=== PATIENT | male | born 1945 | race Caucasian/White ===

== ENCOUNTER 2018-04-25 03:18 | Inpatient (IN) | payer MEDICARE, SELFPAY ==
[2018-04-25] VITALS (10 sets, daily range): BP systolic 107–146; BP diastolic 60–95; PULSE 76–130; RESP 18–22; TEMP 36.4–37.1; O2SAT 93–96; BMI 24.3
[2018-04-25] MEDS: SODIUM CHLORIDE 0.9% 1,000 ML 150 ML IV ×2 (03:25→19:22)
--- NOTE | 2018-04-25 03:25 | DI.CT.S_ITS ---
PROCEDURE: CT ANGIO CHEST PE PROTOCOL INDICATIONS: Chest pain, Shortness of breath, tachycardia, hypoxia TECHNIQUE: After the administration of intravenous contrast, 2 mm thick sections acquired from the pulmonary apices to the posterior costophrenic angles. 3-dimensional maximum intensity projection (MIP) coronal and sagittal reformats were then acquired through the thorax. For radiation dose reduction, the following was used: automated exposure control, adjustment of mA and/or kV according to patient size. COMPARISON: [facility], CT, CT ABD PELVIS W CON, 01/24/2017, 12:01. [facility], CR, CHEST 2 VIEW, 04/16/2017, 11:57. [facility], CT, PE STUDY (CTA CHEST), 05/08/2017, 10:38. FINDINGS: Image quality: Excellent. Pulmonary arteries: Pulmonary arteries are normal in size, and demonstrate no intraluminal filling defects to suggest central pulmonary embolism. Lungs and pleura: Lungs are clear. No pleural effusions or pneumothorax. Central and peripheral airways are patent. Mediastinum: Heart size is normal, without pericardial effusion. No mediastinal or hilar adenopathy. Thoracic aorta is normal in caliber and enhancement. Esophagus is diffusely thickening and fluid filled in the distal portion. Bones and chest wall: No suspicious bony lesions. Ribs and thoracic spine appear intact throughout. Thyroid gland is unremarkable. No axillary or supraclavicular adenopathy. Abdomen: Relative hyperdensity is noted the gallbladder, unchanged. This likely represents small stone or polyp. Otherwise, visualized upper abdominal solid organs appear normal in the early arterial phase of enhancement. IMPRESSION: 1. No pulmonary embolism. 2. Thickened, fluid filled esophagus. While this could be related to reflux or esophagitis, other etiologies such as underlying mass lesion cannot be excluded. Further evaluation with endoscopy is recommended. Dictated by: Guillermina Dbobins M.D. on 04/25/2018 at 8:04 Approved by: Guillermina Dobbins M.D. on 04/25/2018 at 8:11
[2018-04-25 03:50] LABS: Add Manual Diff / Slide Review NO; Basophils Percent Auto 0.9 % (0-2); Eosinophils Percent Auto 0.7 % (2-4); Hematocrit 46.2 % (41-53); Hemoglobin 14.3 g/dL (13.5-17.5); Lymphocytes Percent Auto 9.7 % (25-40); Mean Corpuscular HGB Conc 30.9 % (30-36); Mean Corpuscular Hemoglobin 23.5 PG (26-34); Mean Corpuscular Volume 76.2 fL (80-100); Monocytes Percent Auto 4.2 % (3-14); Neutrophils Absolute Auto 12300 /uL (3000-5900); Neutrophils Percent Auto 84.5 % (50-75); Platelet Count 353 X10^3/uL (150-400); Red Blood Cell Count 6.06 X10^6/uL (4.5-5.9); Red Cell Distribution Width 19.7 % (11.6-14.8); White Blood Cell Count 14.5 X10^3/uL (4.5-11.0)
[2018-04-25] MEDS: ENOXAPARIN 80 MG/0.8 ML SYRINGE 75 MG SUBCUT (03:50)
--- NOTE | 2018-04-25 03:52 | ED_ITS ---
HPI - Chest Pain General Chief Complaint: Chest Pain Stated Complaint: Chest Pain Time Seen by Provider: 04/25/18 03:18 Source: patient and EMS Mode of arrival: EMS Limitations: no limitations History of Present Illness HPI narrative: 73-year-old former smoker with history of PE, dementia, alcoholic encephalopathy and hypertension presents by EMS for evaluation of sudden-onset left-sided chest pain and pressure which woke him from sleep at about 1:00 a.m. patient states that he felt fine when he went to bed and this woke him up. He denies any history of the same. He denies any provocation, palliation or radiation of his symptoms. He does admit to feeling a bit weak and short of breath. He waited about an hour and a half and called EMS. On their arrival they found him to be dizzy, weak and confused with a blood sugar in the 30s. He was given an amp of D50, IV was placed in the 12 lead EKG was performed which noted sinus tachycardia. Patient was loaded in the ambulance and transported here for further evaluation. Patient denies any recent history of travel or injury but did have of pulmonary embolism noted on abdominal CT about a year ago. He had been on Coumadin complaint: chest pain Onset (ago): hour(s) Duration: constant Onset: during rest Pain location: left chest Severity: moderate Severity scale (1-10): 3 Quality: tightness Pain radiation: none Relieving factors: nothing Exacerbating factors: nothing Context: history of DVT/PE Associated symptoms: dyspnea Treatments prior to arrival chest pain: aspirin Related Data Home Medications Medication Instructions Recorded Confirmed Lactobacillus acidophilus 1 tab PO QDAY #0 10/01/16 sodium phosphates [Fleet Enema] 1 ea [place] #0 10/01/16 Lactobacillus acidophilus 1 cap PO QDAY #0 03/08/17 acetaminophen 2 tab PO Q4HP PRN #0 03/08/17 levetiracetam [Keppra] 1 tab PO BID #0 03/08/17 levetiracetam [Keppra] 1 tab PO BID #0 03/08/17 loperamide 1 - 2 cap PO SEE INSTRUCTIONS #0 03/08/17 magnesium oxide 1 tab PO BID #0 03/08/17 magnesium oxide 1 tab PO BID #0 03/08/17 ondansetron 1 tab PO Q4HP PRN #0 03/08/17 warfarin [Coumadin] 1 tab PO QDAY #0 03/08/17 Previous Rx's Medication Instructions Recorded mirtazapine 0.5 tab PO HS #60 tab 04/12/17 citalopram 40 mg PO QDAY #30 tab 05/19/17 tamsulosin 0.4 mg capsule 0.4 mg PO QDAY #90 cap 01/08/18 omeprazole 20 mg capsule,delayed 20 mg PO DAILY #90 cap 01/09/18 release mirtazapine 15 mg tablet 15 mg PO HS #30 tab 01/10/18 Allergies Allergy/AdvReac Type Severity Reaction Status Date / Time morphine [MORPHINE] Allergy Unknown Verified 04/25/18 03:22 Review of Systems Review of Systems All systems reviewed & are unremarkable except as noted in HPI and below Constitutional Denies chills, Denies fever(s), Denies lethargy and Reports weakness Eyes Denies change in vision, Denies eye discharge, Denies irritation and Denies loss of vision ENT Ears, Nose, Mouth, and Throat: Denies change in voice, Denies neck pain and Denies sore throat Cardiovascular Reports chest pain, Denies irregular heart rhythm, Reports lightheadedness, Denies palpitations, Reports dyspnea, Reports dyspnea on exertion and Denies orthopnea Respiratory Denies cough, Reports dyspnea, Reports dyspnea on exertion and Denies wheezing Gastrointestinal Gastrointestinal: Denies abdominal pain, Denies change in bowel habits, Denies diarrhea, Denies nausea and Denies vomiting Genitourinary Denies hematuria, Denies flank pain, Denies urinary incontinence and Denies urinary urgency Musculoskeletal Denies neck pain Integumentary/Breasts Denies pruritus, Denies erythema, Denies rash and Denies wounds Neurologic Denies confusion, Denies loss of vision and Reports weakness Psychiatric Denies anxiety, Denies confusion, Denies depression, Denies homicidal ideation and Denies suicidal ideation Endocrine Denies palpitations Hematologic/Lymphatic Denies easy bruising Allergic/Immunologic Denies wheezing PFSH Family History Father Cancer Social History marital status: household members: spouse housing: house Smoking Status: Former smoker alcohol intake: former Exam Narrative Exam Narrative: 73-year-old male in mild distress, he does get a bit winded with conversation and is a very poor historian. Initial Vital Signs Initial Vital Signs: Vital Signs Pulse Rate 130 H 04/25/18 03:22 Respiratory Rate 20 04/25/18 03:22 Blood Pressure 107/60 04/25/18 03:22 Pulse Oximetry 93 04/25/18 03:22 Const General: cooperative, well developed, in distress and disheveled Nutritional Appearance: well nourished Orientation: alert, awake, oriented x3 and confused HENIN Head: normocephalic and atraumatic Ears: external ears normal and TM's normal bilaterally Nose: external nose normal and No nasal discharge Face and sinus: sinuses nontender, face symmetric, no sinus tenderness and No dry mucous membranes Mouth: oral mucosae normal and moist mucous membranes Teeth and gingiva: dentition normal Throat: tonsils normal and uvula midline Eyes General: appearance normal, both eyes and all related structures Eyelids: eyelids normal Conjunctivae: conjunctivae normal Sclera: sclerae normal Pupils: PERRL EOM: EOM intact bilaterally Chest Chest: normal inspection of the chest Resp Effort & Inspection: normal respiratory effort, able to speak in complete sentences, no respiratory distress and no use of accessory muscles Auscultation: clear to auscultation bilaterally, no rales, no rhonchi and no wheezes Cardio Rate: tachycardic Rhythm: regular rhythm Heart Sounds: no click, no gallops, no murmurs and no rubs Pulses: normal peripheral pulses GI Inspection: non-distended Palpation: soft, no hepatosplenomegaly, No guarding, No pulsatile mass and No tender Auscultation: normal bowel sounds Back/Spine/Pelvis Back: No CVA tenderness Cervical Spine: cervical ROM normal and No pain with cervical ROM Thoracic/Lumbar Spine: thoracic and lumbar spine normal to inspection Skin General: no rashes or lesions noted, No jaundice and No petechiae Neuro General: alert, awake and oriented x3 Cognition: normal cognition Speech: abnormal speech (a bit slow and purposeful) Motor: muscle tone normal throughout Sensory Exam: no sensory deficits noted Extrem General: full ROM, no clubbing, cyanosis or edema, no pedal edema and no calf tenderness Psych Appearance: disheveled Mental Status: mental status grossly normal Attitude: cooperative Thought Content: normal and suicidality Judgment: judgment good Scores HEART Score Heart Score history: Moderately Suspicious Heart Score EKG: Normal Heart Score Age: > or = 65 years old Heart Score risk factors: 1-2 risk factors Heart Score troponin: < or = to normal limit Heart Score Total: 4 Course Orders Ordered: ED Orders 04/25/18 EKG-12 Lead Stat EKG-12 Lead Stat 04/25/18 03:25 CT angio chest PE protocol Stat 04/25/18 03:33 B Type Natriuretic Peptide Stat Complete Blood Count AUTO DIFF Stat Comprehensive Metabolic Panel Stat Ethanol (ETOH) Stat Lipase Stat Partial Thromboplastin Time Stat Prothrombin Time INR Stat Troponin & CK Cardiac Panel Stat Sodium Chloride (Normal Saline 0.9%) 1,000 mls @ 150 mls/hr IV CONT PAULO Last Admin: 04/25/18 03:25 Dose: 150 mls/hr Discontinued Medications Aspirin (Aspirin Chew) 324 mg PO NOW ONE Stop: 04/25/18 03:25 Last Admin: 04/25/18 03:32 Dose: Not Given Enoxaparin Sodium (Lovenox) 75 mg 1 mg/kg (75 mg) SUBCUT NOW ONE Stop: 04/25/18 03:47 Last Admin: 04/25/18 03:50 Dose: 75 mg Reevaluation(s) Reevaluation #1: patient chest pain 0/10 currently. Risk for PE and suspicion such that lovenox ordered prior to CTA Time: 04:00 Consultations Consultation #1: [facility] Location Manager happy to accept Vital Signs - 8 hr 04/25/18 03:22 04/25/18 04:06 04/25/18 04:43 Pulse Rate 130 H 130 H 112 H Respiratory Rate 20 20 18 Blood Pressure 107/60 107/60 Blood Pressure [Right Arm] 133/92 H Pulse Oximetry 93 93 95 MDM - Chest Pain Differential Diagnosis Likely pneumothorax, stable angina, unstable angina pectoris, atypical chest pain, st elevation myocardial infarction, costochondritis and chest pain Medical Records Data Attestation: I reviewed the patient's medical records. Lab Data Attestation: I reviewed the patient's lab results. Result diagrams: 04/25/18 03:33 04/25/18 03:33 Lab Results 04/25/18 04/25/18 04/25/18 Range/Units 03:33 03:33 03:33 WBC 14.5 H (4.5-11.0) X10^3/uL RBC 6.06 H (4.5-5.9) X10^6/uL Hgb 14.3 (13.5-17.5) g/dL Hct 46.2 (41-53) % MCV 76.2 L (80-100) fL MCH 23.5 L (26-34) PG MCHC 30.9 (30-36) % RDW 19.7 H (11.6-14.8) % Plt Count 353 (150-400) X10^3/uL Neut % (Auto) 84.5 H (50-75) % Lymph % (Auto) 9.7 L (25-40) % [place] % (Auto) 4.2 (3-14) % Eos % (Auto) 0.7 L (2-4) % Baso % (Auto) 0.9 (0-2) % Neut # (Auto) 82901 H (6333-9356) /uL PT 11.7 (10.1-12.7) SECONDS INR 1.1 (0.9-1.3) APTT 23 L (26.4-36.2) SECONDS Sodium 147 H (137-145) mmol/L Potassium 3.9 (3.4-5.1) mmol/L Chloride 106 (98-107) mmol/L Carbon Dioxide 15 L (22-32) mmol/L BUN 25 H (9-20) mg/dL Creatinine 1.50 H (0.66-1.25) mg/dL Estimated GFR 45.7 L (>60) mL/min BUN/Creatinine Ratio 16.7 (6-22) Glucose 97 (80-110) mg/dL Calcium 9.9 (8.4-10.2) mg/dL Total Bilirubin 0.5 (0.2-1.3) mg/dL AST 33 (17-59) IU/L ALT 34 (21-72) IU/L Alkaline Phosphatase 114 (38-126) U/L Total Creatine Kinase 24 L (55-170) U/L CK-MB (CK-2) TNP CK-MB (CK-2) Rel Index TNP Troponin I < 0.012 (0.01-0.034) ng/mL B-Natriuretic Peptide < 100.0 (<100) Total Protein 8.2 (6.3-8.2) g/dL Albumin 5.0 (3.5-5.0) g/dL Globulin 3.2 (1.7-4.1) g/dL Albumin/Globulin Ratio 1.6 (1.0-2.8) Lipase 107 (23-300) U/L Ethyl Alcohol 61 mg/dL Point of Care Testing Glucose POC [address] scan - chest: Radiologist's impression: No PE, PTX, or pneumonia. Lower portion of esophagus is edematous and could suggest reflux or infection. ECG Data Attestation: I personally reviewed and interpreted this ECG as follows: Prior ECG tracings: not available for review Interpretation: Normal EKG, no ischemic changes ST elevation or depression or T- wave inversions MDM Narrative Medical decision making narrative: 73M with extensive medical history presents with chest pain that woke him from sleep. It is L sided and does not radiate. He denies provocation or palliation. EKG x2 normal, troponin normal. HEART score 4. CTA negative for PE but does not thickened esophageal wall. Discharge Plan Departure Patient Disposition: Admitted as Observation Clinical Impression: Chest pain
[2018-04-25 03:56] LABS: INR 1.1 (0.9-1.3); Prothrombin Time 11.7 SECONDS (10.1-12.7)
[2018-04-25 03:58] LABS: PTT Partial Thromboplastin Tim 23 SECONDS (26.4-36.2)
[2018-04-25 04:00] LABS: Alanine Aminotransferase 34 IU/L (21-72); Albumin Globulin Ratio 1.6 (1.0-2.8); Alkaline Phosphatase 114 U/L (38-126); Aspartate Aminotransferase 33 IU/L (17-59); BUN Creatinine Ratio 16.7 (6-22); Bilirubin Total 0.5 mg/dL (0.2-1.3); Blood Urea Nitrogen 25 mg/dL (9-20); Calcium 9.9 mg/dL (8.4-10.2); Carbon Dioxide 15 mmol/L (22-32); Chloride 106 mmol/L (98-107); Creatine Kinase 24 U/L (55-170); Estimated Glomerular Filt Rate 45.7 mL/min (>60); Globulin 3.2 g/dL (1.7-4.1); Glucose 97 mg/dL (80-110); HEMOLYSIS < 15 (0-50); Lipase 107 U/L (23-300); Potassium 3.9 mmol/L (3.4-5.1); Sodium 147 mmol/L (137-145); Total Protein 8.2 g/dL (6.3-8.2)
[2018-04-25 04:11] LABS: B Type Natriuretic Peptide < 100.0 (<100); Troponin I < 0.012 ng/mL (0.01-0.034)
[2018-04-25 04:36] LABS: Ethanol (ETOH) 61 mg/dL
--- NOTE | 2018-04-25 06:19 | PM.HP.1 ---
History of Present Illness Date Patient Seen: 04/25/18 Time Patient Seen: 06:19 Chief complaint: Chest Pain Narrative: The patient is a 73-year-old male with PMH of HTN, PE (not AC), PSVT, alcoholic encephalopathy / dementia, Fe deficiency anemia, GERD, h/o diverticulitis (recurrent), and h/o MRSA. Patiented to the ED for evaluation of chest pain. Reports being woken up from sleep at approximately 1:00 a.m. on 04/25/2018 with chest pain, shortness of breath, and disorientation. Localizes pain to the left anterior aspect of the chest, characterized as dull, rates as 3/10. Denies tightness or pressure-like sensation. Pain is non-radiating to the extremities, back, neck, or jaw. Pain lasted about 2-3 hours before he summoned EMS. Upon EMS arrival he was found to be hypoglycemic with blood glucose in the 30s. No known history of diabetes. Additional symptoms included weakness and ataxia. Patient reports experiencing similar episodes of chest discomfort intermittently, these typically self resolve within an hour. Reports baseline exertional dyspnea, which has been worse. No claudication. He does not use oxygen. Recent history of a PE, in the past 1 year, for which he was anticoagulated with Coumadin; however, was taken off 6-8 mon ago by report as his PE thought to have resolved. Patient History Medical History Chest pain (Acute) Essential hypertension (Chronic) History of pulmonary embolism (Chronic) Family & Social History Family History: Reviewed 04/25/18 by JAYCEE Bailey Social History: household members spouse Tobacco & Substance use: Smoking Status Former smoker, quit 50 years ago alcohol intake H/o heavy alcohol use, currently drinks on occasion 2-3 beers Meds Home Medications Medication Instructions Recorded Confirmed Type Lactobacillus acidophilus 1 tab PO QDAY #0 10/01/16 History sodium phosphates [Fleet Enema] 1 ea [place] #0 10/01/16 History Lactobacillus acidophilus 1 cap PO QDAY #0 03/08/17 History acetaminophen 2 tab PO Q4HP PRN #0 03/08/17 History levetiracetam [Keppra] 1 tab PO BID #0 03/08/17 History levetiracetam [Keppra] 1 tab PO BID #0 03/08/17 History loperamide 1 - 2 cap PO SEE INSTRUCTIONS #0 03/08/17 History magnesium oxide 1 tab PO BID #0 03/08/17 History magnesium oxide 1 tab PO BID #0 03/08/17 History ondansetron 1 tab PO Q4HP PRN #0 03/08/17 History warfarin [Coumadin] 1 tab PO QDAY #0 03/08/17 History mirtazapine 0.5 tab PO HS #60 tab 04/12/17 Rx citalopram 40 mg PO QDAY #30 tab 05/19/17 Rx tamsulosin 0.4 mg capsule 0.4 mg PO QDAY #90 cap 01/08/18 Rx omeprazole 20 mg capsule,delayed 20 mg PO DAILY #90 cap 01/09/18 Rx release mirtazapine 15 mg tablet 15 mg PO HS #30 tab 01/10/18 Rx Allergies Allergy/AdvReac Type Severity Reaction Status Date / Time morphine [MORPHINE] Allergy Unknown Verified 04/25/18 03:22 Review of Systems Review of Systems All systems reviewed & are unremarkable except as noted in HPI and below Exam Vital Signs (past 8 hours): - 04/25/18 03:22 04/25/18 04:06 04/25/18 04:43 Pulse Rate 130 H 130 H 112 H Respiratory Rate 20 20 18 Blood Pressure 107/60 107/60 Blood Pressure [Right Arm] 133/92 H Pulse Oximetry 93 93 95 Oxygen Delivery Method Nasal Cannula Oxygen Flow Rate 2 Narrative Exam Narrative: Constitutional: NAD, no diaphoresis Neurologic: AOx2-3, poor recall of history and symptoms, no unilateral weakness, bilateral forearm / hand tremor, gait not tested Head: NC, AT Eyes: PERRL, EOMI, Ears: external ears normal, no otorrhea Nose: external nose normal, no rhinorrhea or epistaxis Throat: dry MM, oropharynx w/o exudate, poor dental hygiene Neck: no masses, lymphadenopathy, or JVD Chest / Respiratory: diminished, no dyspnea or tachypnea at rest, Heart / CV: S1S2, tachypneic, no murmur Abdomen / GI: round, tender in the LUQ of abdomen / rebound, mildly distended, + BS, no organomegaly : no suprapubic tenderness, no CVA Peripheral / Vascular: warm to touch, DP and PT pulses palpable, no edema Musc: full ROM of upper and lower extremities, adequate muscle tone and bulk Skin: no ecchymosis or suspicious lesions / ulcers Objective Labs Result Diagrams: 04/25/18 03:33 04/25/18 07:38 Labs: Laboratory Results - last 24 hr 04/25/18 04/25/18 04/25/18 03:33 03:33 03:33 WBC 14.5 H RBC 6.06 H Hgb 14.3 Hct 46.2 MCV 76.2 L MCH 23.5 L MCHC 30.9 RDW 19.7 H Plt Count 353 Neut % (Auto) 84.5 H Lymph % (Auto) 9.7 L [place] % (Auto) 4.2 Eos % (Auto) 0.7 L Baso % (Auto) 0.9 Neut # (Auto) 89045 H PT 11.7 INR 1.1 APTT 23 L Sodium 147 H Potassium 3.9 Chloride 106 Carbon Dioxide 15 L BUN 25 H Creatinine 1.50 H Estimated GFR 45.7 L BUN/Creatinine Ratio 16.7 Glucose 97 Calcium 9.9 Total Bilirubin 0.5 AST 33 ALT 34 Alkaline Phosphatase 114 Total Creatine Kinase 24 L CK-MB (CK-2) TNP CK-MB (CK-2) Rel Index TNP Troponin I < 0.012 B-Natriuretic Peptide < 100.0 Total Protein 8.2 Albumin 5.0 Globulin 3.2 Albumin/Globulin Ratio 1.6 Lipase 107 Ethyl Alcohol 61 Assessment & Plan Plan: Assessment/Plan Narrative: Chest Pain, atypical Ddx: stable angina vs cardiac arrhytmia vs reactive hypoglycemia vs GI etiology (chronic pancreatitis, h/o recurrent diverticulitis) vs esophageal spasm Trop WNL. BNP < 100. EKG non-ischemic. CTA negative for PE Lipase WNL. - Tele - Trend trop - Echo - Risk stratify: FLP, A1C - Received ASA 325 in ED. - Review CT , final read pending Esophageal thickening Mild leukocytosis WBC 14.5, infection vs inflammation / reactive Pending CT review, per ED lower portion of esophagus is edematous and could suggest reflux or infection. - start on Flagyl and Levaquin Hypoglycemia No h/o DM. UA + ketouria (1+) and glycosuria (1+). Potentially precipitated by recent EtOH use. JW on CKD II (baseline sCr 0.9-1.1) sCr on presentation 1.5 - in the setting of hypoxia, hypovolemia, likely pre-renal, repeat BMP at 1600 Metabolic acidosis w/ AG 23.5 - Stat ABG H/O PE, 12/2016 off coumadin 6-8 months, PE resolved. INR 1.1 EtOH intoxication, EtOH level 66, at risk for withdrawal prior history of EtOH withdrawal seizure, currently not on anti-seizure medicine. No h/o esophageal varices - CIWA - MTW / Folate / Thiamin - continue Keppra per home dose / regimen H/O Dementia / Alcoholic encephalopathy, 2/2 EtOH abuse CODE status: Full Code. No formal health directive. Designated surrogate decision maker is patient's spouse. Home medication reviewed and reconciled.
--- NOTE | 2018-04-25 07:50 | DI.ECHO.S_ITS ---
[facility]---------+ [facility] +---------+ : : [address] [place] [address] : : : : [id number] : : : : Phone: [phone]+ Echocardiogram Report + + :Name: NEISHA FOOTE V Study Date: 04/25/2018 Height: 70 in : :[facility] Weight: 170 lb: : Gender: Male BSA: 1.9 m2 : :: 1945 Age: 73 yrs : :Reason For Study: chest discomfort, dyspnea : :Ordering Physician: Shruthi : :Hospitalist Performed By: Tyrell Moctezuma : :Referring: UNSPECIFIED : + + Interpretation Summary The study quality was technically difficult. Comparison is made with the echocardiogram of 09/26/16. The left ventricular cavity is small. There is normal left ventricular wall thickness. The ejection fraction is estimated to be 65-70%. There are no obvious focal wall motion abnormalities noted but poor endocardial definition reduces the sensitivity for the detection of such. -Overall this study shows a hyperdynamic LV with small cavity which may indicate low intravascular volume. -Patient was intermittently tachycardiac during this study. -Compare with previous study, the LV appears hyperdynamic now. Procedure: A two-dimensional transthoracic echocardiogram with color flow and Doppler was performed. The study quality was technically difficult. Comparison is made with the echocardiogram of 09/26/16. The patient was in normal sinus rhythm with frequent episodes of sinus tachycardia in the 120s. Left Ventricle: The left ventricular cavity is small. There is normal left ventricular wall thickness. The ejection fraction is estimated to be 65-70%. There are no obvious focal wall motion abnormalities noted but poor endocardial definition reduces the sensitivity for the detection of such. Diastolic parameters suggest a relaxation abnormality of the left ventricle, consistent with probable normal filling pressures. Right Ventricle: The right ventricular cavity is small. The right ventricular systolic function is normal. Atria: The left atrium is small. Right atrium is small. There is no Doppler evidence for an atrial septal defect. Mitral Valve: The mitral valve is grossly normal. There is no mitral regurgitation noted. Aortic Valve: The aortic valve is grossly normal. There is no aortic valve stenosis. No aortic regurgitation is present. Tricuspid Valve: The tricuspid valve is not well visualized. No tricuspid regurgitation. Pulmonary artery pressures cannot be estimated because of the lack of a measurable TR jet velocity. Pulmonic Valve: The pulmonic valve is not well visualized. Great Vessels: The aortic root is normal size. The aortic arch is mildly enlarged. The pulmonary is not well visualized. The inferior vena cava was not visualized. Pericardium/ Pleura There is no pericardial effusion. There is no pleural effusion. MMode/2D Measurements & Calculations LVIDd: 4.2 cm LVOT diam: 2.5 cm LV sawyer. diameter/BSA (cm/m^2): 2.1 Ao root diam: 3.6 cm Ao Arch Diam (Prox Trans): 3.7 cm Doppler Measurements & Calculations Ao V2 max: 139.1 cm/sec LVOT Max David: 100.7 cm/sec Ao V2 mean: 93.2 cm/sec LV V1 max P.1 mmHg Ao max P.7 mmHg LV V1 VTI: 19.2 cm Ao mean P.9 mmHg ALVA(I,D): 4.0 cm2 Ao V2 VTI: 23.0 cm ALVA(V,D): 3.5 cm2 sev ratio: 0.84 ALVA indexed to BSA (cm^2/m^2): 2.1 MV E max david: 40.5 cm/sec MV A max david: 67.3 cm/sec MV E/A: 0.60 Med Peak E' David: 3.6 cm/sec E/E' med: 11.3 Lat Peak E' David: 7.3 cm/sec E/E' lat: 5.6 E/e' average: 8.4 MV dec time: 0.27 sec Electronically signed by: Tony Vang M.D. on Reading Physician:04/25/2018 04:21 PM
[2018-04-25 07:54] LABS: HCO3 ABG 13 mmol/L (23-27); Oxygen Saturation ABG 93 % (95-100); PO2 ABG 72 mmHg (80-105); TCO2 ABG 14 mmol/L (23-27); pH ABG 7.33 (7.35-7.45)
[2018-04-25 07:55] LABS: Fractionated Inspired Oxygen 0.21
[2018-04-25 08:13] LABS: BUN Creatinine Ratio 19.3 (6-22); Blood Urea Nitrogen 27 mg/dL (9-20); Calcium 9.8 mg/dL (8.4-10.2); Carbon Dioxide 14 mmol/L (22-32); Chloride 106 mmol/L (98-107); Cholesterol 190 mg/dL (140-199); Estimated Glomerular Filt Rate 49.5 mL/min (>60); Glucose 57 mg/dL (80-110); HDL Cholesterol 62 mg/dL (40-60); HEMOLYSIS < 15 (0-50); LDL Cholesterol Calculated 110 mg/dL (<100); Potassium 4.4 mmol/L (3.4-5.1); Sodium 147 mmol/L (137-145); Triglycerides 88 mg/dL (35-150); VLDL Cholesterol Calculated 18 mg/dL (2-30)
[2018-04-25 08:14] LABS: Hemoglobin A1C% w Est Avg Glu 5.8 % (4.0-6.0)
[2018-04-25 08:30] LABS: Troponin I < 0.012 ng/mL (0.01-0.034)
[2018-04-25] MEDS: metroNIDAZOLE 500 MG/100 ML PIGGYBACK 100 MG IV (08:44)
[2018-04-25 08:50] LABS: Thyroid Stimulating Hormone 0.71 uIU/mL (0.47-4.68)
[2018-04-25] MEDS: PANTOPRAZOLE 80 MG in SODIUM CHLORIDE 0.9% 100 ML 10 ML IV ×2 (10:18→21:49)
[2018-04-25] MEDS: SODIUM CHLORIDE 0.9% 1,000 ML 1000 ML IV (11:46)
--- NOTE | 2018-04-25 14:07 | PC.NURSE ---
Day Shift-Pt oriented but forgetful, cooperative with care. Frequent reminders to pt that he can only have ice chips sparingly. He states as long as I can have ice chips. Pt had an episode of dark/tarry stool loose and at the same time had an episode of coffee ground emesis not seen by this designer/writer but reported by another RN on unit. Nausea settled after emesis. Spoke with Dr. Deshpande 3 times throughout shift. New orders rec'd for NS 1L bolus that finished at 1230 and for a PICC line to be placed. ECHO completed-tech reported volume depletion, Dr. Garcia aware. Spoke iwht Dr. Garcia at 0900 & 1210. Plan for NPO today, ice chips okay, Repeat H&H at 1400, monitor I/O's. CIWA score 5, pt had upper extremity tremors and nausea. Spoke with Dr. Deshpande again around 1400, ok to hold on giving multivitamin, MG, thiamine, folic acid infusion until PICC line placed. Dr. Deshpande also aware of pt being on telemetry and HR will be in mid 70's then up to 110-120's with no particular activity by pt. Pt reported having an episode of chest pain to left lower chest over the site where the ECHO was performed. In which pt stated the pain occured after the ECHO. Pain decreased to 3/10 from 5/10 that was aching and non-radiating.
--- NOTE | 2018-04-25 14:11 | CM.DANOTE ---
Addendum entered by Debi Rae LPN 04/25/18 14:53: Of note: review of historical visits shows pt here a few times in 2017. At one point went to [facility] under his Medicare snf benefit and then later to [facility]. Sounds like pt eventually returned home....will be speaking in more detail with Brittany as planned to get a full sense of their situation now. Original Note: Addendum entered by Debi Rae LPN 04/25/18 14:26: Pt is found lying in bed, appears a bit tremulous, eating ice out of a cup. He offers little information. Pt is a 73 year old male who admitted early this morning (05:34 to care of the hospitalist team.) PCP: unconfirmed at this time. Payer: Medicare and [facility]. General surgery is consulting. Dr. Garcia was planning EGD today but this in now on hold. Dr. Deshpande has also been following and discussed case and plan with Dr. Garcia. Their notes are not yet available. Pt is noted to have history of heavy alcohol use and with current use less but still with need for CIWA protocol: currently scored at 5. Discussed case with ALISE Ren. She reports that Dr. Garcia is familiar with pt and his Brittany from a stay here one year ago. He has updated Brittany. DCP team will be following as POC unfolds to assist with d/c issues and options as these are identified. Will involve Brittany, designated by pt as his primary contact. Original Note: Discharge Planning/Care Management DCP: assessment: case received, EMR reviewed and met with pt. Introduced self and role. CM Discharge Assessment Start: 04/25/18 14:10 Freq: Status: Active Protocol: Document 04/25/18 14:10 ITV (Rec: 04/25/18 14:11 ITV [id number]) Discharge Planning Assessment Advance Directives? No History Provided By Patient Medical Record Prior Living Arrangements House Household Members spouse Whiteboard Updated in Patient Room with Yes name and ext. 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
--- NOTE | 2018-04-25 14:47 | PM.CN ---
History of Present Illness Date Patient Seen: 04/25/18 Time Patient Seen: 14:47 Chief complaint: Chest Pain Reason for consult: Hematemesis Requesting provider: Mirlande Deshpande Narrative: 73-year-old male with significant history of alcohol abuse currently drinking who presented to the emergency department after calling EMS from his home early this morning with complaints of unrelenting chest pain and pressure. Denies any significant shortness of breath. However, on further history today he tells me that over the last several months he has had progressive fatigue, especially in the afternoon. 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 He will spend most of the afternoon napping and sitting. Patient denies any recent nausea or vomiting. No change in his bowel habits or melena. He is quite emphatic that he monitors himself for bright red blood per rectum or melena since he has had similar issues in the distant past. His history however is somewhat erratic and difficult as he is a very poor historian given baseline dementia, very possibly due to alcohol use. Nevertheless he denies any chest pain or pressure currently. Denies any productive cough. No subjective fever or chills. No abdominal pain. Following admission per the internal medicine service for cardiac evaluation he had a single episode of hematemesis consisting of coffee-ground material measuring approximately 200 cc in volume. He has had none since. REPLACED BY [facility] Medical History Alcohol abuse (Acute) Cerebral atrophy (Acute) Chest pain (Acute) Dehydration (Acute) Gastritis (Acute) History of anemia (Acute) History of liver injury (Acute) Metabolic acidosis (Acute) Personal history of peptic ulcer disease (Acute) Wernicke-Korsakoff syndrome (alcoholic) (Acute) Essential hypertension (Chronic) History of pulmonary embolism (Chronic) Intrahepatic biloma (Resolved) Surgical History History of colonoscopy (Acute) History of esophagogastroduodenoscopy (EGD) (Acute) Family History Father Cancer Social History marital status: household members: spouse housing: house Smoking Status: Former smoker alcohol intake: current Comment: Patient's is Brittany. I have spoken to her in the past when he was admitted for presumed contained perforated duodenal ulcer. I spoke to her again today in detail regarding all the above current issues. She acts as his medical power of junior systems administrator although she is not exactly clear whether she has full legal documentation of such. Nevertheless she is his spouse. Meds Home Medications Medication Instructions Recorded Confirmed Type Lactobacillus acidophilus 1 tab PO QDAY #0 10/01/16 History sodium phosphates [Fleet Enema] 1 ea WA #0 10/01/16 History Lactobacillus acidophilus 1 cap PO QDAY #0 03/08/17 History acetaminophen 2 tab PO Q4HP PRN #0 03/08/17 History loperamide 1 - 2 cap PO SEE INSTRUCTIONS #0 03/08/17 History magnesium oxide 1 tab PO BID #0 03/08/17 History magnesium oxide 1 tab PO BID #0 03/08/17 History ondansetron 1 tab PO Q4HP PRN #0 03/08/17 History warfarin [Coumadin] 1 tab PO QDAY #0 03/08/17 History mirtazapine 0.5 tab PO HS #60 tab 04/12/17 Rx citalopram 40 mg PO QDAY #30 tab 05/19/17 Rx tamsulosin 0.4 mg capsule 0.4 mg PO QDAY #90 cap 01/08/18 Rx omeprazole 20 mg capsule,delayed 20 mg PO DAILY #90 cap 01/09/18 Rx release mirtazapine 15 mg tablet 15 mg PO HS #30 tab 01/10/18 Rx Allergies Allergy/AdvReac Type Severity Reaction Status Date / Time morphine [MORPHINE] Allergy Unknown Verified 04/25/18 03:22 Review of Systems Review of Systems unobtainable due to mental condition Exam Vital Signs (past 8 hours): - 04/25/18 08:15 04/25/18 11:00 Temperature 97.7 F 98.6 F Pulse Rate 126 H 122 H Respiratory Rate 22 18 Blood Pressure 137/95 H 146/80 H Pulse Oximetry 94 96 Oxygen Delivery Method Room Air Oxygen Flow Rate 0 Narrative Exam Narrative: Elderly male lying in the bed in no acute distress. His affect is somewhat flat and he is not oriented to place. He does not fully comprehend the nature of his medical condition or treatment at the moment. No fevers but he is tachycardic since admission consistent with volume depletion Neck is supple Chest is clear to auscultation Abdomen is soft and nondistended. Nontender. No masses. Extremities show no clubbing or cyanosis Objective Labs Result Diagrams: 04/25/18 03:33 04/25/18 07:38 Labs: Laboratory Results - last 24 hr 04/25/18 04/25/18 04/25/18 03:33 03:33 03:33 WBC 14.5 H RBC 6.06 H Hgb 14.3 Hct 46.2 MCV 76.2 L MCH 23.5 L MCHC 30.9 RDW 19.7 H Plt Count 353 Neut % (Auto) 84.5 H Lymph % (Auto) 9.7 L [place] % (Auto) 4.2 Eos % (Auto) 0.7 L Baso % (Auto) 0.9 Neut # (Auto) 17325 H PT 11.7 INR 1.1 APTT 23 L ABG pH ABG pCO2 ABG pO2 ABG HCO3 ABG Total CO2 ABG O2 Saturation ABG Base Excess FiO2 Sodium 147 H Potassium 3.9 Chloride 106 Carbon Dioxide 15 L BUN 25 H Creatinine 1.50 H Estimated GFR 45.7 L BUN/Creatinine Ratio 16.7 Glucose 97 Hemoglobin A1c Lactate Calcium 9.9 Total Bilirubin 0.5 AST 33 ALT 34 Alkaline Phosphatase 114 Total Creatine Kinase 24 L CK-MB (CK-2) TNP CK-MB (CK-2) Rel Index TNP Troponin I < 0.012 B-Natriuretic Peptide < 100.0 Total Protein 8.2 Albumin 5.0 Globulin 3.2 Albumin/Globulin Ratio 1.6 Triglycerides Cholesterol LDL Cholesterol, Calc VLDL Cholesterol HDL Cholesterol Lipase 107 TSH Ethyl Alcohol 61 Blood Type Antibody Screen Crossmatch 04/25/18 04/25/18 04/25/18 07:30 07:38 07:38 WBC RBC Hgb Hct MCV MCH MCHC RDW Plt Count Neut % (Auto) Lymph % (Auto) [place] % (Auto) Eos % (Auto) Baso % (Auto) Neut # (Auto) PT INR APTT ABG pH 7.33 L ABG pCO2 25.0 L ABG pO2 72 L ABG HCO3 13 L ABG Total CO2 14 L ABG O2 Saturation 93 L ABG Base Excess -13.0 L FiO2 0.21 Sodium Potassium Chloride Carbon Dioxide BUN Creatinine Estimated GFR BUN/Creatinine Ratio Glucose Hemoglobin A1c 5.8 Lactate 6.0 H Calcium Total Bilirubin AST ALT Alkaline Phosphatase Total Creatine Kinase CK-MB (CK-2) CK-MB (CK-2) Rel Index Troponin I B-Natriuretic Peptide Total Protein Albumin Globulin Albumin/Globulin Ratio Triglycerides Cholesterol LDL Cholesterol, Calc VLDL Cholesterol HDL Cholesterol Lipase TSH Ethyl Alcohol Blood Type Antibody Screen Crossmatch 04/25/18 04/25/18 04/25/18 07:38 07:38 07:38 WBC RBC Hgb Hct MCV MCH MCHC RDW Plt Count Neut % (Auto) Lymph % (Auto) [place] % (Auto) Eos % (Auto) Baso % (Auto) Neut # (Auto) PT INR APTT ABG pH ABG pCO2 ABG pO2 ABG HCO3 ABG Total CO2 ABG O2 Saturation ABG Base Excess FiO2 Sodium 147 H Potassium 4.4 Chloride 106 Carbon Dioxide 14 L BUN 27 H Creatinine 1.40 H Estimated GFR 49.5 L BUN/Creatinine Ratio 19.3 Glucose 57 L Hemoglobin A1c Lactate Calcium 9.8 Total Bilirubin AST ALT Alkaline Phosphatase Total Creatine Kinase CK-MB (CK-2) CK-MB (CK-2) Rel Index Troponin I < 0.012 B-Natriuretic Peptide Total Protein Albumin Globulin Albumin/Globulin Ratio Triglycerides 88 Cholesterol 190 LDL Cholesterol, Calc 110 H VLDL Cholesterol 18 HDL Cholesterol 62 H Lipase Cancelled TSH 0.71 Ethyl Alcohol Blood Type Antibody Screen Crossmatch 04/25/18 09:45 WBC RBC Hgb Hct MCV MCH MCHC RDW Plt Count Neut % (Auto) Lymph % (Auto) [place] % (Auto) Eos % (Auto) Baso % (Auto) Neut # (Auto) PT INR APTT ABG pH ABG pCO2 ABG pO2 ABG HCO3 ABG Total CO2 ABG O2 Saturation ABG Base Excess FiO2 Sodium Potassium Chloride Carbon Dioxide BUN Creatinine Estimated GFR BUN/Creatinine Ratio Glucose Hemoglobin A1c Lactate Calcium Total Bilirubin AST ALT Alkaline Phosphatase Total Creatine Kinase CK-MB (CK-2) CK-MB (CK-2) Rel Index Troponin I B-Natriuretic Peptide Total Protein Albumin Globulin Albumin/Globulin Ratio Triglycerides Cholesterol LDL Cholesterol, Calc VLDL Cholesterol HDL Cholesterol Lipase TSH Ethyl Alcohol Blood Type B Positive Antibody Screen Negative Crossmatch See Detail CT scan of the chest for pulmonary angiography shows no PE today. No significant pulmonary effusions or infiltrates. No further fluid collections in the right upper quadrant. Stomach is decompressed. Esophagus appears to be fluid filled and mildly dilated although this certainly could be consistent with varices not fully visualized in the arterial phase. Possible neoplasm but this is less likely. Assessment & Plan Plan: Assessment/Plan Narrative: 73-year-old male with alcohol abuse possibly resulting in dementia but no evidence of coagulopathy now with hematemesis. His hemoglobin is down approximately 2 g since admission following aggressive rehydration. He clearly is volume contracted. Agree with isotonic fluids. Monitor hemoglobin levels in a serial fashion. Type and cross for 2 units at all times. He has adequate IV access in the form of a 18 gauge peripheral IV and PICC line is ordered. Bowel rest for now. Hematemesis may be a result of alcoholic gastritis versus gastric ulcer versus peptic ulcer versus esophageal varices. Once he is stabilized and his metabolic acidosis has been reversed he may very well require EGD this admission. I have discussed all the above with the patient's in detail. I also discussed this with the patient, but I am uncertain how much he fully comprehends. Currently the patient is agreeable to the procedure as is his should it be necessary. He remains on CIWA protocol. He may require nutritional and multivitamin supplementation including thiamin. We will continue to follow him closely this admission and proceed as above. Orders written. Case discussed with the hospitalist as well.
[2018-04-25 14:49] LABS: Hematocrit 38.7 % (41-53); Hemoglobin 12.1 g/dL (13.5-17.5)
[2018-04-25 15:03] LABS: BUN Creatinine Ratio 22.5 (6-22); Blood Urea Nitrogen 27 mg/dL (9-20); Calcium 8.7 mg/dL (8.4-10.2); Carbon Dioxide 19 mmol/L (22-32); Chloride 108 mmol/L (98-107); Estimated Glomerular Filt Rate 59.2 mL/min (>60); Glucose 77 mg/dL (80-110); HEMOLYSIS < 15 (0-50); Potassium 4.4 mmol/L (3.4-5.1); Sodium 144 mmol/L (137-145)
[2018-04-25] MEDS: MAGNESIUM SULFATE 2 GM, FOLIC ACID 1 MG, THIAMINE 100 MG, MULTIVITAMIN 10 ML in SODIUM ... IV (17:49)
[2018-04-25 20:16] LABS: Hematocrit 37.1 % (41-53); Hemoglobin 11.5 g/dL (13.5-17.5)
[2018-04-25] MEDS: levETIRAcetam 250 MG TABLET PO (21:49)
[2018-04-25] MEDS: MAGNESIUM OXIDE 400 MG TABLET PO (21:52)
[2018-04-26] VITALS (23 sets, daily range): BP systolic 83–123; BP diastolic 55–77; PULSE 56–113; RESP 11–58; TEMP 35.8–37.4; O2SAT 18–99
--- NOTE | 2018-04-26 00:15 | PC.NURSE ---
Addendum entered by Mary Youngblood R.N. 04/26/18 00:21: 2230- PT pulled out RAC IV. NS fluids and protonix drip moved to [facility] PICC 2nd lumen. Original Note: shift- Pt alert and confused throughout shift, calm and cooperative with care, except every 10min pt requests more ice chips stating it's been a half hour, he said i can have more, he meaning Dr. Garcia. NPO status with minimal ice chips okay. Unsteady gait, 1PA FWW to stand bedside to use urinal, wearing brief as well. RAC NS @ 150 and IVPB protonix drip 10ml/hr, REBA Dbl lum PICC banana bag @ 125. BT+, flatus+, denies nausea. 96%RA, LS clear denies SOB. Denies pain. CIWA score 1600=4, 1999=6. Call light in reach and bed alarm on.
[2018-04-26] MEDS: SODIUM CHLORIDE 0.9% 1,000 ML 150 ML IV ×2 (02:34→08:51)
[2018-04-26 07:35] LABS: Add Manual Diff / Slide Review NO; Basophils Percent Auto 1.1 % (0-2); Eosinophils Percent Auto 1.6 % (2-4); Hematocrit 33.4 % (41-53); Hemoglobin 10.6 g/dL (13.5-17.5); Lymphocytes Percent Auto 15.7 % (25-40); Mean Corpuscular HGB Conc 31.9 % (30-36); Mean Corpuscular Hemoglobin 23.8 PG (26-34); Mean Corpuscular Volume 74.5 fL (80-100); Monocytes Percent Auto 11.3 % (3-14); Neutrophils Absolute Auto 4500 /uL (3000-5900); Neutrophils Percent Auto 70.3 % (50-75); Platelet Count 257 X10^3/uL (150-400); Red Blood Cell Count 4.48 X10^6/uL (4.5-5.9); Red Cell Distribution Width 19.3 % (11.6-14.8); White Blood Cell Count 6.4 X10^3/uL (4.5-11.0)
[2018-04-26 07:45] LABS: Blood Urea Nitrogen 18 mg/dL (9-20); Calcium 8.2 mg/dL (8.4-10.2); Carbon Dioxide 21 mmol/L (22-32); Chloride 111 mmol/L (98-107); Estimated Glomerular Filt Rate > 60.0 mL/min (>60); Glucose 85 mg/dL (80-110); HEMOLYSIS < 15 (0-50); Potassium 3.9 mmol/L (3.4-5.1); Sodium 142 mmol/L (137-145)
[2018-04-26] MEDS: PANTOPRAZOLE 80 MG in SODIUM CHLORIDE 0.9% 100 ML 10 ML IV (08:52)
--- NOTE | 2018-04-26 08:54 | PM.PN.1 ---
Subjective Date Patient Seen: 04/26/18 Time Patient Seen: 08:55 Interval history: Follow-up on atypical chest pain Patient seen at bedside. Currently denies any chest pain, shortness of breath, dizziness, blurred vision. Denies any fevers or chills. Upon admission to the unit yesterday, patient experienced an episode of coffee-ground emesis. He was switched to NPO, IV fluids initiated, and patient was started on Protonix drip. Surgery consulted for possible endoscopy. CTA chest at that time revealed no PE however did show esophageal thickening, concerning for esophagitis versus mass versus other etiology. Patient was initially started on antibiotic therapy, however discontinued. Patient is pending endoscopy today. Exam Vital Signs (past 8 hours): - 04/26/18 05:33 04/26/18 07:40 04/26/18 08:50 Temperature 98.1 F Pulse Rate 108 H Respiratory Rate 19 Blood Pressure 119/58 L Pulse Oximetry 98 94 93 Oxygen Delivery Method Room Air Oxygen Flow Rate 0 Narrative Exam Narrative: Constitutional: NAD, AAOx3 HEENT: PERRLA BL, poor dentition Neck: no masses, lymphadenopathy, or JVD Chest / Respiratory: CTA BL, no wheezing Heart / CV: S1S2 present, RRR, no murmur or gallop Abdomen / GI: no tenderness to palpation, nondistended abd, + BS, no organomegaly : no suprapubic tenderness, no CVA Peripheral / Vascular: palpable pulses, 2+ in all extremities Musc: full ROM of all extremities Skin: no lesions / ulcers Objective Labs Result Diagrams: 04/26/18 05:00 04/26/18 05:00 Labs: Laboratory Results - last 24 hr 04/25/18 04/25/18 04/25/18 07:38 09:45 14:38 WBC RBC Hgb Hct MCV MCH MCHC RDW Plt Count Neut % (Auto) Lymph % (Auto) [place] % (Auto) Eos % (Auto) Baso % (Auto) Neut # (Auto) Sodium 144 Potassium 4.4 Chloride 108 H Carbon Dioxide 19 L BUN 27 H Creatinine 1.20 Estimated GFR 59.2 L BUN/Creatinine Ratio 22.5 H Glucose 77 L Calcium 8.7 TSH 0.71 Blood Type B Positive Antibody Screen Negative Crossmatch See Detail 04/25/18 04/25/18 04/26/18 14:38 20:05 05:00 WBC 6.4 D RBC 4.48 L Hgb 12.1 L 11.5 L 10.6 L Hct 38.7 L 37.1 L 33.4 L MCV 74.5 L MCH 23.8 L MCHC 31.9 RDW 19.3 H Plt Count 257 Neut % (Auto) 70.3 Lymph % (Auto) 15.7 L [place] % (Auto) 11.3 Eos % (Auto) 1.6 L Baso % (Auto) 1.1 Neut # (Auto) 4500 Sodium Potassium Chloride Carbon Dioxide BUN Creatinine Estimated GFR BUN/Creatinine Ratio Glucose Calcium TSH Blood Type Antibody Screen Crossmatch 04/26/18 05:00 WBC RBC Hgb Hct MCV MCH MCHC RDW Plt Count Neut % (Auto) Lymph % (Auto) [place] % (Auto) Eos % (Auto) Baso % (Auto) Neut # (Auto) Sodium 142 Potassium 3.9 Chloride 111 H Carbon Dioxide 21 L BUN 18 Creatinine 1.00 Estimated GFR > 60.0 BUN/Creatinine Ratio 18.0 Glucose 85 Calcium 8.2 L TSH Blood Type Antibody Screen Crossmatch Assessment & Plan Plan: Assessment/Plan Narrative: 1. Epigastric pain -likely due to GI bleed. Less likely cardiac causes, as troponin x2 negative -no more hematemesis experience -hemoglobin decreased from 14.3->->10.6, but could be delusional. Currently this is patient's baseline hemoglobin -leukocytosis resolved, BUN normalized -continue Protonix drip at this time, as well as IV fluids and NPO -surgery on board, possible endoscopy this morning 2. Hypoglycemia -likely related to chronic alcohol abuse -resolved -will start patient on D5 half NS at 150 cc an hour to maintain adequate blood glucose 3. Acute kidney injury -resolved, was likely due to dehydration in the setting of decreased p.o. intake -BUN 18, creatinine 1.0 -continue IV hydration and monitor 4. Anion gap metabolic acidosis -resolving, would likely due to alcohol intoxication as it was 61 on admission -continue to monitor 5. Alcohol dependence -daily drinker, with history of withdrawal seizures -continue withdrawal precautions -multivitamin, folic acid and thiamine -continue [facility] home regimen 6. Hypertension -blood pressure stable -continue to monitor and IV hydration Quality VTE Deep Vein Thrombosis/Pulmonary Embolism Present on Admission: No
[2018-04-26] MEDS: DEXTROSE 5%-0.45% NS 1,000 ML 150 ML IV (09:32)
[2018-04-26] MEDS: MAGNESIUM OXIDE 400 MG TABLET PO ×2 (09:33→20:36)
[2018-04-26] MEDS: TAMSULOSIN 0.4 MG CAPSULE PO (09:33)
--- NOTE | 2018-04-26 10:43 | P.PN_ITS ---
Subjective Date Patient Seen: 04/26/18 Time Patient Seen: 10:37 Interval history: Patient without new specific complaints today. His chief complaint remains that chronic fatigue that he has been experiencing at home. He again reminds me that he is unable to walk even 1 or 2 blocks without having to rest 4 or 5 times due to shortness of breath and fatigue. He denies any leg pain although his tells me via telephone that he has an unsteady gait at baseline. Unclear whether the ataxia as related to the cerebral atrophy and/or significant history of alcoholism. Currently denies chest pain or shortness of breath. No abdominal pain. No further nausea or vomiting since admission yesterday morning. Has had several bowel movements which per nursing notes are no longer melanotic today. Exam Vital Signs (past 8 hours): - 04/26/18 05:33 04/26/18 07:40 04/26/18 08:50 Temperature 98.1 F Pulse Rate 108 H Respiratory Rate 19 Blood Pressure 119/58 L Pulse Oximetry 98 94 93 04/26/18 09:00 Temperature 97.8 F Pulse Rate 100 H Respiratory Rate 16 Blood Pressure 123/76 Pulse Oximetry 95 Oxygen Delivery Method Room Air Oxygen Flow Rate 0 Narrative Exam Narrative: Elderly male lying in bed in no acute distress. Alert but disoriented to time. Occasionally gets confused regarding place as well. No fevers. Telemetry shows intermittent bradycardia into the upper 40s as well as mild tachycardia. Rhythm appears to be sinus however. Abdomen soft, nondistended, nontender, no masses Objective Labs Result Diagrams: 04/26/18 05:00 04/26/18 05:00 Labs: Laboratory Results - last 24 hr 04/25/18 04/25/18 04/25/18 09:45 14:38 14:38 WBC RBC Hgb 12.1 L Hct 38.7 L MCV MCH MCHC RDW Plt Count Neut % (Auto) Lymph % (Auto) [place] % (Auto) Eos % (Auto) Baso % (Auto) Neut # (Auto) Sodium 144 Potassium 4.4 Chloride 108 H Carbon Dioxide 19 L BUN 27 H Creatinine 1.20 Estimated GFR 59.2 L BUN/Creatinine Ratio 22.5 H Glucose 77 L Calcium 8.7 Blood Type B Positive Antibody Screen Negative Crossmatch See Detail 04/25/18 04/26/18 04/26/18 20:05 05:00 05:00 WBC 6.4 D RBC 4.48 L Hgb 11.5 L 10.6 L Hct 37.1 L 33.4 L MCV 74.5 L MCH 23.8 L MCHC 31.9 RDW 19.3 H Plt Count 257 Neut % (Auto) 70.3 Lymph % (Auto) 15.7 L [place] % (Auto) 11.3 Eos % (Auto) 1.6 L Baso % (Auto) 1.1 Neut # (Auto) 4500 Sodium 142 Potassium 3.9 Chloride 111 H Carbon Dioxide 21 L BUN 18 Creatinine 1.00 Estimated GFR > 60.0 BUN/Creatinine Ratio 18.0 Glucose 85 Calcium 8.2 L Blood Type Antibody Screen Crossmatch Hemoglobin has dropped approximately 4 points over the last 24 hr as anticipated. Acute renal insufficiency resolving following volume resuscitation. CIWA scores remain stable at 4 to 6 Assessment & Plan Plan: Assessment/Plan Narrative: 73-year-old male with hematemesis, melena, and progressive anemia in the last 24 hr. I suspect alcoholic gastritis versus potential ulcer disease. Doubt neoplasm but this is also possible. Small possibility of esophageal varices. After further discussion with the patient and his today they relate a history of EGD and colonoscopy at [facility] within the last several years. We will attempt to obtain those records. Request was submitted. However, I believe he warrants EGD, which we can do later today now that he is much more stable and volume resuscitated. Fortunately he has no evidence of acute life-threatening hemorrhage at this time. We will therefore plan to proceed as above later today for diagnostic and potential therapeutic purposes depending upon findings. Technical details of the procedure were discussed with the patient. Risks, benefits, alternatives were explained. Risks including but not limited to anesthesia, bleeding, pain, missed lesion, incomplete examination, nondiagnostic study, unsuccessful intervention for bleeding source, recurrent bleeding even if successful intervention is performed , need for further treatment, esophageal perforation, aspiration, gastric perforation, duodenal perforation, need for major thoracic surgery, and need for major abdominal surgery were all discussed at length. I discussed all the above with the patient's , Brittany, via telephone as well. All questions were answered to the patient's satisfaction, and he voiced understanding. All questions were answered to Brittany's satisfaction, and she voiced understanding. Consent was obtained for both parties. We will proceed as above later today. In the interim maintain NPO status. Quality VTE Deep Vein Thrombosis/Pulmonary Embolism Present on Admission: No
[2018-04-26 12:22] LABS: Hematocrit 33.6 % (41-53); Hemoglobin 10.7 g/dL (13.5-17.5)
--- NOTE | 2018-04-26 14:41 | CM.DPC ---
DCP: continued: Dr. Garcia, consulting, saw pt again today, updated Brittany and will take pt to EGD later. CIWA continues between 4-6. P: DCP team will be following (Please see yesterday's assessment note for more information re issues related to d/c planning.
[2018-04-26] MEDS: LACTATED RINGERS 1,000 ML 42 ML IV (14:52)
--- NOTE | 2018-04-26 15:00 | PC.NURSE ---
Day Shift- Pt oriented to self, hospital, does not know which one, day after thanksgiving, and when asked why he is here, pt states i was having chest pain and I vomited while getting the CT scan. Slightly irritable/agitated this AM regarding when Dr's were going to round and timing of his EGD procedure. Pt settled after explaining plan of care for the today on next checking in with pt. OOB to BR with 1PA, pt unsteady gait, able to direct. Voiding total 475 for shift and had large soft brown BM. Dr. Garcia aware of BM, no emesis, denies nausea. CIWA score 6 and reassessment was 4. Protonix drip and IVF infusing well to REBA Midline. IVF stopped at 1420 and heparin locked, pt left to go to EGD at 1425 via bed.
--- NOTE | 2018-04-26 15:22 | PM.PREOP ---
Pre-operative Note Interval Note Pre-op Check: Yes History & Physical Reviewed by Physician and Yes Exam Performed Changes: No H&P completed within 30 days and has changed as indicated here:: Patient seen and examined once again today. History physical examination, surgical consultation note, and progress notes dating from April 25, 2018 and April 26, 2018 have not changed. Proceed with EGD today as planned.
--- NOTE | 2018-04-26 15:58 | P.OP_ITS ---
Operative Date/Time/Diagnoses Date of procedure: 04/26/18 Time of procedure: 15:51 Pre-op diagnosis: Hematemesis and melena in association with anemia Post-op diagnosis: other (Distal erosive esophagitis but no evidence of neoplasm or obvious varices) Procedure & Clinicians Procedure: Esophagogastroduodenoscopy Same procedure as scheduled: Yes Indications: 73-year-old male with significant history of alcoholism, symptomatic anemia, dementia, pulmonary embolism, and gastrointestinal hemorrhage who presents with him Ativan assess and melena. He was found to be anemic with a 4 gram decrease in hemoglobin over the last 24 hr following IV fluid resuscitation. Because of his significant comorbid medical conditions he was recommended undergo EGD with general anesthesia. Surgeon: Tony Garcia Click Yes if Unassisted: Yes Anesthesia Type: General Operative Notes Findings: 1. Distal erosive linear esophagitis involving gastroesophageal junction but no active hemorrhage 2. No strictures in the esophagus 3. No obvious neoplastic disease in the upper gastrointestinal tract 4. No obvious esophageal varices 5. No clear evidence of recent bleeding and certainly no current hemorrhage anywhere in the upper gastrointestinal tract 6. 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 No evidence of peptic ulcer disease or gastric ulcer disease 8. No significant gastritis 9. No significant hiatal hernia 10. No evidence of gastric varices 11. Findings possibly consistent with esophageal candidiasis distally in conjunction with esophagitis Closure Type: not applicable Specimen(s): none sent Implants & Drains: None Estimated Blood Loss (mL): 5 Blood products transfused: none Procedure in detail: After obtaining informed consent, the patient was brought to the GI suite and placed in the left lateral decubitus position on the examination table. After placement of appropriate monitors, the patient was given general anesthesia. A time out was held per SCOAP protocol. A bite block was gently placed between the patient's teeth. The endoscope was lubricated and then passed into the patient's posterior oropharynx. The esophagus was cannulated under direct vision and the scope was passed to the second portion of the duodenum without difficulty. The scope was then withdrawn with careful examination of all areas of the upper GI tract and mucosa. In the stomach, the instrument was retroflexed and the GE junction examined. The scope was straightened and the procedure continued with examination of the remainder of the upper GI tract. Findings are noted above. Air was aspirated from the stomach and the endoscope gently removed from the esophagus. The patient was allowed to awaken without difficulty and taken to the post- anesthesia care unit in good condition. Complications: none Condition: stable Disposition: PACU Plan for aftercare: 1. Return to regular surgical floor for ongoing convalescence 2. Treat presumed candidiasis of the esophagus with Diflucan 3. Continue proton pump inhibitor 4. Alcohol avoidance of possible 5. Allow diet
--- NOTE | 2018-04-26 16:28 | SUR.PHASEI ---
Pt coughing less frequently. Dr. Garcia notified hr ranging from 50s to 110s. Pt declined po intake.
--- NOTE | 2018-04-26 16:31 | SUR.PHASEI ---
Report called to Dimitry
--- NOTE | 2018-04-26 16:46 | SUR.PHASEI ---
Pt. transferred to the floor. VS stable. Pt. drowsy, opened eyes to voice. Report to Dimitry.
[2018-04-26] MEDS: MAGNESIUM SULFATE 2 GM, FOLIC ACID 1 MG, THIAMINE 100 MG, MULTIVITAMIN 10 ML in SODIUM ... IV (16:52)
[2018-04-26] MEDS: MELATONIN 3 MG TABLET 6 MG PO (20:36)
[2018-04-27 00:10] VITALS: BP 123/60; PULSE 56; RESP 16; TEMP 36.7; O2SAT 94
[2018-04-27] MEDS: DEXTROSE 5%-0.45% NS 1,000 ML 150 ML IV ×2 (01:04→08:23)
[2018-04-27 04:47] VITALS: BP 119/60; PULSE 77; RESP 20; TEMP 36.6; O2SAT 97
[2018-04-27 05:59] LABS: Add Manual Diff / Slide Review NO; Basophils Percent Auto 1.2 % (0-2); Hemoglobin 9.9 g/dL (13.5-17.5); Lymphocytes Percent Auto 16.5 % (25-40); Mean Corpuscular HGB Conc 31.9 % (30-36); Mean Corpuscular Hemoglobin 23.9 PG (26-34); Mean Corpuscular Volume 75.2 fL (80-100); Monocytes Percent Auto 12.3 % (3-14); Neutrophils Absolute Auto 3900 /uL (3000-5900); Platelet Count 187 X10^3/uL (150-400); Red Blood Cell Count 4.13 X10^6/uL (4.5-5.9); Red Cell Distribution Width 19.2 % (11.6-14.8)
[2018-04-27 06:09] LABS: Blood Urea Nitrogen 9 mg/dL (9-20); Calcium 7.9 mg/dL (8.4-10.2); Carbon Dioxide 23 mmol/L (22-32); Chloride 108 mmol/L (98-107); Estimated Glomerular Filt Rate > 60.0 mL/min (>60); Glucose 120 mg/dL (80-110); HEMOLYSIS < 15 (0-50); Potassium 3.5 mmol/L (3.4-5.1); Sodium 138 mmol/L (137-145)
[2018-04-27 08:00] VITALS: BP 101/62; PULSE 61; RESP 20; TEMP 36.6; O2SAT 99
[2018-04-27] MEDS: FLUCONAZOLE 100 MG TABLET 600 MG PO (08:25)
[2018-04-27] MEDS: PANTOPRAZOLE 40 MG TABLET PO (08:26)
[2018-04-27] MEDS: MAGNESIUM OXIDE 400 MG TABLET PO (08:26)
[2018-04-27] MEDS: TAMSULOSIN 0.4 MG CAPSULE PO (08:26)
--- NOTE | 2018-04-27 08:55 | PM.DS.1 ---
History of Present Illness Date Patient Seen: 04/27/18 Time Patient Seen: 09:05 Chief complaint: Chest Pain Narrative: 73-year-old male with PMH of HTN, PE (not AC), PSVT, alcoholic encephalopathy / dementia, Fe deficiency anemia, GERD, h/o diverticulitis (recurrent), and h/o MRSA PRESENTED TO ED for evaluation of chest pain. Reports being woken up from sleep at approximately 1:00 a.m. on 04/25/2018 with chest pain, shortness of breath, and disorientation. Localizes pain to the left anterior aspect of the chest, characterized as dull, rates as 3/10. Denies tightness or pressure-like sensation. Pain is non-radiating to the extremities, back, neck, or jaw. Pain lasted about 2-3 hours before he summoned EMS. Upon EMS arrival he was found to be hypoglycemic with blood glucose in the 30s. No known history of diabetes. Additional symptoms included weakness and ataxia. Patient reports experiencing similar episodes of chest discomfort intermittently, these typically self resolve within an hour. Reports baseline exertional dyspnea, which has been worse. No claudication. He does not use oxygen. Recent history of a PE, in the past 1 year, for which he was anticoagulated with Coumadin; however, was taken off 6-8 mon ago by report as his PE thought to have resolved. Discharge Providers Date of admission: 04/25/18 05:34 Consults: 04/25/18 07:47 Consult to Behavioral Sciences Instructor Routine Comment: 04/25/18 08:24 Consult to General Surgery Routine Comment: Consulting Provider: Tony Garcia Reason for consultation: Hematemesis, GIB 04/25/18 10:43 Consult to PICC Line RN Routine Comment: double lumen Discharge provider: Mirlande Deshpande MD Discharge Date: 04/27/18 Summary Discharge Diagnosis: Esophageal Candidiasis Esophagitis PSVT vs SSS hypoglycemia, resolved JW, resolved AG metabolic acidosis, resolved Alocohol dependance HTN Hospital Course: On admission to ED, patient's vital signs were stable. Lab workup revealed mild leukocytosis with WBC of 14.5, hemoglobin of 14.3 hematocrit 46.2, platelets 353. Sodium 147, potassium 3.9, chloride 106, bicarb 15, BUN 25, creatinine 1.5, glucose 97. INR was 1.1. LFTs were normal. Troponin x2 were negative. BNP was negative. Lipase was negative. Alcohol level was 61. Patient was given aspirin 325 mg chewable tablet and admitted as observation for ACS rule out. Once on the floors, patient was initially going to have ACS ruled out with echo, trend of troponin/EKGs, and telemetry monitoring. However, patient experienced an episode of coffee-ground emesis as soon as he got to the floor. The suspicion for the pain was then switched to GI causes. Patient was placed on Protonix drip, given IV fluids, kept NPO, and surgical consult was placed. Since admission to the floors patient's heart rate was in 120s, which prompted the hemodynamics debilitation prior to do any procedures. Hemoglobin was checked Q 6 hr which showed slow progression of down trending hemoglobin. Patient did not experience any more hematemesis episodes. Once patient's vitals were stable, Patient then underwent endoscopy on 04/26/2018 which revealed esophageal candidiasis distally in conjunction with esophagitis. Patient was advanced to clear liquid diet and started on fluconazole, which she tolerated well. Patient will be going home with protonix PO Daily and Fluconazole 400mg Daily follow-up to primary care provider within 7 days of discharge. While admitted to the hospital, patient was noted to have altered rating heart rate, between 40 and 120, suspicious was sick sinus syndrome. Patient remained asymptomatic during these episodes. Echo revealed sinus bradycardia with first-degree AV block on 1 of those occasions. On discharge, patient will need to be referred to Cardiology for further assessment of possible sick sinus syndrome. During the admission, patient was also noted to have apneic episodes while sleeping. He will need to follow up with primary care physician regarding arrangement of sleep study to rule out obstructive sleep apnea. Patient was counseled regarding alcohol cessation, but he refused any help at this time Status at Discharge Functional status at discharge: independent ambulation Overall status at discharge: patient is progressing back to baseline Time Spent with Patient Less than 30 minutes Exam Vital Signs (past 8 hours): - 04/27/18 04:47 04/27/18 08:00 Temperature 97.8 F 97.8 F Pulse Rate 77 61 Respiratory Rate 20 20 Blood Pressure 119/60 101/62 Pulse Oximetry 97 99 Oxygen Delivery Method Room Air Oxygen Flow Rate 96 Narrative Exam Narrative: Constitutional: NAD, AAOx3 HEENT: PERRLA BL, poor dentition Neck: no masses, lymphadenopathy, or JVD Chest / Respiratory: CTA BL, no wheezing Heart / CV: S1S2 present, RRR, no murmur or gallop Abdomen / GI: no tenderness to palpation, nondistended abd, + BS, no organomegaly : no suprapubic tenderness, no CVA Peripheral / Vascular: palpable pulses, 2+ in all extremities Musc: full ROM of all extremities Skin: no lesions / ulcers Objective Labs Result Diagrams: 04/27/18 05:28 04/27/18 05:28 Labs: Laboratory Results - last 24 hr 04/26/18 04/27/18 04/27/18 11:00 05:28 05:28 WBC 6.0 RBC 4.13 L Hgb 10.7 L 9.9 L Hct 33.6 L 31.0 L MCV 75.2 L MCH 23.9 L MCHC 31.9 RDW 19.2 H Plt Count 187 Neut % (Auto) 66.0 Lymph % (Auto) 16.5 L Pender % (Auto) 12.3 Eos % (Auto) 4.0 Baso % (Auto) 1.2 Neut # (Auto) 3900 Sodium 138 Potassium 3.5 Chloride 108 H Carbon Dioxide 23 BUN 9 Creatinine 0.90 Estimated GFR > 60.0 BUN/Creatinine Ratio 10.0 Glucose 120 H Calcium 7.9 L Discharge Plan Discharge Plan Discharge Problem: Chest pain, Pulmonary embolism Patient Disposition: Home Discharge comment: PATIENT NEEDS NEW DOCTOR SET UP AND FOLLOW UP WITHIN 7 DAYS NEEDS SLEEP STUDY ORDER FROM PCP NEEDS CARDIOLOGY CONSULT FROM PCP FOR POSSIBLE SSS Discharge Med Rec/Prescriptions Prescriptions: New fluconazole [Diflucan] 100 mg Tablet 400 mg PO DAILY Qty: 21 RF: 0 pantoprazole 40 mg Tablet,Delayed Release (Dr/Ec) 40 mg PO 0700 Qty: 30 RF: 0 Continue Lactobacillus acidophilus 1 EACH capsule 1 tab PO QDAY Qty: 0 RF: 0 sodium phosphates [Fleet Enema] 133 ML enema 1 ea [place] Qty: 0 RF: 0 Lactobacillus acidophilus 1 EACH capsule 1 cap PO QDAY Qty: 0 RF: 0 magnesium oxide 400 MG tablet 1 tab PO BID Qty: 0 RF: 0 ondansetron 4 MG tablet,disintegrating 1 tab PO Q4HP PRNQty: 0 RF: 0 loperamide 2 MG capsule 1 - 2 cap PO SEE INSTRUCTIONS Qty: 0 RF: 0 acetaminophen 325 MG tablet 2 tab PO Q4HP PRN (Reason: pain) Qty: 0 RF: 0 mirtazapine 15 MG tablet 0.5 tab PO HS Qty: 60 RF: 3 citalopram 40 MG tablet 40 mg PO QDAY Qty: 30 RF: 3 tamsulosin [Flomax] 0.4 mg capsule 0.4 mg PO QDAY Qty: 90 RF: 0 omeprazole 20 mg capsule,delayed release(DR/EC) 20 mg PO DAILY Qty: 90 RF: 0 mirtazapine 15 mg tablet 15 mg PO HS Qty: 30 RF: 0 Discontinued magnesium oxide 400 MG tablet 1 tab PO BID Qty: 0 RF: 0 warfarin [Coumadin] 5 MG tablet 1 tab PO QDAY Qty: 0 RF: 0 Provider Discharge Instructions Diet: Diet as Tolerated and Low-sodium Discharge Data Attending Provider: Yulia Addison Admit Date/Time: 04/25/18 05:34 Quality VTE Deep Vein Thrombosis/Pulmonary Embolism Present on Admission: No
--- NOTE | 2018-04-27 09:19 | CM.DPC ---
DCP Cont: Called and spoke to , Brittany, to touch base with her. She stated that she just fell at home yesterday, stated that she was ok. She stated that she has had falls before. Discussed patient. Did reiterate that patient had been at [facility], lived in [facility]. Stated that patient had been not very nice to the staff when he was there. He was just there recently, and decided that he would do better at home. stated that they have no immediate family in the area, but have a daughter that lives in [place]. P: DCP to follow closely. is not sure if he will go to skilled facility. Did let her know that patient would need to be here another night to qualify. Other option would be home health. Will continue to assess as plan unfolds. Preeti Park RN/Talent Acquisition Relationship Manager
--- NOTE | 2018-04-27 10:05 | CM.DPC ---
Addendum entered by Preeti Park R.N. 04/27/18 11:05: Gave Zachary, patient's nurse, Dr. Yates's phone number at [facility], to enable patient to get established with primary care provider. Had discussed this with as well. Original Note: DCP Cont: Patient is to be discharged today. Met with patient, limited conversation, patient not conversive. Discussed plan, and mentioned looking for primary doctor, since he does not have. had already mentioned seeing Dr. Yates. Contacted , Brittany. She is aware that patient is being discharged today, and will come and pick him up. Sanders stated that she will call her to see if they can bring him down in wheel-chair so she will not have to walk so far. P: Patient is to be discharged home today. Unable to obtain home health since patient does not yet have a primary doctor. Preeti Park RN/Construction Person
--- NOTE | 2018-04-27 14:00 | PC.NURSE ---
Order to discharge to home, Brittany updated on plan of care and able to pickle maker patient. Brittany states she will call A to schedule an appointment to establish care for patient with Dr. Mclaughlin. Patient instructed he should seek follow up care for sleep study evaluation and environmental health physician referral. Patient up in room and ambulated to bathroom. Voided, also had wet brief and loose brown stool. Assisted to clean up, tolerated well, but refused shower. Midline IV to REBA dc'd intact without difficulty, occlusive dressing placed to site and patient instructed ok to remove the dressing in 24-48 hours. Patient tolerated low sodium diet for lunch. Denies pain, denies n/v. Discharge instructions and home care handout reviewed with patient, along with medication reconciliation and prescriptions (2). Patient states understanding and has no further questions or concerns at this time. Patient escorted out [phone] to Brittany to be discharged to home via wheelchair.
== END 2018-04-27 13:35 | disposition home or self-care (01) | DRG 369 ==
LOC: ED 05:30 → AC 12:45
PROVIDERS: Internal Medicine; Surgery; Admitting Provider Nurse Practitioner Gerontology; Emergency Provider Emergency Medicine; Visit Provider Nurse Practitioner Gerontology
PROC: 0DJ08ZZ Inspection of Upper Intestinal Tract, Via Natural or Artificial Opening Endoscopic (ICD-10-PCS; CPT 43235; principal; 2018-04-26 15:00)
DX: B37.81 Candidal esophagitis (principal); E87.2 Acidosis; N17.9 Acute kidney failure, unspecified; I47.1 Supraventricular tachycardia; K22.8 Other specified diseases of esophagus; I49.5 Sick sinus syndrome; F10.220 Alcohol dependence with intoxication, uncomplicated; G47.33 Obstructive sleep apnea (adult) (pediatric); G31.2 Degeneration of nervous system due to alcohol; F02.80 Dementia in other diseases classified elsewhere, unspecified severity, without behavioral disturbance, psychotic disturbance, mood disturbance, and anxiety; Y90.3 Blood alcohol level of 60-79 mg/100 ml; I12.9 Hypertensive chronic kidney disease with stage 1 through stage 4 chronic kidney disease, or unspecified chronic kidney disease; N18.2 Chronic kidney disease, stage 2 (mild); E16.2 Hypoglycemia, unspecified; D64.9 Anemia, unspecified; K21.9 Gastro-esophageal reflux disease without esophagitis; Z86.711 Personal history of pulmonary embolism; Z87.891 Personal history of nicotine dependence
CPT/HCPCS: 36415; 36600; 71275; 80048; 80053; 80061; 80320; 82550; 82805; 82962; 83036; 83605; 83690; 83880; 84443; 84484; 85014; 85018; 85025; 85610; 85730; 86850; 86900; 86901; 93005; 93306; 96360; 96361; 99283; 99285; C9113; J1650; J2704; J3475; Q9967

== ENCOUNTER 2019-07-06 19:47 | Emergency (ER) | payer MEDICARE, SELFPAY ==
[2018-04-25 07:21] VITALS: BMI 24.3
[2019-07-06 19:54] VITALS: BP 170/77; PULSE 115; RESP 18; TEMP 36.4; O2SAT 98; BMI 28.7
--- NOTE | 2019-07-06 19:57 | ED_ITS ---
HPI - Alcohol General Chief Complaint: Altered Mental Status Stated Complaint: ETOH/Confused Time Seen by Provider: 07/06/19 19:57 Source: patient and EMS Mode of arrival: EMS Limitations: no limitations History of Present Illness HPI narrative: The patient arrives by EMS from his residence. His daughter in [place] called 911 for a while for check. The patient primarily spends the day in bed. He drinks a significant amount alcohol. He eats Sunday through Sunday from through delivered by [employer]. He has no food on Sunday and Sunday, he does not eat on s. He is ambulatory. He walks to [employer] for his vodka. He denies recent illness. He has had no URI symptoms, no chest discomfort or dyspnea. He has no abdominal discomfort. He appears intoxicated. He has questions with brief responses. He has no specific complaints, informing me that he did not ask for anything. The officer responded to the safety evaluation noted a very dirty house with a container for urine beside his bed, and a lack of food in the department. Apparently has a pet, he feeds the PET. Related Data Previous Rx's Medication Instructions Recorded omeprazole 20 mg capsule,delayed 20 mg PO DAILY #90 cap 05/10/18 release tamsulosin 0.4 mg capsule 0.4 mg PO QDAY #90 cap 05/10/18 mirtazapine 7.5 mg tablet 7.5 mg PO DAILY #30 tab 06/13/18 zolpidem 5 mg tablet 5 mg PO BEDTIME PRN #30 tab 06/13/18 Allergies Allergy/AdvReac Type Severity Reaction Status Date / Time morphine [MORPHINE] Allergy Unknown Verified 06/13/18 09:56 Review of Systems Review of Systems ROS Unobtainable: Other (Medical questions and ROS are limited by the patient's condition.) Constitutional Constitutional: Reports anorexia, Denies body ache(s), Reports fatigue, Denies fever(s), Denies headache(s) and Reports weakness Eyes Eyes: Denies change in vision ENT Ears, Nose, Mouth, and Throat: Denies dizziness, Denies headache(s), Denies hoarseness, Denies nasal congestion and Denies neck pain Cardiovascular Cardiovascular: Denies chest pain and Denies palpitations Respiratory Respiratory: Denies cough Gastrointestinal Gastrointestinal: Denies abdominal pain and Denies vomiting Musculoskeletal Musculoskeletal: Denies back pain, Denies neck pain and Denies numbness Integumentary/Breasts Skin/Breast: Denies skin pain Neurologic Neurologic: Denies confusion, Denies dizziness, Denies headache(s), Denies numbness and Reports weakness Psychiatric Psychiatric: Denies confusion and Denies depression Endocrine Endocrine: Reports fatigue and Denies palpitations Patient History Medical History Alcohol abuse (Chronic) Anxiety (Chronic) Cerebral atrophy (Chronic) Chest pain (Resolved 03/25/18) Dehydration (Resolved 03/25/18) Depression (Chronic) Erectile dysfunction (Chronic) Essential hypertension (Chronic) Gastritis (Chronic) History of anemia (Chronic) History of liver injury (Chronic) History of pulmonary embolism (Resolved) Inguinal hernia (Chronic) Intrahepatic biloma (Resolved) Metabolic acidosis (Chronic) Personal history of peptic ulcer disease (Chronic) Wernicke-Korsakoff syndrome (alcoholic) (Chronic) Surgical History History of colonoscopy (Resolved 2014) History of esophagogastroduodenoscopy (EGD) (Resolved 2014) History of esophagogastroduodenoscopy (EGD) (Resolved 04/26/18) History of left hip replacement (Resolved) History of shoulder surgery (Resolved) History of total right knee replacement (TKR) (Resolved) Family History Father Cancer Family/Other No problems noted. Mother Cancer Sister No problems noted. Social History marital status: household members: spouse housing: house Smoking Status: Former smoker alcohol intake: current Smoking Status: Former smoker alcohol intake frequency: 3 or more drinks per day Substance Use Type: does not use Exam Initial Vital Signs Initial Vital Signs: Vital Signs Temperature 97.5 F L 07/06/19 19:54 Pulse Rate 115 H 07/06/19 19:54 Respiratory Rate 18 07/06/19 19:54 Blood Pressure 170/77 H 07/06/19 19:54 Pulse Oximetry 98 07/06/19 19:54 Const General: cooperative, No well developed, No acute distress and intoxicated appearing Nutritional Appearance: well nourished Limitations: behavioral limitations [facility] Head: normocephalic and atraumatic Ears: external ears normal and TM's normal bilaterally Nose: external nose normal Face and sinus: sinuses nontender and face symmetric Mouth: oral mucosae normal and moist mucous membranes Teeth and gingiva: dentition normal Throat: tonsils normal and uvula midline Eyes General: appearance normal, both eyes and all related structures Eyelids: eyelids normal Conjunctivae: conjunctivae normal Sclera: sclerae normal Pupils: PERRL EOM: EOM intact bilaterally and nystagmus Neck Neck: supple, No lymphadenopathy and No JVD Resp Auscultation: clear to auscultation bilaterally Cardio Rate: regular rate Rhythm: regular rhythm Heart Sounds: S1 normal and S2 normal GI Palpation: soft, no hepatosplenomegaly and No guarding Percussion: normal to percussion Back/Spine/Pelvis Back: No CVA tenderness Skin Lesions: no lesions Rashes: no rashes Neuro General: alert and gait abnormal Cranial Nerves: nystagmus Speech: abnormal speech (Slow speech) Gait: ataxic Motor: muscle tone normal throughout and movement abnormality noted Sensory Exam: no sensory deficits noted Extrem General: full ROM and no clubbing, cyanosis or edema Psych Appearance: disheveled Speech and Movement: delayed speech Attitude: cooperative Thought Content: normal and suicidality Course Course Course Narrative: The patient was initially evaluated. During his care he said he intended leave. For the care was denied. He is intoxicated, he has ataxia. He answers orientation questions, has no intent to hurt himself. Multi vitamins and by MR offered, he denied the vitamins. The interviewed officer also offered him a ride home after our initial evaluation care. Orders Ordered: ED Orders 07/06/19 20:00 Complete Blood Count AUTO DIFF Stat Comprehensive Metabolic Panel Stat Ethanol (ETOH) Stat Lipase Stat Magnesium Stat Trop I [Troponin I] Stat Discontinued Medications Sodium Chloride (Normal Saline 0.9%) 1,000 mls @ 1,000 mls/hr IV BOLUS ONE Stop: 07/06/19 21:06 Last Infusion: 07/06/19 21:53 Dose: 0 mls/hr Documented by: Admin: 07/06/19 20:40 Dose: 1,000 mls/hr Documented by: NIKKIE Vital Signs Vital signs: Vital Signs - 8 hr 07/06/19 19:54 07/06/19 20:35 Temperature 97.5 F L Pulse Rate 115 H 115 H Respiratory Rate 18 16 Blood Pressure 170/77 H Blood Pressure [Right Arm] 170/77 H Pulse Oximetry 98 96 MDM - Alcohol Lab Data Result diagrams: 07/06/19 20:00 07/06/19 20:00 Labs: Lab Results 07/06/19 07/06/19 07/06/19 Range/Units 20:00 20:00 20:00 WBC 7.2 (4.5-11.0) X10^3/uL RBC 5.37 (4.5-5.9) X10^6/uL Hgb 14.8 (13.5-17.5) g/dL Hct 44.6 (41-53) % MCV 83.0 (80-100) fL MCH 27.6 (26-34) PG MCHC 33.3 (30-36) % RDW 19.9 H (11.6-14.8) % Plt Count 256 (150-400) X10^3/uL Neut % (Auto) 58.9 (50-75) % Lymph % (Auto) 25.0 (25-40) % Pender % (Auto) 6.9 (3-14) % Eos % (Auto) 7.8 H (2-4) % Baso % (Auto) 1.4 (0-2) % Neut # (Auto) 4200 (5181-0615) /uL Lymph # (Auto) 1800 (4208-4302) /uL Pender # (Auto) 500 (0-900) /uL Eos # (Auto) 600 H (0-450) /uL Baso # (Auto) 100 (0-100) /uL Sodium 138 (137-145) mmol/L Potassium 3.9 (3.4-5.1) mmol/L Chloride 99 (98-107) mmol/L Carbon Dioxide 24 (22-32) mmol/L BUN 8 L (9-20) mg/dL Creatinine 0.80 (0.66-1.25) mg/dL Estimated GFR > 60.0 (>60) mL/min BUN/Creatinine Ratio 10.0 (6-22) Glucose 87 (80-110) mg/dL Calcium 9.1 (8.4-10.2) mg/dL Magnesium 1.7 (1.6-2.3) mg/dL Total Bilirubin 0.6 (0.2-1.3) mg/dL AST 43 (17-59) IU/L ALT 22 (<50) IU/L Alkaline Phosphatase 127 H (38-126) U/L Troponin I < 0.012 (0.01-0.034) ng/mL Total Protein 7.3 (6.3-8.2) g/dL Albumin 4.1 (3.5-5.0) g/dL Globulin 3.2 (1.7-4.1) g/dL Albumin/Globulin Ratio 1.3 (1.0-2.8) Lipase 92 (23-300) U/L Ethyl Alcohol 237 H ( - 10) mg/dL Point of Care Testing Glucose POC 88 Discharge Plan Departure Patient Disposition: Left Against Medical Advice Clinical Impression: Alcohol intoxication, Unsteady gait Activity Restrictions/Additional Instructions: The patient was advised to return the ER at any time for assistance. Prescriptions: No Action omeprazole 20 mg capsule,delayed release(DR/EC) 20 mg PO DAILY Qty: 90 RF: 3 tamsulosin [Flomax] 0.4 mg capsule 0.4 mg PO QDAY Qty: 90 RF: 3 zolpidem [Ambien] 5 mg tablet 5 mg PO BEDTIME PRN (Reason: insomnia) Qty: 30 RF: 2 mirtazapine 7.5 mg tablet 7.5 mg PO DAILY Qty: 30 RF: 0 Referrals: Rashad Yates MD [Primary Care Provider] - Stand Alone Forms: Against Medical Advice
--- NOTE | 2019-07-06 20:30 | PC.NURSE ---
per ems, daughter from [place] called for welfare check. when police and medic arrived, pt inappropriate to responds, altered mental status, +etoh, pt admits drinking 1/5 vodka a week, usually gets them from [employer]. ems noted, pt has been sitting on the couch for a long time, he has a container next to him to urinate. pt not eating, only gets meal on wheels on -, no food on the weekend. he has a dog, that pt is very concern, the dog has food and water.
--- NOTE | 2019-07-06 20:34 | PC.NURSE ---
so the dog , can be taken to the animal intermediate for temporary lodging.
[2019-07-06 20:35] VITALS: BP 170/77; PULSE 115; RESP 16; O2SAT 96
[2019-07-06 20:39] LABS: Add Manual Diff / Slide Review NO; Basophils Absolute Auto 100 /uL (0-100); Basophils Percent Auto 1.4 % (0-2); Eosinophils Absolute Auto 600 /uL (0-450); Eosinophils Percent Auto 7.8 % (2-4); Hematocrit 44.6 % (41-53); Hemoglobin 14.8 g/dL (13.5-17.5); Lymphocytes Absolute Auto 1800 /uL (1100-4500); Mean Corpuscular HGB Conc 33.3 % (30-36); Mean Corpuscular Hemoglobin 27.6 PG (26-34); Monocytes Absolute Auto 500 /uL (0-900); Monocytes Percent Auto 6.9 % (3-14); Neutrophils Absolute Auto 4200 /uL (1500-7000); Neutrophils Percent Auto 58.9 % (50-75); Platelet Count 256 X10^3/uL (150-400); Red Blood Cell Count 5.37 X10^6/uL (4.5-5.9); Red Cell Distribution Width 19.9 % (11.6-14.8); White Blood Cell Count 7.2 X10^3/uL (4.5-11.0)
[2019-07-06] MEDS: SODIUM CHLORIDE 0.9% 1,000 ML 1000 ML IV (20:40)
[2019-07-06 20:45] LABS: Alanine Aminotransferase 22 IU/L (<50); Albumin 4.1 g/dL (3.5-5.0); Albumin Globulin Ratio 1.3 (1.0-2.8); Alkaline Phosphatase 127 U/L (38-126); Aspartate Aminotransferase 43 IU/L (17-59); Bilirubin Total 0.6 mg/dL (0.2-1.3); Blood Urea Nitrogen 8 mg/dL (9-20); Calcium 9.1 mg/dL (8.4-10.2); Carbon Dioxide 24 mmol/L (22-32); Chloride 99 mmol/L (98-107); Estimated Glomerular Filt Rate > 60.0 mL/min (>60); Ethanol (ETOH) 237 mg/dL; Globulin 3.2 g/dL (1.7-4.1); Glucose 87 mg/dL (80-110); HEMOLYSIS 26 (0-50); Lipase 92 U/L (23-300); Magnesium 1.7 mg/dL (1.6-2.3); Potassium 3.9 mmol/L (3.4-5.1); Sodium 138 mmol/L (137-145); Total Protein 7.3 g/dL (6.3-8.2)
--- NOTE | 2019-07-06 21:54 | PC.NURSE ---
in the wheelchair.
[2019-07-06 21:58] LABS: Troponin I < 0.012 ng/mL (0.01-0.034)
--- NOTE | 2019-07-06 22:06 | PC.NURSE ---
dc with officer for courtesy brina.
== END 2019-07-06 22:07 | disposition left against medical advice (07) ==
PROVIDERS: Emergency Provider Emergency Medicine; PCP Student in an Organized Health Care Education/Training Program
DX: F10.129 Alcohol abuse with intoxication, unspecified (principal); R26.81 Unsteadiness on feet; R41.82 Altered mental status, unspecified
CPT/HCPCS: 36415; 80053; 80320; 83690; 83735; 84484; 85025; 93005; 96360; 99284

== ENCOUNTER 2020-06-20 17:03 | Observation (INO) | payer MEDICARE, SELFPAY ==
[2018-04-25 07:21] VITALS: BMI 24.3
[2020-06-20] VITALS (15 sets, daily range): BP systolic 106–161; BP diastolic 57–76; PULSE 69–89; RESP 18–22; TEMP 36.9–37; O2SAT 93–99; BMI 25.8
--- NOTE | 2020-06-20 17:28 | DI.RAD.S_ITS ---
PROCEDURE: XR CHEST 1V INDICATIONS: suspected sepsis TECHNIQUE: One view of the chest was acquired. COMPARISON: [facility], CT, CT ANGIO CHEST PE PROTOCOL, 04/25/2018, 3:27. [facility], CR, CHEST 2 VIEW, 04/16/2017, 11:57. [facility], CR, CHEST FOR PICC PLACEMENT, 10/04/2016, 14:04. FINDINGS: Surgical changes and devices: None. Lungs and pleura: Low lung volumes. Lungs appear clear. No pleural effusions or pneumothorax. Mediastinum: Mediastinal contours are not significantly changed accounting for differences in positioning. Heart size is within normal limits. Bones and chest wall: No suspicious bony lesions. Overlying soft tissues appear unremarkable. IMPRESSION: Low lung volumes. Lungs appear clear. Dictated by: Mich Levine M.D. on 06/20/2020 at 18:39 Approved by: Mich Levine M.D. on 06/20/2020 at 18:41
[2020-06-20 18:05] LABS: Add Manual Diff / Slide Review NO; Basophils Absolute Auto 100 /uL (0-100); Basophils Percent Auto 0.4 % (0-2); Eosinophils Absolute Auto 0 /uL (0-450); Hematocrit 52.3 % (41-53); Hemoglobin 17.5 g/dL (13.5-17.5); Lymphocytes Absolute Auto 400 /uL (1100-4500); Lymphocytes Percent Auto 3.2 % (25-40); Mean Corpuscular HGB Conc 33.4 % (30-36); Mean Corpuscular Hemoglobin 30.8 PG (26-34); Monocytes Absolute Auto 500 /uL (0-900); Monocytes Percent Auto 3.7 % (3-14); Neutrophils Absolute Auto 12800 /uL (1500-7000); Neutrophils Percent Auto 92.7 % (50-75); Platelet Count 329 X10^3/uL (150-400); Red Blood Cell Count 5.68 X10^6/uL (4.5-5.9); White Blood Cell Count 13.8 X10^3/uL (4.5-11.0)
[2020-06-20 18:06] LABS: INR 0.9 (0.9-1.3); Prothrombin Time 9.9 SECONDS (10.1-12.7)
[2020-06-20 18:08] LABS: PTT Partial Thromboplastin Tim 27 SECONDS (26.4-36.2)
[2020-06-20 18:11] LABS: Alanine Aminotransferase 38 IU/L (<50); Albumin 5.1 g/dL (3.5-5.0); Albumin Globulin Ratio 1.4 (1.0-2.8); Alkaline Phosphatase 151 U/L (38-126); Aspartate Aminotransferase 67 IU/L (17-59); BUN Creatinine Ratio 14.5 (6-22); Bilirubin Total 0.7 mg/dL (0.2-1.3); Blood Urea Nitrogen 19 mg/dL (9-20); Carbon Dioxide 17 mmol/L (22-32); Chloride 97 mmol/L (98-107); Estimated Glomerular Filt Rate 53.2 mL/min (>60); Globulin 3.6 g/dL (1.7-4.1); Glucose 92 mg/dL (80-110); HEMOLYSIS < 15 (0-50); Lipase 105 U/L (23-300); Sodium 138 mmol/L (137-145); Total Protein 8.7 g/dL (6.3-8.2)
[2020-06-20 18:21] LABS: COVID19 -Nasal RAPID Negative (Negative)
[2020-06-20 18:22] LABS: Lactate (Lactic Acid) 6.8 mmol/L (0.7-2.1)
[2020-06-20 18:32] LABS: Procalcitonin 0.09 ng/mL (<0.5)
[2020-06-20] MEDS: levoFLOXacin 750 MG/150 ML PIGGYBACK 100 MG IV (18:43)
[2020-06-20] MEDS: LACTATED RINGERS 2,449.41 ML 816.47 ML IV (18:43)
--- NOTE | 2020-06-20 19:11 | ED_ITS ---
HPI - Sepsis General Chief Complaint: Weakness Mode of arrival: EMS Source: EMS Limitations: altered mental status Evaluation Sepsis Screen: No Definite Risk Sepsis Infection Criteria Present: None Associated Symptoms: cough, weakness and nausea Narrative: 75-year-old male former smoker with history of alcohol abuse presents by EMS for evaluation of generalized weakness, urinary symptoms and a low temperature. The patient lives at home alone and has a neighbor that frequently checks on him. The neighbor came and saw him, looking ill and checked his temperature and found it to be low, about 95?. At this point, and after consultation with patient's daughter EMS was activated. Patient denies any headache or neck pain. He has had no blurry vision or trouble with speech. He denies any focal neurologic findings such as numbness, tingling or unilateral weakness. He has had no chest pain or shortness of breath and denies vomiting or diarrhea. He has had frequent urination. He has a very poor historian and does not give much detail Review of Systems Constitutional Constitutional: Denies chills, Denies fatigue, Denies fever(s), Denies frequent falls, Reports lethargy and Reports weakness Eyes Eyes: Denies change in vision, Denies eye discharge, Denies irritation and Denies loss of vision ENT Ears, Nose, Mouth, and Throat: Denies change in voice, Denies dizziness, Denies neck pain, Denies sore throat and Denies throat swelling Cardiovascular Cardiovascular: Denies chest pain, Denies irregular heart rhythm, Denies lightheadedness, Denies palpitations, Denies dyspnea, Denies dyspnea on exertion and Denies orthopnea Respiratory Respiratory: Denies cough, Denies dyspnea, Denies dyspnea on exertion and Denies wheezing Gastrointestinal Gastrointestinal: Denies abdominal pain, Denies change in bowel habits, Denies diarrhea, Denies nausea and Denies vomiting Genitourinary Genitourinary: Reports urinary frequency Genitourinary: Reports urinary frequency Musculoskeletal Musculoskeletal: Denies neck pain and Denies numbness Integumentary/Breasts Skin/Breast: Denies pruritus, Denies erythema, Denies rash and Denies wounds Neurologic Neurologic: Denies behavioral changes, Denies confusion, Denies dizziness, Denies frequent falls, Denies loss of vision, Denies numbness and Reports weakness Psychiatric Psychiatric: Denies anxiety, Denies behavioral changes, Denies confusion, Denies depression, Denies homicidal ideation and Denies suicidal ideation Endocrine Endocrine: Denies fatigue, Denies flushing and Denies palpitations Hematologic/Lymphatic Hematologic/Lymphatic: Denies easy bruising Allergic/Immunologic Allergic/Immunologic: Denies urticaria, Denies throat swelling and Denies wheezing Patient History Medical History (Updated 06/21/20 @ 01:39 by Adam Ruiz DO) Alcohol abuse Anxiety Cerebral atrophy Chest pain (03/25/18) Dehydration (03/25/18) Depression Erectile dysfunction Essential hypertension Gastritis History of anemia History of liver injury History of pulmonary embolism Inguinal hernia Intrahepatic biloma Metabolic acidosis Personal history of peptic ulcer disease Wernicke-Korsakoff syndrome (alcoholic) Surgical History History of colonoscopy (2014) History of esophagogastroduodenoscopy (EGD) (2014) History of esophagogastroduodenoscopy (EGD) (04/26/18) History of left hip replacement History of shoulder surgery History of total right knee replacement (TKR) Family History Father Cancer Family/Other No problems noted. Mother Cancer Sister No problems noted. Social History marital status: household members: spouse housing: house Smoking Status: Former smoker alcohol intake: current Smoking Status: Former smoker alcohol intake frequency: 3 or more drinks per day Substance Use Type: does not use Exam Narrative Exam Narrative: GENERAL: [75] year old patient appears older than stated age. Flat affect, GCS 15, alert and oriented, slow to respond, ill-appearing. HEAD: Atraumatic. Normocephalic. EYES: Pupils equal round and reactive. Extraocular motions intact. No scleral icterus. No injection or drainage. ENT: Dry mucous membranes Nose without bleeding, purulent drainage. Throat without erythema, tonsillar hypertrophy or exudate. Airway patent. NECK: Trachea midline. Non tender CARDIOVASCULAR: Regular rate and rhythm without murmurs, gallops, or rubs. RESPIRATORY: Decreased breath sounds throughout, no obvious respiratory distress GASTROINTESTINAL: Abdomen soft, non-tender, nondistended. EXTREMITIES: No edema or joint tenderness. BACK: Nontender without deformity or crepitance. No flank tenderness. NEURO: AOx3. SKIN: No rash or erythema of visible areas Initial Vital Signs Initial Vital Signs: Vital Signs Temperature 98.4 F 06/20/20 17:10 Pulse Rate 89 06/20/20 17:10 Respiratory Rate 20 06/20/20 17:10 Blood Pressure 110/57 L 06/20/20 17:10 Pulse Oximetry 93 06/20/20 17:10 Scores NIH Stroke Scale Level of Conciousness: Alert, keenly responsive Ask month/age: Answers both questions correctly. Open/close eyes, close hand: Performs both tasks correctly Best gaze horizontal: Normal Visual valladares: No visual loss Facial palsy: Normal symetrical movement Left arm drift: No drift for full 10 sec Right arm drift: No drift for full 10 sec Left leg drift: No drift for full 5 sec Right leg drift: No drift for full 5 sec Limb ataxia: Absent Sensory on face/arms/legs: Normal, no sensory loss Best language: No aphasia, normal Dysarthria: Normal Extinction or inattention: No abnormality Total NIH Stroke scale score: 0 Course Orders Ordered: ED Orders 06/20/20 17:28 XR chest 1V Stat EKG-12 Lead Stat RT Consult Eval and Treat Now 06/20/20 17:45 Complete Blood Count AUTO DIFF Stat Comprehensive Metabolic Panel Stat Ethanol (ETOH) Stat Lactate (Lactic Acid) Stat Lipase Stat Partial Thromboplastin Time Stat Procalcitonin Stat Prothrombin Time INR Stat 06/20/20 17:52 COVID19 Stat 06/20/20 18:15 Blood Culture Stat 06/20/20 19:21 Urine Culture Stat Urine Microscopic Stat Acetaminophen (Acetaminophen 325 Mg Tablet) 650 mg PO Q6HR PRN PRN Reason: Fever/Mild Pain (1-3) Enoxaparin Sodium (Enoxaparin 40 Mg/0.4 Ml Syringe) 40 mg SUBCUT DAILY PAULO Folic Acid (Folic Acid 1 Mg Tablet) 1 mg PO DAILY PAULO Magnesium Sulfate 2 gm/ Folic Acid 1 mg/ Thiamine HCl 100 mg / Multivitamins 10 ml/ Sodium Chloride 1,015.2 mls @ 125 mls/hr IV NOW ONE Stop: 06/21/20 06:24 Last Admin: 06/21/20 00:06 Dose: 125 mls/hr Documented by: NATALY Ceftriaxone Sodium/Dextrose (Rocephin) 1 gm in 50 mls @ 100 mls/hr IV Q24H PAULO Last Admin: 06/21/20 00:07 Dose: 100 mls/hr Documented by: NATALY Influenza Virus Vaccine (Influenza Hd Vaccine 0.7 Ml Syringe) 0.7 ml IM .ONCE ONE Stop: 06/21/20 09:01 Lorazepam (Lorazepam 1 Mg Tablet) 2 mg PO Q4HR PRN; Protocol PRN Reason: Alcohol Withdrawal Lorazepam (Lorazepam 2 Mg/Ml Inj) 0 mg IV CIWAPRN PRN; Protocol PRN Reason: Alcohol Withdrawal Last Admin: 06/21/20 00:01 Dose: 2 mg Documented by: NATALY Multivitamins (Multivitamin 1 Tablet) 1 tab PO DAILY [facility] Naloxone HCl (Naloxone 0.4 Mg/Ml Vial) 0.2 mg IV Q2MIN PRN PRN Reason: Opiate Reversal Ondansetron HCl (Ondansetron 4 Mg/2 Ml Inj) 4 mg IV Q8HR PRN PRN Reason: Nausea And Vomiting Last Admin: 06/21/20 00:45 Dose: 4 mg Documented by: NATALY Tamsulosin HCl (Tamsulosin 0.4 Mg Capsule) 0.4 mg PO DAILY [facility] Thiamine HCl (Thiamine 100 Mg Tablet) 100 mg PO DAILY PAULO Stop: 06/24/20 09:01 Discontinued Medications Lactated Ringer's (Lactated Ringers) 2,449.41 mls @ 816.47 mls/hr 30 ml/kg infuse over 3 hr (2449.41 ml) IV NOW ONE Stop: 06/20/20 21:22 Last Infusion: 06/20/20 21:21 Dose: 816.47 mls/hr Documented by: Admin: 06/20/20 18:43 Dose: 816.47 mls/hr Documented by: SIVAKUMAR Levofloxacin (Levaquin) 750 mg in 150 mls @ 100 mls/hr IV NOW ONE Stop: 06/20/20 19:52 Last Infusion: 06/20/20 20:12 Dose: 0 mls/hr Documented by: Admin: 06/20/20 18:43 Dose: 100 mls/hr Documented by: SIVAKUMAR Thiamine HCl 200 mg/ Sodium (Chloride) 52 mls @ 208 mls/hr IV NOW ONE Stop: 06/20/20 19:46 Last Infusion: 06/20/20 21:22 Dose: 0 mls/hr Documented by: Admin: 06/20/20 20:03 Dose: 208 mls/hr Documented by: ELI Influenza Virus Vaccine (Influenza Hd Vaccine 0.7 Ml Syringe) 0.7 ml IM .ONCE ONE Stop: 06/20/20 21:41 Last Admin: 06/21/20 01:27 Dose: Not Given Documented by: Vital Signs Vital signs: Vital Signs - 8 hr 06/20/20 18:00 06/20/20 18:30 06/20/20 19:00 Pulse Rate 84 71 69 Blood Pressure 106/60 115/57 L 151/70 H Pulse Oximetry 94 95 96 06/20/20 19:30 Pulse Rate 72 Blood Pressure 147/74 H Pulse Oximetry MDM - Sepsis Lab Data Result diagrams: 06/20/20 17:45 06/20/20 17:45 Labs: Lab Results 06/20/20 06/20/20 06/20/20 Range/Units 17:45 17:45 17:45 WBC 13.8 H (4.5-11.0) X10^3/uL RBC 5.68 (4.5-5.9) X10^6/uL Hgb 17.5 (13.5-17.5) g/dL Hct 52.3 (41-53) % MCV 92.0 (80-100) fL MCH 30.8 (26-34) PG MCHC 33.4 (30-36) % RDW 19.0 H (11.6-14.8) % Plt Count 329 (150-400) X10^3/uL Neut % (Auto) 92.7 H (50-75) % Lymph % (Auto) 3.2 L (25-40) % Scurry % (Auto) 3.7 (3-14) % Eos % (Auto) 0.0 L (2-4) % Baso % (Auto) 0.4 (0-2) % Neut # (Auto) 45362 H (6760-4094) /uL Lymph # (Auto) 400 L (2032-7002) /uL Scurry # (Auto) 500 (0-900) /uL Eos # (Auto) 0 (0-450) /uL Baso # (Auto) 100 (0-100) /uL PT 9.9 L (10.1-12.7) SECONDS INR 0.9 (0.9-1.3) APTT 27 D (26.4-36.2) SECONDS Sodium (137-145) mmol/L Potassium (3.4-5.1) mmol/L Chloride (98-107) mmol/L Carbon Dioxide (22-32) mmol/L BUN (9-20) mg/dL Creatinine (0.66-1.25) mg/dL Estimated GFR (>60) mL/min BUN/Creatinine Ratio (6-22) Glucose (80-110) mg/dL Lactate (0.7-2.1) mmol/L Calcium (8.4-10.2) mg/dL Total Bilirubin (0.2-1.3) mg/dL AST (17-59) IU/L ALT (<50) IU/L Alkaline Phosphatase (38-126) U/L Total Protein (6.3-8.2) g/dL Albumin (3.5-5.0) g/dL Globulin (1.7-4.1) g/dL Albumin/Globulin Ratio (1.0-2.8) Lipase (23-300) U/L Procalcitonin 0.09 (<0.5) ng/mL Urine RBC (0-5/HPF) Urine WBC (0-5/HPF) Ur Squamous Epith Cells (0-5/HPF) Urine Bacteria (None) Ur Culture Indicated? Ethyl Alcohol ( - 10) mg/dL SARS-CoV-2 (PCR) (Negative) 06/20/20 06/20/20 06/20/20 Range/Units 17:45 17:45 17:45 WBC (4.5-11.0) X10^3/uL RBC (4.5-5.9) X10^6/uL Hgb (13.5-17.5) g/dL Hct (41-53) % MCV (80-100) fL MCH (26-34) PG MCHC (30-36) % RDW (11.6-14.8) % Plt Count (150-400) X10^3/uL Neut % (Auto) (50-75) % Lymph % (Auto) (25-40) % Scurry % (Auto) (3-14) % Eos % (Auto) (2-4) % Baso % (Auto) (0-2) % Neut # (Auto) (2083-7756) /uL Lymph # (Auto) (7163-9745) /uL Scurry # (Auto) (0-900) /uL Eos # (Auto) (0-450) /uL Baso # (Auto) (0-100) /uL PT (10.1-12.7) SECONDS INR (0.9-1.3) APTT (26.4-36.2) SECONDS Sodium 138 (137-145) mmol/L Potassium 4.0 (3.4-5.1) mmol/L Chloride 97 L (98-107) mmol/L Carbon Dioxide 17 L (22-32) mmol/L BUN 19 (9-20) mg/dL Creatinine 1.31 H (0.66-1.25) mg/dL Estimated GFR 53.2 L (>60) mL/min BUN/Creatinine Ratio 14.5 (6-22) Glucose 92 (80-110) mg/dL Lactate 6.8 H* (0.7-2.1) mmol/L Calcium 10.0 (8.4-10.2) mg/dL Total Bilirubin 0.7 (0.2-1.3) mg/dL AST 67 H (17-59) IU/L ALT 38 (<50) IU/L Alkaline Phosphatase 151 H (38-126) U/L Total Protein 8.7 H (6.3-8.2) g/dL Albumin 5.1 H (3.5-5.0) g/dL Globulin 3.6 (1.7-4.1) g/dL Albumin/Globulin Ratio 1.4 (1.0-2.8) Lipase 105 (23-300) U/L Procalcitonin (<0.5) ng/mL Urine RBC (0-5/HPF) Urine WBC (0-5/HPF) Ur Squamous Epith Cells (0-5/HPF) Urine Bacteria (None) Ur Culture Indicated? Ethyl Alcohol 37 H ( - 10) mg/dL SARS-CoV-2 (PCR) (Negative) 06/20/20 06/20/20 Range/Units 17:52 19:21 WBC (4.5-11.0) X10^3/uL RBC (4.5-5.9) X10^6/uL Hgb (13.5-17.5) g/dL Hct (41-53) % MCV (80-100) fL MCH (26-34) PG MCHC (30-36) % RDW (11.6-14.8) % Plt Count (150-400) X10^3/uL Neut % (Auto) (50-75) % Lymph % (Auto) (25-40) % Scurry % (Auto) (3-14) % Eos % (Auto) (2-4) % Baso % (Auto) (0-2) % Neut # (Auto) (4020-3195) /uL Lymph # (Auto) (1163-4734) /uL Scurry # (Auto) (0-900) /uL Eos # (Auto) (0-450) /uL Baso # (Auto) (0-100) /uL PT (10.1-12.7) SECONDS INR (0.9-1.3) APTT (26.4-36.2) SECONDS Sodium (137-145) mmol/L Potassium (3.4-5.1) mmol/L Chloride (98-107) mmol/L Carbon Dioxide (22-32) mmol/L BUN (9-20) mg/dL Creatinine (0.66-1.25) mg/dL Estimated GFR (>60) mL/min BUN/Creatinine Ratio (6-22) Glucose (80-110) mg/dL Lactate (0.7-2.1) mmol/L Calcium (8.4-10.2) mg/dL Total Bilirubin (0.2-1.3) mg/dL AST (17-59) IU/L ALT (<50) IU/L Alkaline Phosphatase (38-126) U/L Total Protein (6.3-8.2) g/dL Albumin (3.5-5.0) g/dL Globulin (1.7-4.1) g/dL Albumin/Globulin Ratio (1.0-2.8) Lipase (23-300) U/L Procalcitonin (<0.5) ng/mL Urine RBC 1-5/hpf (0-5/HPF) Urine WBC >100/hpf H (0-5/HPF) Ur Squamous Epith Cells 0-1 /hpf (0-5/HPF) Urine Bacteria Many (>30) H (None) Ur Culture Indicated? Specimen cultured Ethyl Alcohol ( - 10) mg/dL SARS-CoV-2 (PCR) Negative (Negative) Urine Dip Bedside Urine Glucose Negative Bedside Urine Bilirubin - Negative Bedside Urine Ketone +++ 80 Urine Specific M[place]omb 1.030 Bedside Urine Occult Blood +/- Bedside Urine pH 6.0 Bedside Urine Protein + 30 Bedside Urine Urobilinogen +/- 1mg Bedside Urine Nitrite - Negative Bedside Urine Leukocytes + 70 Esterase Imaging Data Chest x-ray: Radiologist's Impression: Anthony Saul V 75 M 1945 [id number] [place] [id number] ReportSigned Patient: Anthony Saul VMR#: [id number]: [id number]:[id number]/Sex: 75 / MDate of Service: 06/20/20Loc: EDAccession Number: [id number] Procedure: XR chest 1V Ordering Provider: Jeanne Guardado D.O. PROCEDURE: XR CHEST 1V INDICATIONS: suspected sepsis TECHNIQUE: One view of the chest was acquired. COMPARISON: [facility], CT, CT ANGIO CHEST PE PROTOCOL, 04/25/2018, 3:27. [facility], CR, CHEST 2 VIEW, 04/16/2017, 11:57. [facility], CR, CHEST FOR PICC PLACEMENT, 10/04/2016, 14:04. FINDINGS: Surgical changes and devices: None. Lungs and pleura: Low lung volumes. Lungs appear clear. No pleural effusions or pneumothorax. Mediastinum: Mediastinal contours are not significantly changed accounting for differences in positioning. Heart size is within normal limits. Bones and chest wall: No suspicious bony lesions. Overlying soft tissues appear unremarkable. IMPRESSION: Low lung volumes. Lungs appear clear. Dictated by: Mich Levine M.D. on 06/20/2020 at 18:39 Approved by: Mich Levine M.D. on 06/20/2020 at 18:41 Critical Care Time Critical Care Time Critical Care Time: Yes Total Critical Care Time: 30 Attestation: The high probability of a clinically significant, sudden or life threatening deterioration of the [CV] system(s) required my full and direct attention, intervention and personal management. The aggregate critical care time was [30] minutes. This time is in addition to time spent performing reported procedures but includes the following: [x] Data Review and interpretation [x] Patient assessment and monitoring of vital signs [x] Documentation [x] Medication orders and management Discharge Plan Departure Patient Disposition: Admitted As Inpatient Clinical Impression: Acute UTI Sepsis Qualifiers: Sepsis type: sepsis due to unspecified organism Sepsis acute organ dysfunction status: unspecified Qualified Code(s): A41.9 - Sepsis, unspecified organism Admit Date/Time: 06/20/20 19:59 Admit Provider: Glenny Hendrickson
[2020-06-20 19:49] LABS: Bacteria Urine Many (>30); Culture Indicated Urine Specimen Cultured; RBC Urine 1-5/HPF (0-5/HPF); Squamous Epithelial Cell Urine 0-1 /HPF (0-5/HPF); WBC Urine >100/HPF (0-5/HPF)
[2020-06-20 19:54] LABS: Reflexed Lactate in 2 Hours Y
[2020-06-20] MEDS: THIAMINE 200 MG in SODIUM CHLORIDE 0.9% 50 ML 208 ML IV (20:03)
[2020-06-20 20:18] LABS: Ethanol (ETOH) 37 mg/dL
--- NOTE | 2020-06-20 20:57 | PC.NURSE ---
RN report given to Skyla pt to be transferred to ICU for continuing care.
[2020-06-20 21:13] LABS: Lactate 2HR (Lactic Acid Rflx) 2.9 mmol/L (0.7-2.1)
--- NOTE | 2020-06-20 22:21 | PC.NURSE ---
Evening shift note: A/Ox 3 , arrived via gurney from ED, assisted to bed via slide board. Pt incontinent of urine, clothing removed and gown placed with a new brief. Pt states that he is normally bed ridden due to being unsteady on his feet, as well as frequent falls, he uses a front wheeled walker at home if he needs to get out of bed. Pt states that he drinks approximately a pint of vodka daily, and last drink was last night. Oriented to room, call light system, educated on not getting out of bed without calling, seizure pads in place, CIWA 10, waiting for orders. Bed low and locked, no further needs at this time, will continue to monitor.
[2020-06-21] VITALS (30 sets, daily range): BP systolic 120–161; BP diastolic 58–76; PULSE 49–103; RESP 15–29; TEMP 36.2–37.1; O2SAT 92–99
[2020-06-21] MEDS: LORazepam 2 MG/ML INJ IV ×2 (00:01→07:57)
[2020-06-21] MEDS: MAGNESIUM SULFATE 2 GM, FOLIC ACID 1 MG, THIAMINE 100 MG, MULTIVITAMIN 10 ML in SODIUM ... IV (00:06)
[2020-06-21] MEDS: CEFTRIAXONE 1 GM/50 ML FROZ.PIGGY IV (00:07)
[2020-06-21] MEDS: ONDANSETRON 4 MG/2 ML INJ IV (00:45)
--- NOTE | 2020-06-21 02:09 | PM.HP.1 ---
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 Checked his temperature and it was 95? F. he states he has been feeling very poor lately, has had urinary frequency feeling out of sorts. Does endorse having coughing spells but does not endorse having shortness of breath. He stated that he vomited when he checked into the emergency department he has had mild abdominal pain. He has also states that he has had occasional diarrhea. He states that he has urinary hesitancy and it takes him a long time to empty his bladder though a multiple notes state he is incontinent of urine including today's nursing notes. He does endorse drinking a pt of vodka daily and states that he has not had problems with drawn. Review of prior notes in this chart indicate that he has come in either inebriated or in withdrawal. The patient has multiple medical problems but informed the nurse that he does not take any medications including that for an enlarged prostate. Chest x-ray done today did not show any acute pulmonary process. Patient's temp was 98.6?, blood pressure 146/70, heart rate 82, respiratory rate 22 oxygen saturation 94% on room air, he weighs 81.6 kg with a BMI of 25.8. He has a elevated white count at 13.8, RBC 5.68, hemoglobin 17.5, hematocrit 52.3, platelets 329, he has a left shift of 12,800, sodium 138, potassium 4.0, chloride 97, bicarb 17, BUN 19, creatinine 1.31, the GFR 53.2, lactate initially was 6.8 and is now 2.9, bilirubin 0.7, AST 67, ALT 38, alk phos 151, albumin is 5.1, lipase 105, procalcitonin 0.9, urine is grossly positive for bacteria, alcohol level was 37, and COVID-19 PCR is negative. Patient History Medical History Alcohol abuse Anxiety Cerebral atrophy Chest pain (03/25/18) Dehydration (03/25/18) Depression Erectile dysfunction Essential hypertension Gastritis History of anemia History of liver injury History of pulmonary embolism Inguinal hernia Intrahepatic biloma Metabolic acidosis Personal history of peptic ulcer disease Wernicke-Korsakoff syndrome (alcoholic) Surgical History History of colonoscopy (2014) History of esophagogastroduodenoscopy (EGD) (2014) History of esophagogastroduodenoscopy (EGD) (04/26/18) History of left hip replacement History of shoulder surgery History of total right knee replacement (TKR) Family & Social History Family History Father Cancer Family/Other No problems noted. Mother Cancer Sister No problems noted. Social History: household members spouse Prior Living Arrangements House Safety & Behavioral: Feels Safe in Current Yes Environment Been Physically Hurt or No Threatened By a Person Suicidal Ideation Description None Suicide Plan Description No Plan Tobacco & Substance use: Smoking Status Former smoker alcohol intake current alcohol intake frequency 3 or more drinks per day Substance Use Type does not use Meds Home Medications and Allergies Home Medications Medication Instructions Recorded Confirmed Type food supplemt, lactose-reduced See Rx Instructions .ROUTE 08/11/19 06/20/20 Rx .COMPLEX #[id number] ml mirtazapine 7.5 mg tablet 7.5 mg PO DAILY #90 tab 12/11/19 06/20/20 Rx omeprazole 40 mg capsule,delayed 40 mg PO DAILY #90 cap 12/11/19 06/20/20 Rx release tamsulosin 0.4 mg capsule 0.4 mg PO QDAY #90 cap 12/11/19 06/20/20 Rx Allergies Allergy/AdvReac Type Severity Reaction Status Date / Time morphine [MORPHINE] Allergy Unknown Verified 12/11/19 14:18 Review of Systems Review of Systems ROS: Yes All systems reviewed with the patient and are negative except as otherwise documented Exam Vital Signs (past 8 hours): - 06/20/20 18:30 06/20/20 19:00 06/20/20 19:30 Temperature Pulse Rate 71 69 72 Respiratory Rate Blood Pressure 115/57 L 151/70 H 147/74 H Pulse Oximetry 95 96 06/20/20 20:00 06/20/20 21:23 06/20/20 23:00 Temperature 98.6 F 98.6 F Pulse Rate 86 Respiratory Rate 18 Blood Pressure 138/63 138/63 Pulse Oximetry 95 94 94 06/21/20 00:13 06/21/20 00:20 Temperature 98.6 F Pulse Rate 73 82 Respiratory Rate 18 22 Blood Pressure 161/76 H 146/70 H Pulse Oximetry 94 Oxygen Delivery Method Room Air Narrative Exam Narrative: Gen: Alert, oriented, disheveled appearing 75 y.o. male, slow to respond HEENT: normocephalic, atraumatic, conjunctiva clear, sclera non-icteric, oral mucosa pink and moist Neck: supple, full ROM, no JVD, trachea is midline Resp: Lungs CTA, non-labored breathing CV: RRR, no murmur or rubs Abd: soft, non-tender, normoactive BTs Skin: no lesions or rashes, dry and intact Neuro: Alert and oriented X 3 w/no focal deficits. Speech is delayed but cleared clear. He has difficulty speakiing in complete sentances Extremities: moves all 4 extremities, is ambulatory with a walker at home, negative So?s sign Psyche: odd, almost intoxicated affect Objective Labs Result Diagrams: 06/20/20 17:45 06/20/20 17:45 Labs: Laboratory Results - last 24 hr 06/20/20 06/20/20 06/20/20 17:45 17:45 17:45 WBC 13.8 H RBC 5.68 Hgb 17.5 Hct 52.3 MCV 92.0 MCH 30.8 MCHC 33.4 RDW 19.0 H Plt Count 329 Neut % (Auto) 92.7 H Lymph % (Auto) 3.2 L Refug[place] % (Auto) 3.7 Eos % (Auto) 0.0 L Baso % (Auto) 0.4 Neut # (Auto) 63062 H Lymph # (Auto) 400 L [place] # (Auto) 500 Eos # (Auto) 0 Baso # (Auto) 100 PT 9.9 L INR 0.9 APTT 27 D Sodium Potassium Chloride Carbon Dioxide BUN Creatinine Estimated GFR BUN/Creatinine Ratio Glucose Lactate Calcium Total Bilirubin AST ALT Alkaline Phosphatase Total Protein Albumin Globulin Albumin/Globulin Ratio Lipase Procalcitonin 0.09 Urine RBC Urine WBC Ur Squamous Epith Cells Urine Bacteria Ur Culture Indicated? Nasal Screen MRSA (PCR) Ethyl Alcohol SARS-CoV-2 (PCR) 06/20/20 06/20/20 06/20/20 17:45 17:45 17:45 WBC RBC Hgb Hct MCV MCH MCHC RDW Plt Count Neut % (Auto) Lymph % (Auto) Refug[place] % (Auto) Eos % (Auto) Baso % (Auto) Neut # (Auto) Lymph # (Auto) Ref[place] # (Auto) Eos # (Auto) Baso # (Auto) PT INR APTT Sodium 138 Potassium 4.0 Chloride 97 L Carbon Dioxide 17 L BUN 19 Creatinine 1.31 H Estimated GFR 53.2 L BUN/Creatinine Ratio 14.5 Glucose 92 Lactate 6.8 H* Calcium 10.0 Total Bilirubin 0.7 AST 67 H ALT 38 Alkaline Phosphatase 151 H Total Protein 8.7 H Albumin 5.1 H Globulin 3.6 Albumin/Globulin Ratio 1.4 Lipase 105 Procalcitonin Urine RBC Urine WBC Ur Squamous Epith Cells Urine Bacteria Ur Culture Indicated? Nasal Screen MRSA (PCR) Ethyl Alcohol 37 H SARS-CoV-2 (PCR) 06/20/20 06/20/20 06/20/20 17:52 19:21 20:50 WBC RBC Hgb Hct MCV MCH MCHC RDW Plt Count Neut % (Auto) Lymph % (Auto) [place] % (Auto) Eos % (Auto) Baso % (Auto) Neut # (Auto) Lymph # (Auto) Refug[place] # (Auto) Eos # (Auto) Baso # (Auto) PT INR APTT Sodium Potassium Chloride Carbon Dioxide BUN Creatinine Estimated GFR BUN/Creatinine Ratio Glucose Lactate 2.9 H Calcium Total Bilirubin AST ALT Alkaline Phosphatase Total Protein Albumin Globulin Albumin/Globulin Ratio Lipase Procalcitonin Urine RBC 1-5/hpf Urine WBC >100/hpf H Ur Squamous Epith Cells 0-1 /hpf Urine Bacteria Many (>30) H Ur Culture Indicated? Specimen cultured Nasal Screen MRSA (PCR) Ethyl Alcohol SARS-CoV-2 (PCR) Negative 06/20/20 21:21 WBC RBC Hgb Hct MCV MCH MCHC RDW Plt Count Neut % (Auto) Lymph % (Auto) [place] % (Auto) Eos % (Auto) Baso % (Auto) Neut # (Auto) Lymph # (Auto) [place] # (Auto) Eos # (Auto) Baso # (Auto) PT INR APTT Sodium Potassium Chloride Carbon Dioxide BUN Creatinine Estimated GFR BUN/Creatinine Ratio Glucose Lactate Calcium Total Bilirubin AST ALT Alkaline Phosphatase Total Protein Albumin Globulin Albumin/Globulin Ratio Lipase Procalcitonin Urine RBC Urine WBC Ur Squamous Epith Cells Urine Bacteria Ur Culture Indicated? Nasal Screen MRSA (PCR) Negative for mrsa Ethyl Alcohol SARS-CoV-2 (PCR) Assessment & Plan Assessment & Plan narrative: Anthony Saul will be admitted for further management treatment of a complicated UTI. Acute Urinary tract infection, present on admission -patient was septic on presentation, monitor lactate -He was adminstered IV levaquin in the ED. Start IV ceftriaxone 1 gram am of 06/21 Acute kidney injury with a creatinine of 1.31, likely due to dehydration -Patient will receive a banana bag, and large volume fluid will hopefully the the effect of hydrating him Chronic alcohol dependence, likely acute intoxication, present on admission -CIWA protocol -IV ativan 2 mg q 3 hours prn -SW consult for alcohol use and possible unsafe housing situation. He has been treated in the past for GERD, depression, and benign prostatic hypertrophy but is not currently taking medications for these conditions. VTE prophylaxis: Wells risk score: 3 Enoxaparin 40 mg subQ daily Consults: none Patient is admitted under inpatient status with expected length of stay greater than 2 midnights due to severity of presenting symptoms, risk of adverse event, and complexity of treatment plan. FEN: banana bag X 1, general diet, BMP and magnesium in the am. Dispo: unknown at this time Code Status: full code as discussed with patient Scores Wells' Criteria for PE Clinical signs and symptoms of DVT: No PE is #1 Dx or equally likely: No Heart rate > 100: No Immobilization at least 3 days or surg in previous 4 weeks: Yes History of PE or DVT: Yes Hemoptysis: No Malignancy w/Treatment within 6 months or palliative: No Wells' PE Score total: 3.0
[2020-06-21 05:08] LABS: Add Manual Diff / Slide Review NO; Basophils Absolute Auto 0 /uL (0-100); Basophils Percent Auto 0.4 % (0-2); Eosinophils Absolute Auto 0 /uL (0-450); Eosinophils Percent Auto 0.1 % (2-4); Hematocrit 41.6 % (41-53); Hemoglobin 13.7 g/dL (13.5-17.5); Lymphocytes Absolute Auto 600 /uL (1100-4500); Lymphocytes Percent Auto 5.2 % (25-40); Mean Corpuscular HGB Conc 32.9 % (30-36); Mean Corpuscular Volume 91.2 fL (80-100); Monocytes Absolute Auto 1100 /uL (0-900); Monocytes Percent Auto 9.5 % (3-14); Neutrophils Absolute Auto 10300 /uL (1500-7000); Neutrophils Percent Auto 84.8 % (50-75); Platelet Count 236 X10^3/uL (150-400); Red Blood Cell Count 4.56 X10^6/uL (4.5-5.9); Red Cell Distribution Width 19.2 % (11.6-14.8); White Blood Cell Count 12.1 X10^3/uL (4.5-11.0)
[2020-06-21 05:17] LABS: Alanine Aminotransferase 26 IU/L (<50); Albumin 3.6 g/dL (3.5-5.0); Albumin Globulin Ratio 1.4 (1.0-2.8); Alkaline Phosphatase 99 U/L (38-126); Aspartate Aminotransferase 41 IU/L (17-59); BUN Creatinine Ratio 19.4 (6-22); Bilirubin Total 0.7 mg/dL (0.2-1.3); Blood Urea Nitrogen 19 mg/dL (9-20); Calcium 8.8 mg/dL (8.4-10.2); Carbon Dioxide 27 mmol/L (22-32); Chloride 96 mmol/L (98-107); Estimated Glomerular Filt Rate > 60.0 mL/min (>60); Globulin 2.5 g/dL (1.7-4.1); Glucose 90 mg/dL (80-110); HEMOLYSIS < 15 (0-50); Potassium 4.8 mmol/L (3.4-5.1); Sodium 130 mmol/L (137-145); Total Protein 6.1 g/dL (6.3-8.2)
[2020-06-21] MEDS: ENOXAPARIN 40 MG/0.4 ML SYRINGE SUBCUT (09:18)
[2020-06-21] MEDS: TAMSULOSIN 0.4 MG CAPSULE PO (09:19)
[2020-06-21] MEDS: THIAMINE 100 MG TABLET PO (09:19)
[2020-06-21] MEDS: FOLIC ACID 1 MG TABLET PO (09:19)
[2020-06-21] MEDS: MULTIVITAMIN 1 TABLET 1 TAB PO (09:19)
[2020-06-21] MEDS: SODIUM CHLORIDE 0.9% 1,000 ML 100 ML IV ×2 (11:16→21:15)
--- NOTE | 2020-06-21 14:25 | OT.IP.EVAL ---
Past Medical History (Last Reviewed 06/21/20 @ 02:37 by JAYCEE Colbert) Alcohol abuse Anxiety Cerebral atrophy Chest pain (03/25/18) Dehydration (03/25/18) Depression Erectile dysfunction Essential hypertension Gastritis History of anemia History of liver injury History of pulmonary embolism Inguinal hernia Intrahepatic biloma Metabolic acidosis Personal history of peptic ulcer disease Wernicke-Korsakoff syndrome (alcoholic) Surgical History (Last Reviewed 06/21/20 @ 02:37 by JAYCEE Colbert) History of colonoscopy (2014) History of esophagogastroduodenoscopy (EGD) (2014) History of esophagogastroduodenoscopy (EGD) (04/26/18) History of left hip replacement History of shoulder surgery History of total right knee replacement (TKR) Occupational Therapy Inpatient Evaluation/Re-Eval M1 PT/OT-IP Prior Functional Status Start: 06/21/20 15:43 Freq: NEEDED Status: Active Protocol: Document 06/21/20 15:44 [facility] (Rec: 06/21/20 16:13 [facility] [id number]) Medical Review Prior Functional Status Communication Independent. Mobility and Gait Pt states at home uses FWW to get around his house, however easily gets tired and needing standing rest breaks at times. Activities of Daily Living and IADL's Pt states just wears loose eliezer and shirt, sponges off, and has Meals on Wheels which his states has been able to microwave on his own. Prior Functional Level (Other details) Pt states has had falls at least every other day for the past month. Social History Household Members none Living Arrangements House Number of Floors (Floors) Two Floors Number of Stairs To Enter/Railing? Pt sleeps on the 2 mattresses in the living room and unable to get upstairs to his bedroom , tub/shower, or walk in shower. There are 3-4 steps from the front and use of screen door to help get up the steps. Pt states there are 13 steps with right rail to get to the upstairs. Home Environment Standard Height Toilet,Walk in Shower,Tub/Shower Home Equipment Front Wheel Walker,Straight Cane Additional Social History Comment Pt states in the past 6 months has gotten progressively weaker and unsteady on his feet. Pt states currently spents 20 hours in bed. M2 OT-IP Current Condition Start: 06/21/20 15:43 Freq: Status: Active Protocol: Document 06/21/20 15:44 [facility] (Rec: 06/21/20 16:13 [facility] [id number]) Occupational Therapy Current Condition Current Condition Evaluation Date 06/21/20 Treatment Diagnosis UTI Diagnosis Onset Date 06/20/20 M3 OT- IP Subjective and Pain Start: 06/21/20 15:43 Freq: Status: Active Protocol: Document 06/21/20 15:44 [facility] (Rec: 06/21/20 16:13 [facility] [id number]) OT- Subjective Occupational Therapy Visit Type Type Initial Evaluation Visit Start Time 14:14 Visit Stop Time 14:45 Total Visit Minutes 31 Occupational Therapy Visit Comments Patient Comments Pt wiling to get up to the recliner. Patient/Caregiver Goals To get stronger and be able to care for himself. OT Pain Assessment Pain When Pain Assessed At Rest Pain Present Pain Present Pain Reported Location Abdomen Intensity 4 Scale Used Numeric (0 - 10) M4 OT- IP ADL's Start: 06/21/20 15:43 Freq: Status: Active Protocol: Document 06/21/20 15:44 [facility] (Rec: 06/21/20 16:13 [facility] [id number]) OT ADL-Grooming Comments OT Grooming Comments Not at meal time. OT ADL-Oral Care Comments Oral Care Comments Not performed. OT ADL-Dressing General Eval Lower Body Dressing Ability Maximum Assistance Comments OT Dressing Comments Pt not able to riky/doff socks and wanting therapist to do. Pt states at home just able to put on loose eliezer and shirt while in bed. OT ADL-Toileting General Evaluation Toileting Ability Total Assistance Areas Needing Assistance Manage Clothing,Perform Perineal Hygiene Comments OT Toileting Comments Pt incontinent and needing assist for hygiene and brief management at this time while another person assist to stand pt with FWW. OT ADL-Bathing Comments OT Bathing Comments NOt at this time. M5 OT- IP IADL's Start: 06/21/20 15:43 Freq: Status: Active Protocol: Document 06/21/20 15:44 [facility] (Rec: 06/21/20 16:13 [facility] [id number]) OT-Instrumental Activities of Daily Living Home Safety Awareness Awareness of Need for Assistance at Home Good Awareness Ability to Problem Solve Emergency Unable to Problem Solve Situations Home Safety Comments Pt not able not able to figure out what to do in case the toilet was flooding and states would allow a stranger in his house. Pt needing increased time to respond to questions asked. Medication Management Medication Management Comments At this time would be best for pt to have someone assist him for all needs due to decreased ability to care for himself. Money Management Money Management Comments Pt states his daughter now pays his bills. M6 OT- IP Functional Cognition Start: 06/21/20 15:43 Freq: Status: Active Protocol: Document 06/21/20 15:44 [facility] (Rec: 06/21/20 16:13 [facility] [id number]) Cognitive Factors Limiting Selfcare Function Cognitive Ability Level of Alertness Alert,Drowsy Patient Orientation Name,Month,Place Attention Span Ability Capable of Focused Attention, Capable of Sustained Attention Ability to Follow Commands Able to Follow One Step Commands with Increased Time, Able to Follow One Step Commands with Repetition Safety Awareness Underestimates Need for Assistance Problem Solving Ability Unable to Identify Errors, Needs Assist to Identify Solutions Cognitive Comments Cognitive Assessment Comments Pt needing step by step instructions for FWW safety use, hand placement to help push up from the bed and to be sure to back up all the way to the recliner before sitting down. Pt is also a bit impulsive. Pt would benefit from a cogn assessment. OT- Vision and Hearing OT- Vision Assessment Visual Acuity Glasses For Reading Vision Assessment Comments Pt having difficulty following directions for eye scanning. M7 OT- IP Mobility and Balance Start: 06/21/20 15:43 Freq: Status: Active Protocol: Document 06/21/20 15:44 [facility] (Rec: 06/21/20 16:13 [facility] [id number]) OT- Bed Mobility Assessment Rolling Level of Assistance Minimal Assistance Supine to Sit Supine to Sit Assist Minimal Assistance Scooting Scooting to Edge of Bed Contact Guard Assistance OT-Transfer Assessment Sit to and From Stand Sit to and from Stand Moderate Assistance Transfers Transfer Ability Moderate Assistance,Maximum Assistance,1 Person Assistance Technique Transfer Destination Bed,Chair Transfer Technique Stand Step Pivot Devices Transfer Assistive Devices Gait Belt,Front Wheeled Walker Comments Mobility Comments Pt increased time and RACHNA to help get trunk upright and to the edge of the bed. MOD A to stand to FWW. MOD/MAX A 1 to transfer as pt leaning posteriorly, needing assist to guide the FWW, and assist for balance. Pt having difficulty to move his left leg during the transfer. OT- Gait Assessment Comments Gait Ability Comments Only transfer at this time. OT- Balance Assessment Sitting Balance and Reactions Static Sitting Balance Ability Poor Dynamic Sitting Balance Ability Poor Standing Balance and Reactions Static Standing Balance Ability Poor Dynamic Standing Balance Ability Poor Comments Other Balance Tests/Deviations/Treatment Pt has very flexed posture : while sitting on the edge of the bed and needing RACHNA for balance. Pt having to hold to FWW so able to lift up his foot so therapist able to assist him to get on his socks . Pt sits in posterior tilt and lateral tilt to the right. M8 OT- IP Objective Assessments Start: 06/21/20 15:43 Freq: Status: Active Protocol: Document 06/21/20 15:44 [facility] (Rec: 06/21/20 16:13 [facility] [id number]) OT Gross Range of Motion Upper Extremity Range of Motion Assessment Bilaterally Impaired ROM Impairments Right shoulder flexion 0-100, Left shoulder flexion 0-95 OT Strength Upper Extremity Strength Assessment Bilaterally Impaired Comments Strength Comments RUE 4/5, LUE 3+/5 OT-Muscle Tone Assessment Muscle Tone WNL Yes OT Sensation Assessment Comments Summary Comments intact for light touch M9 OT- IP Assessment and Plan Start: 06/21/20 15:43 Freq: Status: Active Protocol: Document 06/21/20 15:44 [facility] (Rec: 06/21/20 16:13 [facility] [id number]) OT Summary Assessment and Plan Potential Rehabilitation Potential Good Analytic Complexity at Evaluation Moderate Summary OT Impairments Range of Motion,Strength, Balance,Functional Cognition, Functional Mobility,Self- Feeding,Grooming,Dressing, Toileting,Bathing,Toilet Transfers,Shower Transfers, Activity Tolerance Progress Towards Goals Slow Progress due to Medical Issues,Slow Progress due to Activity Tolerance,Slow Progress due to Cognition Assessment Summary Pt MOD complexity due to high history of falls, hx of ETOH abuse, and now needing extensive assist for all ADl and functional mobility needs. Pt states has progressively declined in function in the past 6 month and more so this past month and having falls every other day per pt and mainly just staying in bed for 20 hours out of the day. Pt would benefit from skilled rehab at this time. Questionable of whether pt is at his baseline pending on what pt's baseline is for him. Pt admits that he has not been able to properly care for himself. Goals Self-Feeding Goal Independent Grooming Goal Independent Dressing Goal Independent Toileting Goal Independent Bathing Goal Independent Toilet Transfer Goal Independent Days to Meet Goals 20 Frequency of Treatment Frequency Of Treatment Once a Day Treatment Plan OT Treatment Plan ADL Training,Functional Cognition Training,Functional Mobility,Patient/Family Education,Discharge Planning Discharge Recommendations OT Discharge Recommendations SNF Rehab Transportation Needs at Discharge Wheelchair/Cabulance
--- NOTE | 2020-06-21 14:51 | PM.PN.1 ---
Subjective Subjective Date Patient Seen: 06/21/20 Interval history: The patient is a 75-year-old male who was admitted to the hospital with hypothermia, urinary tract infection, having been found down. The patient does have a history of alcoholism. He is awake alert and appropriate today. He denies any evidence of withdrawal. Specifically he denies any hallucinations or prior history of withdrawal. This is inconsistent with the medical record. In any event the patient knows he is at the hospital states that he had difficulty walking which is why he is here. He has no other specific complaints. Exam Vital Signs (past 8 hours): - 06/21/20 07:00 06/21/20 07:10 06/21/20 07:30 Temperature 98.7 F Pulse Rate 71 68 72 Respiratory Rate 29 H 21 22 Blood Pressure 128/58 L Pulse Oximetry 97 97 97 06/21/20 08:00 06/21/20 08:18 06/21/20 11:22 Temperature 98.3 F 97.1 F L Pulse Rate 68 87 75 Respiratory Rate 21 16 21 Blood Pressure 128/59 L 120/72 135/60 Pulse Oximetry 97 94 Oxygen Delivery Method Room Air Oxygen Flow Rate 0 Narrative Exam Narrative: Disheveled male lying in bed in no obvious distress Lungs: Clear to auscultation Cardiac exam: Regular rate and rhythm normal S1-S2 Abdomen: Soft nontender nondistended Extremities: No edema Objective Labs Result Diagrams: 06/21/20 04:50 06/21/20 04:50 Labs: Laboratory Results - last 24 hr 06/20/20 06/20/20 06/20/20 17:45 17:45 17:45 WBC 13.8 H RBC 5.68 Hgb 17.5 Hct 52.3 MCV 92.0 MCH 30.8 MCHC 33.4 RDW 19.0 H Plt Count 329 Neut % (Auto) 92.7 H Lymph % (Auto) 3.2 L Sargent % (Auto) 3.7 Eos % (Auto) 0.0 L Baso % (Auto) 0.4 Neut # (Auto) 82528 H Lymph # (Auto) 400 L Sargent # (Auto) 500 Eos # (Auto) 0 Baso # (Auto) 100 PT 9.9 L INR 0.9 APTT 27 D Sodium Potassium Chloride Carbon Dioxide BUN Creatinine Estimated GFR BUN/Creatinine Ratio Glucose Lactate Calcium Magnesium Total Bilirubin AST ALT Alkaline Phosphatase Total Protein Albumin Globulin Albumin/Globulin Ratio Lipase Procalcitonin 0.09 Urine RBC Urine WBC Ur Squamous Epith Cells Urine Bacteria Ur Culture Indicated? Nasal Screen MRSA (PCR) Ethyl Alcohol SARS-CoV-2 (PCR) 06/20/20 06/20/20 06/20/20 17:45 17:45 17:45 WBC RBC Hgb Hct MCV MCH MCHC RDW Plt Count Neut % (Auto) Lymph % (Auto) Sargent % (Auto) Eos % (Auto) Baso % (Auto) Neut # (Auto) Lymph # (Auto) Sargent # (Auto) Eos # (Auto) Baso # (Auto) PT INR APTT Sodium 138 Potassium 4.0 Chloride 97 L Carbon Dioxide 17 L BUN 19 Creatinine 1.31 H Estimated GFR 53.2 L BUN/Creatinine Ratio 14.5 Glucose 92 Lactate 6.8 H* Calcium 10.0 Magnesium Total Bilirubin 0.7 AST 67 H ALT 38 Alkaline Phosphatase 151 H Total Protein 8.7 H Albumin 5.1 H Globulin 3.6 Albumin/Globulin Ratio 1.4 Lipase 105 Procalcitonin Urine RBC Urine WBC Ur Squamous Epith Cells Urine Bacteria Ur Culture Indicated? Nasal Screen MRSA (PCR) Ethyl Alcohol 37 H SARS-CoV-2 (PCR) 06/20/20 06/20/20 06/20/20 17:52 19:21 20:50 WBC RBC Hgb Hct MCV MCH MCHC RDW Plt Count Neut % (Auto) Lymph % (Auto) Sargent % (Auto) Eos % (Auto) Baso % (Auto) Neut # (Auto) Lymph # (Auto) Sargent # (Auto) Eos # (Auto) Baso # (Auto) PT INR APTT Sodium Potassium Chloride Carbon Dioxide BUN Creatinine Estimated GFR BUN/Creatinine Ratio Glucose Lactate 2.9 H Calcium Magnesium Total Bilirubin AST ALT Alkaline Phosphatase Total Protein Albumin Globulin Albumin/Globulin Ratio Lipase Procalcitonin Urine RBC 1-5/hpf Urine WBC >100/hpf H Ur Squamous Epith Cells 0-1 /hpf Urine Bacteria Many (>30) H Ur Culture Indicated? Specimen cultured Nasal Screen MRSA (PCR) Ethyl Alcohol SARS-CoV-2 (PCR) Negative 06/20/20 06/21/20 06/21/20 21:21 04:50 04:50 WBC 12.1 H RBC 4.56 Hgb 13.7 Hct 41.6 MCV 91.2 MCH 30.0 MCHC 32.9 RDW 19.2 H Plt Count 236 Neut % (Auto) 84.8 H Lymph % (Auto) 5.2 L Sargent % (Auto) 9.5 Eos % (Auto) 0.1 L Baso % (Auto) 0.4 Neut # (Auto) 99499 H Lymph # (Auto) 600 L Sargent # (Auto) 1100 H Eos # (Auto) 0 Baso # (Auto) 0 PT INR APTT Sodium 130 L Potassium 4.8 Chloride 96 L Carbon Dioxide 27 BUN 19 Creatinine 0.98 Estimated GFR > 60.0 BUN/Creatinine Ratio 19.4 Glucose 90 Lactate Calcium 8.8 Magnesium 2.0 Total Bilirubin 0.7 AST 41 ALT 26 Alkaline Phosphatase 99 D Total Protein 6.1 L Albumin 3.6 Globulin 2.5 Albumin/Globulin Ratio 1.4 Lipase Procalcitonin Urine RBC Urine WBC Ur Squamous Epith Cells Urine Bacteria Ur Culture Indicated? Nasal Screen MRSA (PCR) Negative for mrsa Ethyl Alcohol SARS-CoV-2 (PCR) 06/21/20 04:50 WBC RBC Hgb Hct MCV MCH MCHC RDW Plt Count Neut % (Auto) Lymph % (Auto) Sargent % (Auto) Eos % (Auto) Baso % (Auto) Neut # (Auto) Lymph # (Auto) Sargent # (Auto) Eos # (Auto) Baso # (Auto) PT INR APTT Sodium Potassium Chloride Carbon Dioxide BUN Creatinine Estimated GFR BUN/Creatinine Ratio Glucose Lactate 1.0 Calcium Magnesium Total Bilirubin AST ALT Alkaline Phosphatase Total Protein Albumin Globulin Albumin/Globulin Ratio Lipase Procalcitonin Urine RBC Urine WBC Ur Squamous Epith Cells Urine Bacteria Ur Culture Indicated? Nasal Screen MRSA (PCR) Ethyl Alcohol SARS-CoV-2 (PCR) [facility] Medical History Alcohol abuse Anxiety Cerebral atrophy Chest pain (03/25/18) Dehydration (03/25/18) Depression Erectile dysfunction Essential hypertension Gastritis History of anemia History of liver injury History of pulmonary embolism Inguinal hernia Intrahepatic biloma Metabolic acidosis Personal history of peptic ulcer disease Wernicke-Korsakoff syndrome (alcoholic) Surgical History History of colonoscopy (2014) History of esophagogastroduodenoscopy (EGD) (2014) History of esophagogastroduodenoscopy (EGD) (04/26/18) History of left hip replacement History of shoulder surgery History of total right knee replacement (TKR) Family History Father Cancer Family/Other No problems noted. Mother Cancer Sister No problems noted. Social History marital status: household members: spouse housing: house Smoking Status: Former smoker alcohol intake: current Assessment & Plan Assessment & Plan narrative: Severe sepsis -patient presented with hypothermia, a fall, and renal failure. Creatinine elevated at 1.3 -with IV hydration he has had improvement in his renal function -urine cultures growing Gram-negative carotid likely etiology of his sepsis -serum lactate 6.8 on admission, repeat 2.9, 1.0 next -will continue ceftriaxone, 2 g per day Acute kidney injury with a creatinine of 1.31, likely due to dehydration/severe sepsis -continue IV hydration which is improved renal function thus far -will continue to follow closely Chronic alcohol dependence, likely acute intoxication, present on admission -CIKS protocol -IV ativan 2 mg q 3 hours prn - consult for alcohol use and possible unsafe housing situation. Hyponatremia -likely related to alcohol use Plan physical therapy occupational therapy, await urine culture result and adjust antibiotics according He has been treated in the past for GERD, depression, and benign prostatic hypertrophy but is not currently taking medications for these conditions. VTE prophylaxis: Wells risk score: 3 Enoxaparin 40 mg subQ daily Consults: none Patient is admitted under inpatient status with expected length of stay greater than 2 midnights due to severity of presenting symptoms, risk of adverse event, and complexity of treatment plan.
[2020-06-21] MEDS: CEFTRIAXONE 2 GM/50 ML FROZ.PIGGY IV (15:29)
--- NOTE | 2020-06-21 15:34 | CM.DPC ---
DCP ASSESSMENT: Patient is a 75 yo male, admitted to the hospital on 06/20/20, his neighbor found him with a low temp, and diagnosed with UTI, Acute kidney injury and ETOH withdrawl. Primary doctor is Rashad Yates. Primary payer is [employer]. BACON STRINGER and JEANETTE student met with patient in room as he was sitting in a chair. Educated and introduced the role of care management and discharge services. Patient lives at home alone in [place], patient reported some difficulty with ADL's: difficulty with meal prep and showering as shower/bath is on second floor. Compensatory strategies he utilizes are meals on wheels, FWW for ambulation on main level of house. He has a supportive neighbor Mr. Omalley who checks on him periodically and supplies alcohol when Mr. Saul calls and asks. He is currently de-conditioned and required assistance for transfer from therapy this date. Explored alcohol history with Mr. Saul, he endorses drinking daily and does not have any desire to stop drinking It is the only thing that smooths out the falls and bumps of time, patient stated. He reported trying a recovery program in the past (10years prior) which, he felt was not successful and has no interest in trying again. He expressed the consequences of drinking and his primary desire is to continue drinking while trying to manage any negative side-effects or consequences of withdrawal, I need to be careful. Reviewed various discharge options with Mr. Saul (Fdc with Rehab/Home Health). He expressed a desire to return to home and is currently unsure about home health? PLAN: Recommend additional education regarding home health options discharge recommendations: discharge to home with continued meals on wheels, and Home Health: PT/OT/RN for strength and environmental safety if patient in agreement. JEANETTE Castillo Student JEANETTE Eller Discharge Planning/Care Management CM Discharge Assessment Start: 06/21/20 15:24 Freq: Status: Active Protocol: Document 06/21/20 15:25 AL (Rec: 06/21/20 15:33 AL [id number]) Discharge Planning Assessment Assigned Aircraft Time Clerk JEANETTE Castillo Student Contact Information Marysol Rubio (DTR) Advance Directives? Yes: HC DPOA History Provided By Patient,Medical Record Has Patient been admitted in last 30 No days? Prior Living Arrangements House Household Members none Comment Verifed with patient he reports he lives home alone Type of transporation used prior to Relies on Others admit Independent with ADL's No Is patient alert and oriented? Oriented x2 (self-location) Needs Assistance With Bathing,Meal Prep Caregiver for Another No Community Services used prior to Home Delivered Meals admission: Comment Meals on wheels DME Already Rented / Owned FWW / Walker Comment Could benefit from home health OT/PT Barriers to Discharge No Discharge Plan Home Community Services Home Delivered Meals Transportation Arrangement He is unsure of who will be able to provide transportation , maybe a cab Review Status In Process
--- NOTE | 2020-06-21 16:36 | PT.IIE ---
Surgical History (Last Reviewed 06/21/20 @ 02:37 by JAYCEE Colbert) History of colonoscopy (2014) History of esophagogastroduodenoscopy (EGD) (2014) History of esophagogastroduodenoscopy (EGD) (04/26/18) History of left hip replacement History of shoulder surgery History of total right knee replacement (TKR) Medical History (Last Reviewed 06/21/20 @ 02:37 by JAYCEE Colbert) Alcohol abuse Anxiety Cerebral atrophy Chest pain (03/25/18) Dehydration (03/25/18) Depression Erectile dysfunction Essential hypertension Gastritis History of anemia History of liver injury History of pulmonary embolism Inguinal hernia Intrahepatic biloma Metabolic acidosis Personal history of peptic ulcer disease Wernicke-Korsakoff syndrome (alcoholic) Physical Therapy Inpatient Evaluation/Re-Eval M1 PT/OT-IP Prior Functional Status Start: 06/21/20 15:43 Freq: NEEDED Status: Active Protocol: Document 06/21/20 16:36 DLM (Rec: 06/21/20 17:00 DLM [id number]) Medical Review Prior Functional Status Medical History Reviewed Yes Diet/Fluid Consistency Regular Communication Independent. Mobility and Gait Pt states at home uses FWW to get around his house, however easily gets tired and needing standing rest breaks at times. He has been spending a lot of time in bed recently. Activities of Daily Living and IADL's Pt states just wears loose eliezer and shirt, sponges off, and has Meals on Wheels which his states has been able to microwave on his own. Prior Functional Level (Other details) Pt states has had falls at least every other day for the past month. He reports a hx of out-pt PT that helped a little but the improvements did not last. Social History Household Members none Living Arrangements House Number of Floors (Floors) Two Floors Number of Stairs To Enter/Railing? 0 steps to enter from one door Home Environment Standard Height Toilet,Walk in Shower,Tub/Shower Home Equipment Front Wheel Walker,Straight Cane Additional Social History Comment Pt states in the past 6 months has gottem progressively weaker and unsteady on his feet. Pt states currently spents 20 hours in bed. Pt sleeps on the 2 mattresses in the living room and unable to get upstairs to his bedroom, tub/shower, or walk in shower. There are 3-4 steps from the front and use of screen door to help get up the steps. Pt states there are 13 steps with right rail to get to the upstairs. M2 PT-IP Current Condition Start: 06/21/20 13:57 Freq: NEEDED Status: Active Protocol: Document 06/21/20 16:36 DLM (Rec: 06/21/20 17:00 DLM [id number]) Physical Therapy Current Condition Current Condition Evaluation Date 06/21/20 Treatment Diagnosis UTI, weakness, impaired gait Onset Date 06/20/20 M3 PT-IP Subjective Start: 06/21/20 13:57 Freq: NEEDED Status: Active Protocol: Document 06/21/20 16:36 DLM (Rec: 06/21/20 17:00 DLM [id number]) Subjective Physical Therapy Visit Type Type Initial Evaluation Visit Start Time 16:00 Visit Stop Time 16:36 Total Visit Minutes 36 Number of CLINICAL RESEARCH PHYSICIAN Visits 0 Physical Therapy Visit Comments Patient Comments He reports feeling very weak Patient Goals get stronger M4 PT-IP Mobility and Gait Start: 06/21/20 13:57 Freq: NEEDED Status: Active Protocol: Document 06/21/20 16:36 DLM (Rec: 06/21/20 17:00 DLM [id number]) PT-Bed Mobility Assessment Rolling Level of Assist Standby Assistance Supine to Sit Supine to Sit Standby Assistance Sit to Supine Sit to Supine Standby Assistance Scooting Scooting to Edge of Bed Standby Assistance Scooting Up and Down in Bed Moderate Assistance PT-Transfer Assessment Sit to and From Stand Sit to and from Stand Minimal Assistance,Moderate Assistance,1 Person Assistance ,Use of Upper Extremities Equipment Transfer Assistive Device Gait Belt,Front Wheeled Walker Transfers Transfer Destination Bed Transfer Technique Stand Step Pivot Transfer Ability Level of Assist Moderate Assistance,Use of Upper Extremities Comments Mobility Comments pt sits edge of bed with very flexed trunk, he reports he can not sit erect when asked Gait Assessment Gait Gait Assistance Required: Moderate Assistance Distance (Feet) 5 Assistive Devices Assistive Device Gait Belt,Front Wheeled Walker Gait Deviations General Gait Pattern Ataxic,Flexed Trunk,Wide Based Gait Factors Limiting Gait Function Factors Limiting Gait Function Decreased Activity Tolerance, Incoordination,Poor Balance, Poor Safety Awareness Comments Gait Comments pt demonstrates a very unsafe gait pattern; FWW too far in front of him, feet so far apart they do not fit inside the fWW, difficulty moving FWW around obstacles, flexed trunk, poor ability to clear the floor with his feet for functional steps PT-Balance Assessment Sitting Balance and Reactions Static Sitting Balance Ability Good Dynamic Sitting Balance Ability Fair Standing Balance and Reactions Static Standing Balance Ability Fair Dynamic Standing Balance Ability Poor Device Used FWW M5 PT-IP Objective Assessments Start: 06/21/20 13:57 Freq: NEEDED Status: Active Protocol: Document 06/21/20 16:36 DLM (Rec: 06/21/20 17:00 DLM [id number]) Orientation Orientation/Cognition Level of Alertness Alert Orientation Name,Place,Situation Language Function Ability Hard of Hearing Safety Awareness Decreased Safety Awareness Comments need to continue to assess cognition and memory Gross Range of Motion Upper Extremity ROM Assessment Bilaterally Impaired Impairments end range stiffness bilateral shoulder flexion, see OT notes for more details Lower Extremity ROM Assessment Bilaterally Impaired Impairments significant hamstring tightness and pt unable to fully extend knees Strength Upper Extremity Strength Assessment Bilaterally Impaired Shoulder see OT notes for more specifics Lower Extremity Strength Assessment Bilaterally Impaired Hip flex 4/5 Knee knee ext 4+/5 Ankle DF 5/5 Coordination Assessment Gross Coordination Gross Coordination Impaired Assessment Foot Tapping Test Moderate Impairment Coordination Comments ataxic Sensation Assessment Sensation Gross Sensation Right LE Impaired,Left LE Impaired Sensation Description Numbness Comments Sensation Comments he reports numbness in his heels Muscle Tone Muscle Tone WNL No Muscle Tone Location Bilateral Lower Extremity Type of Tone Hypertonicity Severity of Tone Mild Manifistation of Tone Ataxia Other Assessments Other Other Assessments pt has abrasions on the back of head and right knee that he reports are the from recent falls at home M7 PT-IP Assessment and Plan Start: 06/21/20 13:57 Freq: NEEDED Status: Active Protocol: Document 06/21/20 16:36 DLM (Rec: 06/21/20 17:00 DLM [id number]) PT Summary Assessment and Plan Potential Rehabilitation Potential Good Status of Condition at Evaluation Evolving Summary Impairments ROM,Strength Assessment Summary Mr Saul demonstrates decreased functional strength, ataxia, impaired standing balance and impaired gait that place him at very high risk for falls. He reports feeling very weak. He is alone at home and has been having frequent falls. He is not safe to discharge back home alone. He could benefit from SNF rehab for continued therapy. Goals Bed Mobility Goal Independent Transfer Goal Minimal Assistance,Front Wheeled Walker Gait Goal Minimal Assistance,Front Wheel Walker Gait Distance 40 Days to Meet Goals 4 Frequency of Treatment Frequency Of Treatment Twice a Day Treatment Plan Physical Therapy Treatment Plan Bed Mobility Training,Transfer Training,Gait Training, Therapeutic Exercise,Balance Retraining,Discharge Planning, Neuromuscular Re-ed, Coordination Retraining Recommendations To Nursing Amount of Assist Needed 1 Person Assist Discharge Recommendations PT Discharge Recommendations SNF Rehab Transportation Needs at Discharge Private Vehicle,Wheelchair/ Cabulance
[2020-06-22 02:00] VITALS: BP 137/66; PULSE 43; RESP 16; O2SAT 98
--- NOTE | 2020-06-22 03:34 | PC.NURSE ---
Pt HR sustaining 43. Mendez CHAMPION notified
[2020-06-22 05:33] VITALS: BP 136/78; PULSE 47; RESP 20; TEMP 36.9; O2SAT 96
--- NOTE | 2020-06-22 07:08 | PC.NURSE ---
Pt starting to get agitated and requesting to leave. Removed IV. Refusing to let a new one be placed. Refusing to take PO medications.
[2020-06-22 08:00] VITALS: BP 136/64; PULSE 51; RESP 16; TEMP 36.8; O2SAT 96; O2SAT 98
[2020-06-22] MEDS: TAMSULOSIN 0.4 MG CAPSULE PO (09:27)
[2020-06-22] MEDS: FOLIC ACID 1 MG TABLET PO (09:27)
[2020-06-22] MEDS: THIAMINE 100 MG TABLET PO (09:27)
[2020-06-22] MEDS: CIPROFLOXACIN 250 MG TABLET PO ×2 (09:27→23:01)
[2020-06-22] MEDS: MULTIVITAMIN 1 TABLET 1 TAB PO (09:27)
--- NOTE | 2020-06-22 10:12 | PC.NURSE ---
Addendum entered by Betsy Gonzalez R.N. 06/22/20 13:12: Patient took morning medications without issue. Original Note: Day Shift Note Patient expressing frustration over hospital stay this morning and exhibits some forgetfulness/confusion. Mild tremors noted, HR in the 40s before pt removed telemetry. States I am going to be getting out of here now and proceeded to call 911 on his cell phone. Situation reviewed with patient and pt allowed to air frustrations. Pt expressed feeling neglected by staff and was unsure why he was in the hospital. Daughter, Marysol, transferred into pt's room and pt had a lengthy discussion with her over the phone. Dr. Farr at bedside and reinforced the current plan with pt. Pt agreeable to the plan to stay another night in the hospital and to go to SNF rehab tomorrow depending on bed availability. Daughter (Marysol) updated and Maria Guadalupe WEED COOKING OPERATOR updated. Pt currently resting in bed quietly, denies any needs at this time. Per Dr. Farr, ok to leave IV out and ok to leave tele off.
--- NOTE | 2020-06-22 11:10 | PT-IP ANOTE ---
Pt respectfully refused OOB activities as he was sleeping but was agreeable to afternoon tx.
[2020-06-22 12:00] VITALS: BP 126/65; PULSE 53; RESP 18; TEMP 36.5; O2SAT 98
--- NOTE | 2020-06-22 12:55 | DIET.PN ---
Dietary Progress Note RD attempted consult for etoh use this am, however pt frustrated c current hospitalization. Pts hospital POs averaging 75-100%. Will check with pt tomorrow am.
[2020-06-22] MEDS: ACETAMINOPHEN 325 MG TABLET 650 MG PO (14:47)
--- NOTE | 2020-06-22 15:09 | PT-IP ANOTE ---
Checked on pt and pt refused PT. stated that he is tired and refused to move.
[2020-06-22 15:25] VITALS: BP 126/58; PULSE 57; RESP 16; TEMP 36.8; O2SAT 93
--- NOTE | 2020-06-22 15:37 | OT.IPNOTE ---
Attempted to see pt for OT treatment and pt states having 8/10 back pain and not wanting to get up at this time. Nursing notified on his pain level.
--- NOTE | 2020-06-22 16:31 | PC.NURSE ---
Addendum entered by Yuridia Alcazar R.N. 06/22/20 16:39: pt is sleeping resp rate even and unlabored. seizure precautions con't in place. Original Note: Pt is try to get out of bed I need lay on the floor for my back agreed to get pt back board to put under him for his chronic back pain. he states he hasnt' tried meds and refuses at this time maybe if the board doesn't work. cwia 1, bed alarmed call light within reach and in front nurses station.
--- NOTE | 2020-06-22 16:59 | P.PN_ITS ---
Subjective Subjective Date Patient Seen: 06/22/20 Interval history: The patient is a 75-year-old male who was admitted to the hospital with hypothermia, urinary tract infection, having been found down. The patient does have a history of alcoholism but has not exhibited withdrawal. Urine culture grew pansensitive E coli. Exam Vital Signs (past 8 hours): - 06/22/20 12:00 06/22/20 15:25 Temperature 97.7 F 98.3 F Pulse Rate 53 L 57 L Respiratory Rate 18 16 Blood Pressure 126/65 126/58 L Pulse Oximetry 98 93 Oxygen Delivery Method Room Air Oxygen Flow Rate 0 Narrative Exam Narrative: General: Alert and comfortable Lungs: Clear to auscultation Heart: Regular rhythm Extremities: No edema Neurological: Well oriented, nonfocal Objective Labs Result Diagrams: 06/21/20 04:50 06/21/20 04:50 [facility] Medical History Alcohol abuse Anxiety Cerebral atrophy Chest pain (03/25/18) Dehydration (03/25/18) Depression Erectile dysfunction Essential hypertension Gastritis History of anemia History of liver injury History of pulmonary embolism Inguinal hernia Intrahepatic biloma Metabolic acidosis Personal history of peptic ulcer disease Wernicke-Korsakoff syndrome (alcoholic) Surgical History History of colonoscopy (2014) History of esophagogastroduodenoscopy (EGD) (2014) History of esophagogastroduodenoscopy (EGD) (04/26/18) History of left hip replacement History of shoulder surgery History of total right knee replacement (TKR) Family History Father Cancer Family/Other No problems noted. Mother Cancer Sister No problems noted. Social History marital status: household members: none housing: house Smoking Status: Former smoker alcohol intake: current Assessment & Plan Assessment & Plan narrative: 1. Sepsis due to urinary tract infection, present on admission, active -presented with hypothermia, acute renal failure, lactic acidosis -improving course on ceftriaxone -serum lactate 6.8 on admission and has trended down -urine culture pansensitive E coli -changed to Cipro 250 mg b.i.d. to complete 10 day antibiotic course 2. Acute kidney injury, resolved 3. Alcohol dependence, likely acute intoxication, present on admission -has not been in withdrawal Patient with improving course. However per PT notes he has extreme unstable gait and unsafe to return home. Plan for discharge to residential facility rehab tomorrow, Sunday.
[2020-06-23 00:52] VITALS: BP 171/75; PULSE 52; RESP 16; TEMP 36.3; O2SAT 97
[2020-06-23] MEDS: ACETAMINOPHEN 325 MG TABLET 650 MG PO ×2 (00:53→09:36)
[2020-06-23 01:00] VITALS: O2SAT 97
[2020-06-23 04:00] VITALS: BP 151/72; PULSE 54; RESP 18; TEMP 36.4; O2SAT 96
--- NOTE | 2020-06-23 06:39 | PC.NURSE ---
Registered Nurse Ambulatory Note-Patient is oriented x3, cooperative, CIWA 1-3. Tylenol given for headache and back pain. Seizure pads on rails, bed alarm on.
[2020-06-23 09:00] VITALS: BP 150/104; PULSE 69; RESP 20; TEMP 37.2; O2SAT 95
[2020-06-23] MEDS: MULTIVITAMIN 1 TABLET 1 TAB PO (09:36)
[2020-06-23] MEDS: TAMSULOSIN 0.4 MG CAPSULE PO (09:36)
[2020-06-23] MEDS: FOLIC ACID 1 MG TABLET PO (09:36)
[2020-06-23] MEDS: CIPROFLOXACIN 250 MG TABLET PO (09:36)
[2020-06-23] MEDS: ENOXAPARIN 40 MG/0.4 ML SYRINGE SUBCUT (09:36)
[2020-06-23] MEDS: THIAMINE 100 MG TABLET PO (09:36)
--- NOTE | 2020-06-23 09:58 | PT-IP ANOTE ---
Pt refused PT this morning stating he is beyond therapy's help and to come back tomorrow. Discussed the importance of working with PT with pt continuing to refuse AM PT.
[2020-06-23 10:00] VITALS: O2SAT 95
--- NOTE | 2020-06-23 11:30 | P.DS_ITS ---
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 Checked his temperature and it was 95? F. he states he has been feeling very poor lately, has had urinary frequency feeling out of sorts. Does endorse having coughing spells but does not endorse having shortness of breath. He stated that he vomited when he checked into the emergency department he has had mild abdominal pain. He has also states that he has had occasional diarrhea. He states that he has urinary hesitancy and it takes him a long time to empty his bladder though a multiple notes state he is incontinent of urine including today's nursing notes. He does endorse drinking a pt of vodka daily and states that he has not had problems with drawn. Review of prior notes in this chart indicate that he has come in either inebriated or in withdrawal. The patient has multiple medical problems but informed the nurse that he does not take any medications including that for an enlarged prostate. Chest x-ray done today did not show any acute pulmonary process. Patient's temp was 98.6?, blood pressure 146/70, heart rate 82, respiratory rate 22 oxygen saturation 94% on room air, he weighs 81.6 kg with a BMI of 25.8. He has a elevated white count at 13.8, RBC 5.68, hemoglobin 17.5, hematocrit 52.3, platelets 329, he has a left shift of 12,800, sodium 138, potassium 4.0, chlorid e 97, bicarb 17, BUN 19, creatinine 1.31, the GFR 53.2, lactate initially was 6.8 and is now 2.9, bilirubin 0.7, AST 67, ALT 38, alk phos 151, albumin is 5.1, lipase 105, procalcitonin 0.9, urine is grossly positive for bacteria, alcohol level was 37, and COVID-19 PCR is negative. Discharge Providers Provider Date of admission: 06/20/20 19:59 Discharge Date: 06/23/20 Primary care physician: Rashad Yates MD Consults: 06/20/20 21:50 Consult to Dietitian, Adult Routine Comment: Reason For Exam: alcohol withdrawal 06/20/20 22:24 Consult to ADVERTISING TEACHER - Mission Manager Routine Comment: ETOH, concern for safe living conditions ADVERTISING TEACHER Consult: Substance Abuse Assess 06/21/20 09:00 Consult to Dietitian, Adult Routine Comment: Reason For Exam: ETOH abuse 06/21/20 10:00 Consult to Occupational Therapy Evaluate & Treat Comment: Physician Instructions: Evaluate and treat Consult to Physical Therapy Evaluate & Treat Comment: Physician Instructions: Evaluate and Treat Discharge provider: Geovanni Farr MD Summary Hospital Course Discharge Diagnosis: 1. Sepsis with end-organ failure, urinary source 2. Urinary tract infection 4. Acute kidney injury 5. Alcohol dependence 6. Hypothermia Patient is a 75-year-old male admitted with acute hypothermia, UTI and sepsis having been found down. Sepsis parameters included acute renal injury, lactic acidosis. His urine culture grew pansensitive E coli. He was volume resuscitated. He was treated with ceftriaxone and switched to oral Cipro once condition stabilized. He did not exhibit any alcohol withdrawal during his stay. He is discharged home to complete 1 more week of oral Cipro. Patient intends to establish with new PCP. Status at Discharge Cognitive/behavioral status at discharge: oriented Functional status at discharge: independent ambulation Overall status at discharge: patient is back to baseline Time Spent with Patient Time spent: Less than 30 minutes Exam Vital Signs (past 8 hours): - 06/23/20 04:00 06/23/20 09:00 06/23/20 10:00 Temperature 97.5 F L 98.9 F Pulse Rate 54 L 69 Respiratory Rate 18 20 Blood Pressure 151/72 H 150/104 H Pulse Oximetry 96 95 95 Oxygen Delivery Method Room Air Oxygen Flow Rate 0 Objective Labs Result Diagrams: 06/21/20 04:50 06/21/20 04:50 [facility] Medical History Alcohol abuse Anxiety Cerebral atrophy Chest pain (03/25/18) Dehydration (03/25/18) Depression Erectile dysfunction Essential hypertension Gastritis History of anemia History of liver injury History of pulmonary embolism Inguinal hernia Intrahepatic biloma Metabolic acidosis Personal history of peptic ulcer disease Wernicke-Korsakoff syndrome (alcoholic) Surgical History History of colonoscopy (2014) History of esophagogastroduodenoscopy (EGD) (2014) History of esophagogastroduodenoscopy (EGD) (04/26/18) History of left hip replacement History of shoulder surgery History of total right knee replacement (TKR) Family History Father Cancer Family/Other No problems noted. Mother Cancer Sister No problems noted. Social History marital status: household members: none housing: house Smoking Status: Former smoker alcohol intake: current Discharge Plan Discharge Plan Patient Disposition: Home Discharge orders & Medications Prescriptions: New ciprofloxacin HCl 250 mg tablet 250 mg PO BID Qty: 14 RF: 0 Continued mirtazapine 7.5 mg tablet 7.5 mg PO DAILY Qty: 30 RF: 0 tamsulosin [Flomax] 0.4 mg capsule 0.4 mg PO QDAY Qty: 30 RF: 0 omeprazole 40 mg capsule,delayed release(DR/EC) 40 mg PO DAILY Qty: 30 RF: 0 Discontinued Ensure Liquid See Rx Instructions .ROUTE .COMPLEX Qty: 25605 RF: 11 Follow up/Referrals: Rashad Yates MD [Primary Care Provider] - Discharge Health Status Multidrug resistant organism: No MDRO Diet/Activity/Treatments Diet: Regular Discharge Data Primary Care Provider: Rashad Yates Attending Provider: Glenny Hendrickson
[2020-06-23 13:00] VITALS: BP 134/77; PULSE 78; RESP 16; TEMP 36.8; O2SAT 90
[2020-06-23 13:49] VITALS: BMI 25.8
--- NOTE | 2020-06-23 14:29 | CM.DPNOTE ---
Faxed clinicals 06/23/20 and face to face to [facility] per Maria Guadalupe and received confirmation. Called [facility] and they said someone will call patient today or tomorrow 06/24/20. Then they will schedule within 48 hours. Isabel Cote CM Asst.
--- NOTE | 2020-06-23 14:42 | PT-IP ANOTE ---
Pt discharged before FLIGHT RADIO OFFICER returned for pm tx. Nurse reported pt was eager to leave with neighbor to assist him regardless of education provided for benefits of further PT this pm. Nurse stated his mobility didn't look normal but pt persisted ready to discharge.
--- NOTE | 2020-06-23 15:05 | PC.NURSE ---
Discharge Note Patient left for home with neighbor Jing Omalley at 1445. Escorted to hospital exit via wheelchair by staff member. Patient currently with neighbor at [place] [facility] to pickup driver prescriptions. Written and verbal instructions given to pt and to pt's neighbor on UTI, preventing falls, ciprofloxacin. Daughter (Marysol) updated on discharge and informed that home health had been set up by care management. [facility] number given to daughter and to patient. Patient made aware of need to answer call from [facility] in next 1-2 days, acknowledged understanding.
--- NOTE | 2020-06-24 08:35 | CM.DPNOTE ---
DC Note Late Entry Worked throughout the day Sunday06.22.20 and Sunday06.23.20 to coordinate DCP on patient's behalf. Patient was agreeable to [facility] and had been there a few times in the past. Contacted Jael at [facility] and she spoke w/dtr Marysol, then staffed case w/her team at [facility]. Jael explained yesterday to this PRESSURE TESTER that patient would need to agree to getting more help at home which this PRESSURE TESTER and dtr Marysol did not feel was realistic. [facility] H+R declined. Met w/patient yesterday and he had a difficult time keeping his eyes open. Patient responded in one word answers, did not want to discuss DCP or ETOH abuse w/this PRESSURE TESTER and re: relayed concerns from his dtr about patient's safety patient responded that's not for her to worry about. Patient refused therapies and wanted to return home. Patient was agreeable to [facility] and so a referral was made to [facility] because f/u was available w/in 24-48 hours. Discussed above w/dtr Marysol who again expressed concern about patient's safety at home (w/no assist) but understood that patient was still considered decisional and so able to direct his own care and DCP. Plan: DC yesterday, home w/neighbor Derick Romerojace Choe# [phone] to transport home and chk on patient for a few days, [facility] RN/PT/OT/INTERSTATE PLANNER f/u [facility]
== END 2020-06-23 14:45 | disposition home or self-care (01) ==
LOC: ED 18:03 → ICU 21:21 → AC 06-21 16:18 → ICU 06-21 16:18
PROVIDERS: Emergency Medicine; Admitting Provider Nurse Practitioner Family; Emergency Provider Emergency Medicine; PCP Student in an Organized Health Care Education/Training Program; Referring Provider Emergency Medicine; Visit Provider Nurse Practitioner Family
DX: A41.51 Sepsis due to Escherichia coli [E. coli] (principal); R53.1 Weakness; T68.XXXA Hypothermia, initial encounter; N17.9 Acute kidney failure, unspecified; N39.0 Urinary tract infection, site not specified; B96.20 Unspecified Escherichia coli [E. coli] as the cause of diseases classified elsewhere; F10.229 Alcohol dependence with intoxication, unspecified; Y90.1 Blood alcohol level of 20-39 mg/100 ml; Z86.711 Personal history of pulmonary embolism; Z20.822 Contact with and (suspected) exposure to COVID-19
CPT/HCPCS: 36415; 71045; 80053; 80320; 81003; 81015; 83605; 83690; 83735; 84145; 85025; 85610; 85730; 87040; 87077; 87086; 87186; 87635; 87797; 93005; 93010; 96361; 96365; 96366; 96367; 96372; 96375; 96376; 97162; 97165; 99282; 99291; 99292; C9803; G0378; J0696; J1650; J1956; J2060; J2405; J3475

== ENCOUNTER 2020-06-25 13:03 | Observation (INO) | payer MEDICARE, SELFPAY ==
[2020-06-25] VITALS (11 sets, daily range): BP systolic 95–169; BP diastolic 51–79; PULSE 65–83; RESP 16–18; TEMP 36.8–37.6; O2SAT 91–96; BMI 25.4
--- NOTE | 2020-06-25 13:15 | ED_ITS ---
HPI - General Adult General Chief complaint: Weakness Stated complaint: Weakness Time Seen by Provider: 06/25/20 13:08 Source: patient and EMS Mode of arrival: EMS Limitations: no limitations History of Present Illness HPI narrative: Patient is a 75-year-old male who was just recently admitted and subsequently discharged from this facility for urosepsis. He was discharged home on antibiotics. He did not have a primary doctor. He does have a history of alcohol abuse. He arrived to the emergency department today by EMS after they were called by home health nurse who came to his house today and stated that he was weak and could not stand reported that he could not be at home alone. Patient states that a couple nights ago he lost his balance and fell. He injured the great toe on his left foot and also his hips. He states that he had to crawl back to bed which took him approximately 5 hours and he has been lying in bed since that. He does get food by [employer]. He states overall he generally just feels very weak. He states that he has been taking his antibiotics. Related Data Previous Rx's Medication Instructions Recorded ciprofloxacin HCl 250 mg PO BID #14 tab 06/23/20 mirtazapine 7.5 mg PO DAILY #30 tab 06/23/20 omeprazole 40 mg PO DAILY #30 cap 06/23/20 tamsulosin [Flomax] 0.4 mg PO QDAY #30 cap 06/23/20 Allergies Allergy/AdvReac Type Severity Reaction Status Date / Time morphine [MORPHINE] Allergy Unknown Verified 12/11/19 14:18 Review of Systems Constitutional Constitutional: Reports fatigue, Denies fever(s) and Reports weakness ENT Ears, Nose, Mouth, and Throat: Denies vertigo, Denies dizziness and Reports disequilibrium Cardiovascular Cardiovascular: Denies chest pain and Denies dyspnea Respiratory Respiratory: Denies dyspnea Gastrointestinal Gastrointestinal: Denies abdominal pain, Denies nausea and Denies vomiting Genitourinary Genitourinary: Denies dysuria Genitourinary: Denies dysuria Musculoskeletal Comments: Left toe pain, bilateral hip pain Integumentary/Breasts Skin/Breast: Denies lesions and Denies rash Neurologic Neurologic: Denies confusion, Denies vertigo, Denies dizziness, Reports disequilibrium and Reports weakness Psychiatric Psychiatric: Denies confusion Endocrine Endocrine: Reports fatigue Hematologic/Lymphatic On Anticoagulants: No Allergic/Immunologic Allergic/Immunologic: Denies urticaria Patient History Medical History Alcohol abuse Anxiety Cerebral atrophy Chest pain (03/25/18) Dehydration (03/25/18) Depression Erectile dysfunction Essential hypertension Gastritis History of anemia History of liver injury History of pulmonary embolism Inguinal hernia Intrahepatic biloma Metabolic acidosis Personal history of peptic ulcer disease Wernicke-Korsakoff syndrome (alcoholic) Surgical History History of colonoscopy (2014) History of esophagogastroduodenoscopy (EGD) (2014) History of esophagogastroduodenoscopy (EGD) (04/26/18) History of left hip replacement History of shoulder surgery History of total right knee replacement (TKR) Family History Father Cancer Family/Other No problems noted. Mother Cancer Sister No problems noted. Social History marital status: household members: none housing: house Smoking Status: Former smoker alcohol intake: current Smoking Status: Former smoker alcohol intake frequency: 3 or more drinks per day Substance Use Type: does not use Exam Initial Vital Signs Initial Vital Signs: Vital Signs Pulse Rate 65 06/25/20 13:05 Blood Pressure 169/79 H 06/25/20 13:05 Pulse Oximetry 95 06/25/20 13:05 Const General: cooperative, comfortable and disheveled Limitations: mental status not altered HENMT Head: normal to inspection and normocephalic Resp Effort & Inspection: normal respiratory effort Auscultation: clear to auscultation bilaterally Cardio Rate: regular rate Rhythm: regular rhythm GI Inspection: non-distended Palpation: soft Skin Lesions: no lesions Rashes: no rashes Neuro General: patient alert, patient awake and patient oriented x3 Cognition: normal cognition Speech: speech normal Extrem Other: Bilateral hip tenderness, bilateral knees unremarkable. Tenderness to palpation of the left great toe, bilateral upper extremities unremarkable Psych Appearance: grossly normal and well kempt Scores GCS Lorna coma scale eye opening: Spontaneous [place] coma scale verbal response: Orientated [place] coma scale motor response: Obey commands [place] coma scale total score: 15 Course Orders Ordered: ED Orders 06/25/20 13:00 Complete Blood Count AUTO DIFF Stat Comprehensive Metabolic Panel Stat Ethanol (ETOH) Stat Lipase Stat Procalcitonin Stat 06/25/20 13:11 Consult to EDUCATION COORDINATOR - Typewriter Ribbon Winder Stat 06/25/20 13:15 XR foot RT min 3V Stat XR pelvis 1-2V Stat 06/25/20 13:24 Lactate (Lactic Acid) Stat 06/25/20 14:57 CT pelvis wo con Stat 06/25/20 15:41 Consult to Orthopedic Surgery Stat Hydrocodone Bitart/Acetaminophen (Hydrocodone/Acet 5/325 Tablet) 1 tab PO Q4HR PRN PRN Reason: Pain, Moderate (4-6) Ciprofloxacin (Ciprofloxacin 250 Mg Tablet) 250 mg PO BID PAULO Enoxaparin Sodium (Enoxaparin 40 Mg/0.4 Ml Syringe) 40 mg SUBCUT DAILY PAULO Mirtazapine (Mirtazapine 7.5 Mg Tablet) 7.5 mg PO DAILY PAULO Naloxone HCl (Naloxone 0.4 Mg/Ml Vial) 0.2 mg IV Q2MIN PRN PRN Reason: Opiate Reversal Pantoprazole Sodium (Pantoprazole 40 Mg Tablet) 40 mg PO DAILY PAULO Tamsulosin HCl (Tamsulosin 0.4 Mg Capsule) 0.4 mg PO DAILY PAULO Thiamine HCl (Thiamine 100 Mg Tablet) 100 mg PO DAILY PAULO Discontinued Medications Metoclopramide HCl (Metoclopramide 10 Mg/2 Ml Inj) 10 mg IV NOW ONE Stop: 06/25/20 14:09 Multivitamins (Multivitamin 1 Tablet) 1 tab PO NOW ONE Stop: 06/25/20 13:54 Last Admin: 06/25/20 14:03 Dose: 1 tab Documented by: JEAN CLAUDE Thiamine HCl (Thiamine 200 Mg/2 Ml Vial) 100 mg IV NOW ONE Stop: 06/25/20 13:53 Last Admin: 06/25/20 14:03 Dose: 100 mg Documented by: JEAN CLAUDE Vital Signs Vital signs: Vital Signs - 8 hr 06/25/20 13:05 06/25/20 13:07 06/25/20 13:30 Temperature 99.7 F H Pulse Rate 65 66 69 Respiratory Rate 16 Blood Pressure 169/79 H 169/79 H 159/71 H Pulse Oximetry 95 94 06/25/20 14:00 06/25/20 14:30 06/25/20 14:55 Temperature Pulse Rate 67 72 65 Respiratory Rate 16 16 Blood Pressure 162/74 H 152/73 H 163/76 H Pulse Oximetry 95 95 96 06/25/20 15:00 06/25/20 15:30 06/25/20 16:00 Temperature Pulse Rate 67 70 70 Respiratory Rate 16 Blood Pressure 150/66 H 131/66 139/67 Pulse Oximetry 95 92 94 Medical Decision Making Medical Records Medical records reviewed: Yes I reviewed the patient's medical records. Lab Data Lab results reviewed: Yes I reviewed the patient's lab results. Result diagrams: 06/25/20 13:00 06/25/20 13:00 Labs: Lab Results 06/25/20 06/25/20 06/25/20 Range/Units 13:00 13:00 13:00 WBC 10.1 (4.5-11.0) X10^3/uL RBC 4.70 (4.5-5.9) X10^6/uL Hgb 14.4 (13.5-17.5) g/dL Hct 43.1 (41-53) % MCV 91.6 (80-100) fL MCH 30.6 (26-34) PG MCHC 33.4 (30-36) % RDW 18.4 H (11.6-14.8) % Plt Count 264 (150-400) X10^3/uL Neut % (Auto) 77.3 H (50-75) % Lymph % (Auto) 8.6 L (25-40) % [place] % (Auto) 12.9 (3-14) % Eos % (Auto) 0.7 L (2-4) % Baso % (Auto) 0.5 (0-2) % Neut # (Auto) 7800 H (2768-3609) /uL Lymph # (Auto) 900 L (7573-7165) /uL Deuel # (Auto) 1300 H (0-900) /uL Eos # (Auto) 100 (0-450) /uL Baso # (Auto) 0 (0-100) /uL Sodium 133 L (137-145) mmol/L Potassium 3.4 D (3.4-5.1) mmol/L Chloride 97 L (98-107) mmol/L Carbon Dioxide 29 (22-32) mmol/L BUN 13 (9-20) mg/dL Creatinine 0.95 (0.66-1.25) mg/dL Estimated GFR > 60.0 (>60) mL/min BUN/Creatinine Ratio 13.7 (6-22) Glucose 95 (80-110) mg/dL Lactate (0.7-2.1) mmol/L Calcium 9.1 (8.4-10.2) mg/dL Total Bilirubin 1.2 (0.2-1.3) mg/dL AST 226 H (17-59) IU/L ALT 48 (<50) IU/L Alkaline Phosphatase 86 (38-126) U/L Total Protein 7.3 (6.3-8.2) g/dL Albumin 4.0 (3.5-5.0) g/dL Globulin 3.3 (1.7-4.1) g/dL Albumin/Globulin Ratio 1.2 (1.0-2.8) Lipase (23-300) U/L Procalcitonin 0.19 (<0.5) ng/mL Ethyl Alcohol < 10 ( - 10) mg/dL 06/25/20 06/25/20 Range/Units 13:00 13:24 WBC (4.5-11.0) X10^3/uL RBC (4.5-5.9) X10^6/uL Hgb (13.5-17.5) g/dL Hct (41-53) % MCV (80-100) fL MCH (26-34) PG MCHC (30-36) % RDW (11.6-14.8) % Plt Count (150-400) X10^3/uL Neut % (Auto) (50-75) % Lymph % (Auto) (25-40) % Deuel % (Auto) (3-14) % Eos % (Auto) (2-4) % Baso % (Auto) (0-2) % Neut # (Auto) (4726-3735) /uL Lymph # (Auto) (6603-5827) /uL Deuel # (Auto) (0-900) /uL Eos # (Auto) (0-450) /uL Baso # (Auto) (0-100) /uL Sodium (137-145) mmol/L Potassium (3.4-5.1) mmol/L Chloride (98-107) mmol/L Carbon Dioxide (22-32) mmol/L BUN (9-20) mg/dL Creatinine (0.66-1.25) mg/dL Estimated GFR (>60) mL/min BUN/Creatinine Ratio (6-22) Glucose (80-110) mg/dL Lactate 0.9 (0.7-2.1) mmol/L Calcium (8.4-10.2) mg/dL Total Bilirubin (0.2-1.3) mg/dL AST (17-59) IU/L ALT (<50) IU/L Alkaline Phosphatase (38-126) U/L Total Protein (6.3-8.2) g/dL Albumin (3.5-5.0) g/dL Globulin (1.7-4.1) g/dL Albumin/Globulin Ratio (1.0-2.8) Lipase 62 (23-300) U/L Procalcitonin (<0.5) ng/mL Ethyl Alcohol ( - 10) mg/dL Imaging Data Extremity x-ray #1: Radiologist's Impression: [address] [id number] ReportSigned Patient: Anthony Saul R#: [id number]: 4Acct:[id number]/Sex: 75 / MDate of Service: 06/25/20Loc: EDAccession Number: [id number] Procedure: XR pelvis 1-2V Ordering Provider: Nicho Ga D.O. PROCEDURE: XR PELVIS 1-2V INDICATIONS: bilateral hip pain after fall TECHNIQUE: Single frontal view(s) of the pelvis acquired. COMPARISON: [facility], PELVIS WITH BILATERAL HIPS, 06/30/2008, 11:16. FINDINGS: Bones: No fractures or dislocations. No suspicious bony lesions. The left total hip arthroplasty appears free of device loosening or disruption. The right hip joint osteoarthritis has further progressed and is near severe with near [id number] articulation at the acetabulum laterally, to a greater degree. Soft tissues: Visualized bowel gas pattern is normal. No suspicious soft tissue calcifications. IMPRESSION: Worsening right hip joint near-severe arthritis. Normal appearance of left total hip arthroplasty. Dictated by: Mendez Clements M.D. on 06/25/2020 at 14:08 Approved by: Mendez Clements M.D. on 06/25/2020 at 14:09 Extremity x-ray #2: Radiologist's Impression: [address] [id number] ReportSigned Patient: Anthony Saul R#: [id number]: 1944cct:[id number]/Sex: 75 / MDate of Service: 06/25/20Loc: EDAccession Number: [id number] Procedure: XR foot RT min 3V Ordering Provider: Nicho Ga D.O. PROCEDURE: XR FOOT RT MIN 3V INDICATIONS: great toe pain after fall TECHNIQUE: 3 views of the foot were acquired. COMPARISON: None. FINDINGS: Bones: No fractures or dislocations. No suspicious bony lesions. Moderately severe degenerative osteoarthritis at the base of the 1st metacarpal, moderate osteoarthritis at the 1st MTP joint. Mild metatarsus primus varus and hallux valgus morphology with moderate bunion formation medial 1st metatarsal head. Soft tissues: No tibiotalar joint effusion. Achilles tendon appears normal. IMPRESSION: Podiatry related findings as discussed without evidence of erosive arthritis or osteomyelitis. A fracture is not seen. Dictated by: Mendez Clements M.D. on 06/25/2020 at 14:09 Approved by: Mendez Clements M.D. on 06/25/2020 at 14:10 CT pelvis: Radiologist's Impression: [address] [id number] Scan ReportSigned Patient: Anthony Saul R#: [id number]: 4Acct:[id number]/Sex: 75 / MDate of Service: 06/25/20Loc: EDAccession Number: [id number] Procedure: CT pelvis wo con Ordering Provider: Nicho Ga D.O. PROCEDURE: CT PEL WO CON INDICATIONS: unable to put pressure on right leg TECHNIQUE: Noncontrast 3 mm axial sections acquired through the bony pelvis, with coronal and sagittal reformatting. COMPARISON: [facility], XR PELVIS 1-2V, 06/25/2020, 13:31. FINDINGS: Image quality: Excellent. Bones: There is fracture line or cortical defect identified. There is, however, periosteal reaction along the right femoral neck. The femoral head is anatomically seated. There is severe acetabular femoral joint degeneration with joint space narrowing, subchondral cyst formation, periarticular sclerosis and osteophytes. Note is made of left hip arthroplasty. There is severe degenerative disc at L4-L5 and severe facet disease at L4-L5 bilaterally and L5-S1 on the right. Soft tissues: No soft tissue mass or hematoma. Colonic diverticula are present. Small fat containing inguinal hernias are present bilaterally. IMPRESSION: 1. No fracture is identified. There is, however, periosteal reaction involving the femoral neck. A non-displaced stress fracture of the femoral neck may be present. If clinical symptoms persist, MRI may be helpful. 2. Severe osteoarthritis of the right hip. Dictated by: Ana Rosa Mnotalvo M.D. on 06/25/2020 at 15:09 Approved by: Ana Rosa Montalvo M.D. on 06/25/2020 at 15:19 [facility] Narrative Medical decision making narrative: Since being discharged from the hospital patient states that he has been in bed because he cannot walk. He points to his right hip as the place where he most of his pain is. He also describes extreme weakness. Patient could not stand at bedside. His foot x-ray is unremarkable. His hip x-ray shows degenerative changes but no occult fracture however since he cannot stand and points to his right hip has the greatest location of the pain a CT scan was ordered. It shows no acute fracture does show periosteal reactions around the area. I did discuss the case with Dr. Quiroz with orthopedics who stated that even if this was a stress fracture he would be toe-touch weight- bearing. Stated that patient would not be surgical candidate for now. He also brought up the concern for potential other issues such as a septic joint however the patient is afebrile, does not have a white count. Patient was seen by social work here in the emergency department. I discussed the case with Dr. Cunningham with Internal Medicine who will admit for further evaluation and treatment. Discussed this with the patient. He expressed understanding and agreement. Discharge Plan Departure Patient Disposition: Admitted as Observation Clinical Impression: Stress fracture of femoral neck Qualifiers: Encounter type: initial encounter Qualified Code(s): M84.353A - Stress fracture, unspecified femur, initial encounter for fracture Admit Date/Time: 06/25/20 16:06 Admit Provider: Zulema Cunningham
[2020-06-25 13:21] LABS: Add Manual Diff / Slide Review NO; Basophils Absolute Auto 0 /uL (0-100); Basophils Percent Auto 0.5 % (0-2); Eosinophils Absolute Auto 100 /uL (0-450); Eosinophils Percent Auto 0.7 % (2-4); Hematocrit 43.1 % (41-53); Hemoglobin 14.4 g/dL (13.5-17.5); Lymphocytes Absolute Auto 900 /uL (1100-4500); Lymphocytes Percent Auto 8.6 % (25-40); Mean Corpuscular HGB Conc 33.4 % (30-36); Mean Corpuscular Hemoglobin 30.6 PG (26-34); Mean Corpuscular Volume 91.6 fL (80-100); Monocytes Absolute Auto 1300 /uL (0-900); Monocytes Percent Auto 12.9 % (3-14); Neutrophils Absolute Auto 7800 /uL (1500-7000); Neutrophils Percent Auto 77.3 % (50-75); Platelet Count 264 X10^3/uL (150-400); Red Cell Distribution Width 18.4 % (11.6-14.8); White Blood Cell Count 10.1 X10^3/uL (4.5-11.0)
[2020-06-25 13:31] LABS: Alanine Aminotransferase 48 IU/L (<50); Albumin Globulin Ratio 1.2 (1.0-2.8); Alkaline Phosphatase 86 U/L (38-126); Aspartate Aminotransferase 226 IU/L (17-59); BUN Creatinine Ratio 13.7 (6-22); Bilirubin Total 1.2 mg/dL (0.2-1.3); Blood Urea Nitrogen 13 mg/dL (9-20); Calcium 9.1 mg/dL (8.4-10.2); Carbon Dioxide 29 mmol/L (22-32); Chloride 97 mmol/L (98-107); Estimated Glomerular Filt Rate > 60.0 mL/min (>60); Ethanol (ETOH) < 10 mg/dL; Globulin 3.3 g/dL (1.7-4.1); Glucose 95 mg/dL (80-110); HEMOLYSIS < 15 (0-50); Lipase 62 U/L (23-300); Potassium 3.4 mmol/L (3.4-5.1); Sodium 133 mmol/L (137-145); Total Protein 7.3 g/dL (6.3-8.2)
[2020-06-25 13:42] LABS: Lactate (Lactic Acid) 0.9 mmol/L (0.7-2.1)
[2020-06-25 13:59] LABS: Procalcitonin 0.19 ng/mL (<0.5)
[2020-06-25] MEDS: MULTIVITAMIN 1 TABLET 1 TAB PO (14:03)
[2020-06-25] MEDS: THIAMINE 200 MG/2 ML VIAL 100 MG IV (14:03)
--- NOTE | 2020-06-25 14:57 | DI.CT.S_ITS ---
PROCEDURE: CT PEL WO CON INDICATIONS: unable to put pressure on right leg TECHNIQUE: Noncontrast 3 mm axial sections acquired through the bony pelvis, with coronal and sagittal reformatting. COMPARISON: [facility], CR, XR PELVIS 1-2V, 06/25/2020, 13:31. FINDINGS: Image quality: Excellent. Bones: There is fracture line or cortical defect identified. There is, however, periosteal reaction along the right femoral neck. The femoral head is anatomically seated. There is severe acetabular femoral joint degeneration with joint space narrowing, subchondral cyst formation, periarticular sclerosis and osteophytes. Note is made of left hip arthroplasty. There is severe degenerative disc at L4-L5 and severe facet disease at L4-L5 bilaterally and L5-S1 on the right. Soft tissues: No soft tissue mass or hematoma. Colonic diverticula are present. Small fat containing inguinal hernias are present bilaterally. IMPRESSION: 1. No fracture is identified. There is, however, periosteal reaction involving the femoral neck. A non-displaced stress fracture of the femoral neck may be present. If clinical symptoms persist, MRI may be helpful. 2. Severe osteoarthritis of the right hip. Dictated by: Ana Rosa Montalvo M.D. on 06/25/2020 at 15:09 Approved by: Ana Rosa Montalvo M.D. on 06/25/2020 at 15:19
--- NOTE | 2020-06-25 16:06 | PC.NURSE ---
report given to ALISE Granger on AC
--- NOTE | 2020-06-25 16:12 | CM.SWNOTE ---
Addendum entered by Carlos Eduardo Orlando 06/25/20 16:52: UPDATE STORE GROUP MANAGER submits APS report online for self-neglect. Confirmation number: [id number]. JEANETTE Harper Original Note: STORE GROUP MANAGER note STORE GROUP MANAGER consult requested for patient. Patient is a 75 y/o male who presents to ED today for weakness. Patient has [employer] medicare for insurance and was recently discharged from a 4-day hospital stay at . Prior to entering patient room, STORE GROUP MANAGER receives voicemail from pt dtr Marysol requesting call back from STORE GROUP MANAGER. STORE GROUP MANAGER enters room and speaks with patient. Patient appears drowsy but oriented, does not make eye contact, and keeps eyes closed through most of conversation. Patient explains that following his d/c from a RN from came to complete an intake and called the hospital. Patient explains that RN noticed that patient had not been eating, had not been consuming water, and had fallen twice in 2 days since d/c from hospital. STORE GROUP MANAGER asked patient if he agreed with RN's assessment and patient said yes. Based on details above, STORE GROUP MANAGER will submit APS self-neglect report. STORE GROUP MANAGER discusses potential stay at SNF following ED visit. Patient initially expresses concern over cost, but agreeable with understanding that his insurance would be billed for that stay. STORE GROUP MANAGER and patient discussed goals of care and patient indicates understanding that he must participate in activities of physical rehabilitation while at facility. Patient provides verbal consent for STORE GROUP MANAGER to contact SNFs and dtr Marysol. STORE GROUP MANAGER calls [facility], [facility], and [facility]. No facility has openings at this time. In discussing case with Jael at [facility], Jael explains that patient will need a more robust in-home care plan prior to admission at [facility] in order for consideration. STORE GROUP MANAGER staffs with Dr. Ga who informs STORE GROUP MANAGER that patient will be admitted to overnight. STORE GROUP MANAGER then calls Marysol and provides overview of today's visit, plan of care. Marysol expresses significant concern for patient residing on his own and advocates to STORE GROUP MANAGER for placement in SNF following hospital stay. STORE GROUP MANAGER provides brief overview of process and discusses care goals with Marysol. STORE GROUP MANAGER and Marysol discuss the need for in home care giving if patient to return to home following SNF, and Marysol agrees to begin searching for caregiver. Marysol asks who to contact following day for update on patient and JEANETTE provides [phone] for Marysol to contact social group worker following day. PL: Patient to be admitted to , and current plan is to seek SNF placement for d/c. JEANETTE Harper
--- NOTE | 2020-06-25 16:23 | P.HP_ITS ---
History of Present Illness History of Present Illness Date Patient Seen: 06/25/20 Time Patient Seen: 16:23 Chief complaint: Weakness Narrative: This is a 75-year-old male who was just discharged from the hospital 2 days ago with a pansensitive E coli urinary infection. He fell coming out of his bathroom that night, shortly after getting home and has been apparently bed- bound by right hip pain since then. He says that it took him 4 hours to crawl into the bed. Both his hips hurt (the left side was replaced 6 years ago and is intact on xray). He was found confined to bed by the home health nurse at their 1st visit today and was then brought back into the ED. His pelvis CT shows a periosteal reaction in the area of the right femoral neck suggestive of a nondisplaced fracture. Orthopedics has consulted and their initial recommendation is to treat this non operatively. His lactic acid level, CBC and urine all look normal. He has additional history of alcohol abuse and possible Wernicke's encephalopathy. He says that he did get his Cipro and has been taking it. The end date for the Cipro treatment is 06/30. He has had no reported head trauma. Patient History Medical History Alcohol abuse Anxiety Cerebral atrophy Chest pain (03/25/18) Dehydration (03/25/18) Depression Erectile dysfunction Essential hypertension Gastritis History of anemia History of liver injury History of pulmonary embolism Inguinal hernia Intrahepatic biloma Metabolic acidosis Personal history of peptic ulcer disease Wernicke-Korsakoff syndrome (alcoholic) Surgical History History of colonoscopy (2014) History of esophagogastroduodenoscopy (EGD) (2014) History of esophagogastroduodenoscopy (EGD) (04/26/18) History of left hip replacement History of shoulder surgery History of total right knee replacement (TKR) Family & Social History Family History Father Cancer Family/Other No problems noted. Mother Cancer Sister No problems noted. Social History: household members none Safety & Behavioral: Feels Safe in Current Yes Environment Been Physically Hurt or No Threatened By a Person Tobacco & Substance use: Smoking Status Former smoker alcohol intake current alcohol intake frequency 3 or more drinks per day Substance Use Type does not use Comment: His backup decision maker is his daughter Marysol Garber who lives in [place], [place]. Meds Home Medications and Allergies Home Medications Medication Instructions Recorded Confirmed Type ciprofloxacin HCl 250 mg PO BID #14 tab 06/23/20 Rx mirtazapine 7.5 mg PO DAILY #30 tab 06/23/20 Rx omeprazole 40 mg PO DAILY #30 cap 06/23/20 Rx tamsulosin [Flomax] 0.4 mg PO QDAY #30 cap 06/23/20 Rx Allergies Allergy/AdvReac Type Severity Reaction Status Date / Time morphine [MORPHINE] Allergy Unknown Verified 12/11/19 14:18 Review of Systems Review of Systems Narrative: Positive for bilateral hip pain, weakness, slow movements. Negative for fever, chills, sweats, nausea, vomiting, abdominal pain, chest pain, coughing, dysuria, bleeding, rash, headaches, seizures. ROS: Yes All systems reviewed with the patient and are negative except as otherwise documented Exam Vital Signs (past 8 hours): - 06/25/20 13:05 06/25/20 13:07 06/25/20 13:30 Temperature 99.7 F H Pulse Rate 65 66 69 Respiratory Rate 16 Blood Pressure 169/79 H 169/79 H 159/71 H Pulse Oximetry 95 94 06/25/20 14:00 06/25/20 14:30 06/25/20 14:55 Temperature Pulse Rate 67 72 65 Respiratory Rate 16 16 Blood Pressure 162/74 H 152/73 H 163/76 H Pulse Oximetry 95 95 96 06/25/20 15:00 06/25/20 15:30 06/25/20 16:00 Temperature Pulse Rate 67 70 70 Respiratory Rate 16 Blood Pressure 150/66 H 131/66 139/67 Pulse Oximetry 95 92 94 Oxygen Delivery Method Room Air Narrative Exam Narrative: Alert and oriented x3. No apparent distress. He speaks slowly, deliberately and processes slowly but appears to be fully engaged/oriented. He appears to be an adequate historian. Pupils are equally round and reactive to light and accommodation. Extraocular muscles are intact. Sclerae pink and nonicteric. Throat looks normal. No lymph nodes are felt head, neck, supraclavicular area. Is no thyromegaly JVD is less than 6 cm. No carotid bruits heard. Heart is regular rate and rhythm without murmur. Lungs are clear to auscultation bilaterally. Abdomen is soft, nontender, no organomegaly. He has tenderness on the anterior right hip and lateral right hip. Range of motion is not attempted. There is no ankle edema. Skin has no rash or jaundice. He does have some bruising. Neurologic exam Deep tendon reflexes are suppressed symmetrically bilaterally. There is no tremor. Finger-nose pointing is intact/accurate. There is no lateralizing deficits. Funeral Planner strength is excessively weak 3/5 bilaterally. Bilateral lower extremity strength is also very, very weak Objective Labs Result Diagrams: 06/25/20 13:00 06/25/20 13:00 Labs: Laboratory Results - last 24 hr 06/25/20 06/25/20 06/25/20 13:00 13:00 13:00 WBC 10.1 RBC 4.70 Hgb 14.4 Hct 43.1 MCV 91.6 MCH 30.6 MCHC 33.4 RDW 18.4 H Plt Count 264 Neut % (Auto) 77.3 H Lymph % (Auto) 8.6 L [place] % (Auto) 12.9 Eos % (Auto) 0.7 L Baso % (Auto) 0.5 Neut # (Auto) 7800 H Lymph # (Auto) 900 L [place] # (Auto) 1300 H Eos # (Auto) 100 Baso # (Auto) 0 Sodium 133 L Potassium 3.4 D Chloride 97 L Carbon Dioxide 29 BUN 13 Creatinine 0.95 Estimated GFR > 60.0 BUN/Creatinine Ratio 13.7 Glucose 95 Lactate Calcium 9.1 Total Bilirubin 1.2 AST 226 H ALT 48 Alkaline Phosphatase 86 Total Protein 7.3 Albumin 4.0 Globulin 3.3 Albumin/Globulin Ratio 1.2 Lipase Procalcitonin 0.19 Ethyl Alcohol < 10 06/25/20 06/25/20 13:00 13:24 WBC RBC Hgb Hct MCV MCH MCHC RDW Plt Count Neut % (Auto) Lymph % (Auto) [place] % (Auto) Eos % (Auto) Baso % (Auto) Neut # (Auto) Lymph # (Auto) [place] # (Auto) Eos # (Auto) Baso # (Auto) Sodium Potassium Chloride Carbon Dioxide BUN Creatinine Estimated GFR BUN/Creatinine Ratio Glucose Lactate 0.9 Calcium Total Bilirubin AST ALT Alkaline Phosphatase Total Protein Albumin Globulin Albumin/Globulin Ratio Lipase 62 Procalcitonin Ethyl Alcohol Assessment & Plan Assessment & Plan narrative: Right Hip Pain, present on admission. Active -the pelvic CT shows severe right hip osteoarthritis. No actual fracture is seen but the femoral neck has a significant periosteal reaction. MRI is suggested -orthopedics formal consultation with Dr. Garibay is pending. Initial recommendation is a non operative approach, without MRI needed. -continue hydrocodone for pain as needed -consult, evaluation and treat with physical therapy and occupational therapy with restrictions as per pending orthopedic consultation E.Coli UTI, present on admission. Active -complete Cipro planned course on 06/30 Alcoholism, present on admission. Active -continue thiamine, initiated in the emergency department. -level of less than 10 as opposed to the 37 that he was on the last admission 06/20/2020 Weakness, present on admission. Active -likely multifactorial with alcoholic contribution, recent urinary tract infection immobilization. -rule out TOWER HOIST OPERATOR process with brain scan. Elevated AST, present on Admission. Active -the AST was 41 on 06/21 and is now 226 on 06/25. The ALT has also risen from 26 up to 48 in that same time frame. -recheck CMP on 06/26 BPH, present on admission. Chronic -continue tamsulosin. GERD, present on admission. Chronic -continue omeprazole Depression, present on admission. Chronic -continue mirtazapine. He is likely to need placement in a assisted facility while waiting for this hip pain to resolve and the possible small fracture to heal. Pending form al orthopedic recommendations.
--- NOTE | 2020-06-25 17:33 | DI.MRI.S_ITS ---
PROCEDURE: MR HEAD/BRAIN WO CON INDICATIONS: Severe diffuse weakness TECHNIQUE: Non-contrast axial T1 spin echo, axial T2 fast spin echo, sagittal and axial FLAIR, coronal T2 fast spin echo, axial gradient echo, axial diffusion and ADC through the brain. COMPARISON: [facility], CT, HEAD WITHOUT CONTRAST, 11/27/2016, 5:28. FINDINGS: Image quality: Excellent. CSF spaces: Lateral and 3rd ventricles are prominent which could be due to central volume loss versus normal pressure hydrocephalus. Basal cisterns are patent. No extra-axial fluid collections. Brain: No intracranial bleeds or mass effects. There is moderate cerebral volume loss for age. There are moderate to severe periventricular and deep white matter chronic small vessel ischemic changes. Brainstem appears normal. Diffusion-weighted images show no acute ischemic insults. Small chronic right occipital infarct with surrounding gliosis. Normal intravascular flow voids are present. Skull and face: Calvarial bone marrow is normal in signal. Orbits are normal. Sinuses: Sinuses are clear. Fluid signal noted in the right mastoid air cells. IMPRESSION: 1. No acute intracranial disease process. 2. No areas of acute infarction. 3. Small, chronic right occipital infarct. 4. Ventriculomegaly which could be due to central volume loss versus normal pressure hydrocephalus. Please correlate with clinical findings. 5. Moderate, diffuse cerebral volume loss. 6. Moderate to severe periventricular and subcortical white matter chronic microvascular ischemic change. 7. Fluid in the right mastoid air cells. Recommend correlation with direct physical findings differentiate serous fluid from inflammatory process. Dictated by: Izabella Hodges MD, PhD on 06/25/2020 at 17:43 Approved by: Izabella Hodges MD, PhD on 06/25/2020 at 17:48
--- NOTE | 2020-06-25 18:35 | PC.NURSE ---
patient arrives back to hospital post fall at home. Patient was a patient here at on Sunday an d/c home. Covid-19 swab was performed on 06/20 and was noted to be negative. Discussed repeating swab with Dr. Cunningham at which he declined and said patient does not need it again.
[2020-06-25] MEDS: HYDROCODONE/ACET 5/325 TABLET 1 TAB PO (18:56)
[2020-06-25] MEDS: CIPROFLOXACIN 250 MG TABLET PO (21:20)
[2020-06-26] VITALS (9 sets, daily range): BP systolic 111–154; BP diastolic 66–82; PULSE 60–80; RESP 16–20; TEMP 36.8–37.5; O2SAT 91–95
[2020-06-26 06:01] LABS: Add Manual Diff / Slide Review NO; Basophils Absolute Auto 0 /uL (0-100); Basophils Percent Auto 0.5 % (0-2); Eosinophils Absolute Auto 200 /uL (0-450); Eosinophils Percent Auto 1.8 % (2-4); Hematocrit 38.6 % (41-53); Hemoglobin 12.8 g/dL (13.5-17.5); Lymphocytes Absolute Auto 700 /uL (1100-4500); Lymphocytes Percent Auto 8.5 % (25-40); Mean Corpuscular HGB Conc 33.2 % (30-36); Mean Corpuscular Hemoglobin 30.4 PG (26-34); Mean Corpuscular Volume 91.5 fL (80-100); Monocytes Absolute Auto 1200 /uL (0-900); Neutrophils Absolute Auto 6200 /uL (1500-7000); Neutrophils Percent Auto 75.2 % (50-75); Platelet Count 253 X10^3/uL (150-400); Red Blood Cell Count 4.22 X10^6/uL (4.5-5.9); Red Cell Distribution Width 17.8 % (11.6-14.8); White Blood Cell Count 8.3 X10^3/uL (4.5-11.0)
[2020-06-26 06:10] LABS: Magnesium 1.7 mg/dL (1.6-2.3)
[2020-06-26 06:12] LABS: Alanine Aminotransferase 37 IU/L (<50); Albumin 3.3 g/dL (3.5-5.0); Albumin Globulin Ratio 1.1 (1.0-2.8); Alkaline Phosphatase 71 U/L (38-126); Aspartate Aminotransferase 119 IU/L (17-59); BUN Creatinine Ratio 16.3 (6-22); Bilirubin Total 0.8 mg/dL (0.2-1.3); Blood Urea Nitrogen 14 mg/dL (9-20); Calcium 8.7 mg/dL (8.4-10.2); Carbon Dioxide 30 mmol/L (22-32); Chloride 100 mmol/L (98-107); Estimated Glomerular Filt Rate > 60.0 mL/min (>60); Globulin 2.9 g/dL (1.7-4.1); Glucose 97 mg/dL (80-110); HEMOLYSIS < 15 (0-50); Potassium 3.3 mmol/L (3.4-5.1); Sodium 132 mmol/L (137-145); Total Protein 6.2 g/dL (6.3-8.2)
[2020-06-26] MEDS: POTASSIUM CHLORIDE 20 MEQ TAB 40 MEQ PO (06:56)
--- NOTE | 2020-06-26 07:26 | OT.IPNOTE ---
OT evaluate and treat order received. Per H&P: consult, evaluation and treat with physical therapy and occupational therapy with restrictions as per pending orthopedic consultation. Ortho consult not yet available. Will hold at this time and continue to follow.
[2020-06-26] MEDS: THIAMINE 100 MG TABLET PO (08:41)
[2020-06-26] MEDS: CIPROFLOXACIN 250 MG TABLET PO ×2 (08:41→21:58)
[2020-06-26] MEDS: TAMSULOSIN 0.4 MG CAPSULE PO (08:42)
[2020-06-26] MEDS: ENOXAPARIN 40 MG/0.4 ML SYRINGE SUBCUT (08:42)
[2020-06-26] MEDS: MIRTAZAPINE 7.5 MG TABLET PO (08:42)
[2020-06-26] MEDS: PANTOPRAZOLE 40 MG TABLET PO (08:42)
[2020-06-26] MEDS: HYDROCODONE/ACET 5/325 TABLET 1 TAB PO (08:48)
--- NOTE | 2020-06-26 10:17 | PM.EVENT ---
Event Note Event Note: Discussed patient with Dr. Quiroz, he is recommending toe touch weight bearing on the right, may work with PT/OT for discharge planning.
--- NOTE | 2020-06-26 11:09 | PT.IIE ---
Surgical History (Last Reviewed 06/25/20 @ 17:12 by Zulema Cunningham MD) History of colonoscopy (2014) History of esophagogastroduodenoscopy (EGD) (2014) History of esophagogastroduodenoscopy (EGD) (04/26/18) History of left hip replacement History of shoulder surgery History of total right knee replacement (TKR) Medical History (Last Reviewed 06/25/20 @ 17:12 by Zulema Cunningham MD) Alcohol abuse Anxiety Cerebral atrophy Chest pain (03/25/18) Dehydration (03/25/18) Depression Erectile dysfunction Essential hypertension Gastritis History of anemia History of liver injury History of pulmonary embolism Inguinal hernia Intrahepatic biloma Metabolic acidosis Personal history of peptic ulcer disease Wernicke-Korsakoff syndrome (alcoholic) Physical Therapy Inpatient Evaluation/Re-Eval M1 PT/OT-IP Prior Functional Status Start: 06/26/20 12:14 Freq: NEEDED Status: Active Protocol: Document 06/26/20 12:14 CGR (Rec: 06/26/20 12:27 CGR [id number]) Medical Review Prior Functional Status Medical History Reviewed Yes Communication Pt is an effective communicator Mobility and Gait Pt was minimally mobile. Activities of Daily Living and IADL's Pt was having difficulty performing ADLs at home. Social History Household Members none Living Arrangements House Number of Floors (Floors) Two Floors Number of Stairs To Enter/Railing? 4 steps to enter without rail 13 stairs with rail on R assending to second floor Home Environment Standard Height Toilet,Walk in Shower,Tub/Shower Home Equipment Front Wheel Walker,Straight Cane Employment Status Retired Additional Social History Comment Pt states that he gets all of his food from meals on wheels and he does not drive or leave the house. M1 PT/OT-IP Prior Functional Status Start: 06/26/20 13:35 Freq: NEEDED Status: Active Protocol: Document 06/26/20 11:09 AB (Rec: 06/26/20 13:50 AB [id number]) Medical Review Prior Functional Status Medical History Reviewed Yes Communication able to make needs known but is [place] Mobility and Gait pt has been in/out of the hospital and has h/o falls; per EMR: prior to first hospitalization, pt is modifed independent with ambulation using FWW but is minimally mobilizing at home Activities of Daily Living and IADL's per OT's note:Pt was having difficulty performing ADLs at home. Social History Household Members none Living Arrangements House Number of Floors (Floors) Two Floors Number of Stairs To Enter/Railing? 4 steps to enter without rail 13 stairs with rail on R assending to second floor Home Environment Standard Height Toilet,Walk in Shower,Tub/Shower Home Equipment Front Wheel Walker,Straight Cane Employment Status Retired Additional Social History Comment Pt states that he gets all of his food from meals on wheels and he does not drive or leave the house. M2 PT-IP Current Condition Start: 06/26/20 13:35 Freq: NEEDED Status: Active Protocol: Document 06/26/20 11:09 AB (Rec: 06/26/20 13:50 AB [id number]) Physical Therapy Current Condition Current Condition Evaluation Date 06/26/20 Treatment Diagnosis R fermoral neck fx s/p fall; generalized weakness; difficulty in walking Onset Date 06/25/20 Weight Bearing Status Weight Bearing Status Touch Down Weight Bearing Allowed Weight Bearing Amount (enter % RLE TTWB or #) (%) M3 PT-IP Subjective Start: 06/26/20 13:35 Freq: NEEDED Status: Active Protocol: Document 06/26/20 11:09 AB (Rec: 06/26/20 13:50 AB [id number]) Subjective Physical Therapy Visit Type Type Initial Evaluation Visit Start Time 11:09 Visit Stop Time 11:26 Total Visit Minutes 17 Number of SPORTS BETTING MANAGER Visits 0 M4 PT-IP Mobility and Gait Start: 06/26/20 13:35 Freq: NEEDED Status: Active Protocol: Document 06/26/20 11:09 AB (Rec: 06/26/20 13:50 AB [id number]) PT-Bed Mobility Assessment Supine to Sit Supine to Sit Minimal Assistance,1 Person Assistance Sit to Supine Sit to Supine Minimal Assistance,1 Person Assistance PT-Transfer Assessment Sit to and From Stand Sit to and from Stand Maximum Assistance,2 Person Assistance,Use of Upper Extremities Equipment Transfer Assistive Device Gait Belt,Front Wheeled Walker ,Sliding Board Orthotic/Prosthetic Devices or Brace: No Transfers Transfer Destination Chair Transfer Technique Lateral Scoot Transfer Ability Level of Assist Maximum Assistance,2 Person Assistance,Use of Upper Extremities Comments Mobility Comments pt with OT and co-tx. educated pt on TTWB on RLE and informed that if he is unable to gauge TTWB on RLE, it is safer to do NWB. completed sit to stand max A x 2 and max cues. pt is unable to maintain weight bearing restriction on RLE. agreed todo slide board transfer but requested to lay down for a few minutes. required min A for sit<>supine. educated pt on how to do slide board transfer. completed slide board transfer bed to chair max A x 2 and max cues. required max A to keep RLE off the floor. pt with increase thoracic kyphosis. positioned pt on chair. call light and table placed within reach. Gait Assessment Comments Gait Comments unable at this time PT-Balance Assessment Sitting Balance and Reactions Static Sitting Balance Ability Fair Dynamic Sitting Balance Ability Fair Standing Balance and Reactions Static Standing Balance Ability Poor Dynamic Standing Balance Ability Poor Device Used FWW M5 PT-IP Objective Assessments Start: 06/26/20 13:35 Freq: NEEDED Status: Active Protocol: Document 06/26/20 11:09 AB (Rec: 06/26/20 13:50 AB [id number]) Orientation Orientation/Cognition Level of Alertness Alert Orientation Name Language Function Ability Hard of Hearing Safety Awareness Decreased Safety Awareness Strength Lower Extremity Strength Assessment Bilaterally Impaired Hip 3/5 Knee 3+/5 Muscle Tone Muscle Tone WNL Yes M6 PT-IP Treatment Start: 06/26/20 13:35 Freq: NEEDED Status: Active Protocol: Document 06/26/20 11:09 AB (Rec: 06/26/20 13:50 AB [id number]) Physical Therapy Treatment Education Education Provided Weight Bearing Status,Safety M7 PT-IP Assessment and Plan Start: 06/26/20 13:35 Freq: NEEDED Status: Active Protocol: Document 06/26/20 11:09 AB (Rec: 06/26/20 13:50 AB [id number]) PT Summary Assessment and Plan Potential Rehabilitation Potential Fair Status of Condition at Evaluation Evolving Summary Impairments Pain,ROM,Strength,Balance, Coordination,Sensation,Tone, Cognition,Bed Mobility, Transfers,Gait,Activity Tolerance Assessment Summary pt requiring max A x 2 with transfers and unable to ambulate at this time. pt with weight bearing restriction on RLE of TTWB but unable to adhere to restriction due to R femur fx but no surgery intervention at this time. pt will require SNF rehab to improve strength and mobility. Goals Bed Mobility Goal Minimal Assistance Transfer Goal Minimal Assistance,Slide Board Gait Goal Minimal Assistance,Moderate Assistance,Front Wheel Walker Gait Distance 25 Days to Meet Goals 10 Frequency of Treatment Frequency Of Treatment Once a Day Treatment Plan Physical Therapy Treatment Plan Bed Mobility Training,Transfer Training,Gait Training, Therapeutic Exercise,Balance Retraining,Discharge Planning, Hot or Cold Pack,Neuromuscular Re-ed,Coordination Retraining ,Manual Therapy Recommendations To Nursing Amount of Assist Needed 2 Person Assist Discharge Recommendations PT Discharge Recommendations SNF Rehab Transportation Needs at Discharge Wheelchair/Cabulance
--- NOTE | 2020-06-26 11:27 | OT.IP.EVAL ---
Past Medical History (Last Reviewed 06/25/20 @ 17:12 by Zulema Cunningham MD) Alcohol abuse Anxiety Cerebral atrophy Chest pain (03/25/18) Dehydration (03/25/18) Depression Erectile dysfunction Essential hypertension Gastritis History of anemia History of liver injury History of pulmonary embolism Inguinal hernia Intrahepatic biloma Metabolic acidosis Personal history of peptic ulcer disease Wernicke-Korsakoff syndrome (alcoholic) Surgical History (Last Reviewed 06/25/20 @ 17:12 by Zulema Cunningham MD) History of colonoscopy (2014) History of esophagogastroduodenoscopy (EGD) (2014) History of esophagogastroduodenoscopy (EGD) (04/26/18) History of left hip replacement History of shoulder surgery History of total right knee replacement (TKR) Occupational Therapy Inpatient Evaluation/Re-Eval M1 PT/OT-IP Prior Functional Status Start: 06/26/20 12:14 Freq: NEEDED Status: Active Protocol: Document 06/26/20 12:14 CGR (Rec: 06/26/20 12:27 CGR [id number]) Medical Review Prior Functional Status Medical History Reviewed Yes Communication Pt is an effective communicator Mobility and Gait Pt was minimally mobile. Activities of Daily Living and IADL's Pt was having difficulty performing ADLs at home. Social History Household Members none Living Arrangements House Number of Floors (Floors) Two Floors Number of Stairs To Enter/Railing? 4 steps to enter without rail 13 stairs with rail on R assending to second floor Home Environment Standard Height Toilet,Walk in Shower,Tub/Shower Home Equipment Front Wheel Walker,Straight Cane Employment Status Retired Additional Social History Comment Pt states that he gets all of his food from meals on wheels and he does not drive or leave the house. M2 OT-IP Current Condition Start: 06/26/20 12:14 Freq: Status: Active Protocol: Document 06/26/20 12:14 CGR (Rec: 06/26/20 12:27 CGR [id number]) Occupational Therapy Current Condition Current Condition Evaluation Date 06/26/20 Treatment Diagnosis Fall with R nondisplaced hip fx. nonsurgical, TTWB Diagnosis Onset Date 06/25/20 Weight Bearing Status Weight Bearing Status Touch Down Weight Bearing M3 OT- IP Subjective and Pain Start: 06/26/20 12:14 Freq: Status: Active Protocol: Document 06/26/20 12:14 CGR (Rec: 06/26/20 12:27 CGR [id number]) OT- Subjective Occupational Therapy Visit Type Type Initial Evaluation Visit Start Time 10:56 Visit Stop Time 11:27 Total Visit Minutes 31 Notes Partial co-treat with P.T. Occupational Therapy Visit Comments Patient Comments I am willing to try anything OT Pain Assessment Pain When Pain Assessed At Rest Pain Present Pain Present Pain Reported Location Bilateral Hip Intensity 5 Scale Used Numeric (0 - 10) Management Techniques Distraction,Modification of Treatment,Re-positioning M4 OT- IP ADL's Start: 06/26/20 12:14 Freq: Status: Active Protocol: Document 06/26/20 12:14 CGR (Rec: 06/26/20 12:27 CGR [id number]) OT [id number] Comments OT Self-Feeding Comments not meal time OT ADL-Grooming Comments OT Grooming Comments not performed OT ADL-Oral Care Comments Oral Care Comments not performed OT ADL-Dressing General Eval Lower Body Dressing Ability Total Assistance Areas Needing Assistance Underpants/Brief,Socks OT ADL-Toileting General Evaluation Toileting Ability Total Assistance Areas Needing Assistance Manage Clothing Comments OT Toileting Comments for changing soiled brief OT ADL-Bathing Comments OT Bathing Comments not performed M5 OT- IP IADL's Start: 06/26/20 12:14 Freq: Status: Active Protocol: Document 06/26/20 12:14 CGR (Rec: 06/26/20 12:27 CGR [id number]) OT-Instrumental Activities of Daily Living Deficits IADL Deficits Identified Deficits Home Safety Awareness Awareness of Need for Assistance at Home Decreased Awareness Ability to Problem Solve Emergency Unable to Problem Solve Situations M6 OT- IP Functional Cognition Start: 06/26/20 12:14 Freq: Status: Active Protocol: Document 06/26/20 12:14 CGR (Rec: 06/26/20 12:27 CGR [id number]) Cognitive Factors Limiting Selfcare Function Cognitive Ability Level of Alertness Alert Patient Orientation Name,Age,Birthday,Month,Year, Day of Week,Place,Situation Attention Span Ability Capable of Focused Attention, Capable of Sustained Attention Ability to Follow Commands Able to Follow One Step Commands with Increased Time, Able to Follow One Step Commands with Repetition Safety Awareness Decreased Recall of Precautions,Decreased Ability to Apply Precautions OT- Vision and Hearing OT- Hearing Assessment OT- Hearing Assessment Hearing Impaired OT- Vision Assessment Visual Acuity WFL Visual Attentiveness WFL Occular Pursuits WFL Visual Convergence Impaired M7 OT- IP Mobility and Balance Start: 06/26/20 12:14 Freq: Status: Active Protocol: Document 06/26/20 12:14 CGR (Rec: 06/26/20 12:27 CGR [id number]) OT- Bed Mobility Assessment Supine to Sit Supine to Sit Assist Minimal Assistance Sit to Supine Sit to Supine Assist Minimal Assistance Scooting Scooting to Edge of Bed Contact Guard Assistance OT-Transfer Assessment Sit to and From Stand Sit to and from Stand Maximum Assistance,2 Person Assistance Transfers Transfer Ability Maximum Assistance,2 Person Assistance Technique Transfer Destination Bed,Chair Transfer Technique sliding board Devices Transfer Assistive Devices Gait Belt,Front Wheeled Walker ,Sliding Board Comments Mobility Comments Attempted standing transfer x3 but pt was unable to maintain TTWB to the RLE. Then performed sliding board transfer still with max x 2 OT- Balance Assessment Sitting Balance and Reactions Static Sitting Balance Ability Fair Dynamic Sitting Balance Ability Poor Standing Balance and Reactions Static Standing Balance Ability Poor Dynamic Standing Balance Ability Poor M8 OT- IP Objective Assessments Start: 06/26/20 12:14 Freq: Status: Active Protocol: Document 06/26/20 12:14 CGR (Rec: 06/26/20 12:27 CGR [id number]) OT Gross Range of Motion Upper Extremity Range of Motion Assessment Within Functional Limits OT Strength Upper Extremity Strength Assessment Bilaterally Impaired Comments Strength Comments grossly 3+/5 OT- Coordination Assessment Upper Extremity Finger to Nose Test Within Functional Limits Finger Tapping Test Within Functional Limits OT-Muscle Tone Assessment Muscle Tone WNL Yes OT Sensation Assessment Edema Edema Absent M9 OT- IP Assessment and Plan Start: 06/26/20 12:14 Freq: Status: Active Protocol: Document 06/26/20 12:14 CGR (Rec: 06/26/20 12:27 CGR [id number]) OT Summary Assessment and Plan Potential Rehabilitation Potential Fair Analytic Complexity at Evaluation Moderate Summary OT Impairments Pain,Strength,Balance, Functional Cognition, Functional Mobility,Grooming, Dressing,Toileting,Bathing, Toilet Transfers,Shower Transfers,Activity Tolerance Progress Towards Goals Slow Progress due to Pain,Slow Progress due to Activity Tolerance Assessment Summary Pt presents as a moderate complexity evaluation s/p admit for fall with R hip fx. Pt is globally weak and unable to stand and maintain his TTWB even with 2 person max assist. Pt will need SNF upon discharge. Recommend co-treat with P.T. for mobility. Goals Self-Feeding Goal Independent Grooming Goal Independent Dressing Goal Independent Toileting Goal Independent Bathing Goal Independent Toilet Transfer Goal Independent Shower Transfer Goal Independent Days to Meet Goals 30 Frequency of Treatment Frequency Of Treatment Once a Day Treatment Plan OT Treatment Plan ADL Training,Functional Cognition Training,Functional Mobility,Patient/Family Education,Discharge Planning Other Treatment Recommendations and Next cotreat for mobility, ADLs Treatment Focus seated Discharge Recommendations OT Discharge Recommendations SNF Rehab Transportation Needs at Discharge Wheelchair/Cabulance
--- NOTE | 2020-06-26 11:42 | CM.DANOTE ---
Patient is a 75 year old male who was admitted on 06/25/20 for Weakness. Pt has [facility] MCR for insurance and his PCP is Rashad Yates. EMR was reviewed. Per MD, pt with UTI on admission and hip pain from a fall after recent admission and d/c home. Per Ortho Consult: pt to be toe touch weight baring for 6 weeks but no surgical intervention needed at this time. PT/OT ordered and pending. Pt was recently admitted on 06/20/20, his neighbor found him with a low temp, and diagnosed with UTI, Acute kidney injury and ETOH withdrawl. Pt declined SNF at last admit and was discharged home with duarte Grewal referral and HH RN went to pt's home for visit and had concerns with pt's fall and being bedbound due to pain and not eating and drinking and pt was brought to the ED for evaluation. Per ED SW note, APS report made due to Self Neglect with report #[id number] and in the ED pt was agreeable with attempting SNF rehab placement before safe return home. ED HEAD MILLER spoke to pt's Dtr Marysol in [place] and updated and she also feels SNF needed and will begin process of calling [facility] agencies for in-home care after SNF. SW met bedside with pt and explained role and he confirms he lives at home alone in [place], patient reported some difficulty with ADL's: difficulty with meal prep and showering as shower/bath is on second floor. Patient still gets meals on wheels, FWW for ambulation on main level of house. He has a supportive neighbor Mr. Omalley ([phone]) who checks on him periodically and supplies alcohol when Mr. Saul calls and asks. SW discussed likely need for SNF and pt confirms he is agreeable and aware that [employer] MCR will need to auth SNF and SW encouraged pt that he needs to participate with PT/OT towards getting insurance auth and pt acknowledges understanding. SW provided SNF Choice list and no preference at this time but ultimately an [employer] contracted SNF that has openings and can accept. [facility]A attempted these SNF's: [facility]- not accepting admissions until 06/29/20 [facility]- not accepting admissions until 06/30/20 [facility]- concerns with pt's LTC plan and needs, so currently decline pt [facility]- no admission person in today but think they are contracted and have an opening, faxed referral. [facility]- left msg with new referral and faxed and will follow up if they reviewed and are contracted. [facility]- left msg and faxed new referral and will follow up if they are contracted as well. Pt currently open with [facility] and SW to keep them updated on d/c plan of home vs SNF. During pt's admission last week, HEAD MILLER explored alcohol history and pt endorsed drinking daily and does not have any desire to stop drinking It is the only thing that smooths out the falls and bumps of time, patient stated. He reported trying a recovery program in the past (10years prior) which, he felt was not successful and has no interest in trying again. He expressed the consequences of drinking and his primary desire is to continue drinking while trying to manage any negative side-effects or consequences of withdrawal, I need to be careful. Plan: SW to follow closely for [employer] MCR to open on Sunday and to f/u with [facility] to determine if they can accept pt and work on insurance auth. SW to keep [facility] updated along with pt's Dtr Marysol. JEANETTE Yuan Discharge Planning/Care Management Advanced directive, confirm from FAMILY Start: 06/25/20 17:57 Freq: Q24H Status: Active Protocol: Document 06/25/20 17:57 AK (Rec: 06/25/20 17:57 [facility] [id number]) Advance Directive, confirm on record Time 17:57 Person contacted copy scanned in chart Copy received Yes Advanced directive available on record Yes CM Discharge Assessment Start: 06/26/20 11:23 Freq: Status: Active Protocol: Document 06/26/20 11:23 BF (Rec: 06/26/20 11:30 BF [id number]) Discharge Planning Assessment Assigned Case Managers JEANETTE Michelle DPOA/Assigned Designee Name Dtr Marysol in [place] Contact Information [phone] Advance Directives? Yes: HC DPOA History Provided By Patient,Family Member,Medical Record Has Patient been admitted in last 30 Yes days? Comment Recent admit from 06/20/20 and discharged home with new [facility] referral Prior Living Arrangements House Household Members none Type of transporation used prior to Relies on Others admit Independent with ADL's Yes: somewhat Is patient alert and oriented? Yes Needs Assistance With Meal Prep,Managing Medications ,Home Chores / Shopping Comment has meals on wheels Caregiver for Another No Community Services used prior to Home Delivered Meals, admission: Transportation DME Already Rented / Owned Cane Patient/Family Preference [facility] Barriers to Discharge No Discharge Plan [facility] Facility Transportation Arrangement Facility van if SNF but if home then likely neighbor friend Mr. Omalley Referrals Initiated [facility] Medicare Choice List Provided Yes SNF/HH Preference Any SNF that is contracted with [employer] and can accept Has Agency SNF been contacted Yes Whiteboard Updated in Patient Room with Yes name and ext. # of Case Managers Review Status In Process Please Provide Date Initial DC 06/26/20 Assessment Was Performed Next Review Type Continued Stay Review
--- NOTE | 2020-06-26 11:43 | P.PN_ITS ---
Subjective Subjective Date Patient Seen: 06/26/20 Interval history: His right hip pain has improved. He describes pain when he was being moved in bed this morning. Orthopedics is recommending toe-touch weight-bearing on the right leg for 6 weeks along with physical therapy. This is discussed with the orthopedic physician staff physical therapy assistant. His potassium came back at 3.3 so 40 meq oral potassium has been given. The sodium is 132. The ALT has dropped from 48-37 and the AST has dropped from 226 to 119. He does appear mildly dyspneic. Exam Vital Signs (past 8 hours): - 06/26/20 04:34 06/26/20 07:25 06/26/20 08:48 Temperature 98.5 F 99.5 F 99.5 F Pulse Rate 63 67 Respiratory Rate 18 16 Blood Pressure 144/69 H 154/76 H Pulse Oximetry 95 93 06/26/20 11:30 Temperature 98.3 F Pulse Rate 80 Respiratory Rate 18 Blood Pressure 111/66 Pulse Oximetry 91 Oxygen Delivery Method Room Air Narrative Exam Narrative: He continues to be intermittently distracted, engaging at times and then seemingly staring off in his own world No apparent distress Says the right hip hurts less but continues to be painful when he moves around in bed. Heart is regular rate and rhythm without murmur Lungs are clear to auscultation bilaterally Extremities have no ankle edema Abdomen is soft, bowel sounds positive, nontender, no organomegaly There is minimal left hip tenderness. I did not attempt range of motion. Objective Labs Result Diagrams: 06/26/20 05:42 06/26/20 05:42 Labs: Laboratory Results - last 24 hr 06/25/20 06/25/20 06/25/20 13:00 13:00 13:00 WBC 10.1 RBC 4.70 Hgb 14.4 Hct 43.1 MCV 91.6 MCH 30.6 MCHC 33.4 RDW 18.4 H Plt Count 264 Neut % (Auto) 77.3 H Lymph % (Auto) 8.6 L Logan % (Auto) 12.9 Eos % (Auto) 0.7 L Baso % (Auto) 0.5 Neut # (Auto) 7800 H Lymph # (Auto) 900 L Logan # (Auto) 1300 H Eos # (Auto) 100 Baso # (Auto) 0 Sodium 133 L Potassium 3.4 D Chloride 97 L Carbon Dioxide 29 BUN 13 Creatinine 0.95 Estimated GFR > 60.0 BUN/Creatinine Ratio 13.7 Glucose 95 Lactate Calcium 9.1 Magnesium Total Bilirubin 1.2 AST 226 H ALT 48 Alkaline Phosphatase 86 Total Protein 7.3 Albumin 4.0 Globulin 3.3 Albumin/Globulin Ratio 1.2 Lipase Procalcitonin 0.19 Ethyl Alcohol < 10 06/25/20 06/25/20 06/26/20 13:00 13:24 05:42 WBC 8.3 RBC 4.22 L Hgb 12.8 L Hct 38.6 L MCV 91.5 MCH 30.4 MCHC 33.2 RDW 17.8 H Plt Count 253 Neut % (Auto) 75.2 H Lymph % (Auto) 8.5 L Logan % (Auto) 14.0 Eos % (Auto) 1.8 L Baso % (Auto) 0.5 Neut # (Auto) 6200 Lymph # (Auto) 700 L Logan # (Auto) 1200 H Eos # (Auto) 200 Baso # (Auto) 0 Sodium Potassium Chloride Carbon Dioxide BUN Creatinine Estimated GFR BUN/Creatinine Ratio Glucose Lactate 0.9 Calcium Magnesium Total Bilirubin AST ALT Alkaline Phosphatase Total Protein Albumin Globulin Albumin/Globulin Ratio Lipase 62 Procalcitonin Ethyl Alcohol 06/26/20 06/26/20 05:42 05:42 WBC RBC Hgb Hct MCV MCH MCHC RDW Plt Count Neut % (Auto) Lymph % (Auto) Logan % (Auto) Eos % (Auto) Baso % (Auto) Neut # (Auto) Lymph # (Auto) Logan # (Auto) Eos # (Auto) Baso # (Auto) Sodium 132 L Potassium 3.3 L Chloride 100 Carbon Dioxide 30 BUN 14 Creatinine 0.86 Estimated GFR > 60.0 BUN/Creatinine Ratio 16.3 Glucose 97 Lactate Calcium 8.7 Magnesium 1.7 Total Bilirubin 0.8 AST 119 H ALT 37 Alkaline Phosphatase 71 Total Protein 6.2 L Albumin 3.3 L Globulin 2.9 Albumin/Globulin Ratio 1.1 Lipase Procalcitonin Ethyl Alcohol [facility] Medical History Alcohol abuse Anxiety Cerebral atrophy Chest pain (03/25/18) Dehydration (03/25/18) Depression Erectile dysfunction Essential hypertension Gastritis History of anemia History of liver injury History of pulmonary embolism Inguinal hernia Intrahepatic biloma Metabolic acidosis Personal history of peptic ulcer disease Wernicke-Korsakoff syndrome (alcoholic) Surgical History History of colonoscopy (2014) History of esophagogastroduodenoscopy (EGD) (2014) History of esophagogastroduodenoscopy (EGD) (04/26/18) History of left hip replacement History of shoulder surgery History of total right knee replacement (TKR) Family History Father Cancer Family/Other No problems noted. Mother Cancer Sister No problems noted. Social History marital status: household members: none housing: house Smoking Status: Former smoker alcohol intake: current Assessment & Plan Assessment & Plan narrative: Right Hip Pain, present on admission. Active -the pelvic CT shows severe right hip osteoarthritis. No actual fracture is seen but the femoral neck has a significant periosteal reaction. MRI is suggested -discussed with the orthopedic physician staff physical therapy assistant who discussed this with Dr. Quiroz, who recommends toe-touch weight-bearing for 6 weeks. Initial recommendation is a non operative approach, without MRI needed. -continue hydrocodone for pain as needed -consult, evaluation and treat with physical therapy and occupational therapy with restrictions of TTWB for 6 w. E.Coli UTI, present on admission. Active -complete Cipro planned course on 06/30 Alcoholism, present on admission. Active -continue thiamine, initiated in the emergency department. -alcohol level of less than 10 as opposed to the 37 that he was on the last admission 06/20/2020 Weakness, present on admission. Active -likely multifactorial with alcoholic contribution, recent urinary tract infection immobilization. -no acute process on today's brain MRI 06/26 but does have an old right occipital infarct and ventriculomegaly of possible normal pressure hydrocephalus. -plan neurology referral and workup as an outpatient Elevated AST, present on Admission. Active -probably caused by alcoholic liver disease -the AST was 41 on 06/21 and then 226 on 06/25. The ALT has also risen from 26 up to 48 in that same time frame. -CMP on 06/26 with AST of 119 and ALT of 37 BPH, present on admission. Chronic -continue tamsulosin. GERD, present on admission. Chronic -continue omeprazole Depression, present on admission. Chronic -continue mirtazapine. He is likely to need placement in a fpc facility while waiting for this hip pain to resolve and the possible small fracture to heal.
--- NOTE | 2020-06-26 23:46 | PC.NURSE ---
Addendum entered by Adriana Duron R.N. 06/27/20 06:37: At 0400 patient alarm going off and found crawling out of bed. PROCESS CONTROLLER assisted patient to bathroom with walker and 1 assist. Now alarm going off again and found patient at bathroom door walking without his walker. Reminded he needs to call for assistance and he responded that a man has to pee too. After urinating assisted back to chair with walker but patient not adhering to the TTWB on right leg. Chair alarm applied and given call light and again reminded him to call for assistance if he needs anything. Original Note: patient is oriented except to date. Breath sounds CTA with RA sat of 95%. HRR; BP 145/71 and is intermittently elevated. Denies nausea. BT present and states he is passing flatus but has not had a BM recorded since 06/18; AIR QUALITY MANAGERMendez Choe, informed as has no orders for bowel meds. Incontinent of urine. Is able to turn himself in bed. Is TTWB on right leg and getting out of bed only with PT unless Steven lift is used. Scattered bruises/abrasions on all extremities. Wearing bilateral calf SCD's. Fall risk score is high and bed alarm is activated. States pain is currently 5/10 in back, right foot and bilateral hips but declines pain medication.
[2020-06-27 04:15] VITALS: BP 177/56; PULSE 66; RESP 18; TEMP 37.1; O2SAT 95
[2020-06-27] MEDS: CIPROFLOXACIN 250 MG TABLET PO ×2 (06:45→21:04)
--- NOTE | 2020-06-27 07:28 | P.PN_ITS ---
Subjective Subjective Date Patient Seen: 06/27/20 Time Patient Seen: 10:07 Interval history: He tells me that he was unable to walk with Physical therapy yesterday because of the right hip pain. His nurse reports that it is well documented that overnight he was found having walked to the bathroom twice without a walker or any assistance. He does not seem to remember that. He continues to have the odd interaction of initially responding appropriately and then having slowed or absent responses for most of the visit and then and asking for some conclusion/plan. All in all he is appearing improved. His potassium from 06/26 of 3.3 was supplemented and will need to be recheck today. His blood pressure is running 177/56. The brain MRI suggested a possible normal pressure hydrocephalus. That will need to be addressed by Neurology as an outpatient. Placement has become challenging as the [facility] facilities contacted of course are interested in what his discharge planning from there would be. At this point he is either home less or near homeless. Exam Vital Signs (past 8 hours): - 06/26/20 23:38 06/26/20 23:50 06/27/20 04:15 Temperature 99.3 F 99.3 F 98.7 F Pulse Rate 62 66 Respiratory Rate 16 18 Blood Pressure 145/71 H 177/56 H Pulse Oximetry 95 95 Oxygen Delivery Method Room Air Oxygen Flow Rate 0 Narrative Exam Narrative: Alert and oriented x3. No apparent distress He responds appropriately with the initial greeting, answer questions and then kind of stares off/fades out before at the end of the visit asking for a summary conclusions statement. No apparent seizures. Heart is regular rate and rhythm without murmur Lungs are clear to auscultation bilaterally Extremities have no ankle edema. There is mild tenderness of the right anterior hip. Objective Labs Result Diagrams: 06/26/20 05:42 06/26/20 05:42 [facility] Medical History Alcohol abuse Anxiety Cerebral atrophy Chest pain (03/25/18) Dehydration (03/25/18) Depression Erectile dysfunction Essential hypertension Gastritis History of anemia History of liver injury History of pulmonary embolism Inguinal hernia Intrahepatic biloma Metabolic acidosis Personal history of peptic ulcer disease Wernicke-Korsakoff syndrome (alcoholic) Surgical History History of colonoscopy (2014) History of esophagogastroduodenoscopy (EGD) (2014) History of esophagogastroduodenoscopy (EGD) (04/26/18) History of left hip replacement History of shoulder surgery History of total right knee replacement (TKR) Family History Father Cancer Family/Other No problems noted. Mother Cancer Sister No problems noted. Social History marital status: household members: none housing: house Smoking Status: Former smoker alcohol intake: current Assessment & Plan Assessment & Plan narrative: Right Hip Pain, present on admission. Active -the pelvic CT shows severe right hip osteoarthritis. No actual fracture is seen but the femoral neck has a significant periosteal reaction. MRI was suggested -discussed with the orthopedic physician nursing home assistant administrator who discussed this with Dr. Quiroz, who recommends toe-touch weight-bearing for 6 weeks. Initial recommendation is a non operative approach, without MRI indicated as that would not change the treatment approach. -continue hydrocodone for pain as needed -consult, evaluation and treat with physical therapy and occupational therapy with restrictions of TTWB for 6 w. -06/27 nursing reports that overnight he walked to the bathroom on his own without assistance or a walker. -[facility] facility placement ongoing E.Coli UTI, present on admission. Active -this was the reason for his recent prior admission -completes Cipro planned course on 06/30 Alcoholism, present on admission. Active -continue thiamine, initiated in the emergency department. -alcohol level of less than 10 as opposed to the 37 that he was on the last admission 06/20/2020 -no CIWA protocol indicated Weakness, present on admission. Active -likely multifactorial with alcoholic contribution, recent urinary tract infection immobilization. -no acute process on today's brain MRI 06/26 but does have an old right occipital infarct and ventriculomegaly of possible normal pressure hydrocephalus. -plan neurology referral and workup as an outpatient for the possible normal pressure hydrocephalus Elevated AST, present on Admission. Active -probably caused by alcoholic liver disease -the AST was 41 on 06/21 and then 226 on 06/25. The ALT has also risen from 26 up to 48 in that same time frame. -CMP on 06/26 with AST of 119 and ALT of 37 Hypokalemia -potassium 3.3 on 06/26. Recheck today BPH, present on admission. Chronic -continue tamsulosin. GERD, present on admission. Chronic -continue omeprazole Depression, present on admission. Chronic -continue mirtazapine. He is likely to need placement in a [facility] facility while completing the 6 weeks of toe-touch weight-bearing restriction.
[2020-06-27] MEDS: MIRTAZAPINE 7.5 MG TABLET PO (08:14)
[2020-06-27] MEDS: SODIUM CHLORIDE 0.9% FLUSH 10 ML IV ×2 (08:14→21:04)
[2020-06-27] MEDS: TAMSULOSIN 0.4 MG CAPSULE PO (08:14)
[2020-06-27] MEDS: THIAMINE 100 MG TABLET PO (08:14)
[2020-06-27] MEDS: PANTOPRAZOLE 40 MG TABLET PO (08:14)
[2020-06-27] MEDS: ENOXAPARIN 40 MG/0.4 ML SYRINGE SUBCUT (08:15)
[2020-06-27 08:16] VITALS: BP 116/59; PULSE 65; RESP 19; TEMP 36.8; O2SAT 95
--- NOTE | 2020-06-27 08:48 | PC.NURSE ---
Pt moved from room 217 to 206 for closer observation. Pt awake, alert, and oriented, is somewhat hard of hearing, and has delayed responses to questions. Discussed with Pt reason for moving him to another room and reinforced multiple times that he is not to get up without assistance as well as reiterating with him that his mobility status is toe touch weight bearing and when up he must use the walker and have help to remain safe and not further injure his hip. Pt agreed to not get up without assistance and to call as needed. Bed alarm on for safety. Call light is in reach. Pt refuses SCD's so encouraged Pt to perform ankle waves frequently to prevent blood clots.
--- NOTE | 2020-06-27 10:07 | PM.CN ---
History of Present Illness Consult details Date Patient Seen: 06/27/20 Time Patient Seen: 10:07 Chief complaint: Weakness Reason for consult: fall and difficulty walking Narrative: Mr. Saul is a 75 yo M who has hx of multiple falls due to heavy EtOH use. He fell 2 days ago and was brought in to ED for difficulty standing up and ambulating. CT pelvis shows periosteo reaction questionable for stress fx. Patient was admitted to hospital for pain control, mobility training. Orthopedic service was consulted. Meds Home Medications and Allergies Home Medications Medication Instructions Recorded Confirmed Type ciprofloxacin HCl 250 mg PO BID #14 tab 06/23/20 06/25/20 Rx mirtazapine 7.5 mg PO DAILY #30 tab 06/23/20 06/25/20 Rx omeprazole 40 mg PO DAILY #30 cap 06/23/20 06/25/20 Rx tamsulosin [Flomax] 0.4 mg PO QDAY #30 cap 06/23/20 06/25/20 Rx Allergies Allergy/AdvReac Type Severity Reaction Status Date / Time morphine [MORPHINE] Allergy Unknown Verified 12/11/19 14:18 Review of Systems Review of Systems ROS: Yes All systems reviewed with the patient and are negative except as otherwise documented Exam Vital Signs (past 8 hours): - 06/27/20 04:15 06/27/20 08:16 Temperature 98.7 F 98.3 F Pulse Rate 66 65 Respiratory Rate 18 19 Blood Pressure 177/56 H 116/59 L Pulse Oximetry 95 95 Oxygen Delivery Method Room Air Oxygen Flow Rate 0 Extrem Other: No deformities in BLE. Able to move BLE without pain with ROM WNL. No guarding on exam. Objective Labs Result Diagrams: 06/26/20 05:42 06/26/20 05:42 Assessment & Plan Assessment & Plan narrative: Patient had fall 2 days ago with increased hip pain non-specific to location in the hip. Patient has been ambulating with PT/OT. Per nursing, patient also ambulated against instruction unassisted without walker by himself to the bathroom. Patient's CT was reviewed and I do not see an obvious fracture of the right hip. I recommend WBAT to BLE. I recommend patient can be discharged to home with instructions to limit EtOH consumption to minimize fall risks. Patient does not need orthopedic regular follow up. He can follow up with his PCP in 2 weeks or as needed. Thank you for the consultation.
[2020-06-27 11:25] LABS: COVID19 -Nasal RAPID Negative (Negative)
[2020-06-27 11:26] LABS: BUN Creatinine Ratio 17.3 (6-22); Blood Urea Nitrogen 19 mg/dL (9-20); Calcium 9.1 mg/dL (8.4-10.2); Carbon Dioxide 30 mmol/L (22-32); Chloride 98 mmol/L (98-107); Estimated Glomerular Filt Rate > 60.0 mL/min (>60); Glucose 102 mg/dL (80-110); HEMOLYSIS < 15 (0-50); Potassium 4.1 mmol/L (3.4-5.1); Sodium 132 mmol/L (137-145)
[2020-06-27 12:15] VITALS: BP 135/77; PULSE 69; RESP 17; TEMP 36.6; O2SAT 94
--- NOTE | 2020-06-27 12:34 | PC.NURSE ---
Day shift: Pt asleep and showing no s/s of pain or discomfort. VS have been WNL. Bed alarm is on and door to room is open. Pt in room 206 and across from RN station for safety. Pt was passed to this video games storywriter at approx 1200 today from ALISE Jose.
--- NOTE | 2020-06-27 13:55 | OT.IPNOTE ---
Attempted treatment in AM with patient refusal d/t feeling weak. Attempt in PM with RN requesting hold d/t pt agitation. Will follow-up for further treatment as tolerated 06/28/20.
--- NOTE | 2020-06-27 14:24 | CM.DPC ---
DCP: continued: agreed to assist JEANETTE Michelle with this case today as part of caseload triage. Met briefly with pt. He confirms he understands that prison [facility]hab is being worked on for d/c and that he knows this is what he needs to do. EMR reviewed briefly with focus on the DCPlanning/[facility] notes from the recent admisson to with a d/c to home on 06/23 with Carmina JOHNSON, the ER admission and then the admission to acute care floor on 06/25. Followed up on referrals sent yeterday by Viviana to [facility] Paulino: vm left for Daisy to check on status of referral and if contracted with [facility]. Prestige: spoke with Elvia. She reports their fax was down yesterday and she just received the referral packet. She confirms they are contracted with [facility] Medicare and she will pass on to the admission team tomorrow morning for review. Spoke then at length with pt's daughter Marysol [place] [phone] with intent to find out where she was in terms of finding caregivers for the home after the SNF stay. Marysol stated she had not started as she really did not know where to start. Gave her a couple of agency names and contact numbers but also noted this can be expensive. Marysol states that her father does not have any funds beyond his $2000 social security check. He does own his own home but this is co-owned by his estranged Brittany. Marysol is his only living family member. Discussed the medicaid process and gave her [facility] contact #. Did let her know that one of the barriers to acceptance at the SNF is concern re the plan for after the skilled need is completed. Marysol said that she is not a professional but feels strongly that her father should not live at home by himself again. She and her will have a discussion this evening and at this time she is planning to drive up to [place] in order to assist more fully in the dc from SNF planning. She does want the SNF facilities to know that she will be coming up with a post SNF plan She expressed thankfulness for the information. Is provided the direct contact # for the [facility]/dcplanning desk and is encouraged to speak tomorrow to that team. [facility] Viviana is updated.
--- NOTE | 2020-06-27 14:39 | PT-IP ANOTE ---
Pt refused tx in AM, citing fatigue. RN requests hold tx this PM due to increasing agitation with pt now sleeping soundly. Will proceed with therapy as tolerated Wednesday 06/28.
[2020-06-27 15:45] VITALS: BP 113/69; PULSE 72; RESP 18; TEMP 36.8; O2SAT 92
[2020-06-27 20:00] VITALS: BP 135/72; PULSE 69; RESP 18; TEMP 36.7; O2SAT 95
[2020-06-28] MEDS: HYDROCODONE/ACET 5/325 TABLET 1 TAB PO ×3 (01:56→12:43)
[2020-06-28 02:00] VITALS: BP 146/76; PULSE 61; RESP 16; TEMP 37.7; O2SAT 95
[2020-06-28 04:55] VITALS: TEMP 37.2
[2020-06-28] MEDS: CIPROFLOXACIN 250 MG TABLET PO ×2 (06:05→21:19)
[2020-06-28 07:48] VITALS: BP 140/74; PULSE 60; RESP 14; TEMP 36.1; O2SAT 96
[2020-06-28] MEDS: SODIUM CHLORIDE 0.9% FLUSH 10 ML IV ×2 (08:41→21:21)
[2020-06-28] MEDS: THIAMINE 100 MG TABLET PO (08:54)
[2020-06-28] MEDS: PANTOPRAZOLE 40 MG TABLET PO (08:54)
[2020-06-28] MEDS: MIRTAZAPINE 7.5 MG TABLET PO (08:54)
--- NOTE | 2020-06-28 09:41 | PC.NURSE ---
Day shift: Per conversation w/ Pt's daughter Marysol Pt is no longer taking Flomax. Daughter reports that it makes Anthony incontinent. Pt has been incontinent at this time. Dr Palacios informed and verbal order to d/c the Flomax. Did not give Pt's AM dose of Flomax today. Has been making needs known proper. Ate breakfast. VS WNL. Bed alarm is on. Has not been impulsive. Calm and cooperative w/ care. Rsting in bed watching the TV. Calll light in reach and door to room open for line of site to RN station. Will continue w/ plan of care.
--- NOTE | 2020-06-28 11:00 | PC.NURSE ---
Day shift: Pt remains incontinent of urine at this time. MACHINE CANDLE MOLDER reports Pt has needed to be changed (new brief) 2 times this shift. Pt to work w/ PT and OT today. Plan is to ambulate into shower and take a shower today. Pt remains resting in bed and watching TV. No c/o pain or discomfort. Denies any nausea or chest pain. Call light in reach and bed alarm is on. PT in room at ([phone]). Will continue to monitor and continue w/ plan of care.
--- NOTE | 2020-06-28 11:25 | OT.IP.TRT ---
Occupational Therapy Treatment Note M2 OT-IP Current Condition Start: 06/26/20 12:14 Freq: Status: Active Protocol: Document 06/26/20 12:14 CGR (Rec: 06/26/20 12:27 CGR [id number]) Occupational Therapy Current Condition Current Condition Evaluation Date 06/26/20 Treatment Diagnosis Fall with R nondisplaced hip fx. nonsurgical, TTWB Diagnosis Onset Date 06/25/20 Weight Bearing Status Weight Bearing Status Touch Down Weight Bearing M3 OT- IP Subjective and Pain Start: 06/26/20 12:14 Freq: Status: Active Protocol: Document 06/28/20 12:00 CGR (Rec: 06/28/20 12:09 CGR [id number]) OT- Subjective Occupational Therapy Visit Type Type Progress Note Visit Start Time 11:06 Visit Stop Time 11:25 Total Visit Minutes 19 Notes Co-treat with P.T. OT Pain Assessment Pain When Pain Assessed At Rest Pain Present Pain Present Pain Reported Location Back Intensity 5 Scale Used Numeric (0 - 10) Management Techniques Distraction,Modification of Treatment,Re-positioning M4 OT- IP ADL's Start: 06/26/20 12:14 Freq: Status: Active Protocol: Document 06/28/20 12:00 CGR (Rec: 06/28/20 12:09 CGR [id number]) OT [id number] Comments OT Self-Feeding Comments Not meal time OT ADL-Grooming General Evaluation Grooming Ability Standby Assistance Areas Needing Assistance Retrieving/Set-up of Grooming Items,Face Washing Comments OT Grooming Comments seated in chair OT ADL-Oral Care Comments Oral Care Comments Not performed while OT present . Set pt up for brushing teeth seated in chair but pt asking to rest for a minute prior to oral care. OT ADL-Dressing General Eval Lower Body Dressing Ability Maximum Assistance Areas Needing Assistance Underpants/Brief OT ADL-Toileting General Evaluation Toileting Ability Moderate Assistance Areas Needing Assistance Manage Clothing Comments OT Toileting Comments Pt sat for urination as therapist request. Pt did not initiate removal of brief prior to sitting, therapist removed brief. Pt urinated prior to sitting and finished urinating seated on toielt. Pt needed assist for LB threading of brief and for pulling brief up. OT ADL-Bathing Comments OT Bathing Comments Not performed M5 OT- IP IADL's Start: 06/26/20 12:14 Freq: Status: Active Protocol: Document 06/26/20 12:14 CGR (Rec: 06/26/20 12:27 CGR [id number]) OT-Instrumental Activities of Daily Living Deficits IADL Deficits Identified Deficits Home Safety Awareness Awareness of Need for Assistance at Home Decreased Awareness Ability to Problem Solve Emergency Unable to Problem Solve Situations M6 OT- IP Functional Cognition Start: 06/26/20 12:14 Freq: Status: Active Protocol: Document 06/26/20 12:14 CGR (Rec: 06/26/20 12:27 CGR [id number]) Cognitive Factors Limiting Selfcare Function Cognitive Ability Level of Alertness Alert Patient Orientation Name,Age,Birthday,Month,Year, Day of Week,Place,Situation Attention Span Ability Capable of Focused Attention, Capable of Sustained Attention Ability to Follow Commands Able to Follow One Step Commands with Increased Time, Able to Follow One Step Commands with Repetition Safety Awareness Decreased Recall of Precautions,Decreased Ability to Apply Precautions OT- Vision and Hearing OT- Hearing Assessment OT- Hearing Assessment Hearing Impaired OT- Vision Assessment Visual Acuity WFL Visual Attentiveness WFL Occular Pursuits WFL Visual Convergence Impaired M7 OT- IP Mobility and Balance Start: 06/26/20 12:14 Freq: Status: Active Protocol: Document 06/28/20 12:00 CGR (Rec: 06/28/20 12:09 CGR [id number]) OT- Bed Mobility Assessment Rolling Type of Rolling Roll to Right Level of Assistance Standby Assistance Supine to Sit Supine to Sit Assist Standby Assistance Scooting Scooting to Edge of Bed Standby Assistance OT-Transfer Assessment Sit to and From Stand Sit to and from Stand Minimal Assistance Transfers Transfer Ability Minimal Assistance Technique Transfer Destination Bed,Chair,Toilet Transfer Technique Stand Step Pivot Devices Transfer Assistive Devices Gait Belt,Front Wheeled Walker OT- Gait Assessment Gait Gait Assistance Required: Contact Guard Assist Assistive Devices Assistive Device Gait Belt,Front Wheeled Walker OT- Balance Assessment Sitting Balance and Reactions Static Sitting Balance Ability Fair Dynamic Sitting Balance Ability Fair M8 OT- IP Objective Assessments Start: 06/26/20 12:14 Freq: Status: Active Protocol: Document 06/26/20 12:14 CGR (Rec: 06/26/20 12:27 CGR [id number]) OT Gross Range of Motion Upper Extremity Range of Motion Assessment Within Functional Limits OT Strength Upper Extremity Strength Assessment Bilaterally Impaired Comments Strength Comments grossly 3+/5 OT- Coordination Assessment Upper Extremity Finger to Nose Test Within Functional Limits Finger Tapping Test Within Functional Limits OT-Muscle Tone Assessment Muscle Tone WNL Yes OT Sensation Assessment Edema Edema Absent M9 OT- IP Assessment and Plan Start: 06/26/20 12:14 Freq: Status: Active Protocol: Document 06/28/20 12:00 CGR (Rec: 06/28/20 12:09 CGR [id number]) OT Summary Assessment and Plan Potential Rehabilitation Potential Fair Analytic Complexity at Evaluation Moderate Summary OT Impairments Pain,Strength,Balance, Functional Cognition, Functional Mobility,Grooming, Dressing,Toileting,Bathing, Toilet Transfers,Shower Transfers,Activity Tolerance Progress Towards Goals Slow Progress due to Pain,Slow Progress due to Activity Tolerance Assessment Summary Per 06/27/20 ortho consult, pt is now WBAT. Pt was able to ambulate today with new WB instructions and is progressing well, however, pt is still globally weak with noted pain reactions with WB to the R hip. Pt needed assist for LB dressing and toileting . Pt will benefit from SNF upon discharge as pt is living alone. Pt is minimally talkative in todays session but expressed gratitude at the end of the session for assist today. Will continue to follow for OT needs. Goals Self-Feeding Goal Independent Grooming Goal Independent Dressing Goal Independent Toileting Goal Independent Bathing Goal Independent Toilet Transfer Goal Independent Shower Transfer Goal Independent Days to Meet Goals 30 Frequency of Treatment Frequency Of Treatment Once a Day Treatment Plan OT Treatment Plan ADL Training,Functional Cognition Training,Functional Mobility,Patient/Family Education,Discharge Planning Other Treatment Recommendations and Next ADLs standing, formal cog Treatment Focus assessment if agreeable. Discharge Recommendations OT Discharge Recommendations SNF Rehab Transportation Needs at Discharge Wheelchair/Cabulance
[2020-06-28 11:42] VITALS: BP 118/77; PULSE 84; RESP 18; TEMP 36.1; O2SAT 90
--- NOTE | 2020-06-28 11:55 | PT.IIE ---
Surgical History (Last Reviewed 06/25/20 @ 17:12 by Zulema Cunningham MD) History of colonoscopy (2014) History of esophagogastroduodenoscopy (EGD) (2014) History of esophagogastroduodenoscopy (EGD) (04/26/18) History of left hip replacement History of shoulder surgery History of total right knee replacement (TKR) Medical History (Last Reviewed 06/25/20 @ 17:12 by Zulema Cunningham MD) Alcohol abuse Anxiety Cerebral atrophy Chest pain (03/25/18) Dehydration (03/25/18) Depression Erectile dysfunction Essential hypertension Gastritis History of anemia History of liver injury History of pulmonary embolism Inguinal hernia Intrahepatic biloma Metabolic acidosis Personal history of peptic ulcer disease Wernicke-Korsakoff syndrome (alcoholic) Physical Therapy Inpatient Re-Evaluation M1 PT/OT-IP Prior Functional Status Start: 06/26/20 12:14 Freq: NEEDED Status: Active Protocol: Document 06/28/20 11:32 AW (Rec: 06/28/20 11:55 AW [id number]) Medical Review Prior Functional Status Medical History Reviewed Yes Communication Pt is an effective communicator Mobility and Gait Pt has been in/out of the hospital and has h/o falls; per EMR: prior to first hospitalization, pt is modifed independent with ambulation using FWW but is minimally mobilizing at home Activities of Daily Living and IADL's Pt was having difficulty performing ADLs at home. Social History Household Members none Living Arrangements House Number of Floors (Floors) Two Floors Number of Stairs To Enter/Railing? 4 steps to enter without rail 13 stairs with rail on R assending to second floor Home Environment Standard Height Toilet,Walk in Shower,Tub/Shower Home Equipment Front Wheel Walker,Straight Cane Employment Status Retired Additional Social History Comment Pt states that he gets all of his food from meals on wheels and he does not drive or leave the house. M1 PT/OT-IP Prior Functional Status Start: 06/26/20 13:35 Freq: NEEDED Status: Active Protocol: Document 06/28/20 11:32 AW (Rec: 06/28/20 11:55 AW [id number]) Medical Review Prior Functional Status Medical History Reviewed Yes Communication Pt is an effective communicator Mobility and Gait Pt has been in/out of the hospital and has h/o falls; per EMR: prior to first hospitalization, pt is modifed independent with ambulation using FWW but is minimally mobilizing at home Activities of Daily Living and IADL's Pt was having difficulty performing ADLs at home. Social History Household Members none Living Arrangements House Number of Floors (Floors) Two Floors Number of Stairs To Enter/Railing? 4 steps to enter without rail 13 stairs with rail on R assending to second floor Home Environment Standard Height Toilet,Walk in Shower,Tub/Shower Home Equipment Front Wheel Walker,Straight Cane Employment Status Retired Additional Social History Comment Pt states that he gets all of his food from meals on wheels and he does not drive or leave the house. M2 PT-IP Current Condition Start: 06/26/20 13:35 Freq: NEEDED Status: Active Protocol: Document 06/28/20 11:32 AW (Rec: 06/28/20 11:55 AW [id number]) Physical Therapy Current Condition Current Condition Evaluation Date 06/28/20 Treatment Diagnosis R hip pain s/p fall; difficulty in walking Onset Date 06/25/20 Weight Bearing Status Weight Bearing Status Weight Bear as Tolerated Allowed Weight Bearing Amount (enter % BLE WBAT per ortho consult on or #) (%) 06/27/20 M3 PT-IP Subjective Start: 06/26/20 13:35 Freq: NEEDED Status: Active Protocol: Document 06/28/20 11:32 AW (Rec: 06/28/20 11:55 AW [id number]) Subjective Physical Therapy Visit Type Type Re-Evaluation Visit Start Time 11:07 Visit Stop Time 11:23 Total Visit Minutes 16 Notes Co-tx with OT Number of SCRATCH BRUSHER Visits 0 Physical Therapy Visit Comments Patient Comments Pt is willing to participate with PT Patient Goals Pt is agreeable to rehab Therapy Pain Assessment Pain When Pain Assessed At Rest Location Back Intensity 5 Scale Used Numeric (0 - 10) Pain Management Techniques Distraction,Re-positioning, Timing of Activity with Medications M4 PT-IP Mobility and Gait Start: 06/26/20 13:35 Freq: NEEDED Status: Active Protocol: Document 06/28/20 11:32 AW (Rec: 06/28/20 11:55 AW [id number]) PT-Bed Mobility Assessment Supine to Sit Supine to Sit Standby Assistance Scooting Scooting to Edge of Bed Standby Assistance PT-Transfer Assessment Sit to and From Stand Sit to and from Stand Minimal Assistance,1 Person Assistance,Use of Upper Extremities Equipment Transfer Assistive Device Gait Belt,Front Wheeled Walker Orthotic/Prosthetic Devices or Brace: No Transfers Transfer Destination Chair,Toilet Transfer Technique Stand Step Pivot Transfer Ability Level of Assist Minimal Assistance,1 Person Assistance,Use of Upper Extremities Comments Mobility Comments Pt was lying in the bed as PT and OT arrived. He agreed to mobilize with therapy. Educated pt that weightbearing status had officially changed to WBAT. Pt completed bed mobility SBA and sat EOB with UE support needed for balance. Pt required min assist to stand and used FWW to ambulated around the foot of the bed and to the toilet. With min A x 1 and verbal cues for safety, pt transferred to and from the toilet, requiring assist to change and adjust his briefs. As pt quiana from the toilet, he appeared confused and attempted to walk away from the toilet with right hand on the walker and left hand on the grab bar. Pt needed verbal cues to contact the walker with his left hand. He ambulated with FWW CGA to the chair, requiring min assist for the transfer. Pt was positioned with call light and all needs in reach. Chair alarm was armed for safety. Pt was left with OT. Gait Assessment Gait Gait Assistance Required: Contact Guard Assist Distance (Feet) 20 Able to Maintain Weight Bearing Status Yes During Gait Assistive Devices Assistive Device Front Wheeled Walker Orthotic/Prosthetic Devices or Brace: No Gait Deviations General Gait Pattern Antalgic,Decreased Stride Length,Decreased Feet Clearance,Festinating,Flexed Trunk,Step-to Gait,Wide Based Gait Factors Limiting Gait Function Factors Limiting Gait Function Decreased Activity Tolerance, Decreased Strength,Difficulty Following Directions,Pain,Poor Balance,Poor Safety Awareness Comments Gait Comments Pt ambulated using FWW CGA. Gait was characterized by WBOS and lack of knee flexion bilaterally. Posture was significantly flexed which pt was unable to correct in response to cues. Stair Climbing Assessment Comments Stair Climbing Comments Not assessed. PT-Balance Assessment Sitting Balance and Reactions Static Sitting Balance Ability Good Dynamic Sitting Balance Ability Fair Standing Balance and Reactions Static Standing Balance Ability Fair Dynamic Standing Balance Ability Poor Device Used FWW M5 PT-IP Objective Assessments Start: 06/26/20 13:35 Freq: NEEDED Status: Active Protocol: Document 06/28/20 11:32 AW (Rec: 06/28/20 11:55 AW [id number]) Orientation Orientation/Cognition Level of Alertness Alert Orientation Name,Place,Situation Language Function Ability Hard of Hearing Safety Awareness Decreased Safety Awareness Gross Range of Motion Lower Extremity ROM Assessment Bilaterally Impaired Impairments Lacking active dorsiflexion bilaterally (left more affected than right). Strength Lower Extremity Strength Assessment Bilaterally Impaired Hip 3/5 Knee 3+/5 Ankle 3+/5 Sensation Assessment Sensation Gross Sensation WNL Muscle Tone Muscle Tone WNL Yes M6 PT-IP Treatment Start: 06/26/20 13:35 Freq: NEEDED Status: Active Protocol: Document 06/28/20 11:32 AW (Rec: 06/28/20 11:55 AW [id number]) Physical Therapy Treatment Education Education Provided Weight Bearing Status,Safety M7 PT-IP Assessment and Plan Start: 06/26/20 13:35 Freq: NEEDED Status: Active Protocol: Document 06/28/20 11:32 AW (Rec: 06/28/20 11:55 AW [id number]) PT Summary Assessment and Plan Potential Rehabilitation Potential Fair Status of Condition at Evaluation Stable Summary Impairments Pain,ROM,Strength,Balance, Coordination,Sensation,Tone, Cognition,Bed Mobility, Transfers,Gait,Activity Tolerance Assessment Summary Pt is seen for re-evaluation in the context of updated weightbearing status. Ortho cleared the pt for WBAT BLE. Pt is now requiring CGA to min assist with all mobilities and presents with decreased activity tolerance which pt rates as 30% of baseline. Significantly, pt requires assist with gait using FWW due to weakness and impaired balance which are increasing his falls risk. Pt requires SNF rehab before being able to return home safely. Goals Bed Mobility Goal Independent Transfer Goal Independent,Front Wheeled Walker Gait Goal Independent,Front Wheel Walker Gait Distance 200 Days to Meet Goals 10 Frequency of Treatment Frequency Of Treatment Once a Day Treatment Plan Physical Therapy Treatment Plan Bed Mobility Training,Transfer Training,Gait Training, Therapeutic Exercise,Balance Retraining,Discharge Planning, Hot or Cold Pack,Neuromuscular Re-ed,Coordination Retraining ,Manual Therapy Recommendations To Nursing Amount of Assist Needed 1 Person Assist Discharge Recommendations PT Discharge Recommendations SNF Rehab Transportation Needs at Discharge Wheelchair/Cabulance
--- NOTE | 2020-06-28 12:48 | DIET.PN ---
Dietary Progress Note Assessment: Mr. Saul is a 75-year-old male who was just discharged from the hospital 2 days ago with a urinary infection. He fell coming out of his bathroom that night, shortly after getting home and has been bed-bound by right hip pain since then. He has history of alcohol abuse and possible Wernicke's encephalopathy. He endorses significant decrease in appetite and PO intake and reports usual body weight of 200lbs. HT: 177.8cm WT: 80.5kg UBW: 90.7kg (11%) BMI: 25.4 Labs: Na: 132 MNA: 8 Piyush: 17 Nutrition Diagnosis: Moderate chronic PCM r/t lack of/limited access to food and psychological causes aeb reports severe decrease in PO's (<75%EER), weight loss 11% x 1 year, excessive ETOH use. Interventions: 1. Reviewed usual food intake. Pt receives meals on wheels. Was unable to assess other food sources at this time. Diet Order: General EER: 2000cal (25cal/kg) ; 80-100g (1-1.2g/kg) Monitoring/Evaluations: PO intake, weight, food recall
--- NOTE | 2020-06-28 13:28 | CM.DPNOTE ---
Faxed all PT/OT notes to [facility] on 06/28/20 per Teodora; confirmation of fax received. Isabel Cote CM Asst.
--- NOTE | 2020-06-28 14:58 | PM.PN.1 ---
Subjective Subjective Date Patient Seen: 06/28/20 Time Patient Seen: 14:58 Interval history: Anthony Saul is a 75 year old male with PMH of EtOH abuse who was admitted with right hip pain. Initial thought was that he may have had a mild stress fracture, but Orthopedic surgery saw him yesterday and did not see this on CT imaging. They recommended that he weight bear as tolerated and did not recommend orthopedic follow-up as an outpatient. He complains of hip pain still, but slowly improved today. Mainly his back is bothering him today. Denies fever, shortness of breath, cough, chest pain, nausea, vomiting, diarrhea. He is tolerating his meals. Currently working on placement options, he was a 1 person assist with PT today. Exam Vital Signs (past 8 hours): - 06/28/20 07:48 06/28/20 11:42 Temperature 96.9 F L 97.0 F L Pulse Rate 60 84 Respiratory Rate 14 18 Blood Pressure 140/74 118/77 Pulse Oximetry 96 90 L Oxygen Delivery Method Room Air Oxygen Flow Rate 0 Narrative Exam Narrative: Alert and oriented x3. No apparent distress Heart is regular rate and rhythm without murmur Lungs are clear to auscultation bilaterally Abdomen is soft, nondistended, and nontender. Extremities have no ankle edema. There is mild tenderness of the right anterior hip. Objective Labs Result Diagrams: 06/26/20 05:42 06/27/20 11:05 [facility] Medical History Alcohol abuse Anxiety Cerebral atrophy Chest pain (03/25/18) Dehydration (03/25/18) Depression Erectile dysfunction Essential hypertension Gastritis History of anemia History of liver injury History of pulmonary embolism Inguinal hernia Intrahepatic biloma Metabolic acidosis Personal history of peptic ulcer disease Wernicke-Korsakoff syndrome (alcoholic) Surgical History History of colonoscopy (2014) History of esophagogastroduodenoscopy (EGD) (2014) History of esophagogastroduodenoscopy (EGD) (04/26/18) History of left hip replacement History of shoulder surgery History of total right knee replacement (TKR) Family History Father Cancer Family/Other No problems noted. Mother Cancer Sister No problems noted. Social History marital status: household members: none housing: house Smoking Status: Former smoker alcohol intake: current Assessment & Plan Assessment & Plan narrative: Right Hip Pain, present on admission. Active -the pelvic CT shows severe right hip osteoarthritis. No actual fracture is seen but the femoral neck has a significant periosteal reaction. -ortho did not believe the patient to have any surgical issues, can WBAT, no orthopedic follow up is recommended. -continue hydrocodone for pain as needed -consult, evaluation and treat with physical therapy and occupational therapy -possible [facility] facility placement ongoing E.Coli UTI, present on admission. Active -this was the reason for his recent prior admission -completes Cipro planned course on 06/30 Alcoholism, present on admission. Active -continue thiamine, initiated in the emergency department. -alcohol level of less than 10 as opposed to the 37 that he was on the last admission 06/20/2020 -no CIWA protocol indicated at this time. Weakness, present on admission. Active -likely multifactorial with alcoholic contribution, recent urinary tract infection immobilization. -no acute process on today's brain MRI 06/26 but does have an old right occipital infarct and ventriculomegaly of possible normal pressure hydrocephalus. -plan neurology referral and workup as an outpatient for the possible normal pressure hydrocephalus. Getting thiamine 100 mg daily. Elevated AST, present on Admission. Active -probably caused by alcoholic liver disease -the AST was 41 on 06/21 and then 226 on 06/25. The ALT has also risen from 26 up to 48 in that same time frame. -CMP on 06/26 with AST of 119 and ALT of 37 Hypokalemia -potassium 3.3 and improved on repletion. BPH, present on admission. Chronic -daughter reports incontinence at night with tamsulosin and patient was not taking. Will continue to monitor and discontinue today. GERD, present on admission. Chronic -continue omeprazole Depression, present on admission. Chronic -continue mirtazapine. Dispo: continue PT /OT, recommended for SNF at this time as he is a 1 person assist. Care management assistance in finding placement is much appreciated. Code: Full
--- NOTE | 2020-06-28 15:03 | CM.DPC ---
Addendum entered by Jacqui Gilmore R.N. 06/28/20 15:54: Britt from [facility] called and will arrange to transport patient at 1100 06/29/20. Will fax orders and evaluate [facility] in am. Original Note: Spoke to patient's daughter Marysol ([phone]). Updated her with plan of care... The state of SNF (We are awaiting authorization from [facility] and need accepting facility. I explained that to accept, a SNF needs to see there is a goal of care and a safe discharge plan and right now we have [facility] evaluating his case). Marysol explained that she was working to find caregivers and if unable to find any she would come to [place] from [place] and care for him herself until manager intermediate care was decided. I also asked her to move forward to applying for medicaid. She said she has limited information about his finances. I explained that she should do the best she can and use the phone numbers provided on the website to help with questions. She declined my offer to fax the paperwork somewhere for her and said she'd get it off line.
[2020-06-28 15:25] VITALS: BP 114/65; PULSE 74; RESP 17; TEMP 36.6; O2SAT 92
[2020-06-28 20:30] VITALS: BP 105/58; PULSE 67; RESP 18; TEMP 37.1; O2SAT 94
[2020-06-29 00:40] VITALS: BP 131/71; PULSE 61; RESP 16; TEMP 37.4; O2SAT 94
--- NOTE | 2020-06-29 02:21 | PC.NURSE ---
patient seen at 0041 and assessed. Is oriented except to date; some of responses are delayed. Breath sounds diminished but CTA with RA sat of 94%. HRR. Denies nausea. BT present and abdomen is soft. Will sometimes urinate small amounts in urinal but then is also incontinent so wearing a brief; denies dysuria, frequency or urgency. Currently being treated for UTI. Able to turn himself in bed. Gait not assessed at this time as has not been up this shift. Does report 4/10 bilateral hip pain right > left but declines pain medication. Refusing to wear SCD's so reminded to ankle wave. Fall risk score is high and bed alarm is activated. Patient requested tuna sandwich and after eating 1/2 of it began coughing but was able to clear; states it went down wrong.
[2020-06-29 05:38] VITALS: BP 135/76; PULSE 61; RESP 17; TEMP 36.3; O2SAT 96
[2020-06-29] MEDS: CIPROFLOXACIN 250 MG TABLET PO (06:30)
[2020-06-29 08:00] VITALS: BP 144/77; PULSE 70; RESP 18; TEMP 37.2; O2SAT 94
--- NOTE | 2020-06-29 08:46 | PM.DS.1 ---
History of Present Illness History of Present Illness Date Patient Seen: 06/29/20 Time Patient Seen: 08:47 Chief complaint: Weakness Narrative: Per Dr. Cunningham, This is a 75-year-old male who was just discharged from the hospital 2 days ago with a pansensitive E coli urinary infection. He fell coming out of his bathroom that night, shortly after getting home and has been apparently bed-bound by right hip pain since then. He says that it took him 4 hours to crawl into the bed. Both his hips hurt (the left side was replaced 6 years ago and is intact on xray). He was found confined to bed by the home health nurse at their 1st visit today and was then brought back into the ED. His pelvis CT shows a periosteal reaction in the area of the right femoral neck suggestive of a nondisplaced fracture. Orthopedics has consulted and their initial recommendation is to treat this non operatively. His lactic acid level, CBC and urine all look normal. He has additional history of alcohol abuse and possible Wernicke's encephalopathy. He says that he did get his Cipro and has been taking it. The end date for the Cipro treatment is 06/30. He has had no reported head trauma. Discharge Providers Provider Date of admission: 06/25/20 16:06 Discharge Date: 06/29/20 Consults: 06/25/20 13:11 Consult to DAY TREATMENT CLINICIAN/ART THERAPIST - Baby Counselor Stat Comment: DAY TREATMENT CLINICIAN/ART THERAPIST Consult: [facility] Res Need 06/25/20 15:41 Consult to Orthopedic Surgery Stat Comment: Consulting Provider: Quincy Quiroz Reason for consultation: right hip pain Has provider been notified: Yes 06/25/20 16:22 Consult to Discharge Planning Routine Comment: Consult to Occupational Therapy Evaluate & Treat Comment: Physician Instructions: Evaluate and treat Consult to Physical Therapy Evaluate & Treat Comment: Physician Instructions: Evaluate and Treat 06/25/20 17:56 Consult to Dietitian, Adult Routine Comment: Reason For Exam: decreased food intake, malnurished Discharge provider: Allen Palacios DO Summary Hospital Course Discharge Diagnosis: Please see hospital course by problem list noted blow. Hospital Course: Anthony Saul is a 75 year old male with PMH of EtOH abuse who was admitted with right hip pain. Initial thought was that he may have had a mild stress fracture, but Orthopedic surgery saw him and did not see this on CT imaging. They recommended that he weight bear as tolerated and did not recommend orthopedic follow-up as an outpatient. He was a 1 person assist with PT and recommended discharge to SNF. 1. Right Hip Pain, present on admission. Active -the pelvic CT showed severe right hip osteoarthritis. No actual fracture is seen but the femoral neck has a significant periosteal reaction. -ortho did not believe the patient to have any surgical issues, can WBAT, no orthopedic follow up is recommended. -continue hydrocodone for pain as needed, improved control with lidocaine patch. -continue PT/OT -discharge to SNF for continued therapy based on PT/OT recommendations. 2. E.Coli UTI, present on admission. Active -this was the reason for his recent prior admission -completes Cipro planned course on 06/30 3. Alcoholism, present on admission. Active -continue thiamine, initiated in the emergency department. -no CIWA protocol indicated at this time, no signs of withdrawal 4. Weakness, present on admission. Active -likely multifactorial with alcoholic contribution, recent urinary tract infection, and recent immobilization. 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 -recommend outpatient neurology referral and workup as an outpatient for the possible normal pressure hydrocephalus. Getting thiamine 100 mg daily. 5. Elevated AST, present on Admission. Active -probably caused by alcoholic liver disease -CMP improved on 06/26 with AST of 119 and ALT of 37. No further trending was necessary. 6. Hypokalemia -potassium 3.3 and improved on repletion. 7. BPH, present on admission. Chronic -daughter reports incontinence at night with tamsulosin and patient was not taking. Discontinued this medication upon discharge. Monitor for signs of retention at SNF. 8. GERD, present on admission. Chronic -continue omeprazole 9. Depression, present on admission. Chronic -continue mirtazapine. Dispo: Discharged to SNF. Time Spent with Patient Time spent: Greater than 30 minutes Exam Vital Signs (past 8 hours): - 06/29/20 05:38 06/29/20 08:00 Temperature 97.4 F L 98.9 F Pulse Rate 61 70 Respiratory Rate 17 18 Blood Pressure 135/76 144/77 H Pulse Oximetry 96 94 Oxygen Delivery Method Room Air Oxygen Flow Rate 0 Narrative Exam Narrative: Alert and oriented x3. No apparent distress Heart is regular rate and rhythm without murmur Lungs are clear to auscultation bilaterally Abdomen is soft, nondistended, and nontender. Extremities have no ankle edema. There is mild paraspinal tenderness in lumbar spine, hip tenderness improved. Objective Labs Result Diagrams: 06/26/20 05:42 06/27/20 11:05 [facility] Medical History Alcohol abuse Anxiety Cerebral atrophy Chest pain (03/25/18) Dehydration (03/25/18) Depression Erectile dysfunction Essential hypertension Gastritis History of anemia History of liver injury History of pulmonary embolism Inguinal hernia Intrahepatic biloma Metabolic acidosis Personal history of peptic ulcer disease Wernicke-Korsakoff syndrome (alcoholic) Surgical History History of colonoscopy (2014) History of esophagogastroduodenoscopy (EGD) (2014) History of esophagogastroduodenoscopy (EGD) (04/26/18) History of left hip replacement History of shoulder surgery History of total right knee replacement (TKR) Family History Father Cancer Family/Other No problems noted. Mother Cancer Sister No problems noted. Social History marital status: household members: none housing: house Smoking Status: Former smoker alcohol intake: current Discharge Plan Discharge Plan Patient Disposition: SNF Transfer to: [facility] Provider Discharge Comment: Anthony Saul is a 75 year old male with PMH of EtOH abuse who was admitted with right hip pain. Initial thought was that he may have had a mild stress fracture, but Orthopedic surgery saw him and did not see this on CT imaging. They recommended that he weight bear as tolerated and did not recommend orthopedic follow-up as an outpatient. He was a 1 person assist with PT and recommended discharge to SNF. 1. Right Hip Pain, present on admission. Active -the pelvic CT shows severe right hip osteoarthritis. No actual fracture is seen but the femoral neck has a significant periosteal reaction. -ortho did not believe the patient to have any surgical issues, can WBAT, no orthopedic follow up is recommended. -continue hydrocodone for pain as needed, improved control with lidocaine patch. -continue PT/OT -discharge to SNF for continued therapy based on PT/OT recommendations. 2. E.Coli UTI, present on admission. Active -this was the reason for his recent prior admission -completes Cipro planned course on 06/30 3. Alcoholism, present on admission. Active -continue thiamine, initiated in the emergency department. -no CIWA protocol indicated at this time, no signs of withdrawal 4. Weakness, present on admission. Active -likely multifactorial with alcoholic contribution, recent urinary tract infection, and recent immobilization. 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 -recommend outpatient neurology referral and workup as an outpatient for the possible normal pressure hydrocephalus. Getting thiamine 100 mg daily. 5. Elevated AST, present on Admission. Active -probably caused by alcoholic liver disease -the AST was 41 on 06/21 and then 226 on 06/25. The ALT has also risen from 26 up to 48 in that same time frame. -CMP improved on 06/26 with AST of 119 and ALT of 37. No further trending was necessary. 6. Hypokalemia -potassium 3.3 and improved on repletion. 7. BPH, present on admission. Chronic -daughter reports incontinence at night with tamsulosin and patient was not taking. Discontinued this medication upon discharge. Monitor for signs of retention at SNF. 8. GERD, present on admission. Chronic -continue omeprazole 9. Depression, present on admission. Chronic -continue mirtazapine. I certify the postop hospital senior care care is medically necessary on a continuing basis for any conditions for which he/ she received care during this hospitalization.: Yes The receiving facility has agreed to accept transfer and provide medical treatment.: Yes Discharge orders & Medications Prescriptions: New hydrocodone-acetaminophen 5-325 mg Tablet 1 tab PO Q4HR PRN (Reason: Pain, Moderate (4-6)) 14 Days Qty: 30 RF: 0 thiamine HCl (vitamin B1) [Vitamin B-1] 100 mg Tablet 100 mg PO DAILY 30 Days Qty: 30 RF: 0 lidocaine 5 % Adhesive Patch,Medicated 1 patch topical BEDTIME 30 Days Qty: 30 RF: 0 Continued mirtazapine 7.5 mg tablet 7.5 mg PO DAILY Qty: 30 RF: 0 omeprazole 40 mg capsule,delayed release(DR/EC) 40 mg PO DAILY Qty: 30 RF: 0 ciprofloxacin HCl 250 mg tablet 250 mg PO BID Qty: 14 RF: 0 Discontinued tamsulosin [Flomax] 0.4 mg capsule 0.4 mg PO QDAY Qty: 30 RF: 0 Discharge Health Status Multidrug resistant organism: No MDRO Precautions: [place] Diet/Activity/Treatments Diet: Diet as Tolerated Activity: As tolerated, no restrictions Special Rehabilitation Services Reason for rehabilitation: Recovery r/t decondition Rehab type: Physical therapy and Occupational therapy Visit Report/Discharge Packet Instructions: How to Prevent Falls, DI for Prescription Opioid Use, Hydrocodone Combination Products, Lidocaine Transdermal Patch, Thiamine Discharge Data Attending Provider: Zulema Cunningham
[2020-06-29] MEDS: HYDROCODONE/ACET 5/325 TABLET 1 TAB PO (09:44)
[2020-06-29] MEDS: SODIUM CHLORIDE 0.9% FLUSH 10 ML IV (09:44)
[2020-06-29] MEDS: MIRTAZAPINE 7.5 MG TABLET PO (09:44)
[2020-06-29] MEDS: PANTOPRAZOLE 40 MG TABLET PO (09:44)
[2020-06-29] MEDS: THIAMINE 100 MG TABLET PO (09:44)
[2020-06-29] MEDS: LIDOCAINE PATCH 1 EACH ADH..PATCH TOP (09:45)
[2020-06-29 10:14] LABS: COVID19 -Nasal RAPID Negative (Negative)
--- NOTE | 2020-06-29 10:21 | CM.DPC ---
DCP Cont: CLAMPER Student met with patient at bedside this am. Patient was supine and resting he was easily woken up and participated in conversation. Informed patient he would be picked up by cabulance at approximately 1100am this morning and transferred to [facility] in [place]. Patient was agreeable to transfer to [facility] for skilled care, answered patient questions and addressed concerns. Nursing staff notified about pick-up at 1100 and consulted with CLAMPER this am. Clinicals faxed to [facility] CM Upholsterer Apprentice Brea notified she is agreeable to call and inform daughter Marysol. Teodora Verduzco CLAMPER Stevie Taylor CLAMPER Student
--- NOTE | 2020-06-29 11:05 | PC.NURSE ---
Day shift: Pt left unit w/ SNF electric lift truck driver at approx 1106. He has all personal belongings. D/c SNF packet is w/ the electric lift truck driver. Pt reports that when his was at [facility] 3 years ago they did not take good care of her. That being said, Pt not pleased w/ [facility] today.
== END 2020-06-29 11:10 ==
LOC: ED 15:43 → AC 16:07
PROVIDERS: Internal Medicine; Nurse Practitioner Adult Health; Admitting Provider Family Medicine; Emergency Provider Emergency Medicine; Referring Provider Emergency Medicine; Visit Provider Family Medicine
DX: M25.551 Pain in right hip (principal); R53.1 Weakness; W18.30XA Fall on same level, unspecified, initial encounter; Z91.81 History of falling; Y92.002 Bathroom of unspecified non-institutional (private) residence as the place of occurrence of the external cause; N39.0 Urinary tract infection, site not specified; B96.20 Unspecified Escherichia coli [E. coli] as the cause of diseases classified elsewhere; F10.20 Alcohol dependence, uncomplicated; Y90.0 Blood alcohol level of less than 20 mg/100 ml; N40.0 Benign prostatic hyperplasia without lower urinary tract symptoms; K21.9 Gastro-esophageal reflux disease without esophagitis; F32.9 Major depressive disorder, single episode, unspecified; E87.6 Hypokalemia; R74.01 Elevation of levels of liver transaminase levels; Z20.822 Contact with and (suspected) exposure to COVID-19
CPT/HCPCS: 36415; 70551; 72170; 72192; 73630; 80048; 80053; 80320; 83605; 83690; 83735; 84145; 85025; 87635; 97162; 97164; 97166; 97530; 97535; 99284; C9803; G0378; J1650

== ENCOUNTER 2020-12-04 11:39 | Inpatient (IN) | payer MEDICARE, SELFPAY ==
[2020-06-25 17:43] VITALS: BMI 25.4
[2020-12-04] VITALS (17 sets, daily range): BP systolic 119–162; BP diastolic 56–84; PULSE 56–72; RESP 10–26; TEMP 36.9; O2SAT 91–98; BMI 24.3
--- NOTE | 2020-12-04 12:16 | DI.RAD.S_ITS ---
PROCEDURE: XR CHEST 1V INDICATIONS: suspected sepsis TECHNIQUE: One view of the chest was acquired. COMPARISON: [facility], CR, XR CHEST 1V, 06/20/2020, 18:32. FINDINGS: Surgical changes and devices: None. Lungs and pleura: Lungs are clear. No pleural effusions or pneumothorax. Mediastinum: Mediastinal contours appear normal. Heart size is normal. Bones and chest wall: No suspicious bony lesions. Chronic right rotator cuff tear. Significant right glenohumeral joint degenerative change. Question left rotator cuff tear. Overlying soft tissues appear unremarkable. IMPRESSION: No evidence acute pulmonary process. Dictated by: Elio Yoder M.D. on 12/04/2020 at 11:54 Approved by: Elio Yoder M.D. on 12/04/2020 at 11:54
[2020-12-04] MEDS: SODIUM CHLORIDE 0.9% 1,000 ML 1000 ML IV ×2 (12:43→17:40)
[2020-12-04] MEDS: LIDOCAINE 2% (GLYDO) 6 ML GEL 12 ML TOP (12:43)
[2020-12-04 12:45] LABS: Add Manual Diff / Slide Review NO; Basophils Absolute Auto 100 /uL (0-100); Basophils Percent Auto 0.7 % (0-2); Eosinophils Absolute Auto 300 /uL (0-450); Eosinophils Percent Auto 2.8 % (2-4); Hematocrit 55.6 % (41-53); Hemoglobin 18.9 g/dL (13.5-17.5); Lymphocytes Absolute Auto 800 /uL (1100-4500); Mean Corpuscular HGB Conc 33.9 % (30-36); Mean Corpuscular Hemoglobin 33.4 PG (26-34); Mean Corpuscular Volume 98.5 fL (80-100); Monocytes Absolute Auto 1000 /uL (0-900); Monocytes Percent Auto 9.8 % (3-14); Neutrophils Absolute Auto 8000 /uL (1500-7000); Neutrophils Percent Auto 78.7 % (50-75); Platelet Count 258 X10^3/uL (150-400); Red Blood Cell Count 5.65 X10^6/uL (4.5-5.9); White Blood Cell Count 10.2 X10^3/uL (4.5-11.0)
[2020-12-04 13:02] LABS: Lactate (Lactic Acid) 1.8 mmol/L (0.7-2.1)
[2020-12-04 13:03] LABS: Alanine Aminotransferase 108 IU/L (<50); Albumin 4.4 g/dL (3.5-5.0); Albumin Globulin Ratio 1.1 (1.0-2.8); Alkaline Phosphatase 121 U/L (38-126); Aspartate Aminotransferase 74 IU/L (17-59); Bilirubin Total 1.7 mg/dL (0.2-1.3); Blood Urea Nitrogen 20 mg/dL (9-20); Calcium 10.2 mg/dL (8.4-10.2); Carbon Dioxide 22 mmol/L (22-32); Chloride 98 mmol/L (98-107); Estimated Glomerular Filt Rate > 60.0 mL/min (>60); Globulin 3.9 g/dL (1.7-4.1); Glucose 113 mg/dL (80-110); Lipase 214 U/L (23-300); Potassium 4.8 mmol/L (3.4-5.1); Sodium 133 mmol/L (137-145); Total Protein 8.3 g/dL (6.3-8.2)
[2020-12-04 13:07] LABS: HEMOLYSIS 118 (0-50)
[2020-12-04 13:18] LABS: Procalcitonin 0.12 ng/mL (<0.5)
[2020-12-04 13:57] LABS: COVID19 - ADMIT (NP swab/PCR) Negative (Negative)
[2020-12-04 14:19] LABS: Creatine Kinase 24 U/L (55-170)
--- NOTE | 2020-12-04 14:42 | PC.NURSE ---
Redness noted to coccyx and boggy bilateral heals. Perineum inflamed with breakdown to tip of penis.
--- NOTE | 2020-12-04 14:44 | PC.NURSE ---
Full bed bath performed with x4 assist. Stool cleansed from body. Pt tolerated well.
[2020-12-04 14:46] LABS: Bilirubin Urine UA 1+ (NEGATIVE); Glucose Urine UA TRACE g/dL (Negative); Ketones Urine UA 1+ (NEGATIVE); Leukocyte Esterase Urine UA 2+ (NEGATIVE); Nitrite Urine UA NEGATIVE (Negative); Occult Blood Urine UA 1+ (Negative); Protein Urine UA NEGATIVE (Negative); Specific Gravity Urine UA 1.025 (1.000-1.035)
[2020-12-04 14:57] LABS: Appearance Urine UA Cloudy; Color Urine UA Amber; RBC Urine 1-5/HPF (0-5/HPF); WBC Urine 30-100/HPF (0-5/HPF)
[2020-12-04 14:58] LABS: Bacteria Urine Many (>30); Culture Indicated Urine Specimen Cultured; Squamous Epithelial Cell Urine None Seen (0-5/HPF)
[2020-12-04 15:31] LABS: Ictotest Urine Positive (Negative)
--- NOTE | 2020-12-04 16:31 | ED.GENADULT ---
HPI - General Adult General Chief complaint: Weakness Stated complaint: failure to thrive Time Seen by Provider: 12/04/20 12:20 Mode of arrival: Wheelchair Limitations: physical limitation History of Present Illness HPI narrative: With history of alcohol use disorder, presumed Wernicke encephalopathy who apparently has not been eating or drinking for at least the last week, unwilling to get out of bed, his neighbor has been checking on him over the last 3 weeks with increasing concerns and increasing apathy an inability to care for self. Medics found him covered in stool and lying in urine. He is completely apathetic and uninterested id in caring for himself does not seem to realize the state of did show will meant that he is in and clearly isn't recognizing that he is not eating or drinking. He was admitted in June for overall weakness and then admitted a 2nd time after a fall immediately after discharge. He has mirtazapine and tamsulosin and omeprazole prescribed none of which he is currently taking. He states that he is not hurting he is aware that he is in [facility] he is not quite sure why he notes that he has not had any alcohol to drink for a number of weeks and that he does live by himself and reports that he in fact has not been getting out of bed or eating or drinking. He is able to answer direct questions but not offer any insight Related Data Allergies Allergy/AdvReac Type Severity Reaction Status Date / Time morphine [MORPHINE] Allergy Unknown Verified 12/04/20 12:24 Review of Systems Review of Systems ROS Unobtainable: Unobtainable due to mental status/LOC Patient History Medical History (Updated 12/04/20 @ 16:56 by Jigna Nuñez MD) Alcohol abuse Anxiety Cerebral atrophy Chest pain (03/25/18) Dehydration (03/25/18) Depression Erectile dysfunction Essential hypertension Gastritis History of anemia History of liver injury History of pulmonary embolism Inguinal hernia Intrahepatic biloma Metabolic acidosis Personal history of peptic ulcer disease Wernicke-Korsakoff syndrome (alcoholic) Surgical History History of colonoscopy (2014) History of esophagogastroduodenoscopy (EGD) (2014) History of esophagogastroduodenoscopy (EGD) (04/26/18) History of left hip replacement History of shoulder surgery History of total right knee replacement (TKR) Family History Father Cancer Family/Other No problems noted. Mother Cancer Sister No problems noted. Social History marital status: household members: none housing: house Smoking Status: Former smoker alcohol intake: current Smoking Status: Former smoker alcohol intake frequency: other Substance Use Type: does not use Exam Narrative Exam Narrative: General:disheveled, in no acute distress. Will respond to direct questions with simple answers, initially completely covered in stool and urine HEENT: Dry mucous membranes, normal sclera with reactive pupils, Neck: No JVD, supple Respiratory: Lungs are clear to auscultation, no wheezing no rales no rhonchi. Full and symmetrical air movement Cardiac: Regular rate and rhythm no murmurs no bruits Abdomen: Soft, nontender, good bowel tones, no flank pain Skin: After being cleaned by nursing staff he has some minor excoriation over the sacrum irritation around the testicles penis and meatus but no overt skin breakdown Neurologic: Moving all extremities Extremities: No trauma, well perfused Psych: Flat affect, no insight, poor eye contact Initial Vital Signs Initial Vital Signs: Vital Signs Temperature 98.5 F 12/04/20 12:18 Pulse Rate 71 12/04/20 12:18 Respiratory Rate 17 12/04/20 12:18 Blood Pressure 119/56 L 12/04/20 12:18 Pulse Oximetry 94 12/04/20 12:18 Course Orders Ordered: ED Orders 12/04/20 12:16 XR chest 1V Stat EKG-12 Lead Stat 12/04/20 12:30 COVID19 - ADMIT (UNEMPLOYMENT [employer]ENEFITS CLAIMS TAKER swab/PCR) Stat CPK [Creatine Kinase] Stat Complete Blood Count AUTO DIFF Stat Comprehensive Metabolic Panel Stat Lactate (Lactic Acid) Stat Lipase Stat Procalcitonin Stat 12/04/20 13:15 Blood Culture Stat 12/04/20 13:30 Ictotest Urine Stat Urinalysis and Microscopic Stat Urine Culture Stat 12/04/20 16:41 Ammonia (NH3) Stat Sodium Chloride (Normal Saline 0.9%) 1,000 mls @ 1,000 mls/hr IV BOLUS ONE Stop: 12/04/20 17:40 Discontinued Medications Sodium Chloride (Normal Saline 0.9%) 1,000 mls @ 1,000 mls/hr IV BOLUS ONE Stop: 12/04/20 13:15 Last Infusion: 12/04/20 13:57 Dose: 0 mls/hr Documented by: Admin: 12/04/20 12:43 Dose: 1,000 mls/hr Documented by: [email or web address] Ceftriaxone Sodium 2,000 mg/ (Sodium Chloride) 100 mls @ 200 mls/hr IV NOW ONE Stop: 12/04/20 16:58 Lidocaine HCl (Lidocaine 2% (Glydo) 6 Ml Gel) 12 ml TOP NOW ONE Stop: 12/04/20 12:17 Last Admin: 12/04/20 12:43 Dose: 12 ml Documented by: [email or web address] Thiamine HCl (Thiamine 200 Mg/2 Ml Vial) 100 mg IM NOW ONE Stop: 12/04/20 16:42 Vital Signs Vital signs: Vital Signs - 8 hr 12/04/20 12:18 12/04/20 12:30 12/04/20 13:00 Temperature 98.5 F Pulse Rate 71 72 64 Respiratory Rate 21 12 21 Blood Pressure 119/56 L Pulse Oximetry 92 94 96 12/04/20 13:18 12/04/20 13:30 12/04/20 14:00 Temperature Pulse Rate 63 59 L 56 L Respiratory Rate 22 10 L 16 Blood Pressure 155/70 H 152/74 H 162/75 H Pulse Oximetry 95 97 98 12/04/20 14:30 12/04/20 15:00 12/04/20 15:01 Temperature Pulse Rate 59 L 62 63 Respiratory Rate 19 21 26 H Blood Pressure 141/79 H 136/84 Pulse Oximetry 96 95 95 12/04/20 15:30 12/04/20 15:31 12/04/20 16:00 Temperature Pulse Rate 65 63 64 Respiratory Rate 13 14 13 Blood Pressure 149/75 H 147/73 H Pulse Oximetry 94 94 93 12/04/20 16:30 Temperature Pulse Rate 66 Respiratory Rate 21 Blood Pressure 143/69 H Pulse Oximetry 91 Medical Decision Making Lab Data Result diagrams: 12/04/20 12:30 12/04/20 12:30 Labs: Lab Results 12/04/20 12/04/20 12/04/20 Range/Units 12:30 12:30 12:30 WBC 10.2 (4.5-11.0) X10^3/uL RBC 5.65 (4.5-5.9) X10^6/uL Hgb 18.9 H (13.5-17.5) g/dL Hct 55.6 H (41-53) % MCV 98.5 (80-100) fL MCH 33.4 (26-34) PG MCHC 33.9 (30-36) % RDW 14.0 (11.6-14.8) % Plt Count 258 (150-400) X10^3/uL Neut % (Auto) 78.7 H (50-75) % Lymph % (Auto) 8.0 L (25-40) % Green % (Auto) 9.8 (3-14) % Eos % (Auto) 2.8 (2-4) % Baso % (Auto) 0.7 (0-2) % Neut # (Auto) 8000 H (8385-6395) /uL Lymph # (Auto) 800 L (5638-6381) /uL Green # (Auto) 1000 H (0-900) /uL Eos # (Auto) 300 (0-450) /uL Baso # (Auto) 100 (0-100) /uL Sodium 133 L (137-145) mmol/L Potassium 4.8 (3.4-5.1) mmol/L Chloride 98 (98-107) mmol/L Carbon Dioxide 22 (22-32) mmol/L BUN 20 (9-20) mg/dL Creatinine 0.77 (0.66-1.25) mg/dL Estimated GFR > 60.0 (>60) mL/min BUN/Creatinine Ratio 26.0 H (6-22) Glucose 113 H (80-110) mg/dL Lactate 1.8 (0.7-2.1) mmol/L Calcium 10.2 (8.4-10.2) mg/dL Total Bilirubin 1.7 H (0.2-1.3) mg/dL AST 74 H (17-59) IU/L ALT 108 H (<50) IU/L Alkaline Phosphatase 121 (38-126) U/L Total Creatine Kinase (55-170) U/L Total Protein 8.3 H (6.3-8.2) g/dL Albumin 4.4 (3.5-5.0) g/dL Globulin 3.9 (1.7-4.1) g/dL Albumin/Globulin Ratio 1.1 (1.0-2.8) Lipase 214 (23-300) U/L Procalcitonin 0.12 (<0.5) ng/mL Urine Color Urine Appearance Urine pH (4.5-8.0) Ur Specific Norman (1.000-1.035) Urine Protein (Negative) Urine Glucose (UA) (Negative) g/dL Urine Ketones (NEGATIVE) Urine Occult Blood (Negative) Urine Nitrate (Negative) Urine Bilirubin (NEGATIVE) Ur Bilirubin Confirm (Negative) Urine Urobilinogen (0.2) E.U./dL Ur Leukocyte Esterase (NEGATIVE) Urine RBC (0-5/HPF) Urine WBC (0-5/HPF) Ur Squamous Epith Cells (0-5/HPF) Urine Bacteria (None) Ur Culture Indicated? SARS-CoV-2 (PCR) (Negative) 12/04/20 12/04/20 12/04/20 Range/Units 12:30 12:30 13:30 WBC (4.5-11.0) X10^3/uL RBC (4.5-5.9) X10^6/uL Hgb (13.5-17.5) g/dL Hct (41-53) % MCV (80-100) fL MCH (26-34) PG MCHC (30-36) % RDW (11.6-14.8) % Plt Count (150-400) X10^3/uL Neut % (Auto) (50-75) % Lymph % (Auto) (25-40) % Green % (Auto) (3-14) % Eos % (Auto) (2-4) % Baso % (Auto) (0-2) % Neut # (Auto) (8355-4619) /uL Lymph # (Auto) (3099-2988) /uL Green # (Auto) (0-900) /uL Eos # (Auto) (0-450) /uL Baso # (Auto) (0-100) /uL Sodium (137-145) mmol/L Potassium (3.4-5.1) mmol/L Chloride (98-107) mmol/L Carbon Dioxide (22-32) mmol/L BUN (9-20) mg/dL Creatinine (0.66-1.25) mg/dL Estimated GFR (>60) mL/min BUN/Creatinine Ratio (6-22) Glucose (80-110) mg/dL Lactate (0.7-2.1) mmol/L Calcium (8.4-10.2) mg/dL Total Bilirubin (0.2-1.3) mg/dL AST (17-59) IU/L ALT (<50) IU/L Alkaline Phosphatase (38-126) U/L Total Creatine Kinase 24 L (55-170) U/L Total Protein (6.3-8.2) g/dL Albumin (3.5-5.0) g/dL Globulin (1.7-4.1) g/dL Albumin/Globulin Ratio (1.0-2.8) Lipase (23-300) U/L Procalcitonin (<0.5) ng/mL Urine Color Edith Urine Appearance Cloudy Urine pH 5.0 (4.5-8.0) Ur Specific Norman 1.025 (1.000-1.035) Urine Protein Negative (Negative) Urine Glucose (UA) Trace H (Negative) g/dL Urine Ketones 1+ H (NEGATIVE) Urine Occult Blood 1+ H (Negative) Urine Nitrate Negative (Negative) Urine Bilirubin 1+ H (NEGATIVE) Ur Bilirubin Confirm Positive H (Negative) Urine Urobilinogen 2.0 H (0.2) E.U./dL Ur Leukocyte Esterase 2+ H (NEGATIVE) Urine RBC 1-5/hpf (0-5/HPF) Urine WBC 30-100/hpf H (0-5/HPF) Ur Squamous Epith Cells None seen (0-5/HPF) Urine Bacteria Many (>30) H (None) Ur Culture Indicated? Specimen cultured SARS-CoV-2 (PCR) Negative (Negative) Imaging Data Chest x-ray: Radiologist's Impression: FINDINGS: Surgical changes and devices: None. Lungs and pleura: Lungs are clear. No pleural effusions or pneumothorax. Mediastinum: Mediastinal contours appear normal. Heart size is normal. Bones and chest wall: No suspicious bony lesions. Chronic right rotator cuff tear. Significant right glenohumeral joint degenerative change. Question left rotator cuff tear. Overlying soft tissues appear unremarkable. IMPRESSION: No evidence acute pulmonary process. Dictated by: Elio Yoder M.D. on 12/04/2020 at 11:54 ECG Data Interpretation: NSR at a rate of 72 Normal intervals, normal axis No acute ischemic changes MDM Narrative Medical decision making narrative: 75-year-old gentleman who has not physically been out of bed for the past week, covered in stool in urine and not eating or drinking. He does live alone and isn't quite sure why he has not gotten up. He is able to answer direct questions but has no insight into overall situation. He does have a history of alcohol use but states he has not had anything to drink for number of weeks. Records review indicates a concern for Wernicke encephalopathy which may well be a significant component in his complete failure to thrive and inability to care for self. He is dehydrated, had some mild excoriated skin but no obvious pneumonia, Wells catheter was placed to monitor urine output and to allow for perineal care and avoiding additional excoriation from urinary incontinence. Will admit to the hospitalist service for treatment have his acute urinary tract infection, add additional hydration, further observation, ammonia level is pending, he is given a new additional L of fluid, IV thiamin and will certainly need social service consult and help with discharge planning. Discharge Plan Departure Patient Disposition: Admitted as Observation Clinical Impression: Acute dehydration, Unable to care for self, Cognitive and neurobehavioral dysfunction, Acute UTI Admit Date/Time: 12/04/20 17:08 Admit Provider: Geovanni Farr
[2020-12-04] MEDS: THIAMINE 200 MG/2 ML VIAL 100 MG IM (17:38)
[2020-12-04] MEDS: cefTRIAXone 2,000 MG in SODIUM CHLORIDE 0.9% 100 ML 200 ML IV (17:40)
[2020-12-04 17:56] LABS: Ammonia (NH3) < 9 umol/L (9-30)
[2020-12-04] MEDS: SODIUM CHLORIDE 0.9% 1,000 ML 150 ML IV (18:58)
--- NOTE | 2020-12-04 19:41 | PM.HP.1 ---
History of Present Illness History of Present Illness Date Patient Seen: 12/04/20 Time Patient Seen: 19:51 Chief complaint: failure to thrive Narrative: Patient is a 75-year-old male Anthony Saul with history of alcohol use disorder, Wernicke encephalopathy who apparently has not been eating or drinking for at least the last week, unwilling to get out of bed, his neighbor has been checking on him over the last 3 weeks with increasing concerns and increasing apathy an inability to care for self. Medics found him covered in stool and lying in urine. He is completely apathetic and uninterested in caring for himself does not seem to realize the state that he is in and clearly isn't recognizing that he is not eating or drinking. He was admitted in June for overall weakness and then admitted a 2nd time after a fall immediately after discharge. He has mirtazapine and tamsulosin and omeprazole prescribed none of which he is currently taking. He states that he is not hurting he is aware that he is in [facility] he is not quite sure why, he notes that he has not had any alcohol to drink for a number of weeks and that he does live by himself and reports that he in fact has not been getting out of bed or eating or drinking. He states that he had continued falls several times a week for several weeks in which he felt it was prudent to stay in bed to avoid falling. Patient is able to tell me that he has been incontinent of stool and urine for several weeks as well. When inquiring about falls patient reports that he may have fallen and hit his head with a loss of consciousness and claims a possible concussion a few weeks ago. He is able to answer direct questions but not offer any insight. Patient denies at this time any chest pain, shortness of breath, abdominal pain, headache, changes in vision, nausea, vomiting, numbness, or tingling. When I inquired about fever body aches or chills the patient stated I don't know how to answer that question. Patient also reports he may have been incontinent of stool but is unsure, the patient had been incontinent of liquid stool. Upon admit patient's vitals are stable at a BP 143/76, HR 63, R 19, O2 saturation 96% on room air. Patient's hemoglobin is elevated at 18.9 and hematocrit of 55.6, neutrophils a 1000, his sodium is mildly decreased at 133, glucose 113, low total creatinine kinase 24, total protein 8.3, ammonia was negative, but urine was positive for ketones, bili, and many bacteria, and sent for culture. Patient's liver enzymes were mildly elevated with a total bilirubin of 1.7, AST 74, ALT 108. Patient's procalcitonin was 0.12. Patient's weight is down by approximately 20 lb, with a current BMI of 24.3 since June of 2020. Patient's chest x-ray showed no acute pulmonary processes, and his EKG was normal sinus rhythm with a rate of [address] or T-wave changes. Patient admitted for encephalopathy, acute dehydration secondary to acute UTI, in gait instability. Patient History Medical History Alcohol abuse Anxiety Cerebral atrophy Chest pain (03/25/18) Dehydration (03/25/18) Depression Erectile dysfunction Essential hypertension Gastritis History of anemia History of liver injury History of pulmonary embolism Inguinal hernia Intrahepatic biloma Metabolic acidosis Personal history of peptic ulcer disease Wernicke-Korsakoff syndrome (alcoholic) Surgical History History of colonoscopy (2014) History of esophagogastroduodenoscopy (EGD) (2014) History of esophagogastroduodenoscopy (EGD) (04/26/18) History of left hip replacement History of shoulder surgery History of total right knee replacement (TKR) Family & Social History Family History Father Cancer Family/Other No problems noted. Mother Cancer Sister No problems noted. Social History: household members none Safety & Behavioral: Feels Safe in Current Yes-patient lives alone Environment Been Physically Hurt or No Threatened By a Person Suicidal Ideation Description None Suicide Plan Description No Plan Tobacco & Substance use: Smoking Status Former smoker alcohol intake current alcohol intake frequency patient states he has not had a drink in several weeks, because he has been bed-bound. Substance Use Type does not use Meds Home Medications and Allergies Allergies Allergy/AdvReac Type Severity Reaction Status Date / Time morphine [MORPHINE] Allergy Unknown Verified 12/04/20 12:24 Review of Systems Review of Systems Narrative: Unable to obtain due to patient's mental status Exam Vital Signs (past 8 hours): - 12/04/20 12:18 12/04/20 12:30 12/04/20 13:00 Temperature 98.5 F Pulse Rate 71 72 64 Respiratory Rate 21 12 21 Blood Pressure 119/56 L Pulse Oximetry 92 94 96 12/04/20 13:18 12/04/20 13:30 12/04/20 14:00 Temperature Pulse Rate 63 59 L 56 L Respiratory Rate 22 10 L 16 Blood Pressure 155/70 H 152/74 H 162/75 H Pulse Oximetry 95 97 98 12/04/20 14:30 12/04/20 15:00 12/04/20 15:01 Temperature Pulse Rate 59 L 62 63 Respiratory Rate 19 21 26 H Blood Pressure 141/79 H 136/84 Pulse Oximetry 96 95 95 12/04/20 15:30 12/04/20 15:31 12/04/20 16:00 Temperature Pulse Rate 65 63 64 Respiratory Rate 13 14 13 Blood Pressure 149/75 H 147/73 H Pulse Oximetry 94 94 93 12/04/20 16:30 12/04/20 17:00 12/04/20 17:30 Temperature Pulse Rate 66 70 66 Respiratory Rate 21 21 21 Blood Pressure 143/69 H 124/72 144/72 H Pulse Oximetry 91 92 92 12/04/20 17:55 Temperature 98.5 F Pulse Rate 63 Respiratory Rate 19 Blood Pressure 143/76 H Pulse Oximetry 96 Oxygen Delivery Method Room Air Oxygen Flow Rate 0 Narrative Exam Narrative: General: Patient is a thin frail wasting appearing male in no distress at this time. HEENT: Normocephalic, atraumatic, extraocular muscles intact, oral pharynx is clear and mucous membranes are dry. no adenopathy, no thyroid enlargement, nontender, no masses palpated. Negative for JVD Lungs: Auscultation of all lung valladares are clear without adventitious sounds, wheezes, rhonchi, or rales. no nasal flaring, retractions, or tachypneic labored Cardio: regular rate and rhythm without murmur, rubs, or gallops, no carotid bruit, no cardiac pulsations present. Abdomen: Soft nontender, negative for organomegaly, or masses. Bowel sounds are present hypoactive in all 4 quadrants without guarding or rebound, no CVA tenderness. Musculoskeletal: Moves all extremities no deformity, crepitus, effusions, cyanosis, clubbing or edema present. Muscle wasting through all extremities, Full range of motion intact radial and pedal pulses are normal. Skin: Warm dry and intact poor turgor, without rashes, ulcerations or petechiae. Neuro: Alert, sensation to touch intact, no gross deficits noted of cranial nerves. Psych: Patient has a poorly kept disheveled appearance, apathetic with a flat affect, unable to provide insight, unable to appreciate the state of his health or participate in his own healthcare. Objective Labs Result Diagrams: 12/04/20 12:30 12/04/20 12:30 Labs: Laboratory Results - last 24 hr 12/04/20 12/04/20 12/04/20 12:30 12:30 12:30 WBC 10.2 RBC 5.65 Hgb 18.9 H Hct 55.6 H MCV 98.5 MCH 33.4 MCHC 33.9 RDW 14.0 Plt Count 258 Neut % (Auto) 78.7 H Lymph % (Auto) 8.0 L [place] % (Auto) 9.8 Eos % (Auto) 2.8 Baso % (Auto) 0.7 Neut # (Auto) 8000 H Lymph # (Auto) 800 L [place] # (Auto) 1000 H Eos # (Auto) 300 Baso # (Auto) 100 Sodium 133 L Potassium 4.8 Chloride 98 Carbon Dioxide 22 BUN 20 Creatinine 0.77 Estimated GFR > 60.0 BUN/Creatinine Ratio 26.0 H Glucose 113 H Lactate 1.8 Calcium 10.2 Total Bilirubin 1.7 H AST 74 H ALT 108 H Alkaline Phosphatase 121 Ammonia Total Creatine Kinase Total Protein 8.3 H Albumin 4.4 Globulin 3.9 Albumin/Globulin Ratio 1.1 Lipase 214 Procalcitonin 0.12 Urine Color Urine Appearance Urine pH Ur Specific [place] Urine Protein Urine Glucose (UA) Urine Ketones Urine Occult Blood Urine Nitrate Urine Bilirubin Ur Bilirubin Confirm Urine Urobilinogen Ur Leukocyte Esterase Urine RBC Urine WBC Ur Squamous Epith Cells Urine Bacteria Ur Culture Indicated? SARS-CoV-2 (PCR) 12/04/20 12/04/20 12/04/20 12:30 12:30 13:30 WBC RBC Hgb Hct MCV MCH MCHC RDW Plt Count Neut % (Auto) Lymph % (Auto) [place] % (Auto) Eos % (Auto) Baso % (Auto) Neut # (Auto) Lymph # (Auto) [place] # (Auto) Eos # (Auto) Baso # (Auto) Sodium Potassium Chloride Carbon Dioxide BUN Creatinine Estimated GFR BUN/Creatinine Ratio Glucose Lactate Calcium Total Bilirubin AST ALT Alkaline Phosphatase Ammonia Total Creatine Kinase 24 L Total Protein Albumin Globulin Albumin/Globulin Ratio Lipase Procalcitonin Urine Color [place] Urine Appearance Cloudy Urine pH 5.0 Ur Specific [place] 1.025 Urine Protein Negative Urine Glucose (UA) Trace H Urine Ketones 1+ H Urine Occult Blood 1+ H Urine Nitrate Negative Urine Bilirubin 1+ H Ur Bilirubin Confirm Positive H Urine Urobilinogen 2.0 H Ur Leukocyte Esterase 2+ H Urine RBC 1-5/hpf Urine WBC 30-100/hpf H Ur Squamous Epith Cells None seen Urine Bacteria Many (>30) H Ur Culture Indicated? Specimen cultured SARS-CoV-2 (PCR) Negative 12/04/20 17:00 WBC RBC Hgb Hct MCV MCH MCHC RDW Plt Count Neut % (Auto) Lymph % (Auto) [place] % (Auto) Eos % (Auto) Baso % (Auto) Neut # (Auto) Lymph # (Auto) [place] # (Auto) Eos # (Auto) Baso # (Auto) Sodium Potassium Chloride Carbon Dioxide BUN Creatinine Estimated GFR BUN/Creatinine Ratio Glucose Lactate Calcium Total Bilirubin AST ALT Alkaline Phosphatase Ammonia < 9 L Total Creatine Kinase Total Protein Albumin Globulin Albumin/Globulin Ratio Lipase Procalcitonin Urine Color Urine Appearance Urine pH Ur Specific [place] Urine Protein Urine Glucose (UA) Urine Ketones Urine Occult Blood Urine Nitrate Urine Bilirubin Ur Bilirubin Confirm Urine Urobilinogen Ur Leukocyte Esterase Urine RBC Urine WBC Ur Squamous Epith Cells Urine Bacteria Ur Culture Indicated? SARS-CoV-2 (PCR) Assessment & Plan Assessment & Plan narrative: 1. 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 -Patients with suspected WE require immediate parenteral administration of thiamine. The recommended regimen is 500 mg of thiamine IV infused over 30 minutes three times daily for two consecutive days and 250 mg IV or IM once daily for an additional five days -High-dose parenteral thiamine therapy is justified based on the failure of lower doses to produce clinical improvement in some patients with WE. -Admit: vital signs q.4 hours, orthostatics q.a.m., call for respiratory rate> 30, increasing O2 requirements, systolic blood pressure <95, urinary output<100cc/hr, activity bed rest, fall precautions, daily weights, strict I&Os, O2 as needed to maintain a SaO2>92%. -Labs ordered: Daily CBC, CMP, BNP, ETOH, Thiamine, B12 3. Acute dehydration secondary to UTI, acute, present on admission. -monitor electrolytes, and rehydration with D5 half-normal saline 150 cc/hour -patient received 2 g of Rocephin in the ED, will continue with 1 g Rocephin q.day 4. Chronic alcohol abuse, present on admission. Active -continue thiamine, initiated in the emergency department. -Thiamine & B12 Level ordered -see above treatment 5.Weakness, malnutrition, failure to thrive likely related to Wernicke encephalopathy brought on by long-term chronic alcohol abuse, acute on chronic present on admission. Leading to gait instability and mechanical falls, acute, present on admission -likely multifactorial with alcoholic contribution, urinary tract infection immobilization. Malnutrition, muscle wasting, gait ataxia, encephalopathy -PT and OT evaluation -patient placed on fall precaution -patient should be considered for placement in a facility -recommend social work evaluation on Sunday -dietary consult ordered 6. Elevated liver enzymes, acute on chronic, present on Admission. -the AST was 41 on 06/21 The ALT 26 06/21.-today AST of 74, ALT 108, bili 1.7 -monitor liver enzymes 7. BPH, chronic, present on admission. -continue tamsulosin. 8. GERD, chronic, present on admission. -continue omeprazole 9. Depression, acute on chronic, present on admission. -patient was unable to provide a level regarding depression symptoms, when patient asked about code status he stated maybe you just shouldnt resuscitate me. I clarified, so you do not wish to be resuscitated, he stated of course I do. Patient struggled to understand the complexities of the discussion. Suicidal ideation unknown at this time. -recommend psychiatric consult if patient not improving within 48 hours. -continue mirtazapine. Code status: Full code Surrogate decision maker: His daughter Marysol Rubio (in [place]) COVID PCR: Negative VTE/DVT prophylaxis: Enoxaparin 40 and SCDs Estimated length of stay: Greater than 2 midnight Scores GCS Boon coma scale eye opening: To sound [place] coma scale verbal response: Confused Lorna coma scale motor response: Localising Lorna coma scale total score: 12 Wells' Criteria for PE Clinical signs and symptoms of DVT: No PE is #1 Dx or equally likely: No Heart rate > 100: No Immobilization at least 3 days or surg in previous 4 weeks: Yes History of PE or DVT: Yes Hemoptysis: No Malignancy w/Treatment within 6 months or palliative: No Wells' PE Score total: 3.0 Quality VTE Deep Vein Thrombosis/Pulmonary Embolism Present on Admission: No
[2020-12-04 20:36] LABS: Magnesium 1.6 mg/dL (1.6-2.3)
[2020-12-05] VITALS (12 sets, daily range): BP systolic 108–146; BP diastolic 55–80; PULSE 60–97; RESP 14–16; TEMP 36.4–36.8; O2SAT 94–99
[2020-12-05 02:48] LABS: Ethanol (ETOH) < 10 mg/dL
[2020-12-05] MEDS: DEXTROSE 5%-0.45% NS 1,000 ML 150 ML IV ×2 (04:21→13:34)
[2020-12-05 05:33] LABS: Hematocrit 44.4 % (41-53); Hemoglobin 14.8 g/dL (13.5-17.5); Mean Corpuscular HGB Conc 33.4 % (30-36); Mean Corpuscular Hemoglobin 32.8 PG (26-34); Mean Corpuscular Volume 98.4 fL (80-100); Platelet Count 240 X10^3/uL (150-400); Red Blood Cell Count 4.51 X10^6/uL (4.5-5.9); Red Cell Distribution Width 13.6 % (11.6-14.8); White Blood Cell Count 8.8 X10^3/uL (4.5-11.0)
[2020-12-05 05:45] LABS: Add Manual Diff / Slide Review YES
[2020-12-05 05:49] LABS: Alanine Aminotransferase 61 IU/L (<50); Albumin 2.9 g/dL (3.5-5.0); Alkaline Phosphatase 100 U/L (38-126); Aspartate Aminotransferase 38 IU/L (17-59); BUN Creatinine Ratio 23.6 (6-22); Bilirubin Total 0.5 mg/dL (0.2-1.3); Blood Urea Nitrogen 21 mg/dL (9-20); Calcium 8.5 mg/dL (8.4-10.2); Carbon Dioxide 22 mmol/L (22-32); Chloride 106 mmol/L (98-107); Estimated Glomerular Filt Rate > 60.0 mL/min (>60); Globulin 2.9 g/dL (1.7-4.1); Glucose 98 mg/dL (80-110); HEMOLYSIS < 15 (0-50); Potassium 3.7 mmol/L (3.4-5.1); Sodium 136 mmol/L (137-145); Total Protein 5.8 g/dL (6.3-8.2)
[2020-12-05 05:50] LABS: Magnesium 1.5 mg/dL (1.6-2.3)
[2020-12-05 06:34] LABS: Vitamin B12 809 pg/mL (239-931)
[2020-12-05 06:48] LABS: Neutrophils Absolute Manual 6952 /uL (3000-5900); RBC Morphology Normal Morphology; Total Cells Counted 100
--- NOTE | 2020-12-05 07:39 | P.PN_ITS ---
Subjective Subjective Date Patient Seen: 12/05/20 Interval history: He remains very weak, slow processing and quite unmotivated. He has very little insight. His daughter, Marysol Echavarria, lives in [place]. He has been drinking vodka and orange juice daily although he says he stopped 3 weeks ago. 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 He has apparently been in bed for the last week. He is somewhat confused because he says to me why are you seeing me seeming to indicate that he does not realize where he is at although when asked he is oriented. He is quite deliberate on his answers but seems to be accurate. He is being treated for urinary tract infection with ceftriaxone. His previous MRI scan suggested normal-pressure hydrocephalus so that is repeated today. His magnesium level is 1.5. The CBC and CMP are normal with an albumin of 2.9. Exam Vital Signs (past 8 hours): - 12/05/20 00:45 12/05/20 02:00 12/05/20 04:03 Temperature 97.7 F 97.7 F Pulse Rate 97 H 60 Respiratory Rate 16 16 Blood Pressure 108/59 L 146/80 H Pulse Oximetry 97 98 98 12/05/20 06:00 Temperature Pulse Rate Respiratory Rate Blood Pressure Pulse Oximetry 98 Oxygen Delivery Method Room Air Oxygen Flow Rate 0 Narrative Exam Narrative: He is alert, oriented to name, less definitively oriented to place. This seems to come and go. He looks very weak lying in bed, quite unmotivated. Heart is regular rate and rhythm without murmur Lungs are clear to auscultation bilaterally Abdomen is soft, bowel sounds positive, nontender, no organomegaly. Extremities have no ankle edema Neurological exam the patient is diffusely weak without lateralizing signs. He is quite deliberate but seemingly accurate in his answers to questions. Objective Labs Result Diagrams: 12/05/20 04:40 12/05/20 04:40 Labs: Laboratory Results - last 24 hr 12/04/20 12/04/20 12/04/20 12:30 12:30 12:30 WBC 10.2 RBC 5.65 Hgb 18.9 H Hct 55.6 H MCV 98.5 MCH 33.4 MCHC 33.9 RDW 14.0 Plt Count 258 Neut % (Auto) 78.7 H Lymph % (Auto) 8.0 L [place] % (Auto) 9.8 Eos % (Auto) 2.8 Baso % (Auto) 0.7 Neut # (Auto) 8000 H Lymph # (Auto) 800 L [place] # (Auto) 1000 H Eos # (Auto) 300 Baso # (Auto) 100 Total Counted Seg Neutrophils % Band Neutrophils % Lymphocytes % (Manual) Monocytes % (Manual) Eosinophils % (Manual) Myelocytes % Neutrophils # (Manual) RBC Morphology Sodium 133 L Potassium 4.8 Chloride 98 Carbon Dioxide 22 BUN 20 Creatinine 0.77 Estimated GFR > 60.0 BUN/Creatinine Ratio 26.0 H Glucose 113 H Lactate 1.8 Calcium 10.2 Magnesium Total Bilirubin 1.7 H AST 74 H ALT 108 H Alkaline Phosphatase 121 Ammonia Total Creatine Kinase Total Protein 8.3 H Albumin 4.4 Globulin 3.9 Albumin/Globulin Ratio 1.1 Lipase 214 Vitamin B12 Procalcitonin 0.12 Urine Color Urine Appearance Urine pH Ur Specific [place] Urine Protein Urine Glucose (UA) Urine Ketones Urine Occult Blood Urine Nitrate Urine Bilirubin Ur Bilirubin Confirm Urine Urobilinogen Ur Leukocyte Esterase Urine RBC Urine WBC Ur Squamous Epith Cells Urine Bacteria Ur Culture Indicated? Ethyl Alcohol Ethyl Glucuronid LC/MS U Ethyl Glucuron LCMSMS U Ethyl Glucuronide Cnf Ethyl Sulfate Ur Ethyl Sulfate GC/MS U Ethyl Glucuronide SARS-CoV-2 (PCR) Ref Lab Notation 12/04/20 12/04/20 12/04/20 12:30 12:30 12:30 WBC RBC Hgb Hct MCV MCH MCHC RDW Plt Count Neut % (Auto) Lymph % (Auto) [place] % (Auto) Eos % (Auto) Baso % (Auto) Neut # (Auto) Lymph # (Auto) [place] # (Auto) Eos # (Auto) Baso # (Auto) Total Counted Seg Neutrophils % Band Neutrophils % Lymphocytes % (Manual) Monocytes % (Manual) Eosinophils % (Manual) Myelocytes % Neutrophils # (Manual) RBC Morphology Sodium Potassium Chloride Carbon Dioxide BUN Creatinine Estimated GFR BUN/Creatinine Ratio Glucose Lactate Calcium Magnesium 1.6 Total Bilirubin AST ALT Alkaline Phosphatase Ammonia Total Creatine Kinase 24 L Total Protein Albumin Globulin Albumin/Globulin Ratio Lipase Vitamin B12 Procalcitonin Urine Color Urine Appearance Urine pH Ur Specific [place] Urine Protein Urine Glucose (UA) Urine Ketones Urine Occult Blood Urine Nitrate Urine Bilirubin Ur Bilirubin Confirm Urine Urobilinogen Ur Leukocyte Esterase Urine RBC Urine WBC Ur Squamous Epith Cells Urine Bacteria Ur Culture Indicated? Ethyl Alcohol Ethyl Glucuronid LC/MS U Ethyl Glucuron LCMSMS U Ethyl Glucuronide Cnf Ethyl Sulfate Ur Ethyl Sulfate GC/MS U Ethyl Glucuronide SARS-CoV-2 (PCR) Negative Ref Lab Notation 12/04/20 12/04/20 12/04/20 12:30 13:30 13:30 WBC RBC Hgb Hct MCV MCH MCHC RDW Plt Count Neut % (Auto) Lymph % (Auto) [place] % (Auto) Eos % (Auto) Baso % (Auto) Neut # (Auto) Lymph # (Auto) [place] # (Auto) Eos # (Auto) Baso # (Auto) Total Counted Seg Neutrophils % Band Neutrophils % Lymphocytes % (Manual) Monocytes % (Manual) Eosinophils % (Manual) Myelocytes % Neutrophils # (Manual) RBC Morphology Sodium Potassium Chloride Carbon Dioxide BUN Creatinine Estimated GFR BUN/Creatinine Ratio Glucose Lactate Calcium Magnesium Total Bilirubin AST ALT Alkaline Phosphatase Ammonia Total Creatine Kinase Total Protein Albumin Globulin Albumin/Globulin Ratio Lipase Vitamin B12 Procalcitonin Urine Color [place] Urine Appearance Cloudy Urine pH 5.0 Ur Specific [place] 1.025 Urine Protein Negative Urine Glucose (UA) Trace H Urine Ketones 1+ H Urine Occult Blood 1+ H Urine Nitrate Negative Urine Bilirubin 1+ H Ur Bilirubin Confirm Positive H Urine Urobilinogen 2.0 H Ur Leukocyte Esterase 2+ H Urine RBC 1-5/hpf Urine WBC 30-100/hpf H Ur Squamous Epith Cells None seen Urine Bacteria Many (>30) H Ur Culture Indicated? Specimen cultured Ethyl Alcohol < 10 Ethyl Glucuronid LC/MS Cancelled U Ethyl Glucuron LCMSMS Cancelled U Ethyl Glucuronide Cnf Cancelled Ethyl Sulfate Cancelled Ur Ethyl Sulfate GC/MS Cancelled U Ethyl Glucuronide Cancelled SARS-CoV-2 (PCR) Ref Lab Notation Cancelled 12/04/20 12/05/20 12/05/20 17:00 04:40 04:40 WBC 8.8 RBC 4.51 Hgb 14.8 Hct 44.4 MCV 98.4 MCH 32.8 MCHC 33.4 RDW 13.6 Plt Count 240 Neut % (Auto) Not Reportable Lymph % (Auto) Not Reportable [place] % (Auto) Not Reportable Eos % (Auto) Not Reportable Baso % (Auto) Not Reportable Neut # (Auto) Lymph # (Auto) Not Reportable [place] # (Auto) Not Reportable Eos # (Auto) Baso # (Auto) Not Reportable Total Counted 100 Seg Neutrophils % 75.0 H Band Neutrophils % 4.0 Lymphocytes % (Manual) 12.0 L Monocytes % (Manual) 3.0 Eosinophils % (Manual) 5.0 H Myelocytes % 1.0 H Neutrophils # (Manual) 6952 H RBC Morphology Normal morphology Sodium 136 L Potassium 3.7 Chloride 106 Carbon Dioxide 22 BUN 21 H Creatinine 0.89 Estimated GFR > 60.0 BUN/Creatinine Ratio 23.6 H Glucose 98 Lactate Calcium 8.5 Magnesium Total Bilirubin 0.5 AST 38 ALT 61 H Alkaline Phosphatase 100 Ammonia < 9 L Total Creatine Kinase Total Protein 5.8 L Albumin 2.9 L Globulin 2.9 Albumin/Globulin Ratio 1.0 Lipase Vitamin B12 Procalcitonin Urine Color Urine Appearance Urine pH Ur Specific [place] Urine Protein Urine Glucose (UA) Urine Ketones Urine Occult Blood Urine Nitrate Urine Bilirubin Ur Bilirubin Confirm Urine Urobilinogen Ur Leukocyte Esterase Urine RBC Urine WBC Ur Squamous Epith Cells Urine Bacteria Ur Culture Indicated? Ethyl Alcohol Ethyl Glucuronid LC/MS U Ethyl Glucuron LCMSMS U Ethyl Glucuronide Cnf Ethyl Sulfate Ur Ethyl Sulfate GC/MS U Ethyl Glucuronide SARS-CoV-2 (PCR) Ref Lab Notation 12/05/20 12/05/20 04:40 04:40 WBC RBC Hgb Hct MCV MCH MCHC RDW Plt Count Neut % (Auto) Lymph % (Auto) [place] % (Auto) Eos % (Auto) Baso % (Auto) Neut # (Auto) Lymph # (Auto) [place] # (Auto) Eos # (Auto) Baso # (Auto) Total Counted Seg Neutrophils % Band Neutrophils % Lymphocytes % (Manual) Monocytes % (Manual) Eosinophils % (Manual) Myelocytes % Neutrophils # (Manual) RBC Morphology Sodium Potassium Chloride Carbon Dioxide BUN Creatinine Estimated GFR BUN/Creatinine Ratio Glucose Lactate Calcium Magnesium 1.5 L Total Bilirubin AST ALT Alkaline Phosphatase Ammonia Total Creatine Kinase Total Protein Albumin Globulin Albumin/Globulin Ratio Lipase Vitamin B12 809 Procalcitonin Urine Color Urine Appearance Urine pH Ur Specific [place] Urine Protein Urine Glucose (UA) Urine Ketones Urine Occult Blood Urine Nitrate Urine Bilirubin Ur Bilirubin Confirm Urine Urobilinogen Ur Leukocyte Esterase Urine RBC Urine WBC Ur Squamous Epith Cells Urine Bacteria Ur Culture Indicated? Ethyl Alcohol Ethyl Glucuronid LC/MS U Ethyl Glucuron LCMSMS U Ethyl Glucuronide Cnf Ethyl Sulfate Ur Ethyl Sulfate GC/MS U Ethyl Glucuronide SARS-CoV-2 (PCR) Ref Lab Notation [facility] Medical History Alcohol abuse Anxiety Cerebral atrophy Chest pain (03/25/18) Dehydration (03/25/18) Depression Erectile dysfunction Essential hypertension Gastritis History of anemia History of liver injury History of pulmonary embolism Inguinal hernia Intrahepatic biloma Metabolic acidosis Personal history of peptic ulcer disease Wernicke-Korsakoff syndrome (alcoholic) Surgical History History of colonoscopy (2014) History of esophagogastroduodenoscopy (EGD) (2014) History of esophagogastroduodenoscopy (EGD) (04/26/18) History of left hip replacement History of shoulder surgery History of total right knee replacement (TKR) Family History Father Cancer Family/Other No problems noted. Mother Cancer Sister No problems noted. Social History marital status: household members: none housing: house Smoking Status: Former smoker alcohol intake: current Assessment & Plan Assessment & Plan narrative: 1. 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 -Patients with suspected WE require immediate parenteral administration of thiamine. The recommended regimen is 500 mg of thiamine IV infused over 30 minutes three times daily for two consecutive days and 250 mg IV or IM once daily for an additional five days -High-dose parenteral thiamine therapy is justified based on the failure of lower doses to produce clinical improvement in some patients with WE. -Tiny acute cortical right frontal infarct, likely embolic on Brain MRI 2. Acute right Frontal Infarct, present on admission. Active -This may have exacerbated his chronic Alcohol related symptoms - W-K, etc. -not a realistic candidate for anticoagulation with his weakness and fall risk -not a realistic interventional candidate with his debility so will defer Echo and Carotid studies. 3. Acute dehydration secondary to UTI, acute, present on admission. -treated with IVF, stopped on 12/05 -patient received 2 g of Rocephin in the ED, continue with 1 g Rocephin q.day for 3 days pending UC results 4. Chronic alcohol abuse, present on admission. Active -continue thiamine, initiated in the emergency department. -Thiamine & B12 Level ordered 5.Weakness, malnutrition, failure to thrive likely related to Wernicke encephalopathy brought on by long-term chronic alcohol abuse, acute on chronic present on admission. Leading to gait instability and mechanical falls, acute, present on admission -likely multifactorial with alcoholic contribution, urinary tract infection, CVA and immobilization. Malnutrition, muscle wasting, gait ataxia, encephalopathy -PT and OT evaluation -patient placed on fall precaution -patient should be considered for placement in a facility -dietary consult ordered 6. Elevated liver enzymes, acute on chronic, present on Admission. -the AST was 41 on 06/21 The ALT 26 06/21. On admission AST of 74, ALT 108, bili 1.7 -monitor liver enzymes 7. BPH, chronic, present on admission. -continue tamsulosin. 8. GERD, chronic, present on admission. -continue omeprazole 9. Depression, acute on chronic, present on admission. -patient was unable to provide a level regarding depression symptoms, when patient asked about code status he stated maybe you just shouldn't resuscitate me. I clarified, so you do not wish to be resuscitated, he stated of course I do. Patient struggled to understand the complexities of the discussion. Suicidal ideation unknown at this time. -consider psychiatric consult if patient not improving -continue mirtazapine. Code status: Full code Surrogate decision maker: His daughter Marysol Rubio (in [place]) COVID PCR: Negative VTE/DVT prophylaxis: Enoxaparin 40 and SCDs Estimated length of stay: Greater than 2 midnight Quality VTE Deep Vein Thrombosis/Pulmonary Embolism Present on Admission: No
--- NOTE | 2020-12-05 07:41 | DI.MRI.S_ITS ---
PROCEDURE: MR HEAD/BRAIN WO CON INDICATIONS: Altered mental status TECHNIQUE: Non-contrast axial T1 spin echo, axial T2 fast spin echo, sagittal and axial FLAIR, coronal T2 fast spin echo, axial gradient echo, axial diffusion and ADC through the brain. COMPARISON: [facility], , MR HEAD/BRAIN WO CON, 06/25/2020, 18:08. FINDINGS: Image quality: Excellent. CSF spaces: Ventricles appear symmetric in size and shape. Mild bilateral ventricular prominence. Basal cisterns are patent. No extra-axial fluid collections. Brain: No intracranial bleeds or mass effects. There is cerebral volume loss for age. There are moderate periventricular and deep white matter chronic small vessel ischemic changes. Brainstem appears normal. Diffusion-weighted images show a tiny cortical right frontal infarct. Reference image 69/7 (diffusion-weighted sequence). There is minimal associated cytotoxic edema. Reference image 19/12 (axial FLAIR sequence). Old small right occipital infarct with associated gliosis. Normal intravascular flow voids are present. Skull and face: Calvarial bone marrow is normal in signal. Orbits are normal. Sinuses: Sinuses and mastoids are clear. IMPRESSION: 1. Tiny acute cortical right frontal infarct, likely embolic. 2. Old small focal right occipital infarct. 3. Age-related volume loss and moderate small vessel ischemic change. Dictated by: Elio Yoder M.D. on 12/05/2020 at 10:34 Approved by: Elio Yoder M.D. on 12/05/2020 at 10:40
[2020-12-05] MEDS: FOLIC ACID 1 MG TABLET PO (08:54)
[2020-12-05] MEDS: MULTIVITAMIN 1 TABLET 1 TAB PO (08:54)
[2020-12-05] MEDS: MAGNESIUM SULFATE 2 GM/50 ML PIGGYBACK IV (08:54)
[2020-12-05] MEDS: ENOXAPARIN 40 MG/0.4 ML SYRINGE SUBCUT (08:55)
[2020-12-05] MEDS: THIAMINE 500 MG in SODIUM CHLORIDE 0.9% 100 ML 420 ML IV ×3 (12:57→21:16)
--- NOTE | 2020-12-05 15:07 | PT.IIE ---
Medical History (Last Reviewed 12/05/20 @ 01:47 by Codi Will, [facility]) Alcohol abuse Anxiety Cerebral atrophy Chest pain (03/25/18) Dehydration (03/25/18) Depression Erectile dysfunction Essential hypertension Gastritis History of anemia History of liver injury History of pulmonary embolism Inguinal hernia Intrahepatic biloma Metabolic acidosis Personal history of peptic ulcer disease Wernicke-Korsakoff syndrome (alcoholic) Physical Therapy Inpatient Evaluation/Re-Eval M1 PT/OT-IP Prior Functional Status Start: 12/05/20 13:54 Freq: Status: Active Protocol: Document 12/05/20 13:58 MB (Rec: 12/05/20 15:07 MB [id number]) Medical Review Prior Functional Status Medical History Reviewed Yes Communication Pt states that he has not been moving much at home, that he has been bed bound and his neighbor has been taking care of his little dog. Pt is not a clear history and does not provide a lot of information when PT asks him. Social History Household Members none Living Arrangements House Number of Stairs To Enter/Railing? Unclear. When PT asks pt if he has steps, he states he does. He cannot state how many. He states he has a walker. He does not answer any other home environment and equipment questions. Employment Status Retired Additional Social History Comment PT tries to inquire more about support at home and home situation and pt does not readily answer questions, seems reluctant. He states that he gets MOW and his dog's food is delivered. M2 PT-IP Current Condition Start: 12/05/20 13:54 Freq: Status: Active Protocol: Document 12/05/20 13:58 MB (Rec: 12/05/20 15:07 MB [id number]) Physical Therapy Current Condition Current Condition Evaluation Date 12/05/20 Treatment Diagnosis FTT, tiny acute cortical R frontal infarct, likely embolic Onset Date Unclear Precautions Other Precautions Fall risk, ? hypoverbal personality vs some confusion M3 PT-IP Subjective Start: 12/05/20 13:54 Freq: Status: Active Protocol: Document 12/05/20 13:58 MB (Rec: 12/05/20 15:07 MB [id number]) Subjective Physical Therapy Visit Type Type Initial Evaluation Visit Start Time 13:58 Visit Stop Time 14:30 Total Visit Minutes 32 Number of [employer] Visits 0 Physical Therapy Visit Comments Patient Comments Pt is reluctantly agreeable to PT. As PT is asking a lot of PLOF questions, pt states, Why are we asking all these questions? Patient Goals Pt adamantly states that he is going home. Therapy Pain Assessment Pain When Pain Assessed At Rest Pain Present Pain Present Denied Pain M4 PT-IP Mobility and Gait Start: 12/05/20 13:54 Freq: Status: Active Protocol: Document 12/05/20 13:58 MB (Rec: 12/05/20 15:07 MB [id number]) PT-Bed Mobility Assessment Supine to Sit Supine to Sit Minimal Assistance,1 Person Assistance,Head of Bed Elevated,Bedrails Sit to Supine Sit to Supine Minimal Assistance,1 Person Assistance,Head of Bed Elevated,Bedrails Scooting Scooting to Edge of Bed Minimal Assistance Scooting Up and Down in Bed Minimal Assistance PT-Transfer Assessment Sit to and From Stand Sit to and from Stand Moderate Assistance,1 Person Assistance,Use of Upper Extremities Equipment Transfer Assistive Device None Transfers Transfer Destination Bed Transfer Technique Scooting steps up to HOB Transfer Ability Level of Assist Moderate Assistance,1 Person Assistance,Use of Upper Extremities Comments Mobility Comments Pt requires cues and encouragement to perform all mobility tasks and he is reluctant to participate with PT. Cues to roll to the right, reach for bed rail with hands and scoot legs out to EOB. PT minimally assists with scooting legs to EOB. Pt is able to sit EOB with superv and UE support, flexed posture and has trouble lifting up his head. Mod A sit to stand and to take 2 scooting steps to the right up to HOB and PT assists pt's hips into good position for being higher up in the bed before getting back in. Min A to move his legs in the bed. PT changes bed pad and assists pt with scooting hips in the bed with the pad. PT places bed in cardiac chair position with three rails up. PT assists pt with lunch prep for cheeseburger, cutting it up. Pt is able to eat burger with hands once it is cut up. PT turns on bed alarm and [employer] H [employer] aware of pt bed position and getting pt milk per his request. Gait Assessment Gait Gait Assistance Required: Moderate Assistance Distance (Feet) 1 Assistive Devices Assistive Device None Orthotic/Prosthetic Devices or Brace: No Gait Deviations General Gait Pattern Antalgic,Decreased Stride Length,Decreased Feet Clearance,Flexed Trunk,Lateral Trunk Lean,Narrow Based Gait, Step-to Gait Factors Limiting Gait Function Factors Limiting Gait Function Decreased Activity Tolerance, Decreased Strength,Difficulty Following Directions,Limited Range of Motion,Pain,Poor Balance,Poor Safety Awareness Comments Gait Comments Pt is reluctant to participate with gait and PT asks for nsg assist and gait belt to room but they are not available during assessment time. Short gait assessed as a result. Pt presents with forward, flexed posture, holds onto PT's elbows and PT in front of pt. Pt appears to have trouble keeping up his head. Cues for safety getting back up to HOB. PT-Balance Assessment Sitting Balance and Reactions Static Sitting Balance Ability Fair Dynamic Sitting Balance Ability Poor Standing Balance and Reactions Static Standing Balance Ability Poor Dynamic Standing Balance Ability Poor Device Used None Comments Other Balance Tests/Deviations/Treatment Superv and heavy UE support to : maintain static sitting balance EOB as PT prepares clean pad to put under pt. PT communicates with nsg after eval about soiled sheet under pad M5 PT-IP Objective Assessments Start: 12/05/20 13:54 Freq: Status: Active Protocol: Document 12/05/20 13:58 MB (Rec: 12/05/20 15:07 MB [id number]) Orientation Orientation/Cognition Level of Alertness Lethargic Orientation Name,Age,Birthday,Month,Date, Year,Day of Week Safety Awareness Decreased Safety Awareness Comments Pt is hypoverbal and does not answer some questions Gross Range of Motion Upper Extremity ROM Assessment Bilaterally Impaired Impairments Poor following of commands vs participation. He does appear to have B finger changes, worse on the right and decrease right UE AROM and uses left hand to lift his right arm. When asked if he is right handed, he states, yes Lower Extremity ROM Assessment Bilaterally Impaired Impairments As above. Right greater than left PF tension that PT cannot break manually Strength Comments Strength Comments Pt does not follow MMT commands Coordination Assessment Gross Coordination Gross Coordination Impaired Assessment Coordination Comments Decreased use of right UE and right hand, even as pt states that he is right handed and when PT asks if he has an old injury (appears spinal cord- like), he does not report Muscle Tone Muscle Tone WNL No Comments Muscle Tone Comments Increased tone right greater than left PFs, some changes in right greater than left UE M6 PT-IP Treatment Start: 12/05/20 13:54 Freq: Status: Active Protocol: Document 12/05/20 13:58 MB (Rec: 12/05/20 15:07 MB [id number]) Physical Therapy Treatment Education Education Provided Safety M7 PT-IP Assessment and Plan Start: 12/05/20 13:54 Freq: Status: Active Protocol: Document 12/05/20 13:58 MB (Rec: 12/05/20 15:07 MB [id number]) PT Summary Assessment and Plan Potential Rehabilitation Potential Fair Status of Condition at Evaluation Evolving Summary Impairments ROM,Strength,Balance, Coordination,Tone,Cognition, Bed Mobility,Transfers,Gait, Activity Tolerance Assessment Summary Pt is a 75 y/o male presenting hypoverbal and it is difficult to get a true PLOF from him. Dx is FTT and MRI brain revealed tiny acute cortical right frontal infarct and this could affect ability to communicate/motivation to care for himself at home. He does have a little dog and PT asks questions about caring for her (Aneta). He states that the dog food comes by mail and his neighbor assists with caring for the dog. He states he does not go to appointments and gets MOW. He is adamant about d/cing home. Functionally, he moves slowly and is hesitant and fearful for falling. His UE changes appear cervical/cord-like in weakness and presentation, though PT does not test for reflexes or clonus in UEs. No clonus with rapid passive DF though right greater than left PFs are very tight. His posture is very forward and he does not brick picker his head in supported or non-supported sitting. Mobility assessment is limited today d/t pt participation. Pt will require 24 hour care and SNF at d/c at his current level. Goals Bed Mobility Goal Standby Assistance Transfer Goal Standby Assistance Gait Goal Standby Assistance,Front Wheel Walker Gait Distance 25 Frequency of Treatment Frequency Of Treatment Once a Day Treatment Plan Physical Therapy Treatment Plan Bed Mobility Training,Transfer Training,Gait Training, Therapeutic Exercise,Balance Retraining,Discharge Planning, Neuromuscular Re-ed, Coordination Retraining Other Recommendations and Next Treatment Further mobility and OOB to Focus chair Precautions Other Precautions Fall risk Recommendations To Nursing Amount of Assist Needed Mechanical Lift Discharge Recommendations PT Discharge Recommendations SNF Rehab Transportation Needs at Discharge Wheelchair/Cabulance
--- NOTE | 2020-12-05 15:59 | CM.DANOTE ---
DCP ASSESSMENT: Patient is a 75 year-old male admitted to hospital for failure to thrive, acute dehydration and UTI. PCP patient stated he does not have a PCP. Primary payer [employer] Medicare and self-pay. Therapy evaluations pending Patient has a significant history of alcohol use disorder with Wernicke encephalopathy. JEANETTE Student met with patient at bedside he was alert and quite. Educated patient on social work role in discharge planning. Patient reported he uses a FWW at [place] and lives alone his other support is [id number] and a neighbor Mr. Omalley. Patient reported Vodka is his choice of alcohol but, he quit drinking about 3-weeks ago when he started feeling ill and he had not eaten in almost a week. Discussed D/C options SNF vs Home with Home Health with patient due to intense level of lack of self-care leading to this hospital admission. Patient stated he has been at [facility] in the past for almost a month and does not want to go back. He also declined Home Health at this time. Patient was unsure if his friend can provide transportation at time of D/C. PLAN: CM Team to continue to follow for d/c planning needs. Therapy evaluation pending will review once completed. Patient currently refusing SNF and Home Health. Patient currently without PCP. May need to consider A.P.S. referral for self-neglect? JEANETTE Eller MSW Student Discharge Planning/Care Management CM Discharge Assessment Start: 12/05/20 15:00 Freq: Status: Active Protocol: Document 12/05/20 15:01 AL (Rec: 12/05/20 15:04 TN [id number]) Discharge Planning Assessment Assigned Cutting Table Operator JEANETTE Castillo Student Contact Information Ramiro Gregg Advance Directives? Yes: HC DPOA Advance Directives on File Yes History Provided By Patient,Medical Record Has Patient been admitted in last 30 No days? Prior Living Arrangements House Household Members none Type of transporation used prior to Relies on Others admit Independent with ADL's No Is patient alert and oriented? Yes Needs Assistance With Meal Prep Caregiver for Another No DME Already Rented / Owned FWW / Walker Comment Uses a FWW and has meals-on- wheels Comment D/C SNF vs home with home health Barriers to Discharge No Transportation Arrangement Unsure at this time Maybe friend Mr. Omalley Whitealicja Updated in Patient Room with Yes name and ext. # of Cutting Table Operator Review Status In Process
[2020-12-05] MEDS: cefTRIAXone 1,000 MG in SODIUM CHLORIDE 0.9% 100 ML 200 ML IV (18:49)
[2020-12-05] MEDS: MIRTAZAPINE 15 MG TABLET 7.5 MG PO (21:15)
[2020-12-06] VITALS (15 sets, daily range): BP systolic 108–143; BP diastolic 66–77; PULSE 58–75; RESP 14–26; TEMP 36–36.8; O2SAT 89–100
[2020-12-06 05:58] LABS: Magnesium 1.7 mg/dL (1.6-2.3)
--- NOTE | 2020-12-06 07:47 | P.PN_ITS ---
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 He seems to have a baseline of slow movement, slow talking, slow processing probably present before both of these neurologic processes. He has been interacting somewhat negatively with both social security benefits interviewer and his therapists today. There is apparently a neighbor, Mr. Omalley, who provides him with his vodka. ?In my life this is a serious day. ? He has been processing the fact that he has a stroke and refusing to do OT this morning. He says he is agreeable to talking to a pocketed spring assembler as he appears to be profoundly depressed, besides losing his executive function and showing blunted affect, related to the frontal CVA. Exam Vital Signs (past 8 hours): - 12/06/20 00:00 12/06/20 05:30 Temperature 98.3 F 97.6 F Pulse Rate 63 58 L Respiratory Rate 16 18 Blood Pressure 126/72 143/72 H Pulse Oximetry 96 98 Oxygen Delivery Method Room Air Oxygen Flow Rate 0 Narrative Exam Narrative: Alert and oriented x3 Blunted affect, indecisive, contemplative. He appears to be quite depressed. Heart is regular rate and rhythm without murmur Lungs are clear to auscultation bilaterally Extremities have no ankle edema Neurologic exam is notable for profound bradykinesia, slow processing, weakness of all extremities in a symmetric fashion. Objective Labs Result Diagrams: 12/05/20 04:40 12/05/20 04:40 Labs: Laboratory Results - last 24 hr 12/06/20 05:35 Magnesium 1.7 PFSH Medical History Alcohol abuse Anxiety Cerebral atrophy Chest pain (03/25/18) Dehydration (03/25/18) Depression Erectile dysfunction Essential hypertension Gastritis History of anemia History of liver injury History of pulmonary embolism Inguinal hernia Intrahepatic biloma Metabolic acidosis Personal history of peptic ulcer disease Wernicke-Korsakoff syndrome (alcoholic) Surgical History History of colonoscopy (2014) History of esophagogastroduodenoscopy (EGD) (2014) History of esophagogastroduodenoscopy (EGD) (04/26/18) History of left hip replacement History of shoulder surgery History of total right knee replacement (TKR) Family History Father Cancer Family/Other No problems noted. Mother Cancer Sister No problems noted. Social History marital status: household members: none housing: house Smoking Status: Former smoker alcohol intake: current Assessment & Plan Assessment & Plan narrative: 1. Alcoholic Dementia/Wernicke encephalopathy, possible Korsakoff Syndrome, (Wernicke-Korsakoff syndrome) acute on chronic, present on admission -Encephalopathy, gait ataxia, also malnutrition, and possible peripheral ne uropathy. -IV Thiamine for 3 days, then PO -Tiny acute cortical right frontal infarct, likely embolic on Brain MRI 2. Acute right Frontal Infarct, present on admission. Active -This may have exacerbated his chronic Alcohol related symptoms - W-K, etc. -not a realistic candidate for anticoagulation with his weakness and fall risk -not a realistic interventional candidate with his debility so will defer Echo and Carotid studies. -blunted affect, loss of executive function, indecisiveness are all probably pre-existing stroke but a frontal lobe CVA could made those personality characteristics more profound. -he is resistant to recommendation for SNF placement, but appears to be aware of his losing lauren to stay in his home. -Psych consult and pocketed spring assembler visit requested 3. Acute dehydration secondary to UTI, acute, present on admission. -treated with IVF, stopped on 12/05 -patient received 2 g of Rocephin in the ED and then 1 g Rocephin q.day for 3 days to treat Alpha Hemolytic Strep in the urine culture 4. Chronic alcohol abuse, present on admission. Active -continue thiamine, initiated in the emergency department. -Thiamine & B12 Level ordered 5.Weakness, malnutrition, failure to thrive likely related to Wernicke encephalopathy brought on by long-term chronic alcohol abuse, acute on chronic present on admission. Leading to gait instability and mechanical falls, acute, present on admission -likely multifactorial with alcoholic contribution, urinary tract infection, CVA and immobilization. Malnutrition, muscle wasting, gait ataxia, encephalopathy -PT and OT evaluation -fall precaution -needs placement in a facility, which he has been declining -dietary consult 6. Elevated liver enzymes, acute on chronic, present on Admission. -the AST was 41 on 06/21 The ALT 26 06/21. On admission AST of 74, ALT 108, bili 1.7 -monitor liver enzymes 7. BPH, chronic, present on admission. -continue tamsulosin. 8. GERD, chronic, present on admission. -continue omeprazole 9. Depression, acute on chronic, present on admission. -patient was unable to provide a level regarding depression symptoms, when patient asked about code status he stated maybe you just shouldn't resuscitate me. I clarified, so you do not wish to be resuscitated, he stated of course I do. Patient struggled to understand the complexities of the discussion. Suicidal ideation unknown at this time. -left phone message requesting Psych consult for tomorrow 12/07 when the department is staffed again. -continue mirtazapine. Consider adding a more mobilizing SSRI such as Fluoxetine -He also agreed to a pocketed spring assembler referral. Code status: Full code Surrogate decision maker: His daughter Marysol Rubio (in [place]) VTE/DVT prophylaxis: Enoxaparin 40 and SCDs Quality VTE Deep Vein Thrombosis/Pulmonary Embolism Present on Admission: No
[2020-12-06] MEDS: ENOXAPARIN 40 MG/0.4 ML SYRINGE SUBCUT (08:06)
[2020-12-06] MEDS: FOLIC ACID 1 MG TABLET PO (08:06)
[2020-12-06] MEDS: PANTOPRAZOLE DR 40 MG TABLET PO (08:06)
[2020-12-06] MEDS: MULTIVITAMIN 1 TABLET 1 TAB PO (08:06)
[2020-12-06] MEDS: THIAMINE 500 MG in SODIUM CHLORIDE 0.9% 100 ML 420 ML IV ×3 (08:11→21:47)
[2020-12-06] MEDS: TAMSULOSIN 0.4 MG CAPSULE PO (08:11)
--- NOTE | 2020-12-06 12:06 | PC.NURSE ---
AM shift note. pt AO to self and sometimes situation, flat affect with no detailed responses. Receptive to care, calm, and cooperative with staff. Infusing intermittent vitamins to L AC PIV. Wells hanging to gravity without kinks. Repositioning pt in bed with minimal effort from pt (pt able to make minor adjustments). Drinking and eating IND with setup assistance and calling with light appropriately. per Dr. Cunningham, no ortho BP's until pt is getting up with PT.
--- NOTE | 2020-12-06 13:55 | OT.IP.EVAL ---
Current Diagnoses Wernicke's encephalopathy (12/04/20) Past Medical History (Last Reviewed 12/05/20 @ 01:47 by ADAMARIS Locke-) Alcohol abuse Anxiety Cerebral atrophy Chest pain (03/25/18) Dehydration (03/25/18) Depression Erectile dysfunction Essential hypertension Gastritis History of anemia History of colonoscopy (2014) History of esophagogastroduodenoscopy (EGD) (2014) History of esophagogastroduodenoscopy (EGD) (04/26/18) History of left hip replacement History of liver injury History of pulmonary embolism History of shoulder surgery History of total right knee replacement (TKR) Inguinal hernia Intrahepatic biloma Metabolic acidosis Personal history of peptic ulcer disease Wernicke-Korsakoff syndrome (alcoholic) Surgical History (Last Reviewed 12/04/20 @ 19:51 [facility] History of colonoscopy (2014) History of esophagogastroduodenoscopy (EGD) (2014) History of esophagogastroduodenoscopy (EGD) (04/26/18) History of left hip replacement History of shoulder surgery History of total right knee replacement (TKR) Occupational Therapy Inpatient Evaluation/Re-Eval M1 PT/OT-IP Prior Functional Status Start: 12/05/20 13:54 Freq: Status: Active Protocol: Document 12/06/20 16:21 CGR (Rec: 12/06/20 16:50 CGR [id number]) Medical Review Prior Functional Status Medical History Reviewed Yes Communication Pt is minimally communicative but is able to voice his needs . Mobility and Gait Per chart pt has been bedbound ~1 week. Pt was minimally mobile at last admit in June 2020. Activities of Daily Living and IADL's Per chart, as of June 2020, pt was having difficulty performing his ADLs at home. Prior Functional Level (Other details) Per chart, pt gets all food from meals on wheels and does not leave the house. Social History Household Members none Living Arrangements House Number of Floors (Floors) Two Floors Number of Stairs To Enter/Railing? 4 steps to enter without a rail. 13 steps with R rail to second floor Employment Status Retired Additional Social History Comment Information obtained from previous admits. M1 PT/OT-IP Prior Functional Status Start: 12/06/20 16:21 Freq: NEEDED Status: Active Protocol: Document 12/06/20 16:21 CGR (Rec: 12/06/20 16:50 R [id number]) Medical Review Prior Functional Status Medical History Reviewed Yes Communication Pt is minimally communicative but is able to voice his needs . Mobility and Gait Per chart pt has been bedbound ~1 week. Pt was minimally mobile at last admit in June 2020. Activities of Daily Living and IADL's Per chart, as of June 2020, pt was having difficulty performing his ADLs at home. Prior Functional Level (Other details) Per chart, pt gets all food from meals on wheels and does not leave the house. Social History Household Members none Living Arrangements House Number of Floors (Floors) Two Floors Number of Stairs To Enter/Railing? 4 steps to enter without a rail. 13 steps with R rail to second floor Employment Status Retired Additional Social History Comment Information obtained from previous admits. M2 OT-IP Current Condition Start: 12/06/20 16:21 Freq: Status: Active Protocol: Document 12/06/20 16:21 CGR (Rec: 12/06/20 16:50 [facility] [id number]) Occupational Therapy Current Condition Current Condition Evaluation Date 12/06/20 Treatment Diagnosis Failure to thrive, CVA Diagnosis Onset Date 12/04/20 M3 OT- IP Subjective and Pain Start: 12/06/20 16:21 Freq: Status: Active Protocol: Document 12/06/20 16:21 CGR (Rec: 12/06/20 16:50 R [id number]) OT- Subjective Occupational Therapy Visit Type Type Initial Evaluation Visit Start Time 13:30 Visit Stop Time 13:55 Total Visit Minutes 25 Notes Pt was reluctant to work with therapy. Occupational Therapy Visit Comments Patient Comments I am leaving today so I don't know what you can do to help me. OT Pain Assessment Pain When Pain Assessed At Rest Pain Present Pain Present Denied Pain M4 OT- IP ADL's Start: 12/06/20 16:21 Freq: Status: Active Protocol: Document 12/06/20 16:21 CGR (Rec: 12/06/20 16:50 [facility] [id number]) OT [id number] Comments OT Self-Feeding Comments Not meal time OT ADL-Grooming General Evaluation Grooming Ability Standby Assistance Areas Needing Assistance Retrieving/Set-up of Grooming Items,Face Washing Comments OT Grooming Comments sitting up in bed OT ADL-Oral Care General Eval Oral Care Ability Standby Assistance Areas of Assistance Brushing Teeth,Retrieving/Set- Up of Items Comments Oral Care Comments sitting up in bed, pt was able to open tooth paste and get on brush. OT ADL-Dressing Comments OT Dressing Comments not performed OT ADL-Toileting Comments OT Toileting Comments not performed OT ADL-Bathing Comments OT Bathing Comments not performed M5 OT- IP IADL's Start: 12/06/20 16:21 Freq: Status: Active Protocol: Document 12/06/20 16:21 CGR (Rec: 12/06/20 16:50 CGR [id number]) OT-Instrumental Activities of Daily Living Deficits IADL Deficits Identified Deficits Home Safety Awareness Awareness of Need for Assistance at Home Decreased Awareness Ability to Problem Solve Emergency Unable to Problem Solve Situations M6 OT- IP Functional Cognition Start: 12/06/20 16:21 Freq: Status: Active Protocol: Document 12/06/20 16:21 CGR (Rec: 12/06/20 16:50 CGR [id number]) Cognitive Factors Limiting Selfcare Function Cognitive Ability Level of Alertness Alert Patient Orientation Name,Age,Birthday,Month,Year, Place,Situation Attention Span Ability Capable of Focused Attention, Capable of Sustained Attention Ability to Follow Commands Able to Follow One Step Commands with Increased Time, Able to Follow One Step Commands with Repetition Cognitive Comments Cognitive Assessment Comments Pt needs extra time for comprehension and to respond. Pt is minimally verbal but doesn't have difficulty verbalizing when he wants to. Pt would benefit from formal cog assessment but is unlikely to participate. OT- Vision and Hearing OT- Hearing Assessment OT- Hearing Assessment WFL OT- Vision Assessment Visual Attentiveness WFL Occular Pursuits WFL Visual Convergence WFL M7 OT- IP Mobility and Balance Start: 12/06/20 16:21 Freq: Status: Active Protocol: Document 12/06/20 16:21 CGR (Rec: 12/06/20 16:50 CGR [id number]) OT- Bed Mobility Assessment Supine to Sit Supine to Sit Assist Moderate Assistance,Maximum Assistance,1 Person Assistance Sit to Supine Sit to Supine Assist Maximum Assistance,1 Person Assistance Scooting Scooting to Edge of Bed Maximum Assistance,1 Person Assistance OT-Transfer Assessment Comments Mobility Comments Pt declined to perform OT- Balance Assessment Sitting Balance and Reactions Static Sitting Balance Ability Fair Dynamic Sitting Balance Ability Poor Comments Other Balance Tests/Deviations/Treatment Pt with poor endurance for : sitting and needs BUE for sitting support. Pt leans to the right with sitting EOB M8 OT- IP Objective Assessments Start: 12/06/20 16:21 Freq: Status: Active Protocol: Document 12/06/20 16:21 CGR (Rec: 12/06/20 16:50 CGR [id number]) OT Gross Range of Motion Upper Extremity Range of Motion Assessment Within Functional Limits OT Strength Upper Extremity Strength Assessment Bilaterally Impaired Comments Strength Comments Pt with poor effort/ understandign with MMT, testing grossly 3+/5. OT- Coordination Assessment Upper Extremity Finger to Nose Test Bilateral UE Impaired Finger Tapping Test Bilateral UE Impaired Comments Coordination Comments Pt unable to perform with testing but was able to get tooth paste open and onto brush then brush to mouth. OT-Muscle Tone Assessment Muscle Tone WNL Yes OT Sensation Assessment Edema Edema Absent M9 OT- IP Assessment and Plan Start: 12/06/20 16:21 Freq: Status: Active Protocol: Document 12/06/20 16:21 CGR (Rec: 12/06/20 16:50 CGR [id number]) OT Summary Assessment and Plan Potential Rehabilitation Potential Fair Analytic Complexity at Evaluation High Summary OT Impairments Strength,Balance,Coordination, Functional Cognition, Functional Mobility,Grooming, Dressing,Toileting,Bathing, Toilet Transfers,Shower Transfers,Activity Tolerance Progress Towards Goals Slow Progress due to Activity Tolerance,Slow Progress due to Cognition Assessment Summary Pt presents as a high complexity evaluation s/p admit for failure to thrive and found to have a new CVA. Pt is slow with his comprehension and responses with communication and appeared upset after sitting EOB with difficulty. Pt will continue to benefit from OT services and will need SNF upon discharge. Pt is unlikely to be able to care for himself at home without therapy services . Goals Self-Feeding Goal Independent Grooming Goal Independent Dressing Goal Independent Toileting Goal Independent Bathing Goal Independent Toilet Transfer Goal Independent Shower Transfer Goal Independent Days to Meet Goals 30 Frequency of Treatment Frequency Of Treatment Once a Day Treatment Plan OT Treatment Plan ADL Training,Functional Cognition Training,Functional Mobility,Patient/Family Education,Discharge Planning Other Treatment Recommendations and Next ADLs seated, transfer Treatment Focus assessment. Discharge Recommendations OT Discharge Recommendations SNF Rehab Transportation Needs at Discharge Wheelchair/Cabulance
--- NOTE | 2020-12-06 16:15 | CM.DPC ---
DCP Continued: ACCOUNTING MANAGER CPA Student met with patient at bedside this am to discuss SNF placement VS home due to safety. He declined SNF, ?I rather go home and be staked in my front yard.? ACCOUNTING MANAGER CPA and ACCOUNTING MANAGER CPA student met with patient at bedside in afternoon. Discussed and reviewed discharge options with patient SNF vs home. Patient confirmed again he rather go home. He did provide permission to call his friend Mr. Omalley?s phone number for transportation. Called and left message for Mr. Omalley. Dr. Cunningham reported patient wants to speak with a Supervisor Speech. Supervisor Speech Gautam notified, he confirmed he will initiate a visit with patient this date. Therapy evaluations pending he has refused both occupational and physical therapy at this point. In addition, Dr. Cunningham considering psychiatry evaluation. ACCOUNTING MANAGER CPA provided him with extension. PLAN: CM Team to continue following patient closely for safest D/C plan. Therapy evaluations are still pending. He is still refusing SNF placement and home health. He is also refusing to seek help assistance with finding a PCP. May need to consider A.P.S. referral for self-neglect. JEANETTE Eller, ACCOUNTING MANAGER CPA Student
--- NOTE | 2020-12-06 17:00 | PT-IP ANOTE ---
OT states pt began being aggressive and refusing treatment during eval due to finding out he is not leaving facility today. Recommends treating him in late PM if there is time. PT does not have time to [facility] back with pt in PM.
--- NOTE | 2020-12-06 18:28 | DI.CT.S_ITS ---
PROCEDURE: CT HEAD/BRAIN WO CON INDICATIONS: Altered LOC TECHNIQUE: Noncontrast 4.5 mm thick angled axial sections acquired from the foramen magnum to the vertex, with coronal and sagittal reformats. For radiation dose reduction, the following was used: automated exposure control, adjustment of mA and/or kV according to patient size. COMPARISON: [facility], CT, HEAD WITHOUT CONTRAST, 11/27/2016, 5:28. [facility], CT, HEAD WITHOUT CONTRAST, 09/24/2016, 19:48. FINDINGS: Image quality: Excellent. CSF spaces: Basal cisterns are patent. No extra-axial fluid collections. The ventricles are symmetric in size and shape. Brain: No intracranial bleeds or masses. There is cerebral volume loss for age, with resultant ventricular and sulcal prominence. There are periventricular and deep white matter chronic small vessel ischemic changes. There is intracranial internal carotid artery atherosclerosis. Skull and face: Calvarium and visualized facial bones appear intact, without suspicious lesions. Sinuses: Visualized sinuses and mastoids are clear. IMPRESSION: Prominent microvascular atherosclerotic change in the deep white matter of each hemisphere, without evidence of acute or subacute ischemic injury or intracranial hemorrhage. A mass is not found. Dictated by: Mendez Clements M.D. on 12/06/2020 at 19:22 Approved by: Mendez Clements M.D. on 12/06/2020 at 19:22
[2020-12-06] MEDS: cefTRIAXone 1,000 MG in SODIUM CHLORIDE 0.9% 100 ML 200 ML IV (19:52)
--- NOTE | 2020-12-06 19:52 | RT ---
At 1937, pt transitioned to RA, SpO2 100%, no respiratory distress noted.
[2020-12-06 20:03] LABS: Add Manual Diff / Slide Review NO; Basophils Absolute Auto 100 /uL (0-100); Basophils Percent Auto 0.9 % (0-2); Eosinophils Absolute Auto 200 /uL (0-450); Eosinophils Percent Auto 2.7 % (2-4); Hematocrit 42.1 % (41-53); Hemoglobin 14.2 g/dL (13.5-17.5); Lymphocytes Absolute Auto 900 /uL (1100-4500); Lymphocytes Percent Auto 11.8 % (25-40); Mean Corpuscular HGB Conc 33.7 % (30-36); Mean Corpuscular Hemoglobin 33.3 PG (26-34); Mean Corpuscular Volume 98.6 fL (80-100); Monocytes Absolute Auto 900 /uL (0-900); Monocytes Percent Auto 11.2 % (3-14); Neutrophils Absolute Auto 5900 /uL (1500-7000); Neutrophils Percent Auto 73.4 % (50-75); Platelet Count 246 X10^3/uL (150-400); Red Blood Cell Count 4.26 X10^6/uL (4.5-5.9); Red Cell Distribution Width 13.9 % (11.6-14.8)
[2020-12-06 20:14] LABS: Alanine Aminotransferase 45 IU/L (<50); Albumin Globulin Ratio 1.1 (1.0-2.8); Alkaline Phosphatase 84 U/L (38-126); Aspartate Aminotransferase 33 IU/L (17-59); BUN Creatinine Ratio 18.3 (6-22); Bilirubin Total 0.3 mg/dL (0.2-1.3); Blood Urea Nitrogen 15 mg/dL (9-20); Calcium 8.7 mg/dL (8.4-10.2); Carbon Dioxide 23 mmol/L (22-32); Chloride 104 mmol/L (98-107); Estimated Glomerular Filt Rate > 60.0 mL/min (>60); Globulin 2.8 g/dL (1.7-4.1); Glucose 140 mg/dL (80-110); HEMOLYSIS < 15 (0-50); Magnesium 1.5 mg/dL (1.6-2.3); Potassium 4.1 mmol/L (3.4-5.1); Sodium 133 mmol/L (137-145); Total Protein 5.8 g/dL (6.3-8.2)
[2020-12-06] MEDS: MIRTAZAPINE 15 MG TABLET 7.5 MG PO (21:47)
--- NOTE | 2020-12-06 22:24 | PC.NURSE ---
At 1800 patient pulled his R AC PIV out and said it was falling out. I restarted his PIV in the L wrist and after secured, I asked patient is he was doing alright afterwards. He didnt respond so I continued to ask questions and he was unable to answer and eventually closed his eyes. He became diaphoretic. Vital signs taken with BP 123/66 pulse 90 and repeat was 108/68 pulse 84. Patient's oxygen saturation was low at 88 so titrated oxygen to 3L and was up to 93%. Discussed with Dr. Cunningham and evaluated patient and determined CT scan of the head was needed. STAT CT completed as well as STAT labs. CT came back clear. Discussed over the phone with patient's daughter who confirms full code status and would like updates. Patient is now able to open eyes and track more and was able to respond that he would like the lights off. (D/C'd narcan per Estefanía CHAMPION)
[2020-12-06] MEDS: MAGNESIUM SULFATE 2 GM/50 ML PIGGYBACK IV (23:15)
[2020-12-07] VITALS (7 sets, daily range): BP systolic 122–165; BP diastolic 78–85; PULSE 52–70; RESP 18–24; TEMP 36–36.4; O2SAT 97–99
--- NOTE | 2020-12-07 05:58 | PC.NURSE ---
Patient was ignoring lab for morning draw, RN went into room to see if patient would respond. Patient responded to RN but refused to have lab draw blood. JAYCEE Will was notified and verbal orders were given to have wait and have another attempt be made in the morning when the patient is more awake.
--- NOTE | 2020-12-07 10:29 | SLP.IPNOTE ---
Order received. Attempted to see pt for swallo eval x2. Pt refused (go away) both attempts. Per nursing pt is refusing all care.
[2020-12-07] MEDS: THIAMINE 100 MG in SODIUM CHLORIDE 0.9% 100 ML 404 ML IV (10:54)
--- NOTE | 2020-12-07 11:02 | PT-IP ANOTE ---
Attempted to see pt this morning at 1035 am but ALISE Palma reported pt has been refusing all care including medication, speech therapy eval and lab draw today. She also stated pt is not appropriate for PT at this point. Will attempt again tomorrow. (might consider possible DC from d/t lack of participation)
--- NOTE | 2020-12-07 11:08 | PC.NURSE ---
Addendum entered by Minerva Calle R.N. 12/07/20 13:51: Dr. Arroyo into see patient and he would not converse with him. This RN was able to hang his iv thiamine and he has been resting comfortably since. Original Note: Patient is refusing all care, iv thiamine hung, patients iv is patent and flushing nicely. He has been repositioned x2. Refused xray, told tech that he was going to punch her if she proceeded. Refused iv lab draws as well. He is resting comfortably and did also refuse to talk to his daughter, she will call back in a couple of hours and try again.
--- NOTE | 2020-12-07 11:09 | OT.IPNOTE ---
Pt refusing all care at this time, therefore check on pt tomorrow to see if appropriate to be seen for OT, otherwise consider discharge from OT services.
--- NOTE | 2020-12-07 12:33 | P.CONS_ITS ---
History of Present Illness Consult details Date Patient Seen: 12/07/20 Time Patient Seen: 12:35 Chief complaint: failure to thrive Reason for consult: Depression Requesting provider: Zulema Cunningham Narrative: REFERRAL INFORMATION This 75-year-old male referred by the hospitalists for evaluation of depression in the context of recent frontal stroke and chronic history of alcoholism with possible Wernicke's encephalopathy. RECORDS REVIEW The patient?s referral documents, medical records and intake questionnaire were reviewed as part of this evaluation. CHIEF COMPLAINT ?You are being obnoxious.? HISTORY OF PRESENT ILLNESS The patient was brought into the emergency department after he was found by a neighbor who had been checking on him because he was not eating or drinking for the last week. He was unwilling to get out of bed and for the last 3 weeks apparently unable to care for himself. Medics found him covered in stool and lying in urine any appeared to be apathetic and uninterested in caring for himself and did not seem to realize what sort of a state he was in. Patient as previously been admitted in June for overall weakness and was then admitted a 2nd time after a fall lately following discharge. In the past, he has been taking mirtazapine and apparently has not been taking it recently. It is unclear at this point who has been prescribing it for him. His history was extremely unclear and often vague in the emergency department, but he stated that he had not had any alcohol to drink in several weeks. The patient was admitted due to failure to thrive and because of recent confusion, the hospitalist ordered a psychiatric consult. The patient is voluntarily mute and refuses to speak with me. He keeps his eyes shut but it is clear that he is actually awake. When I rearranged the bed he complains loudly and clearly, ?how that hurts. ? Or, ?you are being obnoxious. ? He appears to be unwilling or unable to engage in any sort of conversation. Review of the medical record shows that over the last several years he does have a history of fairly severe alcoholism and frequent interaction with medical system related to various sequelae of his chronic alcohol use. In his most rec ent last several weeks, it is unclear if he stopped drinking or if someone else was supplying him with alcohol. PAST PSYCHIATRIC HISTORY - Diagnoses: Alcohol dependence, possible depression but mostly unknown - Inpatient: Unknown - Outpatient: Unknown - Suicide Attempts: Unknown PREVIOUS PSYCHIATRIC MEDICATION TRIALS Unknown CURRENT PSYCHOTROPIC MEDICATIONS Possibly mirtazapine, but unknown at this time FAMILY HISTORY - Maternal: Unknown - Paternal: Unknown - Siblings: Unknown DEVELOPMENTAL AND SOCIAL HISTORY - Family Constellation/Environment: Unknown - Childhood Trauma: Unknown - Developmental milestones: Unknown - Education: Unknown - Employment: Unknown - Relationships: Unknown - Current Living: Currently lives alone in a home here in [place] - Support: Unknown - Legal: Unknown Meds Home Medications and Allergies Allergies Allergy/AdvReac Type Severity Reaction Status Date / Time morphine [MORPHINE] Allergy Unknown Verified 12/04/20 12:24 Review of Systems Review of Systems ROS: Yes unobtainable due to mental condition Exam Vital Signs (past 8 hours): - 12/07/20 05:00 12/07/20 08:25 12/07/20 10:56 Temperature 96.8 F L 97.0 F L Pulse Rate 61 61 61 Respiratory Rate 20 18 18 Blood Pressure 144/79 H 165/82 H Pulse Oximetry 97 99 97 Oxygen Delivery Method Room Air Oxygen Flow Rate 0 Narrative Exam Narrative: MENTAL STATUS EXAM * Appearance: Slender, cachectic appearing, male seen lying in his hospital bed. He occasionally opens his eyes and makes eye contact but then quickly shuts them again and ignores me. * Grooming: Neatly dressed in hospital attire and appears adequately groomed * Behavior: Calm but passively uncooperative with the evaluation * Gait: Not tested * Speech: Normal in rate volume and wendy when he chooses to speak, but is mostly electively mute. * Mood: Refuses to speak * Affect: Passive, blank, refuses to cooperate congruent with what little content is expressed. * Thought Process: Unclear due to elective muteness * Thought Content: Unclear due to elective muteness, however he does not appear to be responding to internal stimuli. * Attention: Refuses to attend to the interview * Orientation: Refuses to cooperate * Memory: Refuses to answer * Insight: Poor * Judgment: Poor Objective Labs Result Diagrams: 12/06/20 19:51 12/06/20 19:51 Labs: Laboratory Results - last 24 hr 12/06/20 12/06/20 19:51 19:51 WBC 8.0 RBC 4.26 L Hgb 14.2 Hct 42.1 MCV 98.6 MCH 33.3 MCHC 33.7 RDW 13.9 Plt Count 246 Neut % (Auto) 73.4 Lymph % (Auto) 11.8 L Esmeralda % (Auto) 11.2 Eos % (Auto) 2.7 Baso % (Auto) 0.9 Neut # (Auto) 5900 Lymph # (Auto) 900 L Esmeralda # (Auto) 900 Eos # (Auto) 200 Baso # (Auto) 100 Sodium 133 L Potassium 4.1 Chloride 104 Carbon Dioxide 23 BUN 15 Creatinine 0.82 Estimated GFR > 60.0 BUN/Creatinine Ratio 18.3 Glucose 140 H Calcium 8.7 Magnesium 1.5 L Total Bilirubin 0.3 AST 33 ALT 45 Alkaline Phosphatase 84 Total Protein 5.8 L Albumin 3.0 L Globulin 2.8 Albumin/Globulin Ratio 1.1 Assessment & Plan Assessment and plan (1) Cognitive and neurobehavioral dysfunction: Status: Acute Assessment & Plan narrative: ASSESSMENT/MEDICAL DECISION MAKING Anthony Saul is a 75-year-old man with apparently a long history of alcoholism in a recent history of frontal stroke, failure to thrive, and profound neglect a personal hygiene and care. He was apparently on mirtazapine recently but at this point I cannot determine who prescribed it. Given the presence of a recent possible frontal stroke as well as his history of alcoholism, I am assuming that much of his current behavior is driven by these events. However, given th at the patient is unable to or unwilling to cooperate with any sort of a psychiatric evaluation, much of this is unclear. However, post stroke depression is the most likely diagnosis, or a history of depression in the context of his history of alcoholism, exacerbated by his recent stroke. RECOMMENDATIONS: 1. Will contact his daughter to obtain further collateral information. 2. Will continue to follow with you while patient is in hospital to see if he warms up and chooses to converse. 3. Recommend starting Sertraline 25 mg (if he will take it) targeting depress huber symptoms. Time Spent With Patient Time with patient: 25 - 35 minutes
--- NOTE | 2020-12-07 13:13 | DIET.PN ---
Dietary Progress Note RD Note: Pt currently NPO awaiting swallow evaluation by Speech Therapy secondary to CVA. Pt refusing care at this time. RD will attempt consult once swallow evaluation completed for formal feeding reccs.
--- NOTE | 2020-12-07 15:41 | PT-IP ANOTE ---
attempted to work with pt x 2. pt is asleep both times and tried to wake pt up but pt does not wake up. pt can get agitated easily per nurse. will f/u tomorrow.
--- NOTE | 2020-12-07 17:23 | PM.PN.1 ---
Subjective Subjective Interval history: At this point Mr. Saul does not respond to any of my questions. Per nursing he is selectively interactive with them and responds to questions. When an alarm went off at bedside he was coherently voiced his displeasure, but otherwise did not say a word. Exam Vital Signs (past 8 hours): - 12/07/20 10:56 Pulse Rate 61 Respiratory Rate 18 Pulse Oximetry 97 Oxygen Delivery Method Room Air Oxygen Flow Rate 0 Narrative Exam Narrative: GEN: does not appear distressed PSYCH: patient refusing to talk to me CV: RRR with no murmurs PULM: clear to auscultation bilaterally EXT: with no edema NEURO: minimally able to obtain as patient is not participating in exam Objective Labs Result Diagrams: 12/06/20 19:51 12/06/20 19:51 Labs: Laboratory Results - last 24 hr 12/06/20 12/06/20 19:51 19:51 WBC 8.0 RBC 4.26 L Hgb 14.2 Hct 42.1 MCV 98.6 MCH 33.3 MCHC 33.7 RDW 13.9 Plt Count 246 Neut % (Auto) 73.4 Lymph % (Auto) 11.8 L Howard % (Auto) 11.2 Eos % (Auto) 2.7 Baso % (Auto) 0.9 Neut # (Auto) 5900 Lymph # (Auto) 900 L Howard # (Auto) 900 Eos # (Auto) 200 Baso # (Auto) 100 Sodium 133 L Potassium 4.1 Chloride 104 Carbon Dioxide 23 BUN 15 Creatinine 0.82 Estimated GFR > 60.0 BUN/Creatinine Ratio 18.3 Glucose 140 H Calcium 8.7 Magnesium 1.5 L Total Bilirubin 0.3 AST 33 ALT 45 Alkaline Phosphatase 84 Total Protein 5.8 L Albumin 3.0 L Globulin 2.8 Albumin/Globulin Ratio 1.1 [facility] Medical History Alcohol abuse Anxiety Cerebral atrophy Chest pain (03/25/18) Dehydration (03/25/18) Depression Erectile dysfunction Essential hypertension Gastritis History of anemia History of liver injury History of pulmonary embolism Inguinal hernia Intrahepatic biloma Metabolic acidosis Personal history of peptic ulcer disease Wernicke-Korsakoff syndrome (alcoholic) Surgical History History of colonoscopy (2014) History of esophagogastroduodenoscopy (EGD) (2015) History of esophagogastroduodenoscopy (EGD) (04/26/18) History of left hip replacement History of shoulder surgery History of total right knee replacement (TKR) Family History Father Cancer Family/Other No problems noted. Mother Cancer Sister No problems noted. Social History marital status: household members: none housing: house Smoking Status: Former smoker alcohol intake: current Assessment & Plan Assessment & Plan narrative: 1. Alcoholic Dementia/Wernicke encephalopathy, possible Korsakoff Syndrome, (Wernicke-Korsakoff syndrome) acute on chronic, present on admission -Encephalopathy, gait ataxia, also malnutrition, and possible peripheral neuropathy. -continue IV thiamine -Tiny acute cortical right frontal infarct, likely embolic on Brain MRI 2. Acute right Frontal Infarct, present on admission. Active -This may have exacerbated his chronic Alcohol related symptoms - W-K, etc. -not a realistic candidate for anticoagulation with his weakness and fall risk -not a realistic interventional candidate with his debility so will defer Echo and Carotid studies. -blunted affect, loss of executive function, indecisiveness are all probably pre-existing stroke but a frontal lobe CVA could made those personality characteristics more profound. -he is resistant to recommendation for SNF placement, but appears to be aware of his losing lauren to stay in his home. -ordered for aspirin and atorvastatin 3. Acute dehydration secondary to UTI, acute, present on admission. -treated with IVF, stopped on 12/05 -patient received 2 g of Rocephin in the ED and then 1 g Rocephin q.day for 3 days to treat Alpha Hemolytic Strep in the urine culture, continue for 5-7 days 4. Chronic alcohol abuse, present on admission. Active -continue thiamine, initiated in the emergency department. -Thiamine & B12 Level ordered 5.Weakness, malnutrition, failure to thrive likely related to Wernicke encephalopathy brought on by long-term chronic alcohol abuse, acute on chronic present on admission. Leading to gait instability and mechanical falls, acute, present on admission -likely multifactorial with alcoholic contribution, urinary tract infection, CVA and immobilization. Malnutrition, muscle wasting, gait ataxia, encephalopathy -PT and OT evaluation -fall precaution -needs placement in a facility, which he has been declining -dietary consult 6. Elevated liver enzymes, acute on chronic, present on Admission. -the AST was 41 on 06/21 The ALT 26 06/21. On admission AST of 74, ALT 108, bili 1.7 -monitor liver enzymes 7. BPH, chronic, present on admission. -continue tamsulosin. 8. GERD, chronic, present on admission. -continue omeprazole 9. Depression, acute on chronic, present on admission. -pre previous MD: patient was unable to provide a level regarding depression symptoms, when patient asked about code status he stated maybe you just shouldn't resuscitate me. I clarified, so you do not wish to be resuscitated, he stated of course I do. Patient struggled to understand the complexities of the discussion. Suicidal ideation unknown at this time. -appreciate psycch consult -continue mirtazapine. added sertraline -He also agreed to a electrical panel builder referral. Quality VTE Deep Vein Thrombosis/Pulmonary Embolism Present on Admission: No
--- NOTE | 2020-12-07 18:01 | CM.DPC ---
DCP/continued: Psychiatry evaluation ordered for mental status. Patient currently working with therapy and refuses SNF. Most likely will need A.P.S. referral for self neglect. DIRECTOR UNDERWRITER SAL[employer] unable to complete today due to case load. P: DIRECTOR UNDERWRITER SALES to review psychiatry evaluation and recommendations. Check with patient on whether or not has has changed mind about SNF. May also consider [facility] because it is not a SNF? JEANETTE Eller
[2020-12-07] MEDS: SODIUM CHLORIDE 0.9% 250 ML 21 ML IV (20:41)
[2020-12-07] MEDS: cefTRIAXone 2,000 MG in SODIUM CHLORIDE 0.9% 100 ML 200 ML IV (20:41)
[2020-12-07] MEDS: SERTRALINE 50 MG TABLET 25 MG PO (20:42)
[2020-12-07] MEDS: MIRTAZAPINE 15 MG TABLET 7.5 MG PO (20:42)
[2020-12-07] MEDS: ATORVASTATIN 20 MG TABLET 40 MG PO (20:42)
[2020-12-07 21:31] LABS: Appearance Urine UA CLEAR; Bilirubin Urine UA NEGATIVE (NEGATIVE); Color Urine UA YELLOW; Glucose Urine UA NEGATIVE (Negative); Ketones Urine UA NEGATIVE (NEGATIVE); Leukocyte Esterase Urine UA TRACE (NEGATIVE); Nitrite Urine UA NEGATIVE (Negative); Occult Blood Urine UA TRACE-INTACT (Negative); Protein Urine UA TRACE (Negative); Specific Gravity Urine UA 1.025 (1.000-1.035); Urobilinogen Urine UA 0.2 E.U./dL (0.2)
[2020-12-07 21:40] LABS: Bacteria Urine Occasional (0-1); Culture Indicated Urine Specimen Cultured; RBC Urine 0-1/HPF (0-5/HPF); Squamous Epithelial Cell Urine 0-1 /HPF (0-5/HPF); WBC Urine 5-10/HPF (0-5/HPF)
--- NOTE | 2020-12-07 21:54 | PC.NURSE ---
Discussed patient condition with daughter, Marysol, and informed her that he is doing better answering questions today. However, he has been refusing medications, lab work, etc. and she stated she wanted to talk with him. Patient and daughter spoke and he was receptive to 2100 medications and repositioning. Daughter informed and she said she would like a call if he refuses labs in the am as she thinks she might be able to help him agree. Will discuss with overnight houseperson nurse.
[2020-12-08] VITALS (11 sets, daily range): BP systolic 105–170; BP diastolic 57–93; PULSE 57–79; RESP 14–20; TEMP 36.1–37.1; O2SAT 94–99
[2020-12-08 05:25] LABS: Hematocrit 47.2 % (41-53); Mean Corpuscular HGB Conc 33.8 % (30-36); Mean Corpuscular Hemoglobin 33.1 PG (26-34); Mean Corpuscular Volume 98.1 fL (80-100); Platelet Count 292 X10^3/uL (150-400); Red Blood Cell Count 4.82 X10^6/uL (4.5-5.9); Red Cell Distribution Width 13.9 % (11.6-14.8); White Blood Cell Count 8.3 X10^3/uL (4.5-11.0)
[2020-12-08 05:39] LABS: Blood Urea Nitrogen 11 mg/dL (9-20); Calcium 9.3 mg/dL (8.4-10.2); Carbon Dioxide 19 mmol/L (22-32); Chloride 108 mmol/L (98-107); Estimated Glomerular Filt Rate > 60.0 mL/min (>60); Glucose 105 mg/dL (80-110); HEMOLYSIS 28 (0-50); Magnesium 1.7 mg/dL (1.6-2.3); Potassium 4.1 mmol/L (3.4-5.1); Sodium 135 mmol/L (137-145)
--- NOTE | 2020-12-08 07:20 | PC.NURSE ---
Patient has been NPO with no fluids ordered and has refused swallow test. Patient also had two large loose stools over the night. JAYCEE Will was notified and no further orders were given.
--- NOTE | 2020-12-08 09:17 | OT.IPNOTE ---
Attempted to see pt for Ot treatment. Pt just opening his eyes when calling out his name and then closed his eyes again when asking if pt wanting to get up for OT. Asked pt whether he wanted to have therapy at all or that we would just have to keep checking on him daily. Pt able to respond no. Able to talk to hospitalist of pt's request to not have anymore therapy. Therefore discharge pt from OT services.
--- NOTE | 2020-12-08 10:05 | PC.NURSE ---
Addendum entered by Minerva Calle R.N. 12/08/20 13:44: Patients continues to not answer questions, Dr. Zepeda was in patients room and asked if he would like to go home, he gives vague answers. He states that he will call patients daughter when he is more available. Mustafa putting out yellow urine, and dr is aware of patients blood pressure being 160s/90s. Addendum entered by Minerva Calle R.N. 12/08/20 10:20: Flushed patients iv and leaking, patient could feel saline going through iv. He suddenly put his fist up as if he was going to punch, this RN explained to patient that we were flushing his iv, he cursed softly. Explained to patient that it would not be the right thing to start hitting at staff. He immediately put his arm down, took iv out. Patient refuses a new start. Speech therapy into see him and will not talk. He was thankful earlier with the WELL TESTER. Resting on his back. Original Note: Patient has refused physical therapy, occupational therapy, and speech therapy. He states that he would like to eat but needs to see speech first. He is refusing his medications and lovenox injection, the only thing we are able to give him is his thiamine iv bag. He does hear us but refuses to answer. He does have mostly periods of clarity but can become confused. He has a mustafa catheter that is putting out yellow urine. Patient denies pain and is resting on his back comfortably.
--- NOTE | 2020-12-08 10:27 | SLP.IPNOTE ---
Attempted to see pt this am. Nursing reported that he indicated he wanted to eat earlier today. pt was laying in his bed with eyes closed. Pt appeared to be listening as per facial expression. Pt refused to talk or open his eyes. When asked questions, pt refused to answer or respond in anyway. Will consider d/c if pt continues to refuse at noon meal.
--- NOTE | 2020-12-08 11:16 | PT-IP ANOTE ---
Attempted to see pt at 0850am. pt was able to wake up by opening his eyes. Introduced myself and explained the role of PT. Asked pt multiple times if he would like to continue PT. Pt looked at me without any verbal response. Communicated with hospitalist regarding his ongoing refusal to PT, we decided to DC pt from PT until pt is able to participate.
[2020-12-08 11:42] LABS: Vitamin B1 251.8 nmol/L (66.5-200.0)
--- NOTE | 2020-12-08 13:50 | SLP.IPNOTE ---
Pt continues to refuse ST. Will discharge at this time. If pt requests to eat and is willing to be assessed, contact ST.
--- NOTE | 2020-12-08 19:09 | PC.NURSE ---
Spoke with pt's daughter Rafi after she talked with pt over the phone in his room. pt agreed to assessments tomorrow morning. Daughter stated that if we reiterate how the patient decided he wants to assessments completed than he is more willing to cooperate. She suggested we remind the pt about his decision to participate often.
--- NOTE | 2020-12-08 20:12 | P.PN_ITS ---
Subjective Subjective Date Patient Seen: 12/08/20 Time Patient Seen: 08:00 Interval history: Today he only intermittently interacts with me. He does not indicate he knows why he is here in the hospital. Some questions he responds appropriately to, but it's difficult to tell if he fully understands his current medical condition Exam Vital Signs (past 8 hours): - 12/08/20 15:54 12/08/20 19:13 12/08/20 19:25 Temperature 97.8 F 98.7 F Pulse Rate 68 79 Respiratory Rate 20 16 Blood Pressure 137/81 132/84 Pulse Oximetry 96 96 94 Oxygen Delivery Method Room Air Oxygen Flow Rate 0 Narrative Exam Narrative: GEN: does not appear distressed PSYCH: patient minimall talking to me CV: RRR with no murmurs PULM: clear to auscultation bilaterally EXT: with no edema NEURO: minimally able to obtain as patient is not participating in exam Objective Labs Result Diagrams: 12/08/20 05:10 12/08/20 05:10 Labs: Laboratory Results - last 24 hr 12/05/20 12/07/20 12/08/20 04:40 20:50 05:10 WBC 8.3 RBC 4.82 Hgb 16.0 Hct 47.2 MCV 98.1 MCH 33.1 MCHC 33.8 RDW 13.9 Plt Count 292 Sodium Potassium Chloride Carbon Dioxide BUN Creatinine Estimated GFR BUN/Creatinine Ratio Glucose Calcium Magnesium Vitamin B1 251.8 H Urine Color Yellow Urine Appearance Clear Urine pH 5.0 Ur Specific Hugo 1.025 Urine Protein Trace H Urine Glucose (UA) Negative Urine Ketones Negative Urine Occult Blood Trace-intact Urine Nitrate Negative Urine Bilirubin Negative Urine Urobilinogen 0.2 Ur Leukocyte Esterase Trace H Urine RBC 0-1/hpf Urine WBC 5-10/hpf H Ur Squamous Epith Cells 0-1 /hpf Urine Bacteria Occasional (0-1) D Ur Culture Indicated? Specimen cultured 12/08/20 05:10 WBC RBC Hgb Hct MCV MCH MCHC RDW Plt Count Sodium 135 L Potassium 4.1 Chloride 108 H Carbon Dioxide 19 L BUN 11 Creatinine 0.61 L Estimated GFR > 60.0 BUN/Creatinine Ratio 18.0 Glucose 105 Calcium 9.3 Magnesium 1.7 Vitamin B1 Urine Color Urine Appearance Urine pH Ur Specific Hugo Urine Protein Urine Glucose (UA) Urine Ketones Urine Occult Blood Urine Nitrate Urine Bilirubin Urine Urobilinogen Ur Leukocyte Esterase Urine RBC Urine WBC Ur Squamous Epith Cells Urine Bacteria Ur Culture Indicated? [facility] Medical History Alcohol abuse Anxiety Cerebral atrophy Chest pain (03/25/18) Dehydration (03/25/18) Depression Erectile dysfunction Essential hypertension Gastritis History of anemia History of liver injury History of pulmonary embolism Inguinal hernia Intrahepatic biloma Metabolic acidosis Personal history of peptic ulcer disease Wernicke-Korsakoff syndrome (alcoholic) Surgical History History of colonoscopy (2014) History of esophagogastroduodenoscopy (EGD) (2014) History of esophagogastroduodenoscopy (EGD) (04/26/18) History of left hip replacement History of shoulder surgery History of total right knee replacement (TKR) Family History Father Cancer Family/Other No problems noted. Mother Cancer Sister No problems noted. Social History marital status: household members: none housing: house Smoking Status: Former smoker alcohol intake: current Assessment & Plan Assessment & Plan narrative: 1. Alcoholic Dementia/Wernicke encephalopathy, possible Korsakoff Syndrome, (Wernicke-Korsakoff syndrome) acute on chronic, present on admission -Encephalopathy, gait ataxia, also malnutrition, and possible peripheral neuropathy. -continue IV thiamine -Tiny acute cortical right frontal infarct, likely embolic on Brain MRI 2. Acute right Frontal Infarct, present on admission. Active -This may have exacerbated his chronic Alcohol related symptoms - W-K, etc. -not a realistic candidate for anticoagulation with his weakness and fall risk -not a realistic interventional candidate with his debility so will defer Echo and Carotid studies. -blunted affect, loss of executive function, indecisiveness are all probably pre-existing stroke but a frontal lobe CVA could made those personality characteristics more profound. -he is resistant to recommendation for SNF placement, but appears to be aware of his losing lauren to stay in his home. -ordered for aspirin and atorvastatin 3. Acute dehydration secondary to UTI, acute, present on admission. -treated with IVF, stopped on 12/05 -patient received 2 g of Rocephin in the ED and then 1 g Rocephin q.day for 3 days to treat Alpha Hemolytic Strep in the urine culture, continue for 5-7 days 4. Chronic alcohol abuse, present on admission. Active -continue thiamine, initiated in the emergency department. -Thiamine & B12 Level ordered 5.Weakness, malnutrition, failure to thrive likely related to Wernicke encephalopathy brought on by long-term chronic alcohol abuse, acute on chronic present on admission. Leading to gait instability and mechanical falls, acute, present on admission -likely multifactorial with alcoholic contribution, urinary tract infection, CVA and immobilization. Malnutrition, muscle wasting, gait ataxia, encephalopathy -PT and OT evaluation -fall precaution -needs placement in a facility, which he has been declining -dietary consult 6. Elevated liver enzymes, acute on chronic, present on Admission. -the AST was 41 on 06/21 The ALT 26 06/21. On admission AST of 74, ALT 108, bili 1.7 -monitor liver enzymes 7. BPH, chronic, present on admission. -continue tamsulosin. 8. GERD, chronic, present on admission. -continue omeprazole 9. Depression, acute on chronic, present on admission. -per previous MD: patient was unable to provide a level regarding depression symptoms, when patient asked about code status he stated maybe you just shouldn't resuscitate me. I clarified, so you do not wish to be resuscitated, he stated of course I do. Patient struggled to understand the complexities of the discussion. Suicidal ideation unknown at this time. -appreciate psych consult -continue mirtazapine. added sertraline Quality VTE Deep Vein Thrombosis/Pulmonary Embolism Present on Admission: No
--- NOTE | 2020-12-08 20:37 | PC.NURSE ---
HOME MEDICATIONS. spoke to daughter re: home medication list. Daughter is confident he has not touched a pill since he returned to [facility] which would be April 2020. Daughter stated that the only medication he was prescribed was tamsulosin, which made pt incontinent and sleepy. pt did not have voiding concerns and would often not take it.
--- NOTE | 2020-12-08 20:44 | PC.NURSE ---
Addendum entered by Silvia Hamilton R.N. 12/08/20 22:43: pt grimacing when I checked in. I asked if he would like help repositioning to which he replied yes. We boosted him in bed and used the bed to rotate slightly to his right side. pt trying to use call light. I sat by bedside and helped pt find music channel he liked. pt delayed in responses and answers are short but appropriate. Original Note: [facility] Shift report. pt Alert and oriented to self and sometimes situation. pt delayed in speech but answers most questions appropriately. pt reporting discomfort to back at start of shift which resolved with repositioning. Wells draining to gravity and free of kinks, urine is a dark yellow. pt NPO and requesting something to drink. I reminded pt that he cannot have any food or drink until he has an eval by our speech team. pt apologized and wish they were still around. He agreed to lemon swabs. No IV access, providing team aware. Alon stopped by at start of shift and pt refused the conversation. Dr. Arroyo also stopped by at the start of shift (and did not communicate any updates to me or other nursing staff). Spoke to daughter, Marysol a couple times who suggested we make agreeing to tests his idea and at which case he may be more cooperative; pt currently agreeing to speech eval so he can drink orange juice. Also discussed home medications with daughter who stated that she is confident that he has not taken one pill since he returned to [facility] referring to when he left living with her and moved back here in Apr 2020. The only medication she did mention was that he was taking tamsulosin for a while but it only made him sleepy and incontinent when he wasn't incontinent nor have issues urinating.
[2020-12-09] VITALS (7 sets, daily range): BP systolic 108–127; BP diastolic 60–81; PULSE 63–74; RESP 14–18; TEMP 36.3–37.1; O2SAT 92–96
--- NOTE | 2020-12-09 01:28 | PM.CALLCOV.1 ---
Call Coverage Note Note Date of Patient Contact: 12/09/20 Time of Patient Contact: 01:30 Narrative of Care Provided: Patient was reported to be pulling on his mustafa tube. Mustafa tube contents are bloody. Patient would not address me. I ordered the tube removed, because he was at further risk of injurying himself by pulling on it.
--- NOTE | 2020-12-09 04:20 | PC.NURSE ---
Patient is oriented to name, birthdate and that this is the hospital but did not know it was in [place]. Responses are delayed but mostly appropriate. NIH = 4 as had month and age incorrect along with right arm drift down to bed. Breath sounds CTA with RA sat of 94%. HRR. Complained of slight nausea but declined antiemetic. BT present and is passing flatus. Found patient with catheter strap removed and pulling at catheter; noted urine in tube/bag to be red with small clots. Patient requesting catheter be removed so discussed with Emeka CHAMPION, and order received to remove catheter. Is able to move himself in bed. Gait not assessed as not out of bed at this time. CIWA score is 1 for slight nausea and mild anxiety. Seizure pads on bed. Denied pain. Currently NPO until seen by speech but given lemon glycerin swabs to moisten mouth. Affect is flat but patient is conversant and cooperative. Fall risk score is high and bed alarm is activated.
--- NOTE | 2020-12-09 08:52 | CM.DPNOTE ---
DCP Note Spoke w/Clay Chavez, cell P# [phone], office P# [phone], [facility] [employer], discussed general concerns about this patient's DCP and safety at home, no name given. Clay suggested his service be offered to patient, a community check in at patient's home, and if patient agreeable, Clay can check in at patient's home upon DC JW
[2020-12-09] MEDS: MULTIVITAMIN 1 TABLET 1 TAB PO (10:08)
[2020-12-09] MEDS: ASPIRIN EC 81 MG TABLET PO (10:08)
[2020-12-09] MEDS: TAMSULOSIN 0.4 MG CAPSULE PO (10:08)
[2020-12-09] MEDS: FOLIC ACID 1 MG TABLET PO (10:08)
--- NOTE | 2020-12-09 11:46 | OT.IP.EVAL ---
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) Unspecified mental disorder due to known physiological condition (12/04/20) Past Medical History (Last Reviewed 12/07/20 @ 16:47 by Felipe Arroyo MD) Alcohol abuse Anxiety Cerebral atrophy Chest pain (03/25/18) Dehydration (03/25/18) Depression Erectile dysfunction Essential hypertension Gastritis History of anemia History of colonoscopy (2014) History of esophagogastroduodenoscopy (EGD) (2014) History of esophagogastroduodenoscopy (EGD) (04/26/18) History of left hip replacement History of liver injury History of pulmonary embolism History of shoulder surgery History of total right knee replacement (TKR) Inguinal hernia Intrahepatic biloma Metabolic acidosis Personal history of peptic ulcer disease Wernicke-Korsakoff syndrome (alcoholic) Surgical History (Last Reviewed 12/07/20 @ 16:47 by Felipe Arroyo MD) History of colonoscopy (2014) History of esophagogastroduodenoscopy (EGD) (2014) History of esophagogastroduodenoscopy (EGD) (04/26/18) History of left hip replacement History of shoulder surgery History of total right knee replacement (TKR) Occupational Therapy Inpatient Evaluation/Re-Eval M1 PT/OT-IP Prior Functional Status Start: 12/05/20 13:54 Freq: Status: Active Protocol: Document 12/09/20 11:50 AB (Rec: 12/09/20 13:14 AB [id number]) Medical Review Prior Functional Status Medical History Reviewed Yes Communication able to answer questions but requires increase time to respond; pt also is not certain regarding info given Mobility and Gait pt stated that he mostly just stays in bed but able to stand and ambulate but with difficulty using a FWW. Limited with ambulation per pt and does not get up much. Social History Household Members none Living Arrangements House Number of Floors (Floors) Two Floors Number of Stairs To Enter/Railing? 4 steps to enter without a rail. pt stated that he stays on main level of the house 13 steps with R rail to second floor Home Environment Standard Height Toilet,Walk in Shower Home Equipment Front Wheel Walker,Hand Held Shower Employment Status Retired Additional Social History Comment pt stated that his friend checks on him ~ 2x/month; continues to have meals on wheels M1 PT/OT-IP Prior Functional Status Start: 12/06/20 16:21 Freq: NEEDED Status: Active Protocol: Document 12/09/20 11:50 AB (Rec: 12/09/20 13:14 AB [id number]) Medical Review Prior Functional Status Medical History Reviewed Yes Communication able to answer questions but requires increase time to respond; pt also is not certain regarding info given Mobility and Gait pt stated that he mostly just stays in bed but able to stand and ambulate but with difficulty using a FWW. Limited with ambulation per pt and does not get up much. Social History Household Members none Living Arrangements House Number of Floors (Floors) Two Floors Number of Stairs To Enter/Railing? 4 steps to enter without a rail. pt stated that he stays on main level of the house 13 steps with R rail to second floor Home Environment Standard Height Toilet,Walk in Shower Home Equipment Front Wheel Walker,Hand Held Shower Employment Status Retired Additional Social History Comment pt stated that his friend checks on him ~ 2x/month; continues to have meals on wheels M2 OT-IP Current Condition Start: 12/06/20 16:21 Freq: Status: Active Protocol: Document 12/09/20 11:09 [facility] (Rec: 12/09/20 14:41 [facility] [id number]) Occupational Therapy Current Condition Current Condition Evaluation Date 12/09/20 Treatment Diagnosis Failure to thrive, CVA Diagnosis Onset Date 12/04/20 M3 OT- IP Subjective and Pain Start: 12/06/20 16:21 Freq: Status: Active Protocol: Document 12/09/20 11:09 [facility] (Rec: 12/09/20 14:41 [facility] [id number]) OT- Subjective Occupational Therapy Visit Type Type Re-Evaluation Visit Start Time 11:19 Visit Stop Time 11:46 Total Visit Minutes 27 Notes Pt yesterday insisting to be discharge from OT services in addition to refusing past couple of days. Per nurse, pt daughter able to convince pt to participate in therapy, therefore new OT eval order received for today 12/09/20. Occupational Therapy Visit Comments Patient Comments Pt states I am in too much pain to move right now. Pt agreed to get changed and participate in OT eval. Patient/Caregiver Goals To go home. OT Pain Assessment Pain When Pain Assessed At Rest Pain Present Pain Present Pain Reported Location Groin Intensity 9 Scale Used Numeric (0 - 10) M4 OT- IP ADL's Start: 12/06/20 16:21 Freq: Status: Active Protocol: Document 12/09/20 11:09 [facility] (Rec: 12/09/20 14:41 [facility] [id number]) OT [id number] Comments OT Self-Feeding Comments Not meal time OT ADL-Grooming Comments OT Grooming Comments Pt needing MODA for completeness to wipe his hands off as having soiled hands from bowel movement. OT ADL-Oral Care Comments Oral Care Comments Pt did not perform at this time. OT ADL-Dressing General Eval Lower Body Dressing Ability Maximum Assistance Areas Needing Assistance Underpants/Brief Comments OT Dressing Comments MAX A for brief change while in bed. OT ADL-Toileting General Evaluation Areas Needing Assistance Manage Clothing,Perform Perineal Hygiene OT ADL-Bathing Bathing Type Bathing Type Sponge Bath General Evaluation Bathing Ability Maximal Assistance Comments OT Bathing Comments Pt only able to assist minimally at this time. M5 OT- IP IADL's Start: 12/06/20 16:21 Freq: Status: Active Protocol: Document 12/09/20 11:09 [facility] (Rec: 12/09/20 14:41 [facility] [id number]) OT-Instrumental Activities of Daily Living Deficits IADL Deficits Identified Deficits Home Safety Awareness Awareness of Need for Assistance at Home Decreased Awareness Ability to Problem Solve Emergency Unable to Problem Solve Situations M6 OT- IP Functional Cognition Start: 12/06/20 16:21 Freq: Status: Active Protocol: Document 12/09/20 11:09 [facility] (Rec: 12/09/20 14:41 [facility] [id number]) Cognitive Factors Limiting Selfcare Function Cognitive Ability Level of Alertness Alert Patient Orientation Name,Age,Birthday,Month,Year, Place,Situation Attention Span Ability Capable of Focused Attention, Capable of Sustained Attention Ability to Follow Commands Able to Follow One Step Commands with Increased Time, Able to Follow One Step Commands with Repetition Cognitive Comments Cognitive Assessment Comments Pt needing cues to verbalize his wants. Pt states not wanting to get up. After asking why pt states I am afraid. After discussion , able to find out that pt is in pain from pulling out his catheter and not wanting to get up until able to have his pain relieved. Pt's nurse notified of pt's request for pain medications. OT- Vision and Hearing OT- Hearing Assessment OT- Hearing Assessment WFL OT- Vision Assessment Visual Acuity WFL M7 OT- IP Mobility and Balance Start: 12/06/20 16:21 Freq: Status: Active Protocol: Document 12/09/20 11:09 [facility] (Rec: 12/09/20 14:41 [facility] [id number]) OT- Bed Mobility Assessment Rolling Type of Rolling Log Rolling Level of Assistance Contact Guard Assistance OT-Transfer Assessment Comments Mobility Comments Pt not wanting to get out of the bed at this time. M8 OT- IP Objective Assessments Start: 12/06/20 16:21 Freq: Status: Active Protocol: Document 12/09/20 11:09 [facility] (Rec: 12/09/20 14:41 [facility] [id number]) OT Gross Range of Motion Upper Extremity Range of Motion Assessment Right Impaired OT Strength Upper Extremity Strength Assessment Right Impaired Comments Strength Comments Pt RUE 3-/5 to 4/5 and LUE 3+/ 5 to 4-/5 from proximal to distal. OT Sensation Assessment Edema Edema Absent M9 OT- IP Assessment and Plan Start: 12/06/20 16:21 Freq: Status: Active Protocol: Document 12/09/20 11:09 [facility] (Rec: 12/09/20 14:41 [facility] [id number]) OT Summary Assessment and Plan Potential Rehabilitation Potential Fair Analytic Complexity at Evaluation High Summary OT Impairments Strength,Balance,Coordination, Functional Cognition, Functional Mobility,Grooming, Dressing,Toileting,Bathing, Toilet Transfers,Shower Transfers,Activity Tolerance Progress Towards Goals Slow Progress due to Pain,Slow Progress due to Activity Tolerance,Slow Progress due to Cognition Assessment Summary Pt high complexity admitted for failure to thrive and new onset of CVA. Prior questionable as to how safe pt was and mainly stayed in bed. Pt has decreased insight, judgment, and tends to direct his care. Pt if going home will need 24/7 available assist versus SNF versus intermediate care placement. Goals Self-Feeding Goal Independent Grooming Goal Independent Dressing Goal Independent Toileting Goal Independent Bathing Goal Independent Toilet Transfer Goal Independent Shower Transfer Goal Independent Days to Meet Goals 30 Frequency of Treatment Frequency Of Treatment Once a Day Treatment Plan OT Treatment Plan ADL Training,Functional Cognition Training,Functional Mobility,Patient/Family Education,Discharge Planning Other Treatment Recommendations and Next ADLs seated, transfer Treatment Focus assessment. Discharge Recommendations OT Discharge Recommendations Home with 24/7 Assist Available,Home Health,SNF Rehab Transportation Needs at Discharge Wheelchair/Cabulance
[2020-12-09] MEDS: ACETAMINOPHEN 325 MG TABLET 650 MG PO (11:48)
--- NOTE | 2020-12-09 11:50 | PT.IIE ---
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) Unspecified mental disorder due to known physiological condition (12/04/20) Medical History (Last Reviewed 12/07/20 @ 16:47 by Felipe Arroyo MD) Alcohol abuse Anxiety Cerebral atrophy Chest pain (03/25/18) Dehydration (03/25/18) Depression Erectile dysfunction Essential hypertension Gastritis History of anemia History of liver injury History of pulmonary embolism Inguinal hernia Intrahepatic biloma Metabolic acidosis Personal history of peptic ulcer disease Wernicke-Korsakoff syndrome (alcoholic) Physical Therapy Inpatient Evaluation/Re-Eval M1 PT/OT-IP Prior Functional Status Start: 12/05/20 13:54 Freq: Status: Active Protocol: Document 12/09/20 11:50 AB (Rec: 12/09/20 13:14 AB [id number]) Medical Review Prior Functional Status Medical History Reviewed Yes Communication able to answer questions but requires increase time to respond; pt also is not certain regarding info given Mobility and Gait pt stated that he mostly just stays in bed but able to stand and ambulate but with difficulty using a FWW. Limited with ambulation per pt and does not get up much. Social History Household Members none Living Arrangements House Number of Floors (Floors) Two Floors Number of Stairs To Enter/Railing? 4 steps to enter without a rail. pt stated that he stays on main level of the house 13 steps with R rail to second floor Home Environment Standard Height Toilet,Walk in Shower Home Equipment Front Wheel Walker,Hand Held Shower Employment Status Retired Additional Social History Comment pt stated that his friend checks on him ~ 2x/month; continues to have meals on wheels M1 PT/OT-IP Prior Functional Status Start: 12/06/20 16:21 Freq: NEEDED Status: Active Protocol: Document 12/09/20 11:50 AB (Rec: 12/09/20 13:14 AB [id number]) Medical Review Prior Functional Status Medical History Reviewed Yes Communication able to answer questions but requires increase time to respond; pt also is not certain regarding info given Mobility and Gait pt stated that he mostly just stays in bed but able to stand and ambulate but with difficulty using a FWW. Limited with ambulation per pt and does not get up much. Social History Household Members none Living Arrangements House Number of Floors (Floors) Two Floors Number of Stairs To Enter/Railing? 4 steps to enter without a rail. pt stated that he stays on main level of the house 13 steps with R rail to second floor Home Environment Standard Height Toilet,Walk in Shower Home Equipment Front Wheel Walker,Hand Held Shower Employment Status Retired Additional Social History Comment pt stated that his friend checks on him ~ 2x/month; continues to have meals on wheels M2 PT-IP Current Condition Start: 12/05/20 13:54 Freq: Status: Active Protocol: Document 12/09/20 11:50 AB (Rec: 12/09/20 13:14 AB [id number]) Physical Therapy Current Condition Current Condition Evaluation Date 12/09/20 Treatment Diagnosis UTI; failure to thrive; difficulty in walking Onset Date 12/04/20 Precautions Other Precautions falls M3 PT-IP Subjective Start: 12/05/20 13:54 Freq: Status: Active Protocol: Document 12/09/20 11:50 AB (Rec: 12/09/20 13:14 AB [id number]) Subjective Physical Therapy Visit Type Type Initial Evaluation Visit Start Time 11:50 Visit Stop Time 12:07 Total Visit Minutes 17 Notes pt had PT eval 12/05/20 but was d/c from PT yesterday due to lack of participation with refusals after PT eval. Received PT eval order again today 12/09/20 . Number of STUDENT EDUCATION SPECIALIST Visits 0 Therapy Pain Assessment Pain When Pain Assessed At Rest Pain Present Pain Present Pain Reported Location Groin Scale Used per nurse: pt pulled his mustafa out Pain Management Techniques Modification of Treatment,Re- positioning,Timing of Activity with Medications M4 PT-IP Mobility and Gait Start: 12/05/20 13:54 Freq: Status: Active Protocol: Document 12/09/20 11:50 AB (Rec: 12/09/20 13:14 AB [id number]) PT-Bed Mobility Assessment Supine to Sit Supine to Sit Standby Assistance,Head of Bed Elevated,Bedrails Sit to Supine Sit to Supine Standby Assistance PT-Transfer Assessment Sit to and From Stand Sit to and from Stand Moderate Assistance,1 Person Assistance,Use of Upper Extremities Equipment Transfer Assistive Device Gait Belt,Front Wheeled Walker Orthotic/Prosthetic Devices or Brace: No Comments Mobility Comments pt supine in bed. Able to answer questions but requires increase time to respond and pt is not sure regarding information provided to PT. pt can get agitated easily. completed supine to sit with HOB elevated SBa. pt was able to sit on EOB CGA. increase forward head and back posture. PT directs his own care. completed sit to stand from EOB mod A and cues. Tolerated ~ 10 sec of stand and refused to transfer to chair or ambulate. when encouraged to take steps. pt got agitated and said No. pt completed sit to supine SBA but required max A x 2 for positioning on the bed. call light and table placed within reach. Gait Assessment Comments Gait Comments refused PT-Balance Assessment Sitting Balance and Reactions Static Sitting Balance Ability Good Dynamic Sitting Balance Ability Fair Standing Balance and Reactions Static Standing Balance Ability Fair Dynamic Standing Balance Ability Poor Device Used FWW M5 PT-IP Objective Assessments Start: 12/05/20 13:54 Freq: Status: Active Protocol: Document 12/09/20 11:50 AB (Rec: 12/09/20 13:14 AB [id number]) Orientation Orientation/Cognition Level of Alertness Confusional State Orientation Name Safety Awareness Decreased Safety Awareness Memory Description Short Term Impaired,Residential Impaired Strength Lower Extremity Strength Assessment Bilaterally Impaired Hip 3+/5 Knee 3+/5 Muscle Tone Muscle Tone WNL Yes M6 PT-IP Treatment Start: 12/05/20 13:54 Freq: Status: Active Protocol: Document 12/09/20 11:50 AB (Rec: 12/09/20 13:14 AB [id number]) Physical Therapy Treatment Education Education Provided Safety M7 PT-IP Assessment and Plan Start: 12/05/20 13:54 Freq: Status: Active Protocol: Document 12/09/20 11:50 AB (Rec: 12/09/20 13:14 AB [email or web address]) PT Summary Assessment and Plan Potential Rehabilitation Potential Fair Status of Condition at Evaluation Evolving Summary Impairments Pain,ROM,Strength,Balance, Coordination,Sensation,Tone, Cognition,Bed Mobility, Transfers,Gait,Activity Tolerance Assessment Summary Pt unable to tolerate much activity but was able to stand using FWW for support mod A and cues. refused to transfer out of the bed or ambulate and when encouraged got agitated. pt just wanted to go back to bed. Pt also has dx of Wernicke's dementia affecting safety awareness and mobility level. Pt lives alone and stated that he usually just stays in bed. pt require 24/ assist available and will need SNF rehab at this time. will continue to assess progress. Goals Bed Mobility Goal Independent Transfer Goal Standby Assistance,Front Wheeled Walker Gait Goal Standby Assistance,Front Wheel Walker Gait Distance 25 Other Goals improve ambualtion SBA using FWW 50 ft up/down 4 steps without rails min A Days to Meet Goals 10 Frequency of Treatment Frequency Of Treatment Once a Day Treatment Plan Physical Therapy Treatment Plan Bed Mobility Training,Transfer Training,Gait Training, Therapeutic Exercise,Balance Retraining,Discharge Planning, Neuromuscular Re-ed, Coordination Retraining Precautions Other Precautions falls Recommendations To Nursing Amount of Assist Needed 2 Person Assist Discharge Recommendations PT Discharge Recommendations SNF Rehab Transportation Needs at Discharge Wheelchair/Cabulance,Stretcher /Ambulance
--- NOTE | 2020-12-09 13:42 | ST.IPCSEOM ---
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 Garcia History of left hip replacement (Medical) History of liver injury (Medical) History of pulmonary embolism (Medical) History of shoulder surgery (Medical) Bilateral shoulder repairs History of total right knee replacement (TKR) (Medical) Inguinal hernia (Medical) Intrahepatic biloma (Medical) Metabolic acidosis (Medical) Personal history of peptic ulcer disease (Medical) Wernicke-Korsakoff syndrome (alcoholic) (Medical) Speech-Language Pathology Swallow Evaluation CONSTRUCTION PERSON Clinical Swallow Evaluation Start: 12/09/20 13:12 Freq: Status: Active Protocol: Document 12/09/20 13:13 LNK (Rec: 12/09/20 13:42 LNK [id number]) Clinical Swallow Evaluation Session Time Visit Start Time 10:40 Visit Stop Time 11:15 Total Visit Minutes [address] Luz Setting Assessment Location Acute Care Visit Type Note Type Initial evaluation Patient Information Identification Type Name,Wristband History Patient is a 75-year-old male Anthony Saul with history of alcohol use disorder, Wernicke encephalopathy who apparently has not been eating or drinking for at least the last week, unwilling to get out of bed, his neighbor has been checking on him over the last 3 weeks with increasing concerns and increasing apathy an inability to care for self . Medics found him covered in stool and lying in urine. He is completely apathetic and uninterested in caring for himself does not seem to realize the state that he is in and clearly isn't recognizing that he is not eating or drinking. He was admitted in June for overall weakness and then admitted a 2nd time after a fall immediately after discharge. MRI indicated the followin. Tiny acute cortical right frontal infarct , likely embolic. 2. Old small focal right occipital infarct . 3. Age-related volume loss and moderate small vessel ischemic change. Subjective Observations Pt has been refusing all care since admission. Today he requested a meal and was agreeable to a swallow assessment. Reported by Patient Baseline Feeding Method Independent in self-feeding Objective Assessment Mental Status Alert,Responsive,Cooperative Oral Integrity WFL Lip Function Within normal limits Observation of Lips at Rest Symmetrical Tongue Function Within normal limits Observations of Tongue at Rest Within normal limits Tongue Protrusion Within normal limits Tongue Lateralization Within normal limits Jaw Function Within normal limits Food and Liquid Trials Position During Assessment Upright (90 degrees),Slightly reclined Liquids Trialed Thin Solids Trialed Mechanical Soft Administration Type Cup single sip,Self-feeding Oral Impairment Within functional limits Oral Phase Comments OME indicated that the pt's oral structures and strength were WFL for mastication. Pharyngeal Impairment Within functional limits Pharyngeal Phase Comments Good hyolaryngeal elevation. No audible swallow, no wet voice after swallowing. No cough/choke observed. Pt's swallow was observed to be WFL . Pt safely tolerated mechanical soft texture and thin liquids with no s/sx aspiration. This evaluation cannot rule out silent aspiration which would require instrumental evaluation. This was not indicated Fatigue/Endurance Mild fatigue Findings Swallowing Function Within functional limits Severity of Swallow Impairment Within functional limits Prognosis Good Impact on Safety and Functioning No limitations Recommendations Instrumental Assessment No Swallowing Treatment Yes Frequency 1x for monitor diet tolerance Recommended Solids Mechanical Soft Recommended Liquids Thin Safety Precautions/Swallowing Remain upright (90 degrees) Recommendations during all oral intake,Upright position at least 30 minutes after meals Medication Recommendations As Tolerated Discharge Recommendations [facility] facility,resolution expert care facility Education Patient/Caregiver Education Described results of evaluation,Patient expressed understanding of evaluation Goals Long-term Goals Pt will safely tolerate the least restrictive diet without s/sx aspiration
--- NOTE | 2020-12-09 17:08 | PM.PN.1 ---
Subjective Subjective Date Patient Seen: 12/09/20 Time Patient Seen: 15:30 Interval history: Attempted once again to see the patient to see if he would open up and finally speak with me. I was able to have at least somewhat more of a discussion with him about his disposition. The patient currently denies any suicidal or homicidal ideation, intent, or plan. The patient denies any hallucinations, illusions, delusions, ideas of reference are any psychotic phenomena. The patient denies any depression or anxiety. When asked about how he would care for himself and his dog, he noted that both meals [employer] and [employer] are able to deliver and that is how he would get food. He states that he has been able to toilet himself and can care for himself with respect to bathing and cleaning. He expressed desire to return home and denied any psychiatric symptoms. The patient did provide relatively short answers and appeared to be somewhat careful not to speak extensively or open up any subject other than specifically answering the question. I spoke with his daughter before talking to the patient and she is concerned for his safety in returning home. He apparently was living with the daughter and her in [place] but due to some interpersonal conflict insisted that he be returned home to [place] or he intended to walk from [place]. We had an extensive discussion about the limits of being able to legally hold someone against their will. Exam Vital Signs (past 8 hours): - 12/09/20 09:17 12/09/20 15:10 Temperature 97.4 F L 98.0 F Pulse Rate 73 73 Respiratory Rate 18 17 Blood Pressure 127/81 112/67 Pulse Oximetry 94 92 Oxygen Delivery Method Room Air Oxygen Flow Rate 0 Psych Other: MENTAL STATUS EXAM Appearance: Thin appearing, male seen lying in his hospital bed. Grooming: Neatly dressed in hospital attire and appears adequately groomed Behavior: Calm but passive, however much more cooperative with the examination than previously. Gait: Not tested Speech: Normal in rate volume and wendy Mood: OK Affect: Somewhat Passive, slightly annoyed, constricted. Thought Process: Unclear due to elective muteness Thought Content: without suicidal or homicidal ideation, intent, or plan and there was no evidence of a formal thought or perceptual disturbance. Attention: Alert and interactvie. Orieantation: Oriented to person, place, day, month, (not year), circumstance. Memory: somewhat intact for recent events. Insight: Poor Judgment: Poor Objective Labs Result Diagrams: 12/08/20 05:10 12/08/20 05:10 [facility] Medical History Alcohol abuse Anxiety Cerebral atrophy Chest pain (03/25/18) Dehydration (03/25/18) Depression Erectile dysfunction Essential hypertension Gastritis History of anemia History of liver injury History of pulmonary embolism Inguinal hernia Intrahepatic biloma Metabolic acidosis Personal history of peptic ulcer disease Wernicke-Korsakoff syndrome (alcoholic) Surgical History History of colonoscopy (2014) History of esophagogastroduodenoscopy (EGD) (2014) History of esophagogastroduodenoscopy (EGD) (04/26/18) History of left hip replacement History of shoulder surgery History of total right knee replacement (TKR) Family History Father Cancer Family/Other No problems noted. Mother Cancer Sister No problems noted. Social History marital status: household members: none housing: house Smoking Status: Former smoker alcohol intake: current Assessment & Plan Assessment and plan (1) Cognitive and neurobehavioral dysfunction: Status: Acute Assessment & Plan narrative: ASSESSMENT/MEDICAL DECISION MAKING Anthony Saul is a 75-year-old man with apparently a long history of alcoholism in a recent history of frontal stroke, failure to thrive, and profound neglect a personal hygiene and care. He was on mirtazapine at some point, but unclear who prescribed it. Given the presence of a recent possible frontal stroke as well as his history of alcoholism, I am assuming that much of his current behavior is driven by these events. 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 After a fairly extensive discussion with the patient's daughter, it appears that his underlying personality is quite stubborn and abrasive at times. The daughter acknowledged his history of alcohol dependence and also stated that he threatened to walk out the door while living with them in [place] if she would not agree to return him back to [place] to live alone. RECOMMENDATIONS: 1. The patient does not appear to be holdable. He is able to express reasonably how we would obtain food and care for his dog. He appears to have recovered sufficiently that he could be discharged to home. 2. Will continue to follow with you while patient is in hospital. 3. I am happy to go up with the patient as an outpatient if he wishes to address his likely depressive symptoms and would recommend that he continue taking low dose of sertraline at 25 mg (if he will take it) targeting depressive symptoms. Time Spent With Patient Time with patient: 15-24 minutes Quality VTE Deep Vein Thrombosis/Pulmonary Embolism Present on Admission: No
--- NOTE | 2020-12-09 17:47 | PM.PN.1 ---
Subjective Subjective Date Patient Seen: 12/09/20 Time Patient Seen: 08:00 Interval history: Today he interacts more. He does say he wants to go home. He does not want to go to any sort of facility temporarily or permanently. He has no complaints. Exam Vital Signs (past 8 hours): - 12/09/20 15:10 Temperature 98.0 F Pulse Rate 73 Respiratory Rate 17 Blood Pressure 112/67 Pulse Oximetry 92 Oxygen Delivery Method Room Air Oxygen Flow Rate 0 Narrative Exam Narrative: GEN: does not appear distressed PSYCH: patient minimally talking to me CV: RRR with no murmurs PULM: clear to auscultation bilaterally EXT: with no edema NEURO: minimally able to obtain as patient is not participating in exam Objective Labs Result Diagrams: 12/08/20 05:10 12/08/20 05:10 [facility] Medical History Alcohol abuse Anxiety Cerebral atrophy Chest pain (03/25/18) Dehydration (03/25/18) Depression Erectile dysfunction Essential hypertension Gastritis History of anemia History of liver injury History of pulmonary embolism Inguinal hernia Intrahepatic biloma Metabolic acidosis Personal history of peptic ulcer disease Wernicke-Korsakoff syndrome (alcoholic) Surgical History History of colonoscopy (2014) History of esophagogastroduodenoscopy (EGD) (2014) History of esophagogastroduodenoscopy (EGD) (04/26/18) History of left hip replacement History of shoulder surgery History of total right knee replacement (TKR) Family History Father Cancer Family/Other No problems noted. Mother Cancer Sister No problems noted. Social History marital status: household members: none housing: house Smoking Status: Former smoker alcohol intake: current Assessment & Plan Assessment & Plan narrative: 1. Alcoholic Dementia/Wernicke encephalopathy, possible Korsakoff Syndrome, (Wernicke-Korsakoff syndrome) acute on chronic, present on admission -Encephalopathy, gait ataxia, also malnutrition, and possible peripheral neuropathy. -continue IV thiamine -Tiny acute cortical right frontal infarct, likely embolic on Brain MRI -per psychiatry patient able to make own decisions 2. Acute right Frontal Infarct, present on admission. Active -This may have exacerbated his chronic Alcohol related symptoms - W-K, etc. -not a realistic candidate for anticoagulation with his weakness and fall risk -not a realistic interventional candidate with his debility so will defer Echo and Carotid studies. -blunted affect, loss of executive function, indecisiveness are all probably pre-existing stroke but a frontal lobe CVA could made those personality characteristics more profound. -he declines recommendation for SNF placement -ordered for aspirin and atorvastatin 3. Acute dehydration secondary to UTI, acute, present on admission. Resolved -treated with IVF, stopped on 12/05 -patient received 2 g of Rocephin in the ED and then 1 g Rocephin q.day for 3 days to treat Alpha Hemolytic Strep in the urine culture, continue for 5 days 4. Chronic alcohol abuse, present on admission. Active -continue thiamine, initiated in the emergency department. -Thiamine & B12 Level ordered 5.Weakness, malnutrition, failure to thrive likely related to Wernicke encephalopathy brought on by long-term chronic alcohol abuse, acute on chronic present on admission. Leading to gait instability and mechanical falls, acute, present on admission -likely multifactorial with alcoholic contribution, urinary tract infection, CVA and immobilization. Malnutrition, muscle wasting, gait ataxia, encephalopathy -PT and OT evaluation -fall precaution -needs placement in a facility, which he has been declining -dietary consult 6. Elevated liver enzymes, acute on chronic, present on Admission. Resolved -the AST was 41 on 06/21 The ALT 26 06/21. On admission AST of 74, ALT 108, bili 1.7 -monitor liver enzymes 7. BPH, chronic, present on admission. -continue tamsulosin. 8. GERD, chronic, present on admission. -continue omeprazole 9. Depression, acute on chronic, present on admission. -per previous MD: patient was unable to provide a level regarding depression symptoms, when patient asked about code status he stated maybe you just shouldn't resuscitate me. I clarified, so you do not wish to be resuscitated, he stated of course I do. Patient struggled to understand the complexities of the discussion. Suicidal ideation unknown at this time. -appreciate psych consult -continue mirtazapine. 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 However he refuses this and today is clearly mentally capable of making his own decisions. He is medically stable for discharge. Quality VTE Deep Vein Thrombosis/Pulmonary Embolism Present on Admission: No
[2020-12-09] MEDS: MIRTAZAPINE 15 MG TABLET 7.5 MG PO (20:03)
[2020-12-09] MEDS: SERTRALINE 50 MG TABLET 25 MG PO (20:04)
[2020-12-09] MEDS: ATORVASTATIN 20 MG TABLET 40 MG PO (20:04)
[2020-12-10 03:00] VITALS: BP 154/91; PULSE 67; RESP 14; TEMP 35.7; O2SAT 96
--- NOTE | 2020-12-10 05:11 | PC.NURSE ---
Patient asleep at time of assessment so did not awaken. Breath sounds diminished but CTA with RA sat of 93%. HRR. BT present and abdomen is soft. Has been incontinent of urine. Is able to turn himself in bed. Gait not currently assessed. FLACC score is 0. Fall risk score is high and bed alarm is activated.
[2020-12-10] MEDS: PANTOPRAZOLE DR 40 MG TABLET PO (06:44)
[2020-12-10 07:30] VITALS: O2SAT 95
[2020-12-10 07:58] VITALS: BP 121/71; PULSE 65; RESP 13; TEMP 36.3; O2SAT 95
--- NOTE | 2020-12-10 08:03 | PM.DS.1 ---
History of Present Illness History of Present Illness Chief complaint: failure to thrive Narrative: Per Codi Will: Patient is a 75-year-old male Anthony Saul with history of alcohol use disorder, Wernicke encephalopathy who apparently has not been eating or drinking for at least the last week, unwilling to get out of bed, his neighbor has been checking on him over the last 3 weeks with increasing concerns and increasing apathy an inability to care for self. Medics found him covered in stool and lying in urine. He is completely apathetic and uninterested in caring for himself does not seem to realize the state that he is in and clearly isn't recognizing that he is not eating or drinking. He was admitted in June for overall weakness and then admitted a 2nd time after a fall immediately after discharge. He has mirtazapine and tamsulosin and omeprazole prescribed none of which he is currently taking. He states that he is not hurting he is aware that he is in [facility] he is not quite sure why, he notes that he has not had any alcohol to drink for a number of weeks and that he does live by himself and reports that he in fact has not been getting out of bed or eating or drinking. He states that he had continued falls several times a week for several weeks in which he felt it was prudent to stay in bed to avoid falling. Patient is able to tell me that he has been incontinent of stool and urine for several weeks as well. When inquiring about falls patient reports that he may have fallen and hit his head with a loss of consciousness and claims a possible concussion a few weeks ago. He is able to answer direct questions but not offer any insight. Patient denies at this time any chest pain, shortness of breath, abdominal pain, headache, changes in vision, nausea, vomiting, numbness, or tingling. When I inquired about fever body aches or chills the patient stated I don't know how to answer that question. Patient also reports he may have been incontinent of stool but is unsure, the patient had been incontinent of liquid stool. Upon admit patient's vitals are stable at a BP 143/76, HR 63, R 19, O2 saturation 96% on room air. Patient's hemoglobin is elevated at 18.9 and hematocrit of 55.6, neutrophils a 1000, his sodium is mildly decreased at 133, glucose 113, low total creatinine kinase 24, total protein 8.3, ammonia was negative, but urine was positive for ketones, bili, and many bacteria, and sent for culture. Patient's liver enzymes were mildly elevated with a total bilirubin of 1.7, AST 74, ALT 108. Patient's procalcitonin was 0.12. Patient's weight is down by approximately 20 lb, with a current BMI of 24.3 since June of 2020. Patient's chest x-ray showed no acute pulmonary processes, and his EKG was normal sinus rhythm with a rate of [address] or T-wave changes. Patient admitted for encephalopathy, acute dehydration secondary to acute UTI, in gait instability. Discharge Providers Provider Date of admission: 12/04/20 17:08 Discharge Date: 12/10/20 Consults: 12/04/20 19:45 Consult to Dietitian, Adult Routine Comment: Reason For Exam: ETOH abuse/under weight 12/05/20 10:22 Consult to Physical Therapy Evaluate & Treat Comment: Has been living at home alone. Physician Instructions: Evaluate and Treat 12/05/20 10:23 Consult to Occupational Therapy Evaluate & Treat Comment: Has been living at home alone Physician Instructions: Evaluate and treat 12/06/20 22:39 Consult to Speech Therapy Evaluate & Treat Comment: Dysphagia Physician Instructions: Evaluate and treat 12/09/20 08:32 Consult to Physical Therapy Evaluate & Treat Comment: Pt talked with dtr, said he will paticipate Physician Instructions: Evaluate and Treat 12/09/20 08:33 Consult to Occupational Therapy Evaluate & Treat Comment: Pt spoke with dtr, said he will participate Physician Instructions: Evaluate and treat Consult to Speech Therapy Evaluate & Treat Comment: pt spoke with dtr, said he will participate Physician Instructions: Evaluate and treat Discharge provider: Floyd Gillespie MD Summary Hospital Course Discharge Diagnosis: 1. Alcoholic dementia, depression 2. Acute encephalopathy 2. Acute right frontal CVA 3. UTI 4. Chronic alcohol abuse 5. Weakness and malnutrition 6. Transaminitis 7. BPH 8. GERD Hospital Course: Mr. Saul initially initially presented with encephalopathy, initially there was concern this was related to his alcohol use. However he was also found to have an acute CVA and UTI. With treatment for both these he did have improvement in his encephalopathy. Initially he was not participating in any manner with his medical care, refusing all care, and not talking to medical staff. However, towards the end of his hospital stay he began participating. He was clear he did not want placement in any facility and wanted to go home. He was evaluated by psychiatry who felt that patient also had element of depression and recommended starting sertraline. On psychiatry exam, patient was noted to have no reason to hold against his will, I agree with this assessment as patient was telling clearly what he wanted, how he would care for himself at home. However, there are concerns about his ability to care for himself at home. Social work was involved to file APS report, to get wellness checks on him. He was sent with medications for his stroke, depression, and alcohol abuse, but it is unclear and unlikely that the patient will take them. Exam Vital Signs (past 8 hours): Oxygen Delivery Method Room Air Oxygen Flow Rate 0 Narrative Exam Narrative: EN: does not appear distressed PSYCH: guarded with answes r, however he does answer slowly but appropriately to questions CV: RRR with no murmurs PULM: clear to auscultation bilaterally EXT: with no edema NEURO: unable to fully assess as patient does not participate in full exam Objective Labs Result Diagrams: 12/08/20 05:10 12/08/20 05:10 [facility] Medical History Alcohol abuse Anxiety Cerebral atrophy Chest pain (03/25/18) Dehydration (03/25/18) Depression Erectile dysfunction Essential hypertension Gastritis History of anemia History of liver injury History of pulmonary embolism Inguinal hernia Intrahepatic biloma Metabolic acidosis Personal history of peptic ulcer disease Wernicke-Korsakoff syndrome (alcoholic) Surgical History History of colonoscopy (2014) History of esophagogastroduodenoscopy (EGD) (2014) History of esophagogastroduodenoscopy (EGD) (04/26/18) History of left hip replacement History of shoulder surgery History of total right knee replacement (TKR) Family History Father Cancer Family/Other No problems noted. Mother Cancer Sister No problems noted. Social History marital status: household members: none housing: house Smoking Status: Former smoker alcohol intake: current Discharge Plan Discharge Plan Patient Disposition: Home Provider Discharge Comment: Mr. Saul came in with confusion and weakness. He was found to have a stroke. He has a significant alcohol abuse history and appears to have permanent brain compromise from drinking alcohol. He was offered rehab placement but he refused. He refused many medical treatments here. He intermittently refused physical therapy, occupational therapy, speech therapy. He likely needs 24 hour care at home but he says he does not want anyone to come to his house. He was seen by psychiatry who determine he had capacity to make his own medical decisions. Discharge orders & Medications Prescriptions: New atorvastatin [Lipitor] 20 mg Tablet 40 mg PO BEDTIME Qty: 30 RF: 0 aspirin 81 mg Tablet,Delayed Release (Dr/Ec) 81 mg PO DAILY Qty: 30 RF: 0 folic acid 1 mg Tablet 1 mg PO DAILY Qty: 30 RF: 0 sertraline [Zoloft] 50 mg Tablet 25 mg PO BEDTIME Qty: 30 RF: 0 Continued tamsulosin 0.4 mg Capsule 0.4 mg PO DAILY RF: 0 Medication counseling provided by Pharmacist: Yes Pharmacist Comment: Reviewed new rx with patient but patient unable to verbalize understanding. Not sure how much of the information the patient was able to retain. Would recommend repeating the counseling with the patient's caregiver if possible. Diet/Activity/Treatments Diet: Diet as Tolerated Visit Report/Discharge Packet Instructions: Urinary Tract Infection, Dehydration Quality VTE Deep Vein Thrombosis/Pulmonary Embolism Present on Admission: No MIPS - DC The patient has current or prior documentation of left ventricular ejection fraction (LVEF) less than 40%, or moderate or severely depressed left ventricular systolic function.: No
[2020-12-10] MEDS: ASPIRIN EC 81 MG TABLET PO (08:37)
[2020-12-10] MEDS: TAMSULOSIN 0.4 MG CAPSULE PO (08:37)
[2020-12-10] MEDS: FOLIC ACID 1 MG TABLET PO (08:37)
[2020-12-10] MEDS: MULTIVITAMIN 1 TABLET 1 TAB PO (08:37)
[2020-12-10] MEDS: ACETAMINOPHEN 325 MG TABLET 650 MG PO (08:37)
--- NOTE | 2020-12-10 09:42 | OT.IPNOTE ---
Attempted to see pt for OT services. Pt declined all activity at this time. No OT services rendered. Plan is for d/c home today.
--- NOTE | 2020-12-10 10:01 | CM.DPNOTE ---
Addendum entered by Isabel Cote 12/10/20 14:58: Faxed referral packet to [facility]'s request and received fax confirm. Isabel Cote CM Asst. Original Note: Faxed referral packet to [facility]'s request. Received confirm. Isabel Cote CM Asst.
--- NOTE | 2020-12-10 10:49 | PT-IP ANOTE ---
Pt refused to work with PT and when asked if this TOOLROOM CHECKER could return later to check on him, he stated NO. Informed RN of pt's refusal.
[2020-12-10 11:16] VITALS: BP 128/70; PULSE 68; RESP 16; TEMP 36.4; O2SAT 97
[2020-12-10] MEDS: THIAMINE 100 MG TABLET PO (12:43)
--- NOTE | 2020-12-10 14:38 | CM.DPNOTE ---
DCP Note According to Dr Gillespie, patient medically stable for DC and wants to return home. Patient deemed decisional by Dr Arroyo, psychiatrist. Met w/patient yesterday afternoon and this morning, sat w/patient, spoke quietly and allowed patient time to respond, patient will not speak to this CONTENT DEVELOPMENT SPECIALIST. Patient stares at this CONTENT DEVELOPMENT SPECIALIST or closes eyes. Worked on following on patient's behalf today: -Placed call to chaplain Delgado, requested he visit patient before DC, supportive visit. -Placed call to [facility] and [facility], both have to decline this HH referral stating patient is not safe to return home Awaiting CB from [facility] -Completed an APS report online for concern about self neglectful behaviors and safety concern about DC home alone, confirmation #[id number] -Placed call to Clay Chavez, community electric motor and generator assembler with the [facility] cell P# [phone], had to LM requesting CB to discuss this patient -Placed call to patient's neighbor Derick Omalley P# [phone], he can pick patient up this evening after work, at approx. [phone] Plan: DC home today, patient is not agreeable to SNF stay, no HH agency arranged at this time Connected now w/Clay Chavez w/the [facility] 1530; he will attempt to see patient Sunday if patient has not returned to the ED/IH ALISE Walsh and team updated JW
--- NOTE | 2020-12-10 17:04 | ST.IPDYTX ---
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 Treatment Liquids Trialed Thin,[place] Solids Trialed Mechanical Soft Administration Type Tea Spoon,Cup Single Sip,Cup Consecutive Sips,Straw,Self- Feeding Oral Strategies Upright at 90 degrees, Controlled Bite/Sip Size Pharyngeal Strategies Sitting Upright (90 deg) Treatment Activities Pt proceeded to consume meal without the need for assistance. Pt reported that the lunch was great today. Pt presented with a good rotary chew and prompt swaloow . Good hyolaryngeal elevation via palpation. No wet voicing, pt did not cough or choke. No wet voicing. Pt safely tolerating current diet. Will d/c ST at this time Assessment Patient Response to Treatment Good Diet Recommendations Recommendations Continue Current Diet Treatment Plan Placement Recommendation after Discharge [facility],Home with Home Health Appropriate for Continued Therapy No
[2020-12-10 18:00] VITALS: O2SAT 97
--- NOTE | 2020-12-10 21:13 | PC.NURSE ---
Discharge Note- Patient discharged [facility]. Patient called a friend for ride home. discharge instructions and education reviewed with jailynt had signed. Fpound patient sweat pants and a sweat shirt to go home in. Faxed Rx's to [facility] per patients request. Patient taken via wheelchair to private car at 1800. Patient able to transfer from wheelchair to car with assistance. Gave patient acute care chris isaac
--- NOTE | 2020-12-10 21:22 | PC.NURSE ---
Gave patient acute care phone number to call me this evening if he had any questions.
--- NOTE | 2020-12-13 12:07 | CM.DPNOTE ---
Late Entry: Loan from [facility] called and was looking for order. She received all other clinicals. Dr. Boateng was the physician on the FS. Teodora asked me to call Loan and to have her ask for the order from [facility]. Loan had the phone number. Loan said she would contact them. Isabel Cote CM Asst.
== END 2020-12-10 18:00 | disposition home or self-care (01) | DRG 70 ==
LOC: ED 16:56 → AC 17:09
PROVIDERS: Internal Medicine; Nurse Practitioner Family; Admitting Provider Internal Medicine; Emergency Provider Emergency Medicine; Referring Provider Emergency Medicine; Visit Provider Internal Medicine
DX: G93.40 Encephalopathy, unspecified (principal); I63.9 Cerebral infarction, unspecified; N39.0 Urinary tract infection, site not specified; E46 Unspecified protein-calorie malnutrition; E86.0 Dehydration; Y90.0 Blood alcohol level of less than 20 mg/100 ml; R74.01 Elevation of levels of liver transaminase levels; F10.97 Alcohol use, unspecified with alcohol-induced persisting dementia; N40.0 Benign prostatic hyperplasia without lower urinary tract symptoms; K21.9 Gastro-esophageal reflux disease without esophagitis; F32.9 Major depressive disorder, single episode, unspecified; I10 Essential (primary) hypertension; Z20.822 Contact with and (suspected) exposure to COVID-19; Z91.81 History of falling; Z68.24 Body mass index [BMI] 24.0-24.9, adult
CPT/HCPCS: 36415; 51702; 70450; 70551; 71045; 80048; 80053; 80320; 80321; 81001; 82140; 82550; 82607; 83605; 83690; 83735; 84145; 84425; 85007; 85025; 85027; 87040; 87077; 87086; 87635; 90792; 92526; 92610; 93005; 94760; 96361; 96374; 97162; 97167; 97535; 99232; 99284; C9803; J0696; J1650; J3475